=== PATIENT | female | born 1940 | race Caucasian/White ===

== ENCOUNTER 2020-07-07 14:01 | Outpatient (REF) | payer MEDICARE, OTHER, SELFPAY ==
--- NOTE | 2020-07-07 14:13 | XR_ITS ---
EXAMINATION: XR CHEST CLINICAL INFORMATION: Cough COMPARISON: 11/20/2016 TECHNIQUE: 2 views of the chest were obtained. FINDINGS: The lungs are well expanded. There is no focal consolidation, edema, or effusion. No pneumothorax. The cardiomediastinal silhouette is within normal limits. No acute osseous abnormality. Degenerative changes of the shoulders noted. XR/XR chest 2V IMPRESSION: Clear lungs.
== END 2020-07-07 14:02 | disposition home or self-care (01) ==
LOC: HO.XRAY 14:01
PROVIDERS: PCP Internal Medicine; Visit Provider Hospitalist
DX: R05 Cough (principal)
CPT/HCPCS: 71046

== ENCOUNTER → 2020-08-24 08:49 | Outpatient (BNVA) | payer MEDICARE, OTHER, SELFPAY | PROVIDERS: PCP Internal Medicine; Visit Provider Hospitalist | DX: J44.9 Chronic obstructive pulmonary disease, unspecified (principal); J30.9 Allergic rhinitis, unspecified; R05 Cough | CPT/HCPCS: 99212 ==

== ENCOUNTER → 2020-11-23 08:54 | Outpatient (BNVA) | payer MEDICARE, OTHER, SELFPAY | PROVIDERS: PCP Internal Medicine; Visit Provider Hospitalist | DX: J44.9 Chronic obstructive pulmonary disease, unspecified (principal); J30.9 Allergic rhinitis, unspecified; R05 Cough; Z79.51 Long term (current) use of inhaled steroids; Z79.899 Other long term (current) drug therapy; Z87.891 Personal history of nicotine dependence | CPT/HCPCS: 99212 ==

== ENCOUNTER 2021-06-23 14:22 | Outpatient (REF) | payer MEDICARE, OTHER, SELFPAY ==
--- NOTE | ~2021-06-23 | XR_ITS ---
EXAMINATION: XR CHEST CLINICAL INFORMATION: Cough COMPARISON: Previous chest x-rays most recent June [address] October 2011 TECHNIQUE: 2 views of the chest were obtained. FINDINGS: The cardiac and mediastinal contours are stable. The lung volumes are low. There are increased peripheral interstitial markings in the right upper lobe and left midlung. The lungs are otherwise clear. There is no pleural effusion or pneumothorax. There are degenerative changes of the spine. XR/XR chest 2V IMPRESSION: Low lung volumes. Increased interstitial markings in the right upper lobe and left midlung. Differential would include interstitial lung disease and resolving infiltrates.
== END 2021-06-23 14:23 | disposition home or self-care (01) ==
LOC: HO.XRAY 14:22
PROVIDERS: PCP Internal Medicine; Visit Provider Hospitalist
DX: J44.9 Chronic obstructive pulmonary disease, unspecified (principal); J30.9 Allergic rhinitis, unspecified; J40 Bronchitis, not specified as acute or chronic; R05.9 Cough, unspecified
CPT/HCPCS: 71046; 99212

== ENCOUNTER 2021-08-02 08:50 | Outpatient (REF) | payer MEDICARE, OTHER, SELFPAY ==
--- NOTE | ~2021-08-02 | MM_ITS ---
EXAMINATION: MM SCREENING DIGITAL BREAST TOMOSYNTHESIS, BILATERAL CLINICAL INFORMATION: Screening. Asymptomatic. The lifetime risk of breast cancer based on the Tyrer-Cuzick Model is 5%. COMPARISON: Mammography: 08/28/2019, 07/20/2015 TECHNIQUE: Digital breast tomosynthesis is performed in both the craniocaudal and mediolateral oblique views along with computer-aided detection (CAD). Synthesized 2D images are generated from the tomosynthesis. Additional left CC view is provided. FINDINGS: The breasts are almost entirely fatty (ACR BI-RADS breast composition Category a). Background stromal markings are similar to previous studies. There are no significant masses, abnormal calcifications, or other abnormalities. MM/MM tomosynthesis screening BI IMPRESSION: No mammographic evidence of malignancy. ASSESSMENT: BI-RADS 1: Negative RECOMMENDATION: Routine annual mammography screening. This patient's information was entered into a reminder system with a target due date for their next mammogram.
== END 2021-08-02 08:51 | disposition home or self-care (01) ==
LOC: HO.MAMMO 08:50
PROVIDERS: Visit Provider Internal Medicine
DX: Z12.31 Encounter for screening mammogram for malignant neoplasm of breast (principal)
CPT/HCPCS: 77063; 77067

== ENCOUNTER → 2021-12-26 09:49 | Outpatient (BNVA) | payer MEDICARE, OTHER, SELFPAY | PROVIDERS: PCP Internal Medicine; Visit Provider Hospitalist | DX: Z13.89 Encounter for screening for other disorder (principal) | CPT/HCPCS: 99212 ==

== ENCOUNTER 2021-12-26 10:42 | Outpatient (REF) | payer MEDICARE, OTHER, SELFPAY ==
[2021-12-28 14:56] LABS: IgA 335 mg/dL (70-320); IgG 725 mg/dL (600-1540); IgM 75 mg/dL (50-300)
[2021-12-30 07:26] LABS: Rast Allergen SEE NOTES
[2022-01-01 14:36] LABS: Asperg fumigatus Precip Abs NEGATIVE (NEGATIVE); Micropoly faeni Abs NEGATIVE (NEGATIVE); Pigeon serum Abs NEGATIVE (NEGATIVE); Saccharo pora viridis Abs NEGATIVE (NEGATIVE); Thermo candidus Abs NEGATIVE (NEGATIVE); Thermoa vulgaris #1 NEGATIVE (NEGATIVE)
== END 2021-12-26 10:43 | disposition home or self-care (01) ==
LOC: HO.LAB 10:42
PROVIDERS: PCP Internal Medicine; Visit Provider Hospitalist
DX: J44.9 Chronic obstructive pulmonary disease, unspecified (principal); J40 Bronchitis, not specified as acute or chronic; R91.8 Other nonspecific abnormal finding of lung field; M85.80 Other specified disorders of bone density and structure, unspecified site; J45.909 Unspecified asthma, uncomplicated; R05.9 Cough, unspecified
CPT/HCPCS: 36415; 82784; 86003; 86331; 86606; 86609; 99212

== ENCOUNTER → 2022-04-03 10:11 | Outpatient (BNVA) | payer MEDICARE, OTHER, SELFPAY | PROVIDERS: PCP Internal Medicine; Visit Provider Hospitalist | DX: J44.9 Chronic obstructive pulmonary disease, unspecified (principal); J30.9 Allergic rhinitis, unspecified; J84.9 Interstitial pulmonary disease, unspecified | CPT/HCPCS: 99212 ==

== ENCOUNTER 2022-10-03 09:25 | Outpatient (REF) | payer MEDICARE, OTHER, SELFPAY ==
--- NOTE | ~2022-10-03 | XR_ITS ---
EXAMINATION: XR CHEST CLINICAL INFORMATION: Interstitial pulmonary disease COMPARISON: 06/23/2021 TECHNIQUE: 2 views of the chest were obtained. FINDINGS: Lungs are chronically hyperinflated. The nonspecific reticular and/or reticulonodular opacities in both lungs remain similar in appearance compared to 06/23/2021. No evidence of acute disease superimposed on the chronic disease. No consolidation or pleural effusion. Cardiac silhouette has normal size and contour. Pulmonary vasculature is unremarkable. The visualized bones are intact. XR/XR chest 2V IMPRESSION: Chronic reticular/reticulonodular opacities of both lungs remain similar in appearance compared to 06/23/2021.
== END 2022-10-03 09:26 | disposition home or self-care (01) ==
LOC: HO.XRAY 09:25
PROVIDERS: PCP Internal Medicine; Visit Provider Hospitalist
DX: Z01.811 Encounter for preprocedural respiratory examination (principal); J44.9 Chronic obstructive pulmonary disease, unspecified; J84.9 Interstitial pulmonary disease, unspecified; J30.9 Allergic rhinitis, unspecified
CPT/HCPCS: 71046; 94010; 94618; 99212

== ENCOUNTER 2023-04-05 09:23 | Outpatient (AMB) | payer MEDICARE, OTHER, SELFPAY ==
--- NOTE | 2023-04-05 09:25 | MHC.OFFVIS ---
Intake Vital Signs 04/05/23 09:26 Height 5 ft 5 in Weight 159 lb 13.362 oz BMI 26.6 BP 124/52 L Blood Pressure Location Lt brachial Position Sitting Pulse 77 Pulse Source Pulse Oximeter Pulse Oximetry (%) 98 Oxygen Delivery Method Room Air Intake Visit Reasons: COPD Allergies No Known Allergies Allergy (Unknown, Verified 04/05/23 09:27) NOT APPLICABLE HPI HPI Comments History of Present Illness Details The patient is a 82-year-old woman known chronic rhinitis and also asthma COPD overlap syndrome. Her respiratory status has been stable over the summer. She has not required any prednisone. She has been starting to complain about nasal congestion and postnasal drip. That usually have she starts. Moderate severity. She has been using her Flonase. She has tried and failed Astelin nasal spray and also Atrovent nasal spray. She does use the Neti pot of but not all the time. She has been using her inhalers although, she does using all the time specially while her breathing is okay. She is concerned about the winter months at this time. 04/03/2022 the patient is here for a pulmonary follow-up visit. Overall she is doing better from a respiratory status. She states that she does have an ENT appointment coming up in the next month or 2. In the meantime she still continues to have a postnasal drip. She notices that the ProAir inhaler does help her significantly. She rather use that in the morning as it does help her expand her lungs better more than the Symbicort. She is still using the Symbicort and also the Spiriva. At this point I think she will do better on Combivent based on the fact that she likes to use the short-acting bronchodilators. I will [facility] her [facility] to [facility] the Spiriva. The patient does have some issues with musculoskeletal issues including the are right shoulder significantly painful. She is going to follow up with her orthopedist for that. I did recommend she see Pain Management which may provide her with other alternatives for pain control. Seems to be very uncomfortable. On examination she does have bilateral bibasilar rales. The patient is on chest x-rays demonstrated some degree of interstitial reticulonodular opacities suggesting some mild degree of interstitial lung disease. She has not had any worsening dyspnea on exertion or any other symptoms to suggest progression of his inteterstitial lung disease. Prior to the next visit have her get a chest x-ray to address that issue. If she develops any worsening symptoms prior to that she is to call for an evaluation. 10/03/2022 the patient is here for a pulmonary follow-up visit. The patient overall has been doing well from a respiratory status. Denies any worsening of her respiratory symptoms. She continues on the same medications. She has not required any prednisone or antibiotics since we last spoke. Again, urinary evaluation on the with the summer the patient did have an x-ray demonstrating some minimal interstitial changes. In the meantime she did follow-up with Orthopedic surgery for her left shoulder. She did have a CT scan of the left shoulder demonstrating some reticular changes along with some attenuation. This is suggestive of her COPD in addition to some degree of peripheral fibrosis. And a repeat chest x-ray no real significant worsening. Which still waiting for the final read. She is scheduled to undergo a orthopedic surgical procedure for her right shoulder. During the office visit we did have her undergo a 6 minutes walk test and she did great maintaining a pulse ox of 95% with activity and the heart rate in the low 100s. Her dyspnea score was between 3 and 4/10. The patient also underwent a spirometry which is also within normal limits. Therefore, the patient is able to pursue her orthopedic surgery without any pulmonary restrictions. The patient does have mild risk for perioperative pulmonary complications which include atelectasis, hypoxia, pneumonia and prolonged mechanical ventilation. The patient should be provided with pre and post bronchodilator therapy if need be. In the meantime she should also continue with respiratory therapy. Once the patient recovers from her surgery possibly in the fall we will consider getting a CT scan of the chest to further address the interstitial lung changes. The patient did have spirometry in the office demonstrating no obstructive nor restrictive lung disease. Lung capacity is excellent. 04/05/2023 the patient is here for pulmonary follow-up visit. She is complaining of worsening nasal congestion postnasal drip and cough. Moderate severity. It has been happening for the last couple months. She has not had a good summer because of it. Denies any fevers or chills. The mucus tends to be on a clear side. A lot of it is thin sometimes gets a little thicker. She has tried multiple nasal sprays in the past. She did not tolerate Astelin nasal spray. There was a question of having issues with ipratropium nasal spray but I do believe at this time she can use it as needed. She is using the Flonase as well. She continues using nebulizer often. She is wondering if she needs prednisone. The patient does have significant postnasal drip on examination. Appears within. 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 I did look at her last chest x-ray in appears to show some interstitial changes although chronic. If the patient continues to be symptomatic after the treatment will consider getting CAT scan of the chest. The patient was start antibiotics for chronic bronchitis and chronic sinusitis. I was prescribed some prednisone should she can use if the antibiotics are not effective. [facility] Medical History (Updated 10/03/22 @ 18:04 by Milton Bustillos MD) Asthma-COPD overlap syndrome Bronchitis Chronic allergic rhinitis Chronic allergic rhinitis Cough ILD (interstitial lung disease) Osteopenia Surgical History (Updated 12/26/21 @ 09:35 by Marisabel Dickinson PA-C) History of colonoscopy Social History (Updated 06/23/21 @ 14:33 by [place] NENA Freitas) Patient Tobacco Use Status: Former Tobacco user Tobacco use type: Cigarette Years Smoked: 20 years Review of Systems Const Denies chills, Denies fever(s) and Denies night sweats ENT Denies change in voice, Denies lip swelling, Denies mouth pain, Reports nasal congestion, Reports nasal discharge, Reports post nasal drip, Reports sinus pressure and Denies tongue swelling Card Denies chest pain and Reports dyspnea on exertion Resp Denies change in phlegm color, Reports chest congestion, Reports cough, Denies hemoptysis, Denies pain on inspiration, Denies pain with cough, Reports dyspnea on exertion and Denies wheezing GI Denies abdominal pain Musc Reports arthralgias, Reports joint swelling and Reports limited range of motion Neuro Denies Neuro-related abnormal movements Psych Denies no additional complaints Angelo/Lymph Denies easy bleeding and Denies lymphadenopathy Aller/Immun Denies lip swelling, Denies tongue swelling and Denies wheezing Physical Exam Vital Signs: Last Vital Signs Pulse 77 04/05/23 09:26 BP 124/52 L 04/05/23 09:26 Pulse Ox 98 04/05/23 09:26 Oxygen Delivery Method Room Air 04/05/23 09:26 BMI result Body Mass Index 26.6 Const General: alert HEENT General nose exam: Nasal discharge present Neck Neck: Yes normal visual inspection, Yes full ROM and Yes no lymphadenopathy Chest Chest palpation & inspection: normal inspection of the chest Resp Auscultation: no rales, no rhonchi, no wheezes and diminished lung sounds Cardio Rate: regular rate Rhythm: regular rhythm Heart sounds: S1 normal heart sound present and S2 normal heart sound present GI Palpation (GI): Soft to palpation and nontender Auscultation: normal bowel sounds Skin General skin exam: rashes and/or lesions noted Assessment & Plan Assessment & Plan (1) Asthma-COPD overlap syndrome: Code(s): J44.9 - Chronic obstructive pulmonary disease, unspecified (2) ILD (interstitial lung disease): Comment: minimal scarring Code(s): J84.9 - Interstitial pulmonary disease, unspecified (3) Chronic allergic rhinitis: Code(s): J30.9 - Allergic rhinitis, unspecified (4) Chronic allergic rhinitis: Code(s): J30.9 - Allergic rhinitis, unspecified Plan Continue Symbicort continue spiriva DAWSON as needed continue Singulair nasal sprays Add Ipratropium start Azithromycin MWF x 6-8 weeks Prednisone if no better or worsens Benzonates as needed, Goodrx card provided Consider CT chest in the Fall 2022 to assess ILD F/U2-3 months Medications: New azithromycin Take 1 tablet on Saturday/Saturday/Saturday 250 mg PO 3XW 28 days 12 tabs 1RF K21.9 - Gastro-esophageal reflux disease without esophagitis ipratropium bromide administer into each nostril 2 sprays intranasal TID PRN 15 mL 6RF allergy symptoms benzonatate 200 mg PO BID 30 days PRN 60 caps 0RF cough albuterol sulfate 90 mcg/actuation 2 inhalations inhalation Q6H 30 days PRN 18 grams 12RF shortness of breath or wheezing J44.9 - Chronic obstructive pulmonary disease, unspecified levalbuterol HCl 1.25 mg (3 mL) inhalation BID 30 days 180 mL 0RF J44.9 - Chronic obstructive pulmonary disease, unspecified prednisone PO daily; Take 2 tabs daily x 5 days, then 1 tablet daily x 5 days 15 tabs 0RF 10 days Refilled budesonide-formoterol 160-4.5 mcg/actuation (Symbicort) 2 puffs inhalation BID 90 days 3 ea 3RF J44.9 - Chronic obstructive pulmonary disease, unspecified Coding Level of Care Code Est Pt Level 4 (35143) Diagnoses Asthma-COPD overlap syndrome J44.9 ILD (interstitial lung disease) J84.9 Chronic allergic rhinitis J30.9 Time Spent (min) 20
[2023-04-05 09:26] VITALS: BP 124/52; PULSE 77; O2SAT 98; BMI 26.6
== END 2023-04-05 09:49 | disposition home or self-care (01) ==
PROVIDERS: PCP Internal Medicine; Visit Provider Hospitalist
DX: J44.9 Chronic obstructive pulmonary disease, unspecified (principal); J84.9 Interstitial pulmonary disease, unspecified; J30.9 Allergic rhinitis, unspecified
CPT/HCPCS: 99214

== ENCOUNTER → 2023-04-05 09:23 | Outpatient (BNVA) | payer MEDICARE, OTHER, SELFPAY | PROVIDERS: PCP Internal Medicine; Visit Provider Hospitalist | DX: J84.9 Interstitial pulmonary disease, unspecified (principal); J44.9 Chronic obstructive pulmonary disease, unspecified; Z79.52 Long term (current) use of systemic steroids; Z79.899 Other long term (current) drug therapy | CPT/HCPCS: 99212 ==

== ENCOUNTER 2023-07-09 09:01 | Outpatient (AMB) | payer MEDICARE, OTHER, SELFPAY ==
[2023-07-09 09:05] VITALS: BP 128/60; PULSE 88; O2SAT 95; BMI 26.3
--- NOTE | 2023-07-09 09:05 | A.OFFVIS_ITS ---
Intake Vital Signs 07/09/23 09:05 Height 5 ft 5 in Weight 158 lb BMI 26.3 BP 128/60 Blood Pressure Location Rt brachial Position Sitting Pulse 88 Pulse Source Pulse Oximeter Pulse Oximetry (%) 95 Oxygen Delivery Method Room Air Intake Visit Reasons: COPD Media Analyst Required: No Allergies No Known Allergies Allergy (Unknown, Verified 07/09/23 09:08) NOT APPLICABLE HPI HPI Comments History of Present Illness Details The patient is a 83-year-old woman known chronic rhinitis and also asthma COPD overlap syndrome. Her respiratory status has been stable over the summer. She has not required any prednisone. She has been starting to complain about nasal congestion and postnasal drip. That usually have she starts. Moderate severity. She has been using her Flonase. She has tried and failed Astelin nasal spray and also Atrovent nasal spray. She does use the Neti pot of but not all the time. She has been using her inhalers although, she does using all the time specially while her breathing is okay. She is concerned about the winter months at this time. 04/03/2022 the patient is here for a pulm onary follow-up visit. Overall she is doing better from a respiratory status. She states that she does have an ENT appointment coming up in the next month or 2. In the meantime she still continues to have a postnasal drip. She notices that the ProAir inhaler does help her significantly. She rather use that in the morning as it does help her expand her lungs better more than the Symbicort. She is still using the Symbicort and also the Spiriva. At this point I think she will do better on Com bivent based on the fact that she likes to use the short-acting bronchodilators. I will send her the [facility] to [facility] the Spiriva. The patient does have some issues with musculoskeletal issues including the are right shoulder significantly painful. She is going to follow up with her orthopedist for that. I did recommend she see Pain Management which may provide her with other alternatives for pain control. Seems to be very uncomfortable. On examination she does have bilateral bibasilar rales. The patient is on chest x-rays demonstrated some degree of interstitial reticulonodular opacities suggesting some mild degree of interstitial lung disease. She has not had any worsening dyspnea on exertion or any other symptoms to suggest progression of his inteterstitial lung disease. Prior to the next visit have her get a chest x- ray to address that issue. If she develops any worsening symptoms prior to that she is to call for an evaluation. 10/03/2022 the patient is here for a pulm onary follow-up visit. The patient overall has been doing well from a respiratory status. Denies any worsening of her respiratory symptoms. She continues on the same medications. She has not required any prednisone or antibiotics since we last spoke. Again, urinary evaluation on the with the summer the patient did have an x-ray demonstrating some minimal interstitial changes. In the meantime she did follow-up with Orthopedic surgery for her left shoulder. She did have a CT scan of the left shoulder demonstrating some reticular changes along with some attenuation. This is suggestive of her COPD in addition to some degree of peripheral fibrosis. And a repeat chest x-ray no real significant worsening. Which still waiting for the final read. She is scheduled to undergo a orthopedic surgical procedure for her right shoulder. During the office visit we did have her undergo a 6 minutes walk test and she did great maintaining a pulse ox of 95% with activity and the heart rate in the low 100s. Her dyspnea score was between 3 and 4/10. The patient also underwent a spirometry which is also within normal limits. Therefore, the patient is able to pursue her orthopedic surgery without any pulmonary restrictions. The patient does have mild risk for perioperative pulmonary complications which include atelectasis, hypoxia, pneumonia and prolonged mechanical ventilation. The patient should be provided with pre and post bronchodilator therapy if need be. In the meantime she should also continue with respiratory therapy. Once the patient recovers from her surgery possibly in the fall we will consider getting a CT scan of the chest to further address the interstitial lung changes. The patient did have spirometry in the office demonstrating no obstructive nor restrictive lung disease. Lung capacity is excellent. 04/05/2023 the patient is here for pulmon alejandro follow-up visit. She is complaining of worsening nasal congestion postnasal drip and cough. Moderate severity. It has been happening for the last couple months. She has not had a good summer because of it. Denies any fevers or chills. The mucus tends to be on a clear side. A lot of it is thin sometimes gets a little thicker. She has tried multiple nasal sprays in the past. She did not tolerate Astelin nasal spray. There was a question of having issues with ipratropium nasal spray but I do believe at this time she can use it as needed. She is using the Flonase as well. She continues using nebulizer often. She is wondering if she needs prednisone. The patient does have significant postnasal drip on examination. Appears within. 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 I did look at her last chest x-ray in appears to show some interstitial changes although chronic. If the patient continues to be symptomatic after the treatment will consider getting CAT scan of the chest. The patient was start antibiotics for chronic bronchitis and chronic sinusitis. I was prescribed some prednisone should she can use if the antibiotics are not effective. 07/09/2023 the patient is here for sick visit. She has been him worsening respiratory symptoms. She states that during the fall months she typically does get worsening chest tightness cough. She did have some prednisone at home she took 20 mg for few days and then decrease down to 10 mg. She took the last dose yesterday. Initially he has had some relief but when she started coming off the prednisone she started having symptoms again. She has a cough for the most part is nonproductive she also harsh and dry. On examination the patient does have some very fine crackles bilaterally suggesting degree of pneumonitis. She denies any sick contacts. His sinuses are also congested. Will go ahead and start her on another course of prednisone and also provide her some doxycycline. I do believe the patient needs a repeat CT scan to follow up with the abnormal chest x-ray and her worsening respiratory symptoms. Depending on the CT scan will do additional blood work. [facility] Medical History (Updated 07/09/23 @ 09:22 by Milton Bustillos MD) Pneumonitis ILD (interstitial lung disease) Chronic allergic rhinitis Osteopenia Bronchitis Asthma-COPD overlap syndrome Chronic allergic rhinitis Cough Surgical History (Updated 12/26/21 @ 09:35 by Marisabel Dickinson PA-C) History of colonoscopy (Updated 06/23/21 @ 14:33 by [place] NENA Freitas) Patient Tobacco Use Status: Former Tobacco user Tobacco use type: Cigarette Years Smoked: 20 years Review of Systems Const Denies chills, Denies fever(s) and Denies night sweats ENT Denies change in voice, Denies lip swelling, Denies mouth pain, Reports nasal congestion, Reports nasal discharge, Reports post nasal drip, Reports sinus pressure and Denies tongue swelling Card Denies chest pain, Reports dyspnea and Reports dyspnea on exertion Resp Denies change in phlegm color, Reports chest congestion, Reports cough, Denies hemoptysis, Denies pain on inspiration, Denies pain with cough, Reports dyspnea, Reports dyspnea on exertion and Reports wheezing GI Denies abdominal pain Musc Reports arthralgias, Reports joint swelling and Reports limited range of motion Neuro Denies Neuro-related abnormal movements Psych Denies no additional complaints Angelo/Lymph Denies easy bleeding and Denies lymphadenopathy Aller/Immun Denies lip swelling, Denies tongue swelling and Reports wheezing Physical Exam Vital Signs: Last Vital Signs Pulse 88 07/09/23 09:05 BP 128/60 07/09/23 09:05 Pulse Ox 95 07/09/23 09:05 Oxygen Delivery Method Room Air 07/09/23 09:05 BMI result Body Mass Index 26.3 Const General: alert HEENT General nose exam: Nasal discharge present Neck Neck: Yes normal visual inspection, Yes full ROM and Yes no lymphadenopathy Chest Chest palpation & inspection: normal inspection of the chest Resp Auscultation: rales, no rhonchi, no wheezes and diminished lung sounds Cardio Rate: regular rate Rhythm: regular rhythm Heart sounds: S1 normal heart sound present and S2 normal heart sound present GI Palpation (GI): Soft to palpation and nontender Auscultation: normal bowel sounds Skin General skin exam: rashes and/or lesions noted Assessment & Plan Assessment & Plan (1) Asthma-COPD overlap syndrome: Code(s): J44.9 - Chronic obstructive pulmonary disease, unspecified (2) ILD (interstitial lung disease): Comment: minimal scarring Code(s): J84.9 - Interstitial pulmonary disease, unspecified (3) Chronic allergic rhinitis: Code(s): J30.9 - Allergic rhinitis, unspecified (4) Chronic allergic rhinitis: Code(s): J30.9 - Allergic rhinitis, unspecified (5) Pneumonitis: Code(s): J98.4 - Other disorders of lung Plan restart prednisone start Doxycycline CT chest Continue Symbicort continue spiriva DAWSON as needed continue Singulair nasal sprays Benzonates as needed, Goodrx card provided F/U 6-8 weeks Orders: Orders CT chest wo IV con Today J84.9 - Interstitial pulmonary disease, unspecified, J98.4 - Other disorders of lung Medications: New prednisone PO daily; Take 4 tabs x 3 days, then 3 tabs x 3 days, then 2 tabs daily x 3 days, then 1 tab x 3 days to complete. 12 days 30 tabs 0RF doxycycline hyclate 100 mg PO BID 10 days 20 caps 0RF Coding Level of Care Code Est Pt Level 4 (78307) Diagnoses Asthma-COPD overlap syndrome J44.9 ILD (interstitial lung disease) J84.9 Chronic allergic rhinitis J30.9 Pneumonitis J98.4 Time Spent (min) 16
== END 2023-07-09 09:30 | disposition home or self-care (01) ==
PROVIDERS: PCP Internal Medicine; Visit Provider Hospitalist
DX: J44.9 Chronic obstructive pulmonary disease, unspecified (principal); J84.9 Interstitial pulmonary disease, unspecified; J30.9 Allergic rhinitis, unspecified; J98.4 Other disorders of lung
CPT/HCPCS: 99214

== ENCOUNTER → 2023-07-09 09:01 | Outpatient (BNVA) | payer MEDICARE, OTHER, SELFPAY | PROVIDERS: PCP Internal Medicine; Visit Provider Hospitalist | DX: J44.9 Chronic obstructive pulmonary disease, unspecified (principal); J84.9 Interstitial pulmonary disease, unspecified; J30.9 Allergic rhinitis, unspecified; J98.4 Other disorders of lung | CPT/HCPCS: 99212 ==

== ENCOUNTER 2023-07-31 07:16 | Outpatient (REF) | payer MEDICARE, OTHER, SELFPAY ==
--- NOTE | ~2023-07-31 | CT_ITS ---
EXAMINATION: CT CHEST WITHOUT CONTRAST CLINICAL INFORMATION: Interstitial pulmonary disease. COMPARISON: Chest radiograph 10/03/2022. CT chest 11/13/2011. TECHNIQUE: Multidetector volumetric CT imaging of the chest was done. Axial MIP volume rendering provided. Sagittal and coronal reformatted images were obtained. This CT examination was performed using dose optimization techniques as appropriate, variously including the following: *Automated exposure control *Adjustment of mA and/or kV according to patient size (this includes techniques or standardized protocols for targeted exams where dose is matched to indication/reason for exam; i.e. extremities or head) *Use of iterative reconstruction technique DLP: 180 mGy-cm FINDINGS: LUNGS: There is subpleural reticulation present, most prominent in the upper lobes anteriorly and the lower lobes posteriorly with associated traction bronchiectasis. These findings are new when compared with the 11/13/2011 study. At that time, there were some patchy ground-glass infiltrates at the lung bases which has subsequently cleared. No significant bullous changes to suggest emphysema are seen. No suspicious lung masses are seen. There is mild tracheobronchial megaly. MEDIASTINUM: Thyroid appears normal. No mediastinal or hilar lymphadenopathy. Calcific plaque present in the aorta without aneurysm. CORONARY ARTERY CALCIFICATION: Moderate. PLEURA: There is no pleural effusion. No pleural mass or thickening. AXILLA: No lymphadenopathy. UPPER ABDOMEN: Unremarkable. OSSEOUS STRUCTURES: Unremarkable. CT/CT chest wo IV con IMPRESSION: 1. Subpleural reticulation with associated traction bronchiectasis. Findings are consistent with interstitial lung disease. 2. Resolution of previously seen ground-glass infiltrates at the lung bases. 3. No suspicious lung masses are seen. 4. Other incidental findings as described above including coronary artery calcifications. Fleischner guidelines were followed.
== END 2023-07-31 07:17 | disposition home or self-care (01) ==
LOC: HO.CT 07:16
PROVIDERS: PCP Internal Medicine; Visit Provider Hospitalist
DX: J84.9 Interstitial pulmonary disease, unspecified (principal); J98.4 Other disorders of lung
CPT/HCPCS: 71250

== ENCOUNTER 2023-09-03 08:40 | Outpatient (AMB) | payer MEDICARE, OTHER, SELFPAY ==
--- NOTE | 2023-09-03 08:47 | MHC.OFFVIS ---
Intake Vital Signs 09/03/23 08:48 Height 5 ft 5 in Weight 165 lb 5.547 oz BMI 27.5 BP 132/64 Blood Pressure Location Lt brachial Position Sitting Pulse 84 Pulse Source Pulse Oximeter Pulse Oximetry (%) 97 Oxygen Delivery Method Room Air Intake Visit Reasons: COPD Allergies No Known Allergies Allergy (Unknown, Verified 09/03/23 08:51) NOT APPLICABLE HPI HPI Comments History of Present Illness Details The patient is a 83-year-old woman known chronic rhinitis and also asthma COPD overlap syndrome. Her respiratory status has been stable over the summer. She has not required any prednisone. She has been starting to complain about nasal congestion and postnasal drip. That usually have she starts. Moderate severity. She has been using her Flonase. She has tried and failed Astelin nasal spray and also Atrovent nasal spray. She does use the Neti pot of but not all the time. She has been using her inhalers although, she does using all the time specially while her breathing is okay. She is concerned about the winter months at this time. 04/03/2022 the patient is here for a pulmonary follow-up visit. Overall she is doing better from a respiratory status. She states that she does have an ENT appointment coming up in the next month or 2. In the meantime she still continues to have a postnasal drip. She notices that the ProAir inhaler does help her significantly. She rather use that in the morning as it does help her expand her lungs better more than the Symbicort. She is still using the Symbicort and also the Spiriva. At this point I think she will do better on Combivent based on the fact that she likes to use the short-acting bronchodilators. I will send her the [facility] to place the Spiriva. The patient does have some issues with musculoskeletal issues including the are right shoulder significantly painful. She is going to follow up with her orthopedist for that. I did recommend she see Pain Management which may provide her with other alternatives for pain control. Seems to be very uncomfortable. On examination she does have bilateral bibasilar rales. The patient is on chest x-rays demonstrated some degree of interstitial reticulonodular opacities suggesting some mild degree of interstitial lung disease. She has not had any worsening dyspnea on exertion or any other symptoms to suggest progression of his inteterstitial lung disease. Prior to the next visit have her get a chest x-ray to address that issue. If she develops any worsening symptoms prior to that she is to call for an evaluation. 10/03/2022 the patient is here for a pulmonary follow-up visit. The patient overall has been doing well from a respiratory status. Denies any worsening of her respiratory symptoms. She continues on the same medications. She has not required any prednisone or antibiotics since we last spoke. Again, urinary evaluation on the with the summer the patient did have an x-ray demonstrating some minimal interstitial changes. In the meantime she did follow-up with Orthopedic surgery for her left shoulder. She did have a CT scan of the left shoulder demonstrating some reticular changes along with some attenuation. This is suggestive of her COPD in addition to some degree of peripheral fibrosis. And a repeat chest x-ray no real significant worsening. Which still waiting for the final read. She is scheduled to undergo a orthopedic surgical procedure for her right shoulder. During the office visit we did have her undergo a 6 minutes walk test and she did great maintaining a pulse ox of 95% with activity and the heart rate in the low 100s. Her dyspnea score was between 3 and 4/10. The patient also underwent a spirometry which is also within normal limits. Therefore, the patient is able to pursue her orthopedic surgery without any pulmonary restrictions. The patient does have mild risk for perioperative pulmonary complications which include atelectasis, hypoxia, pneumonia and prolonged mechanical ventilation. The patient should be provided with pre and post bronchodilator therapy if need be. In the meantime she should also continue with respiratory therapy. Once the patient recovers from her surgery possibly in the fall we will consider getting a CT scan of the chest to further address the interstitial lung changes. The patient did have spirometry in the office demonstrating no obstructive nor restrictive lung disease. Lung capacity is excellent. 04/05/2023 the patient is here for pulmonary follow-up visit. She is complaining of worsening nasal congestion postnasal drip and cough. Moderate severity. It has been happening for the last couple months. She has not had a good summer because of it. Denies any fevers or chills. The mucus tends to be on a clear side. A lot of it is thin sometimes gets a little thicker. She has tried multiple nasal sprays in the past. She did not tolerate Astelin nasal spray. There was a question of having issues with ipratropium nasal spray but I do believe at this time she can use it as needed. She is using the Flonase as well. She continues using nebulizer often. She is wondering if she needs prednisone. The patient does have significant postnasal drip on examination. Appears within. 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 I did look at her last chest x-ray in appears to show some interstitial changes although chronic. If the patient continues to be symptomatic after the treatment will consider getting CAT scan of the chest. The patient was start antibiotics for chronic bronchitis and chronic sinusitis. I was prescribed some prednisone should she can use if the antibiotics are not effective. 07/09/2023 the patient is here for sick visit. She has been him worsening respiratory symptoms. She states that during the fall months she typically does get worsening chest tightness cough. She did have some prednisone at home she took 20 mg for few days and then decrease down to 10 mg. She took the last dose yesterday. Initially he has had some relief but when she started coming off the prednisone she started having symptoms again. She has a cough for the most part is nonproductive she also harsh and dry. On examination the patient does have some very fine crackles bilaterally suggesting degree of pneumonitis. She denies any sick contacts. His sinuses are also congested. Will go ahead and start her on another course of prednisone and also provide her some doxycycline. I do believe the patient needs a repeat CT scan to follow up with the abnormal chest x-ray and her worsening respiratory symptoms. Depending on the CT scan will do additional blood work. 09/03/2023 the patient is here for a pulmonary follow-up visit. Her breathing is overall better. She has not required any additional prednisone or antibiotics. The patient does have some shortness of breath with activity. Mild in severity. Denies any significant cough. The patient has been using the Symbicort and the Spiriva with good effect. Although, the Symbicort is no longer cover so therefore I will send a Dulera to use instead. She did have a CT scan of the chest that we personally reviewed together. It appears that she does have reticular changes in the subpleural area along with the bases suggesting some degree of interstitial lung disease. No evidence of any ground-glass opacities. This could be the result of her underlying pneumonitis that she had back in the fall or the patient may indeed have interstitial lung disease such as idiopathic pulmonary fibrosis specially since I do not see any ground-glass opacities. Will continue to monitor closely for any progression of disease. The fact that she patient is feeling better from the fall is reassuring. She is also dealing with her sick son. He currently at a [facility] waiting for a heart transplant. Will have her return in 4 months with PFTs to see if there is any progression. Will continue to monitor closely. [facility] Medical History (Updated 07/09/23 @ 09:22 by Milton Bustillos MD) Pneumonitis ILD (interstitial lung disease) Chronic allergic rhinitis Osteopenia Bronchitis Asthma-COPD overlap syndrome Chronic allergic rhinitis Cough Surgical History (Updated 12/26/21 @ 09:35 by Marisabel Dickinson PA-C) History of colonoscopy Social History (Updated 06/23/21 @ 14:33 by LA NENA Freitas) Patient Tobacco Use Status: Former Tobacco user Tobacco use type: Cigarette Years Smoked: 20 years Review of Systems Const Denies chills, Denies fever(s) and Denies night sweats ENT Denies change in voice, Denies lip swelling, Denies mouth pain, Reports nasal congestion and Denies tongue swelling Card Denies chest pain and Reports dyspnea on exertion Resp Denies change in phlegm color, Reports cough, Denies hemoptysis, Denies pain on inspiration, Denies pain with cough, Reports dyspnea on exertion and Reports wheezing GI Denies abdominal pain Musc Reports arthralgias, Reports joint swelling and Reports limited range of motion Neuro Denies Neuro-related abnormal movements Psych Denies no additional complaints Angelo/Lymph Denies easy bleeding and Denies lymphadenopathy Aller/Immun Denies lip swelling, Denies tongue swelling and Reports wheezing Physical Exam Vital Signs: Last Vital Signs Pulse 84 09/03/23 08:48 BP 132/64 09/03/23 08:48 Pulse Ox 97 09/03/23 08:48 Oxygen Delivery Method Room Air 09/03/23 08:48 BMI result Body Mass Index 27.5 Const General: alert HEENT General nose exam: Nasal discharge present Neck Neck: Yes normal visual inspection, Yes full ROM and Yes no lymphadenopathy Chest Chest palpation & inspection: normal inspection of the chest Resp Effort & Inspection: normal respiratory effort Auscultation: no rales, no rhonchi, no wheezes and diminished lung sounds Cardio Rate: regular rate Rhythm: regular rhythm Heart sounds: S1 normal heart sound present and S2 normal heart sound present GI Palpation (GI): Soft to palpation and nontender Auscultation: normal bowel sounds Skin General skin exam: no rashes or lesions noted Extrem General: Yes no clubbing, cyanosis or edema Results Reviewed Results Reviewed: [address] [address] [address] Scan Report Signed Patient: Moira Portillo MR#: [id number] : 1940 Acct:[id number] Age/Sex: 83 / F ADM Date: 07/31/23 Loc: HO.CT Attending Dr: Milton Bustillos MD Ordering Physician: Milton Bustillos MD Date of Service: 07/31/23 Procedure(s): CT chest wo IV con Accession Number(s): [id number] cc: Jarrod Smart MD; Milton Bustillos MD~ EXAMINATION: CT CHEST WITHOUT CONTRAST CLINICAL INFORMATION: Interstitial pulmonary disease. COMPARISON: Chest radiograph 10/03/2022. CT chest 11/13/2011. TECHNIQUE: Multidetector volumetric CT imaging of the chest was done. Axial MIP volume rendering provided. Sagittal and coronal reformatted images were obtained. This CT examination was performed using dose optimization techniques as appropriate, variously including the following: *Automated exposure control *Adjustment of mA and/or kV according to patient size (this includes techniques or standardized protocols for targeted exams where dose is matched to indication/reason for exam; i.e. extremities or head) *Use of iterative reconstruction technique DLP: 180 mGy-cm FINDINGS: LUNGS: There is subpleural reticulation present, most prominent in the upper lobes anteriorly and the lower lobes posteriorly with associated traction bronchiectasis. These findings are new when compared with the 11/13/2011 study. At that time, there were some patchy ground-glass infiltrates at the lung bases which has subsequently cleared. No significant bullous changes to suggest emphysema are seen. No suspicious lung masses are seen. There is mild tracheobronchial megaly. MEDIASTINUM: Thyroid appears normal. No mediastinal or hilar lymphadenopathy. Calcific plaque present in the aorta without aneurysm. CORONARY ARTERY CALCIFICATION: Moderate. PLEURA: There is no pleural effusion. No pleural mass or thickening. AXILLA: No lymphadenopathy. UPPER ABDOMEN: Unremarkable. OSSEOUS STRUCTURES: Unremarkable. CT/CT chest wo IV con IMPRESSION: 1. Subpleural reticulation with associated traction bronchiectasis. Findings are consistent with interstitial lung disease. 2. Resolution of previously seen ground-glass infiltrates at the lung bases. 3. No suspicious lung masses are seen. 4. Other incidental findings as described above including coronary artery calcifications. Fleischner guidelines were followed. Dictated By: Evens Coleman MD Signed By: <Electronically signed by Evens Coleman MD in OV> 08/20/23 1000 DD/ 0802 TD/TT: Air Control/Anti Air Warfare Officer: SS Assessment & Plan Assessment & Plan (1) Asthma-COPD overlap syndrome: Code(s): J44.9 - Chronic obstructive pulmonary disease, unspecified (2) ILD (interstitial lung disease): Comment: minimal scarring Code(s): J84.9 - Interstitial pulmonary disease, unspecified (3) Chronic allergic rhinitis: Code(s): J30.9 - Allergic rhinitis, unspecified Plan stop Symbicort start Dulera continue spiriva DAWSON as needed continue Singulair nasal sprays Benzonates as needed, Goodrx card provided PFTs in 4 months F/U 4 months Orders: Orders PFT pulmonary function test 4 Months J84.9 - Interstitial pulmonary disease, unspecified Coding Level of Care Code Est Pt Level 4 (66056) Diagnoses Asthma-COPD overlap syndrome J44.9 ILD (interstitial lung disease) J84.9 Chronic allergic rhinitis J30.9 Time Spent (min) 17
[2023-09-03 08:48] VITALS: BP 132/64; PULSE 84; O2SAT 97; BMI 27.5
== END 2023-09-03 09:08 | disposition home or self-care (01) ==
PROVIDERS: PCP Internal Medicine; Visit Provider Hospitalist
DX: J44.9 Chronic obstructive pulmonary disease, unspecified (principal); J84.9 Interstitial pulmonary disease, unspecified; J30.9 Allergic rhinitis, unspecified
CPT/HCPCS: 99214

== ENCOUNTER → 2023-09-03 08:40 | Outpatient (BNVA) | payer MEDICARE, OTHER, SELFPAY | PROVIDERS: PCP Internal Medicine; Visit Provider Hospitalist | DX: J44.9 Chronic obstructive pulmonary disease, unspecified (principal); J84.9 Interstitial pulmonary disease, unspecified; J30.9 Allergic rhinitis, unspecified | CPT/HCPCS: 99212 ==

== ENCOUNTER 2023-10-17 11:12 | Outpatient (AMB) | payer MEDICARE, OTHER, SELFPAY ==
[2023-10-17 11:16] VITALS: BP 110/60; PULSE 90; O2SAT 92; BMI 25.6
--- NOTE | 2023-10-17 11:16 | A.OFFVIS_ITS ---
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 Her respiratory status has been stable over the summer. She has not required any prednisone. She has been starting to complain about nasal congestion and postnasal drip. That usually have she starts. Moderate severity. She has been using her Flonase. She has tried and failed Ast brian nasal spray and also Atrovent nasal spray. She does use the Neti pot of but not all the time. She has been using her inhalers although, she does using all the time specially while her breathing is okay. She is concerned about the winter months at this time. 04/03/2022 the patient is here for a pulm onary follow-up visit. Overall she is doing better from a respiratory status. She states that she does have an ENT appointment coming up in the next month or 2. In the meantime she still continues to have a postnasal drip. She notices that the ProAir inhaler does help her significantly. She rather use that in the morning as it does help her expand her lungs better more than the Symbicort. She is still using the Symbicort and also the Spiriva. At this point I think she will do better on Combivent based on the fact that she likes to use the short-acting bronchodilators. I will send her the [facility]vent to place the Spiriva. The patient does have some issues with musculoskeletal issues including the are right shoulder significantly painful. She is going to follow up with her orthopedist for that. I did recommend she see Pain Management which may provide her with other alternatives for pain control. Seems to be very uncomfortable. On examination she does have bilateral bibasilar rales. The patient is on chest x- rays demonstrated some degree of interstitial reticulonodular opacities suggesting some mild degree of interstitial lung disease. She has not had any worsening dyspnea on exertion or any other symptoms to suggest progression of his inteterstitial lung disease. Prior to the next visit have her get a chest x-ray to address that issue. If she develops any worsening symptoms prior to that she is to call for an evaluation. 10/03/2022 the patient is here for a pulm onary follow-up visit. The patient overall has been doing well from a respiratory status. Denies any worsening of her respiratory symptoms. She continues on the same medications. She has not required any prednisone or antibiotics since we last spoke. Again, urinary evaluation on the with the summer the patient did have an x-ray demonstrating some minimal interstitial changes. In the meantime she did follow-up with Orthopedic surgery for her left shoulder. She did have a CT scan of the left shoulder demonstrating some reticular changes along with some attenuation. This is suggestive of her COPD in addition to some degree of peripheral fibrosis. And a repeat chest x-ray no real significant worsening. Which still waiting for the final read. She is scheduled to undergo a orthopedic surgical procedure for her right shoulder. During the office visit we did have her undergo a 6 minutes walk test and she did great maintaining a pulse ox of 95% with activity and the heart rate in the low 100s. Her dyspnea score was between 3 and 4/10. The patient also underwent a spirometry which is also within normal limits. Therefore, the patient is able to pursue her orthopedic surgery without any pulmonary restrictions. The patient does have mild risk for perioperative pulmonary complications which include atelectasis, hypoxia, pneumonia and prolonged mechanical ventilation. The patient should be provided with pre and post bronchodilator therapy if need be. In the meantime she should also continue with respiratory therapy. Once the patient recovers from her surgery possibly in the fall we will consider getting a CT scan of the chest to further address the interstitial lung changes. The patient did have spirometry in the office demonstrating no obstructive nor restrictive lung disease. Lung capacity is excellent. 04/05/2023 the patient is here for pulmon alejandro follow-up visit. She is complaining of worsening nasal congestion postnasal drip and cough. Moderate severity. It has been happening for the last couple months. She has not had a good summer because of it. Denies any fevers or chills. The mucus tends to be on a clear side. A lot of it is thin sometimes gets a little thicker. She has tried multiple nasal sprays in the past. She did not tolerate Astelin nasal spray. There was a question of having issues with ipratropium nasal spray but I do believe at this time she can use it as needed. She is using the Flonase as well. She continues using nebulizer often. She is wondering if she needs prednisone. The patient does have significant postnasal drip on examination. Appears within. 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 I did look at her last chest x-ray in appears to show some interstitial changes although chronic. If the patient continues to be symptomatic after the treatment will consider getting CAT scan of the chest. The patient was start antibiotics for chronic bronchitis and chronic sinusitis. I was prescribed some prednisone should she can use if the antibiotics are not effective. 07/09/2023 the patient is here for sick visit. She has been him worsening respiratory symptoms. She states that during the fall months she typically does get worsening chest tightness cough. She did have some prednisone at home she took 20 mg for few days and then decrease down to 10 mg. She took the last dose yesterday. Initially he has had some relief but when she started coming off the prednisone she started having symptoms again. She has a cough for the most part is nonproductive she also harsh and dry. On examination the patient does have some very fine crackles bilaterally suggesting degree of pneumonitis. She denies any sick contacts. His sinuses are also congested. Will go ahead and start her on another course of prednisone and also provide her some doxycycline. I do believe the patient needs a repeat CT scan to follow up with the abnormal chest x-ray and her worsening respiratory symptoms. Depending on the CT scan will do additional blood work. 09/03/2023 the patient is here for a pulm onary follow-up visit. Her breathing is overall better. She has not required any additional prednisone or antibiotics. The patient does have some shortness of breath with activity. Mild in severity. Denies any significant cough. The patient has been using the Symbicort and the Spiriva with good effect. Although, the Symbicort is no longer cover so therefore I will send a Dulera to use instead. She did have a CT scan of the chest that we personally reviewed together. It appears that she does have reticular changes in the subpleural area along with the bases suggesting some degree of interstitial lung disease. No evidence of any ground-glass opacities. This could be the result of her underlying pneumonitis that she had back in the fall or the patient may indeed have interstitial lung disease such as idiopathic pulmonary fibrosis specially since I do not see any ground-glass opacities. Will continue to monitor closely for any progression of disease. The fact that she patient is feeling better from the fall is reassuring. She is also dealing with her sick son. He currently at a [facility] waiting for a heart transplant. Will have her return in 4 months with PFTs to see if there is any progression. Will continue to monitor closely. 05/08/2024 the patient is here for sick v isit. She has been sick now for 3 days. Complains of headaches fever chills cough shortness of breath. Moderate in severity. She is tested negative for COVID-19. She did call the office we did send her a course of antibiotics. Also Center cough syrup but she was not able to get it because his back order. In the meantime she did come in she does have crackles at the bases. We did swab her for RSV, flu and COVID. It turned out positive for RSV. Likely RSV bronchiolitis with some degree of pneumonitis. She continues use her respiratory medications. [facility] Medical History (Updated 10/17/23 @ 12:58 by Milton Bustillos MD) RSV (respiratory syncytial virus pneumonia) Pneumonitis ILD (interstitial lung disease) Chronic allergic rhinitis Osteopenia Bronchitis Asthma-COPD overlap syndrome Chronic allergic rhinitis Cough Surgical History (Updated 12/26/21 @ 09:35 by Marisabel Dickinson PA-C) History of colonoscopy Social History (Updated 06/23/21 @ 14:33 by LA NENA Freitas) Patient Tobacco Use Status: Former Tobacco user Tobacco use type: Cigarette Years Smoked: 20 years Review of Systems Const Reports chills, Reports fever(s), Reports headache(s), Reports malaise and Denies night sweats ENT Denies change in voice, Reports headache(s), Denies lip swelling, Denies mouth pain, Reports nasal congestion and Denies tongue swelling Card Denies chest pain and Reports dyspnea on exertion Resp Denies change in phlegm color, Reports cough, Denies hemoptysis, Denies pain on inspiration, Denies pain with cough, Reports dyspnea on exertion and Reports wheezing GI Denies abdominal pain Musc Reports arthralgias, Reports joint swelling and Reports limited range of motion Neuro Denies Neuro-related abnormal movements and Reports headache(s) Psych Denies no additional complaints Angelo/Lymph Denies easy bleeding and Denies lymphadenopathy Aller/Immun Denies lip swelling, Denies tongue swelling and Reports wheezing Physical Exam Vital Signs: Last Vital Signs Pulse 90 10/17/23 11:16 BP 110/60 10/17/23 11:16 Pulse Ox 92 10/17/23 11:16 Oxygen Delivery Method Room Air 10/17/23 11:16 BMI result Body Mass Index 25.6 Const General: ill appearing and tired appearing HEENT General nose exam: Nasal discharge present Neck Neck: Yes normal visual inspection, Yes full ROM and Yes no lymphadenopathy Chest Chest palpation & inspection: normal inspection of the chest Resp Effort & Inspection: normal respiratory effort Auscultation: rales, no rhonchi, no wheezes and diminished lung sounds Cardio Rate: regular rate Rhythm: regular rhythm Heart sounds: S1 normal heart sound present and S2 normal heart sound present GI Palpation (GI): Soft to palpation and nontender Auscultation: normal bowel sounds Skin General skin exam: no rashes or lesions noted Extrem General: Yes no clubbing, cyanosis or edema Assessment & Plan Assessment & Plan (1) RSV (respiratory syncytial virus pneumonia): Code(s): J12.1 - Respiratory syncytial virus pneumonia (2) Asthma-COPD overlap syndrome: Code(s): J44.9 - Chronic obstructive pulmonary disease, unspecified (3) ILD (interstitial lung disease): Comment: minimal scarring Code(s): J84.9 - Interstitial pulmonary disease, unspecified (4) Chronic allergic rhinitis: Code(s): J30.9 - Allergic rhinitis, unspecified (5) Viral syndrome: Code(s): B34.9 - Viral infection, unspecified Plan Start Prednisone taper continue doxycycline cough medicine continue Dulera continue spiriva DAWSON as needed continue Singulair nasal sprays Benzonates as needed, Goodrx card provided The patient is aware that if she worsens will need to go to the ED F/U 3-4 months Orders: Orders SARS-CoV2/FLU/RSV Today B34.9 - Viral infection, unspecified Medications: New prednisone PO daily; Take 2 tabs daily x 5 days, then 1 tablet daily x 5 days 10 days 15 tabs 0RF Refilled codeine-guaifenesin 10-100 mg/5 mL 10 mL PO Q6H 10 days PRN 300 mL 0RF cough Coding Level of Care Code Est Pt Level 4 (21257) Diagnoses RSV (respiratory syncytial virus pneumonia) J12.1 Asthma-COPD overlap syndrome J44.9 ILD (interstitial lung disease) J84.9 Chronic allergic rhinitis J30.9 Viral syndrome B34.9 Time Spent (min) 17
== END 2023-10-17 11:38 | disposition home or self-care (01) ==
PROVIDERS: PCP Internal Medicine; Visit Provider Hospitalist
DX: J12.1 Respiratory syncytial virus pneumonia (principal); J44.9 Chronic obstructive pulmonary disease, unspecified; J30.9 Allergic rhinitis, unspecified; B34.9 Viral infection, unspecified
CPT/HCPCS: 99214

== ENCOUNTER 2023-10-17 11:12 | Outpatient (REF) | payer MEDICARE, OTHER, SELFPAY ==
[2023-10-17 12:35] LABS: Influenza A PCR NEGATIVE (Negative); Influenza B PCR NEGATIVE (Negative); Resp Syncy Virus RNA Qual PCR POSITIVE (Negative); SARS COV2 PCR INHOUSE NEGATIVE (Negative)
== END 2023-10-17 11:13 | disposition home or self-care (01) ==
LOC: HO.LNP 11:12
PROVIDERS: PCP Internal Medicine; Visit Provider Hospitalist
DX: J44.9 Chronic obstructive pulmonary disease, unspecified (principal); R09.89 Other specified symptoms and signs involving the circulatory and respiratory systems; J84.9 Interstitial pulmonary disease, unspecified; J30.9 Allergic rhinitis, unspecified; B34.9 Viral infection, unspecified; Z11.52 Encounter for screening for COVID-19; Z20.828 Contact with and (suspected) exposure to other viral communicable diseases
CPT/HCPCS: 0241U; 99212

== ENCOUNTER 2023-11-20 07:38 | Outpatient (REF) | payer MEDICARE, OTHER, SELFPAY ==
[2023-11-20 07:55] LABS: MANUAL DIFF FLAG NO
[2023-11-20 08:16] LABS: Basophils Percent Auto 0.4 % (0-2); Eosinophils Absolute Auto 0.4 X10*3/uL (0.0-0.4); Eosinophils Percent Auto 5.5 % (0-4); Hematocrit 38.6 % (37.0-47.0); Hemoglobin 13.2 g/dl (12.0-16.0); Imm Gran Abs Auto 0.03 X10*3/uL (0.00-0.03); Imm Gran Pct Auto 0.4 % (0.0-0.4); Lymphocytes Absolute Auto 2.7 X10*3/uL (1.2-4.9); Lymphocytes Percent Auto 37.3 % (20-40); Mean Corpuscular HGB Conc 34.2 g/dl (31.0-35.0); Mean Corpuscular Hemoglobin 31.4 pg (27.0-33.0); Mean Corpuscular Volume 91.9 fL (80.0-98.0); Mean Platelet Volume 8.9 fL (9.4-12.3); Monocytes Absolute Auto 0.7 X10*3/uL (0.1-1.2); Monocytes Percent Auto 10.1 % (2-11); Neutrophils Absolute Auto 3.3 x10*3/uL (2.0-8.3); Neutrophils Percent Auto 46.3 % (45-73); Platelet Count 312 X10*3/uL (160-400); Red Cell Distribution Width 12.5 % (11.0-16.0); White Blood Count 7.2 X10*3/uL (4.8-10.8)
[2023-11-20 09:20] LABS: Alanine Aminotransferase 16 U/L (0-31); Albumin Level 3.9 g/dL (3.5-5.0); Alkaline Phosphatase 57 U/L (39-117); Anion Gap 12 (12-20); Aspartate Amino Transferase 25 U/L (5-31); Bilirubin Total 0.2 mg/dL (0.0-1.0); Blood Urea Nitrogen 11 mg/dL (9-16); Calcium 9.4 mg/dL (8.4-10.2); Carbon Dioxide 27 mmol/L (22-29); Chloride 105 mmol/L (96-108); Cholesterol 190 mg/dL (<200); Estimated Glomerular Filt Rate > 60; Glucose Fasting 192 mg/dL (60-99); HDL Cholesterol 57 mg/dL (>40); LDL Cholesterol Calculated 118 mg/dL (<100); Potassium 4.2 mmol/L (3.3-5.1); Sodium 140 mmol/L (135-145); Total Protein 7.3 g/dL (6.5-8.0); Triglycerides 75 mg/dL (<150)
[2023-11-20 09:33] LABS: Estimated Average Glucose 166 mg/dL; Hemoglobin A1c % 7.4 % (<6.0)
== END 2023-11-20 07:39 | disposition home or self-care (01) ==
LOC: HO.LAB 07:38
PROVIDERS: PCP Internal Medicine; Visit Provider Internal Medicine
DX: E11.9 Type 2 diabetes mellitus without complications (principal); R53.83 Other fatigue
CPT/HCPCS: 36415; 80053; 80061; 83036; 85025

== ENCOUNTER 2023-12-12 10:50 | Outpatient (REF) | payer MEDICARE, OTHER, SELFPAY ==
[2023-12-12 09:11] VITALS: PULSE 72; RESP 16; O2SAT 98
--- NOTE | 2023-12-12 16:13 | PFT_ITS ---
Indication: COPD Spirometry [FEV1 to FVC 89%; FEV1 2.23 L; FVC 2.49L. No significant response to bronchodilators noted. Maximum voluntary ventilation 117% predicted] Lung Volumes [Total lung capacity 76% predicted] Diffusion Capacity [DLCO 50% predicted] Comparisons [none] Interpretation [No obstructive ventilatory defects identified. No significant response to bronchodilators noted. Normal maximum voluntary ventilation. The patient does have a restrictive ventilatory defect consistent with mild restrictive lung disease. In addition to that, there is a moderate decrease in diffusing capacity therefore underlying parenchymal lung condition should be consider clinical correlation warranted.] MTDD
== END 2023-12-12 10:51 | disposition home or self-care (01) ==
LOC: HO.RESP 10:50
PROVIDERS: PCP Internal Medicine; Visit Provider Hospitalist
DX: J84.9 Interstitial pulmonary disease, unspecified (principal)
CPT/HCPCS: 94010; 94640; 94727; 94729

== ENCOUNTER → 2023-12-12 16:13 | Outpatient (BNV) | payer MEDICARE, OTHER, SELFPAY | PROVIDERS: PCP Internal Medicine; Visit Provider Hospitalist | DX: J44.9 Chronic obstructive pulmonary disease, unspecified (principal) | CPT/HCPCS: 94060; 94727; 94729 ==

== ENCOUNTER 2024-01-07 08:40 | Outpatient (AMB) | payer MEDICARE, OTHER, SELFPAY ==
[2024-01-07 08:45] VITALS: BP 128/60; PULSE 85; O2SAT 96; BMI 26.2
--- NOTE | 2024-01-07 08:45 | MHC.OFFVIS ---
Vital Signs 01/07/24 08:45 Height 5 ft 5 in Weight 157 lb 10.088 oz BMI 26.2 BP 128/60 Blood Pressure Location Lt brachial Position Sitting Pulse 85 Pulse Source Pulse Oximeter Pulse Oximetry (%) 96 Oxygen Delivery Method Room Air Intake Visit Reasons: COPD Human Resource Analyst Required: No Allergies No Known Allergies Allergy (Unknown, Verified 01/07/24 08:48) NOT APPLICABLE HPI Comments Details: The patient is a 83-year-old woman known chronic rhinitis and also asthma COPD overlap syndrome. Her respiratory status has been stable over the summer. She has not required any prednisone. She has been starting to complain about nasal congestion and postnasal drip. That usually have she starts. Moderate severity. She has been using her Flonase. She has tried and failed Astelin nasal spray and also Atrovent nasal spray. She does use the Neti pot of but not all the time. She has been using her inhalers although, she does using all the time specially while her breathing is okay. She is concerned about the winter months at this time. 07/09/2023 the patient is here for sick visit. She has been him worsening respiratory symptoms. She states that during the fall months she typically does get worsening chest tightness cough. She did have some prednisone at home she took 20 mg for few days and then decrease down to 10 mg. She took the last dose yesterday. Initially he has had some relief but when she started coming off the prednisone she started having symptoms again. She has a cough for the most part is nonproductive she also harsh and dry. On examination the patient does have some very fine crackles bilaterally suggesting degree of pneumonitis. She denies any sick contacts. His sinuses are also congested. Will go ahead and start her on another course of prednisone and also provide her some doxycycline. I do believe the patient needs a repeat CT scan to follow up with the abnormal chest x-ray and her worsening respiratory symptoms. Depending on the CT scan will do additional blood work. 09/03/2023 the patient is here for a pulmonary follow-up visit. Her breathing is overall better. She has not required any additional prednisone or antibiotics. The patient does have some shortness of breath with activity. Mild in severity. Denies any significant cough. The patient has been using the Symbicort and the Spiriva with good effect. Although, the Symbicort is no longer cover so therefore I will send a Dulera to use instead. She did have a CT scan of the chest that we personally reviewed together. It appears that she does have reticular changes in the subpleural area along with the bases suggesting some degree of interstitial lung disease. No evidence of any ground-glass opacities. This could be the result of her underlying pneumonitis that she had back in the fall or the patient may indeed have interstitial lung disease such as idiopathic pulmonary fibrosis specially since I do not see any ground-glass opacities. Will continue to monitor closely for any progression of disease. The fact that she patient is feeling better from the fall is reassuring. She is also dealing with her sick son. He currently at a [facility] waiting for a heart transplant. Will have her return in 4 months with PFTs to see if there is any progression. Will continue to monitor closely. 05/08/2024 the patient is here for sick visit. She has been sick now for 3 days. Complains of headaches fever chills cough shortness of breath. Moderate in severity. She is tested negative for COVID-19. She did call the office we did send her a course of antibiotics. Also Center cough syrup but she was not able to get it because his back order. In the meantime she did come in she does have crackles at the bases. We did swab her for RSV, flu and COVID. It turned out positive for RSV. Likely RSV bronchiolitis with some degree of pneumonitis. She continues use her respiratory medications. 01/07/2024 the patient is here for a pulmonary follow-up visit. The patient is finally recovering from a significant viral syndrome that she had. It took about couple months to feel better. Although she still not her baseline. Still feels tired and also short of breath. She did undergo pulmonary function studies which we personally reviewed. Appears to have a mild restrictive ventilatory defect and also moderate diffusion impairment. We did talk about pulmonary rehabilitation. She is going to try to do online rehabilitation with the Pulmonary while this program. He is going to work on deep breathing techniques. In the meantime she has been using her respiratory medicines. Will switch over from Symbicort to Dulera since Symbicort is no longer covered and she continues on the Spiriva. She does have significant allergies with postnasal drip. She has difficulties in the spring visible all her allergies. Will go ahead and add Astelin to fluticasone nasal spray and she is already taking antihistamine therapy by mouth as well. [facility] Medical History (Updated 10/17/23 @ 12:58 by Milton Bustillos MD) RSV (respiratory syncytial virus pneumonia) Pneumonitis ILD (interstitial lung disease) Chronic allergic rhinitis Osteopenia Bronchitis Asthma-COPD overlap syndrome Chronic allergic rhinitis Cough Surgical History (Updated 12/26/21 @ 09:35 by Marisabel Dickinson PA-C) History of colonoscopy Social History (Updated 06/23/21 @ 14:33 by LA NENA Freitas) Patient Tobacco Use Status: Former Tobacco user Tobacco use type: Cigarette Years Smoked: 20 years Review of Systems Const Denies chills and Denies night sweats ENT Denies change in voice, Denies lip swelling, Denies mouth pain, Reports nasal congestion and Denies tongue swelling Card Denies chest pain and Reports dyspnea on exertion Resp Denies change in phlegm color, Reports cough, Denies hemoptysis, Denies pain on inspiration, Denies pain with cough, Reports dyspnea on exertion and Reports wheezing GI Denies abdominal pain Musc Reports arthralgias, Reports joint swelling and Reports limited range of motion Neuro Denies Neuro-related abnormal movements Psych Denies no additional complaints Angelo/Lymph Denies easy bleeding and Denies lymphadenopathy Aller/Immun Denies lip swelling, Denies tongue swelling and Reports wheezing Physical Exam Vital Signs: Last Vital Signs Pulse 85 01/07/24 08:45 BP 128/60 01/07/24 08:45 Pulse Ox 96 01/07/24 08:45 Oxygen Delivery Method Room Air 01/07/24 08:45 BMI result Body Mass Index 26.2 Const General: comfortable HEENT General nose exam: Nasal discharge present Neck Neck: Yes normal visual inspection, Yes full ROM and Yes no lymphadenopathy Chest Chest palpation & inspection: normal inspection of the chest Resp Effort & Inspection: normal respiratory effort Auscultation: no rales, no rhonchi, no wheezes and diminished lung sounds Cardio Rate: regular rate Rhythm: regular rhythm Heart sounds: S1 normal heart sound present and S2 normal heart sound present GI Palpation (GI): Soft to palpation and nontender Auscultation: normal bowel sounds Skin General skin exam: no rashes or lesions noted Extrem General: Yes no clubbing, cyanosis or edema Assessment & Plan Assessment & Plan (1) Asthma-COPD overlap syndrome: Code(s): J44.9 - Chronic obstructive pulmonary disease, unspecified Category: Medical (2) ILD (interstitial lung disease): Comment: minimal scarring Code(s): J84.9 - Interstitial pulmonary disease, unspecified Category: Medical (3) Chronic allergic rhinitis: Code(s): J30.9 - Allergic rhinitis, unspecified Category: Medical Plan cough medicine continue Dulera continue spiriva DAWSON as needed continue Singulair continue fluticasone nasal spray start Astelin nasal spray Benzonates as needed, Goodrx card provided start exercising/on line pulmonary rehab F/U 6 months Medications: New mometasone-formoterol 200-5 mcg/actuation (Dulera) 2 puffs inhalation Q12H 13 grams 11RF 30 days azelastine administer into each nostril 2 sprays intranasal BID 30 mL 6RF 30 days Coding Level of Care Code Est Pt Level 4 (17873) Diagnoses Asthma-COPD overlap syndrome J44.9 ILD (interstitial lung disease) J84.9 Chronic allergic rhinitis J30.9 Time Spent (min) 17
== END 2024-01-07 09:15 | disposition home or self-care (01) ==
PROVIDERS: PCP Internal Medicine; Visit Provider Hospitalist
DX: J44.9 Chronic obstructive pulmonary disease, unspecified (principal); J84.9 Interstitial pulmonary disease, unspecified; J30.9 Allergic rhinitis, unspecified
CPT/HCPCS: 99214

== ENCOUNTER → 2024-01-07 08:40 | Outpatient (BNVA) | payer MEDICARE, OTHER, SELFPAY | PROVIDERS: PCP Internal Medicine; Visit Provider Hospitalist | DX: J84.9 Interstitial pulmonary disease, unspecified (principal); J44.9 Chronic obstructive pulmonary disease, unspecified; J30.9 Allergic rhinitis, unspecified | CPT/HCPCS: 99212 ==

== ENCOUNTER 2024-03-04 14:19 | Outpatient (AMB) | payer MEDICARE, OTHER, SELFPAY ==
--- NOTE | 2024-03-04 14:08 | A.OFFVIS_ITS ---
Vital Signs 03/04/24 14:23 Height 5 ft 5 in Weight 160 lb 2 oz BMI 26.6 BP 130/62 Blood Pressure Location Rt brachial Position Sitting Pulse 81 Pulse Source Pulse Oximeter Pulse Oximetry (%) 95 Oxygen Delivery Method Room Air Intake Visit Reasons: Chronic dry cough Allergies No Known Allergies Allergy (Unknown, Verified 03/04/24 14:25) NOT APPLICABLE HPI HPI Chronic dry cough: Details: Moira is a pleasant 83 year old female, former smoker, with underlying asthma- COPD, ILD, and allergic rhinitis. She is followed by Dr. Bustillos and presents today for an acute visit. At baseline, she is moderately controlled on Symbicort, Spiriva, Astelin, an antihistamine and flonase. She reports ongoing persistent cough with greenish yellow sputum for the past two weeks, initially with associated sore throat, however that has resolved. She also reports dyspnea, and wheezing. She denies any fevers, chills, or sick contacts. [facility] Medical History (Updated 10/17/23 @ 12:58 by Milton Bustillos MD) RSV (respiratory syncytial virus pneumonia) Pneumonitis ILD (interstitial lung disease) Chronic allergic rhinitis Osteopenia Bronchitis Asthma-COPD overlap syndrome Chronic allergic rhinitis Cough Surgical History (Updated 12/26/21 @ 09:35 by Marisabel Dickinson PA-C) History of colonoscopy Social History Patient Tobacco Use Status: Former Tobacco user Tobacco use type: Cigarette Years Smoked: 20 years Review of Systems Const Denies chills, Denies excessive sweating, Denies fever(s), Denies headache(s) and Denies night sweats Eyes Denies dry eyes, Denies irritation and Denies itchy eyes ENT Reports Normal hearing present, Denies headache(s), Denies nasal congestion, Denies nasal discharge, Reports post nasal drip and Denies sore throat Card Denies chest pain, Denies chest pain at rest, Denies chest pain with activity, Denies claudication, Denies leg edema, Denies dyspnea, Reports dyspnea on exertion, Denies orthopnea and Denies paroxysmal nocturnal dyspnea Resp Reports change in phlegm color, Reports cough, Denies excessive phlegm production, Denies pain on inspiration, Denies pain with cough, Denies dyspnea, Reports dyspnea on exertion, Denies stridor and Reports wheezing Musc Denies myalgias Neuro Reports Normal hearing present and Denies headache(s) Endo Denies excessive sweating Angelo/Lymph Denies lymphadenopathy Aller/Immun Denies itchy eyes, Denies seasonal rhinorrhea and Reports wheezing Physical Exam Vital Signs: Last Vital Signs Pulse 81 03/04/24 14:23 Pulse Ox 95 03/04/24 14:23 Oxygen Delivery Method Room Air 03/04/24 14:23 BMI result Body Mass Index 26.6 Const General: cooperative, healthy appearing, comfortable, no acute distress, well developed and alert Orientation/consciousness: patient oriented x3 Limitations: no limitations HEENT Head: Yes normal to inspection, Yes normocephalic and Yes atraumatic Ears: hearing grossly normal bilaterally and external ears normal Eyes General: appearance normal, both eyes and all related structures Eyelids: Yes eyelids normal Sclerae: sclerae normal EOM: EOMs intact bilaterally Neck Neck: Yes normal visual inspection and Yes no lymphadenopathy Lymphatic: no lymphadenopathy noted Chest Chest palpation & inspection: normal inspection of the chest Resp Effort & Inspection: normal respiratory effort, able to speak in complete sentences, no audible wheezes, no cough, no stridor, not tachypneic, no tripod positioning and no use of accessory muscles Auscultation: clear to auscultation bilaterally Cardio Jugular venous distension: no JVD Rate: regular rate Rhythm: regular rhythm Skin Other: warm, dry General skin exam: no rashes or lesions noted Neuro General: patient oriented x3 Cranial nerves: Yes Normal hearing present Cognition (Neuro): normal cognition Gait exam (Neuro): Normal gait present Extrem General: Yes normal to inspection, Yes capillary refill normal, Yes no clubbing, cyanosis or edema and Yes no pedal edema Psych Appearance: grossly normal and well kempt Speech and movement: Normal speech and movement present and Clear speech present Affect: normal affect Attitude: cooperative Thought process: Normal thought process present Thought content: Normal thought content present Insight: Good insight present (Psych) Judgement: Good judgement present (Psych) Assessment & Plan Assessment & Plan (1) Asthma-COPD overlap syndrome: Code(s): J44.9 - Chronic obstructive pulmonary disease, unspecified Category: Medical (2) ILD (interstitial lung disease): Comment: minimal scarring Code(s): J84.9 - Interstitial pulmonary disease, unspecified Category: Medical (3) Chronic allergic rhinitis: Code(s): J30.9 - Allergic rhinitis, unspecified Category: Medical Plan Will treat bronchitic symptoms with zpak and prednisone. She is aware if symptoms do not improve to call the office for a CXR. All questions were answered and patient is in agreement of plan. Will follow up for regularly scheduled appointment with Dr. Bustillos or sooner if needed. Medications: New azithromycin For 250 mg dose pack: take 500 mg today (day 1), then 250 mg for 4 days (days 2-5) PO 6 tabs 0RF Refilled prednisone PO daily; Take 2 tabs daily x 5 days, then 1 tablet daily x 5 days 10 days 15 tabs 0RF Coding Level of Care Code Est Pt Level 3 (15418) Diagnoses Asthma-COPD overlap syndrome J44.9 ILD (interstitial lung disease) J84.9 Chronic allergic rhinitis J30.9
[2024-03-04 14:23] VITALS: BP 130/62; PULSE 81; O2SAT 95; BMI 26.6
== END 2024-03-04 14:47 | disposition home or self-care (01) ==
PROVIDERS: PCP Internal Medicine; Visit Provider Nurse Practitioner Family
DX: J44.9 Chronic obstructive pulmonary disease, unspecified (principal); J84.9 Interstitial pulmonary disease, unspecified; J30.9 Allergic rhinitis, unspecified
CPT/HCPCS: 99213

== ENCOUNTER → 2024-03-04 14:19 | Outpatient (BNVA) | payer MEDICARE, OTHER, SELFPAY | PROVIDERS: PCP Internal Medicine; Visit Provider Nurse Practitioner Family | DX: J44.9 Chronic obstructive pulmonary disease, unspecified (principal); J84.9 Interstitial pulmonary disease, unspecified; J30.9 Allergic rhinitis, unspecified; Z87.891 Personal history of nicotine dependence; Z79.899 Other long term (current) drug therapy | CPT/HCPCS: 99212 ==

== ENCOUNTER 2024-04-14 11:24 | Outpatient (REF) | payer MEDICARE, OTHER, SELFPAY ==
[2024-04-14 12:04] LABS: Estimated Average Glucose 120 mg/dL; Hemoglobin A1c % 5.8 % (<6.0)
== END 2024-04-14 11:25 | disposition home or self-care (01) ==
LOC: HO.LAB 11:24
PROVIDERS: PCP Internal Medicine; Visit Provider Internal Medicine
DX: E11.9 Type 2 diabetes mellitus without complications (principal); R53.83 Other fatigue
CPT/HCPCS: 36415; 83036

== ENCOUNTER 2024-07-14 08:55 | Outpatient (AMB) | payer MEDICARE, OTHER, SELFPAY ==
--- NOTE | 2024-07-14 09:01 | A.OFFVIS_ITS ---
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 School Physical Therapist: School Physical Therapist offered & declined Accompanied by: Self / Same As Patient Allergies No Known Allergies Allergy (Unknown, Verified 07/14/24 09:06) NOT APPLICABLE Medication List - Last Reconciled 07/14/24 by Aubrie Casarez LPN albuterol sulfate 90 mcg/actuation 2 inhalations inhalation Q6H PRN 30 days azelastine 2 sprays intranasal BID 30 days azithromycin For 250 mg dose pack: take 500 mg today (day 1), then 250 mg for 4 days (days 2-5) PO benzonatate 200 mg PO BID PRN 30 days budesonide 0.5 mg (2 mL) inhalation DAILY 30 days budesonide-formoterol 160-4.5 mcg/actuation (Symbicort) 2 puffs inhalation BID 90 days cetirizine (Zyrtec) 10 mg PO DAILY 30 days citalopram 20 mg PO DAILY clobetasol 0.05% grams topical codeine-guaifenesin 10-100 mg/5 mL 10 mL PO Q6H PRN 10 days cyclosporine 0.05% (Restasis) drps ophthalmic (eye) fluticasone propionate 50 mcg/actuation 2 sprays intranasal DAILY 30 days glipizide 10 mg PO BID ipratropium bromide 2 sprays intranasal TID PRN levalbuterol HCl 1.25 mg (3 mL) inhalation BID 30 days levalbuterol HCl 1.25 mg (3 mL) inhalation BID lorazepam 0.5 mg PO TID PRN metformin 1,000 mg PO BID mometasone-formoterol 200-5 mcg/actuation (Dulera) 2 puffs inhalation Q12H 30 days mometasone-formoterol 200-5 mcg/actuation (Dulera) 2 puffs inhalation Q12H 30 days montelukast 10 mg PO DAILY nebulizers As directed omeprazole 20 mg PO DAILY prednisone PO daily; Take 2 tabs daily x 5 days, then 1 tablet daily x 5 days 10 days simvastatin 40 mg PO BEDTIME Spiriva Respimat 2.5 mcg/actuation (tiotropium bromide) 2 inhalations PO DAILY NS HPI Comments Details: The patient is a 84-year-old woman known chronic rhinitis and also asthma COPD overlap syndrome. Her respiratory status has been stable over the summer. She has not required any prednisone. She has been starting to complain about nasal congestion and postnasal drip. That usually have she starts. Moderate severity. She has been using her Flonase. She has tried and failed Astelin nasal spray and also Atrovent nasal spray. She does use the Neti pot of but not all the time. S he has been using her inhalers although, she does using all the time specially while her breathing is okay. She is concerned about the winter months at this time. 07/09/2023 the patient is here for sick visit. She has been him worsening respiratory symptoms. She states that during the fall months she typically does get worsening chest tightness cough. She did have some prednisone at home she t ook 20 mg for few days and then decrease down to 10 mg. She took the last dose yesterday. Initially he has had some relief but when she started coming off the prednisone she started having symptoms again. She has a cough for the most part is nonproductive she also harsh and dry. On examination the patient does have some very fine crackles bilaterally suggesting degree of pneumonitis. She bernard es any sick contacts. His sinuses are also congested. Will go ahead and start her on another course of prednisone and also provide her some doxycycline. I do believe the patient needs a repeat CT scan to follow up with the abnormal chest x-ray and her worsening respiratory symptoms. Depending on the CT scan will do additional blood work. 09/03/2023 the patient is here for a pulmonary follow-up visit. Her breathing is overall better. She has not required any additional prednisone or antibiotics. The patient does have some shortness of breath with activity. Mild in severity. Denies any significant cough. The patient has been using the Symbicort and the Spiriva with good effect. Although, the Symbicort is no longer cover so therefore I will send a Dulera to use instead. She did have a CT scan of the chest that we personally reviewed together. It appears that she does have reticular changes in the subpleural area along with the bases suggesting some degree of interstitial lung disease. No evidence of any ground-glass opacities. This could be the result of her underlying pneumonitis that she had back in the fall or the patient may indeed have interstitial lung disease such as idiopathic pulmonary fibrosis specially since I do not see any ground-glass opacities. Will continue to monitor closely for any progression of disease. The fact that she patient is feeling better from the fall is reassuring. She is also dealing with her sick son. He currently at a [facility] waiting for a heart transplant. Will have her return in 4 months with PFTs to see if there is any progression. Will continue to monitor closely. 05/08/2024 the patient is here for sick visit. She has been sick now for 3 days. Complains of headaches fever chills cough shortness of breath. Moderate in severity. She is tested negative for COVID-19. She did call the office we did send her a course of antibiotics. Also Center cough syrup but she was not able to get it because his back order. In the meantime she did come in she does have crackles at the bases. We did swab her for RSV, flu and COVID. It turned out positive for RSV. Likely RSV bronchiolitis with some degree of pneumonitis. She continues use her respiratory medications. 01/07/2024 the patient is here for a pulmonary follow-up visit. The patient is finally recovering from a significant viral syndrome that she had. It took about couple months to feel better. Although she still not her baseline. Still feels tired and also short of breath. She did undergo pulmonary function studies which we personally reviewed. Appears to have a mild restrictive ventilatory defect and also moderate diffusion impairment. We did talk about pulmonary rehabilitation. She is going to try to do online rehabilitation with the Pulmonary while this program. He is going to work on deep breathing techniques. In the meantime she has been using her respiratory medicines. Will switch over from Symbicort to Dulera since Symbicort is no longer covered and she continues on the Spiriva. She does have significant allergies with postnasal drip. She has difficulties in the spring visible all her allergies. Will go ahead and add Astelin to fluticasone nasal spray and she is already taking antihistamine therapy by mouth as well. 07/14/2024 the patient is here for a pulmonary follow-up visit. Overall she is doing okay. She still having increasing dyspnea though. Moderate severity. Typically worse when she is going up a flight of stairs or inclines. She has been using the Spiriva. She did not get the Symbicort because it was not covered. In the Dulera send but she did not pick it up. She is having increased chest congestion. [id number] severity. She also complains about her postnasal drip that is tenacious and caused her to have coughing spells. She has tried multiple nasal sprays without any significant benefit. She does respond partially to the fluticasone into the Neti rinsing. No recent imaging to review. Although she did have a fall and she fractured her right arm the 1 that had just gotten surgery on for the shoulder. Therefore she has limited motion that area. During the visit we did go for a walking oximetry in her oxygen was 99-98% throughout the ambulation. Heart rate was in the high 90s. She was not too uncomfortable with dyspnea score 4/10. The patient is coughing some and she does have some congestion but is typically clear in color. If can changes color she will call. Will go ahead and switch over to Trelegy to make her medication regimen simpler in that way she can optimize her respiratory regimen. Patient will continue with the nasal sprays. And will follow-up in 6 months. If she has any worsening symptoms or any concerning issues she will call for further evaluation and recommendations. [facility] Medical History (Updated 10/17/23 @ 12:58 by Milton Bustillos MD) RSV (respiratory syncytial virus pneumonia) Pneumonitis ILD (interstitial lung disease) Chronic allergic rhinitis Osteopenia Bronchitis Asthma-COPD overlap syndrome Chronic allergic rhinitis Cough Surgical History (Updated 12/26/21 @ 09:35 by Marisabel Dickinson PA-C) History of colonoscopy Social History Patient Tobacco Use Status: Former Tobacco user Tobacco use type: Cigarette Years Smoked: 20 years Review of Systems Const Denies chills and Denies night sweats ENT Denies change in voice, Denies lip swelling, Denies mouth pain, Reports nasal congestion and Denies tongue swelling Card Denies chest pain and Reports dyspnea on exertion Resp Denies change in phlegm color, Reports cough, Denies hemoptysis, Denies pain on inspiration, Denies pain with cough, Reports dyspnea on exertion and Reports wheezing GI Denies abdominal pain Musc Reports arthralgias, Reports joint swelling and Reports limited range of motion Neuro Denies Neuro-related abnormal movements Psych Denies no additional complaints Angelo/Lymph Denies easy bleeding and Denies lymphadenopathy Aller/Immun Denies lip swelling, Denies tongue swelling and Reports wheezing Physical Exam Vital Signs: Last Vital Signs Pulse 82 07/14/24 09:03 BP 118/68 07/14/24 09:03 Pulse Ox 99 07/14/24 09:03 Oxygen Delivery Method Room Air 07/14/24 09:03 BMI result Body Mass Index 26.2 Const General: comfortable HEENT General nose exam: Nasal discharge present Neck Neck: Yes normal visual inspection, Yes full ROM and Yes no lymphadenopathy Chest Chest palpation & inspection: normal inspection of the chest Resp Effort & Inspection: normal respiratory effort Auscultation: no rales, no rhonchi, no wheezes and diminished lung sounds Cardio Rate: regular rate Rhythm: regular rhythm Heart sounds: S1 normal heart sound present and S2 normal heart sound present GI Palpation (GI): Soft to palpation and nontender Auscultation: normal bowel sounds Skin General skin exam: no rashes or lesions noted Extrem General: Yes no clubbing, cyanosis or edema Assessment & Plan Assessment & Plan (1) Asthma-COPD overlap syndrome: Code(s): J44.9 - Chronic obstructive pulmonary disease, unspecified Category: Medical (2) ILD (interstitial lung disease): Comment: minimal scarring Code(s): J84.9 - Interstitial pulmonary disease, unspecified Category: Medical (3) Chronic allergic rhinitis: Code(s): J30.9 - Allergic rhinitis, unspecified Category: Medical Plan start Trelegy 100 stop Dulera stop spiriva DAWSON as needed continue Singulair continue fluticasone nasal spray stop Astelin nasal spray Benzonates as needed, Goodrx card provided exercising/on line pulmonary rehab F/U 6 months Medications: New [id number] 100-62.5-25 mcg (Trelegy Ellipta) 1 inh inhalation DAILY 60 ea 11RF 30 days J44.9 - Chronic obstructive pulmonary disease, unspecified Refilled fluticasone propionate 50 mcg/actuation 2 sprays intranasal DAILY 15.8 mL 11RF 30 days J31.0 - Chronic rhinitis Discontinued mometasone-formoterol 200-5 mcg/actuation (Dulera) Discontinued Reason: Doctor's Order 2 puffs inhalation Q12H 30 days 13 grams 11RF Spiriva Respimat 2.5 mcg/actuation (tiotropium bromide) Discontinued Reason: Doctor's Order 2 inhalations PO DAILY 12 grams 3RF NS J44.9 - Chronic obstructive pulmonary disease, unspecified Coding Level of Care Code Est Pt Level 4 (24560) Diagnoses Asthma-COPD overlap syndrome J44.9 ILD (interstitial lung disease) J84.9 Chronic allergic rhinitis J30.9 Time Spent (min) 17
[2024-07-14 09:03] VITALS: BP 118/68; PULSE 82; O2SAT 99; BMI 26.2
== END 2024-07-14 09:28 | disposition home or self-care (01) ==
PROVIDERS: PCP Internal Medicine; Visit Provider Hospitalist
DX: J44.9 Chronic obstructive pulmonary disease, unspecified (principal); J84.9 Interstitial pulmonary disease, unspecified; J30.9 Allergic rhinitis, unspecified
CPT/HCPCS: 99214

== ENCOUNTER → 2024-07-14 08:55 | Outpatient (BNVA) | payer MEDICARE, OTHER, SELFPAY | PROVIDERS: PCP Internal Medicine; Visit Provider Hospitalist | DX: J44.9 Chronic obstructive pulmonary disease, unspecified (principal); J84.9 Interstitial pulmonary disease, unspecified; J31.0 Chronic rhinitis | CPT/HCPCS: 99212 ==

== ENCOUNTER 2024-08-04 08:05 | Outpatient (REF) | payer MEDICARE, OTHER, SELFPAY ==
[2024-08-04 08:43] LABS: Estimated Average Glucose 137 mg/dL; Hemoglobin A1C 136.9281 umol/L; Hemoglobin A1c % 6.4 % (<6.0)
== END 2024-08-04 08:06 | disposition home or self-care (01) ==
LOC: HO.LAB 08:05
PROVIDERS: PCP Internal Medicine; Visit Provider Internal Medicine
DX: E11.9 Type 2 diabetes mellitus without complications (principal); R53.83 Other fatigue
CPT/HCPCS: 36415; 83036

== ENCOUNTER → 2024-12-15 23:59 | Outpatient (BNV) | payer MEDICARE, OTHER, SELFPAY | PROVIDERS: PCP Physician Assistant; Visit Provider Internal Medicine | DX: J84.9 Interstitial pulmonary disease, unspecified (principal); E78.5 Hyperlipidemia, unspecified | CPT/HCPCS: G0180 ==

== ENCOUNTER 2024-12-23 11:02 | Outpatient (AMB) | payer MEDICARE, OTHER, SELFPAY ==
--- NOTE | 2024-12-23 11:21 | A.OFFPC_ITS ---
Vital Signs 12/23/24 11:32 Height 5 ft 5 in Weight 148 lb 6 oz BMI 24.7 BP 116/62 Blood Pressure Location Lt brachial Position Sitting Respiration 20 Pulse 87 Pulse Source Pulse Oximeter Pulse Oximetry (%) 97 Oxygen Delivery Method Room Air Intake Visit Reasons: EST CARE/DIABETES Intake Note: New pateint visit Vehicle Return Associate Required: No Allergies No Known Allergies Allergy (Unknown, Verified 12/23/24 11:21) NOT APPLICABLE Medication List - Last Reconciled 12/23/24 by Karen Brown PA-C albuterol sulfate 90 mcg/actuation 2 inhalations inhalation Q6H PRN 30 days benzonatate 200 mg PO BID PRN 30 days budesonide 0.5 mg (2 mL) inhalation DAILY 30 days lrmmnjqigf-jdkbgmsv-bteetqjaqj 160-9-4.8 mcg/actuation (Breztri Aerosphere) 2 inhalations inhalation BID 30 days fluticasone propionate 50 mcg/actuation 2 sprays intranasal DAILY 30 days metformin 500 mg PO BID nebulizers As directed simvastatin 40 mg PO BEDTIME Tobacco use date assessed: 12/23/24 Fall risk assessment: 1 Fall in past year Last assessed Fall Risk: 12/23/24 Dental Screening Dental Screen Date: 12/23/24 Did you have a dental visit in the last 12 months?: No Did you have a dental problem in the last 6 months where you did not have access to dental care?: No Was dental information given to patient?: Patient declined HPI EST CARE/DIABETES HPI Details Pt is an 84 y/o female who presents today to [facility]. She has a hx of t2dm, dyslipidemia, COPD with asthma overlap Pulm: has COPD and asthma and overall is currently well-controlled. Follows with pulmonology. CV: bp today in the office is 116/62. Cholesterol is mangaged with simvastatin 40 mg. Endo: Diagnosed around 2009. She is currently on metformin 500 mg bid. -had hypoglycemia on glipizide. msk: fx back t12 and s1 5 weeks ago and [place] [facility] [place], discharged to [facility] for approx 2 weeks. She got home 12/02/24. She says she fell because she tripped over a box and was trying to protect her right shoulder which has been replaced a couple times relatively recently (within 12 months). She did not hit her head or lose consciousness. She is following with neurosurgery at [facility] (Dr. Gonzalez) and did not need surgery at this point but will be scanned in 2 months. She is in a back brace. She is doing a lot of PT and feeling stronger. No numbness, tingling or weakness in extremities. She was has a left leg wound being managed by [facility]. She is on keflex qid x 14 days. She states when she fell and fractured her back she scrapped her left lower leg. States started on antibiotics 5.3.. States it is significantly improved. No drainage now but currently wrapped. does not want to take off dressing. Psych: on citalopram for anxiety but does not feel that it is effective. She is accompanied today by her and states that they have been for 59 years and he states that she has had anxiety for as long as he is known her. She has never been on medications before and was on citalopram over the last year. [facility] Medical History (Updated 12/23/24 @ 12:55 by Karen Brown PA-C) RSV (respiratory syncytial virus pneumonia) Pneumonitis ILD (interstitial lung disease) Chronic allergic rhinitis Osteopenia Bronchitis Asthma-COPD overlap syndrome Chronic allergic rhinitis Cough Surgical History History of colonoscopy Social History (Updated 12/23/24 @ 11:32 by Jade Romeo CMA) Alcohol intake: never Patient Tobacco Use Status: Former Tobacco user Tobacco use type: Cigarette Years Smoked: 20 years e-Cigarette/Vaping Use: Never Used Second Hand Smoke Exposure: No service: No Current occupational status: retired Cognitive needs: No 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 1. Little interest or pleasure in doing things: not at all 2. Feeling down, depressed, or hopeless: several days 3. Trouble falling or staying asleep, or sleeping too much: not at all 4. Feeling tired or having little energy: several days 5. Poor appetite or overeating: not at all 6. Feeling bad about yourself - or that you are a failure or have let yourself or your family down: several days 7. Trouble concentrating on things, such as reading the newspaper or watching television: not at all 8. Moving or speaking so slowly that other people could have noticed. Or the opposite - being so fidgety or restless that you have been moving around a lot more than usual: not at all 9. Thoughts that you would be better off or of hurting yourself in some way: not at all Total score: 3 Depression Screening Interpretation: Positive Depression Screening Follow-up: Existing condition and New Medication prescribed Depression Screening Done: Yes 12241 - PHQ-9 Billing: Yes Source: Developed by Drs. Carlito Salinas, Louise Mott, Cecil Aiken and colleagues, with an educational hannah from [employer]. Thrive Questionnaire I am a: Patient What is your living situation today?: I have a steady place to live Within the past 12 months, did the food you bought not last and you didn't have the money to get more?: Never true Within the past 12 months, did you worry whether your food would run out before you got money to buy more?: Never true Do you have trouble paying for medicines?: No Do you have trouble getting transportation to medical appointments?: No Do you have trouble paying your heating and electricity bill?: No Do you have trouble taking care of your child, family member or friend?: No Do you have trouble with day-to-day activities such as bathing, preparing meals, shopping, managing finances, etc.?: I choose not to answer this question Are you currently unemployed and looking for a job?: No Are you interested in more education?: No Please select the resources that you would like help with: None Currently or been in a relationship where the following occur: I choose not to answer THRIVE Score: 0 AUDIT C Alcohol Use Questionnaire (AUDIT-C) 1. How often do you have a drink containing alcohol?: Never Total Score: 0 BONNIE-7 AMB Questionnaire BONNIE-7 Feeling nervous, anxious, or on edge: 1 = Several days Not being able to stop or control worryin = Nearly every day Worrying too much about different things: 3 = Nearly every day Trouble relaxin = Nearly every day Being so restless that it is hard to sit still: 0 = Not at all Becoming easily annoyed or irritable: 0 = Not at all Feeling afraid as if something awful might happen: 0 = Not at all Total BONNIE-7 score (0-4 normal; 5-9 mild; 10-14 moderate; 15-21 severe): 10 Source: Developed by Drs. Carlito Salinas, Louise Mott, Cecil Aiken and colleagues, with an educational hannah from [employer]. BONNIE-7 Assessment Billing BONNIE-7 Assessment Tool: BONNIE-7 Assessment 02538 Physical exam (Primary Care) Vital Signs: Last Vital Signs Pulse 87 12/23/24 11:32 Resp 20 12/23/24 11:32 BP 116/62 12/23/24 11:32 Pulse Ox 97 12/23/24 11:32 Oxygen Delivery Method Room Air 12/23/24 11:32 BMI result Body Mass Index 24.7 Tobacco/Smoking Status: Tobacco use Status Patient Tobacco Use Status Former Tobacco user 12/23/24 11:32 Tobacco use type Cigarette 12/23/24 11:32 PHQ-9: PHQ-9 Score PHQ-9: Total score 3 12/23/24 11:23 Depression Screening Interpretation: Positive Depression Screening Follow-up: Existing condition and New Medication prescribed Currently or been in a relationship where the following occur: I choose not to answer Const Orientation/consciousness: patient oriented x3 HENMT Ears: hearing grossly normal bilaterally Neck Thyroid: Thyroid normal Lymphatic: no lymphadenopathy noted Resp Auscultation: clear to auscultation bilaterally Cardio Rate: regular rate Rhythm: regular rhythm Heart sounds: S1 normal heart sound present and S2 normal heart sound present GI Inspection: Yes normal to inspection Palpation (GI): Soft to palpation and Other GI palpation findings present (nontender, no cva tenderness) Auscultation: normoactive bowel sounds Rectal Exam - Female: deferred Skin General skin exam: no rashes or lesions noted Neuro General: patient oriented x3, gait normal and no focal motor deficits Coding Level of Care Code New Pt Level 4 (92126) Complex EM visit Add On G2211 Diagnoses Asthma-COPD overlap syndrome J44.9 Generalized anxiety disorder F41.1 Controlled type 2 diabetes mellitus with complication, without long-term current use of insulin E11.8 Cellulitis of left lower extremity L03.116 Dyslipidemia E78.5 Additional Codes PHQ-9 - 28616 - PHQ-9 Billing: Yes ([id number]) BONNIE-7 Assessment Billing - BONNIE-7 Assessment Tool: BONNIE-7 Assessment 37995 ([id number]) Assessment & Plan Assessment & Plan (1) Asthma-COPD overlap syndrome: Code(s): J44.9 - Chronic obstructive pulmonary disease, unspecified Category: Medical Plan: Following with pulmonology (2) Generalized anxiety disorder: Code(s): F41.1 - Generalized anxiety disorder Category: Medical Plan: We will try switching to Lexapro. Discussed risks and benefits and adverse effects of this medication. Short term follow up to be reassessed. Sooner if needed. (3) Controlled type 2 diabetes mellitus with complication, without long-term current use of insulin: Code(s): E11.8 - Type 2 diabetes mellitus with unspecified complications Category: Medical Plan: Continue with the metformin 500 mg. Diabetic labs ordered. We will follow up pending test results. Monitors blood sugars daily and blood sugars on average are between 100- 140. (4) Cellulitis of left lower extremity: Code(s): L03.116 - Cellulitis of left lower limb Category: Medical Plan: Continue on cephalexin. Wound is currently covered and being assessed by [facility]. It is getting changed tomorrow. Reports improvement. Short term follow up. Advised to take pictures. (5) Dyslipidemia: Code(s): E78.5 - Hyperlipidemia, unspecified Category: Medical Plan: on simvastatin lipids and lfts ordered Orders: Orders Complete Blood Count Auto Diff Today E11.8 - Type 2 diabetes mellitus with unspecified complications, F41.1 - Generalized anxiety disorder, J44.9 - Chronic obstructive pulmonary disease, unspecified, L03.116 - Cellulitis of left lower limb Lipid Panel Today E11.8 - Type 2 diabetes mellitus with unspecified complications, F41.1 - Generalized anxiety disorder, J44.9 - Chronic obstructive pulmonary disease, unspecified, L03.116 - Cellulitis of left lower limb Comprehensive Met. Panel Today E11.8 - Type 2 diabetes mellitus with unspecified complications, F41.1 - Generalized anxiety disorder, J44.9 - Chronic obstructive pulmonary disease, unspecified, L03.116 - Cellulitis of left lower limb Hemoglobin A1c Today E11.8 - Type 2 diabetes mellitus with unspecified complications, F41.1 - Generalized anxiety disorder, J44.9 - Chronic obstructive pulmonary disease, unspecified, L03.116 - Cellulitis of left lower limb, R73.01 - Impaired fasting glucose TSH reflex Free T4 Today E11.8 - Type 2 diabetes mellitus with unspecified complications, F41.1 - Generalized anxiety disorder, J44.9 - Chronic obstructive pulmonary disease, unspecified, L03.116 - Cellulitis of left lower limb Microalbumin, Random (w Creat) Today E11.8 - Type 2 diabetes mellitus with unspecified complications, F41.1 - Generalized anxiety disorder, J44.9 - Chronic obstructive pulmonary disease, unspecified, L03.116 - Cellulitis of left lower limb Medications: New valacyclovir (Valtrex) 1,000 mg PO Q12H 20 tabs 5RF metformin 500 mg PO BIDWMEAL 180 tabs 2RF escitalopram oxalate (Lexapro) 10 mg PO DAILY 90 tabs 0RF
[2024-12-23 11:32] VITALS: BP 116/62; PULSE 87; RESP 20; O2SAT 97; BMI 24.7
--- OUTSIDE RECORDS SUMMARY | 2024-12-23 12:27 | XMS_ITS | Clinical Summary ---
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 Name Role Phone Jarrod Smart MD Primary Care Provider [phone] Encounters Date Type Department Care Team Description 11/29/2024 Lab Requisition [facility] Lab [address] [place] [phone] Dasha Muniz MD Encounter for other general examination 11/28/2024 Lab Requisition [facility] Lab [address] [place] [address] Dasha Muniz MD Encounter for other general examination 11/25/2024 Lab Requisition [facility] Lab [address] [place] [address] Dasha Muniz MD Encounter for other general examination 11/23/2024 Lab Requisition [facility] Lab [address] [place] [phone] Dasha Muniz MD Encounter for other general examination from Last 3 Months Medical History Medical History Date Comments Type 2 diabetes mellitus wit hout complication ([facility] V24, [facility] V28) 10/11/2017 DX:Type 2 diab etes mellitus without complication (HCC) Hyperlipidemia 10/11/2017 DX:Hyperlipidemi a Atelectasis 03/27/2017 DX:Atelectasis COPD (chronic obstructive pu lmonary disease) (CMS/HCC V24, CMS/HCC V28) 05/17/2017 DX:COPD (chronic o bstructive pulmonary disease) ([facility]) 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 Social History Tobacco Use Types Packs/Day Years Used Date Smoking Tobacco: Former Cigarettes Smokeless Tobacco: Never Comments Unknown Sex and Gender Information Value Date Recorded Sex Assigned at Not on file Legal Sex Female 1:05 AM EST Gender Identity Not on file Sexual Orientation Not on file Obstetrics History Plan of Treatment Health Maintenance Due Date Last Done Comments Diabetes: Annual Foot Exam 1950 Diabetes: Annual Retina Eye Exam 1950 Zoster Vaccines (2 of 3) 08/03/2014 06/08/2014 RSV Immunization Adult Patients (1 - 1-dose 75+ series) 2016 Pneumococcal Vaccine: 50+ Years (2 of 2 - PPSV23) 02/21/2018 12/27/2017 COVID-19 Vaccine ( season) 2024 Cholesterol Screening (Lipid Panel) 11/23/2024 Depression Screening 11/23/2024 Diabetes: Annual Urine Albumin-Creatinine Ratio (uACR) 11/23/2024 Diabetes: Blood Sugar Control Test (HGBA1C) 11/23/2024 Falls Risk Assessment 11/23/2024 Medicare Annual Wellness Visit 11/23/2024 Osteoporosis Screening (Bone Density Screening) 11/23/2024 Social Influencers of Health Screening 11/23/2024 Influenza Vaccine (Season Ended) 2025 04/23/2023, 05/04/2022, 07/03/2021, Additional history exists Diabetes: Annual GFR (Glomerular Filtration Rate) 11/29/2025 11/29/2024, 11/25/2024, 11/23/2024 DTaP,Tdap,and Td Vaccines (2 - Td or Tdap) 03/06/2034 03/06/2024 HIB Vaccines Aged Out No longer eligi ble based on patient's age to complete this topic HPV Vaccines Aged Out No longer eligi ble based on patient's age to complete this topic Hepatitis A Vaccines Aged Out No long er eligible based on patient's age to complete this topic Hepatitis B Vaccines Aged Out No long er eligible based on patient's age to complete this topic IPV Vaccines Aged Out No longer eligi ble based on patient's age to complete this topic MMR Vaccines Aged Out No longer eligi ble based on patient's age to complete this topic Meningococcal ACWY Vaccine Aged Out N o longer eligible based on patient's age to complete this topic Meningococcal B Vaccine Aged Out No l onger eligible based on patient's age to complete this topic RSV Immunization Patients Under 20 months Aged Out No longer eligible based on patient's age to complete this topic Varicella Vaccines Aged Out No longer eligible based on patient's age to complete this topic Procedures Procedure Name Priority Date/Time Associated Diagnosis Comments CBC WITH AUTO DIFFERENTIAL Routine 11/29/2024 5:45 AM EDT Encounter for other general examination CBC AND DIFFERENTIAL Routine 11/29/2024 5:45 AM EDT Encounter for other general examination COMPREHENSIVE METABOLIC PANEL Routine 11/29/2024 5:45 AM EDT Encounter for other general examination COMPLETE BLOOD COUNT Routine 11/28/2024 7:03 AM EDT Encounter for other general examination COMPREHENSIVE METABOLIC PANEL Routine 11/25/2024 5:05 AM EDT Encounter for other general examination CBC WITH AUTO DIFFERENTIAL Routine 11/23/2024 4:59 AM EDT Encounter for other general examination MAGNESIUM Routine 11/23/2024 4:59 AM EDT Encounter for other general examination CBC AND DIFFERENTIAL Routine 11/23/2024 4:59 AM EDT Encounter for other general examination COMPREHENSIVE METABOLIC PANEL Routine 11/23/2024 4:59 AM EDT Encounter for other general examination from Last 3 Months Results * (ABNORMAL) CBC auto differential (11/29/2024 5:45 AM EDT) Only the most recent of2 resultswithin the time period is included. [facility] Signature WBC 7.6 4.8 - 10.8 K/mcL LAB HEMETOLOGY METHOD 11/29/2024 8:37 AM EDT [facility] LAB RBC 3.40(L) 3.80 - 4.80 M/mcL LAB HEMETOLOGY METHOD 11/29/2024 8:37 AM [facility] LAB Hemoglobin 10.6(L) 11.5 - 16.0 g/dL LAB HEMETOLOGY METHOD 11/29/2024 8:37 AM [facility] LAB Hematocrit 31.5(L) 35.0 - 47.0 % LAB HEMETOLOGY METHOD 11/29/2024 8:37 AM [facility] LAB MCV 92.4 79.0 - 98.0 FL LAB HEMETOLOGY METHOD 11/29/2024 8:37 AM [facility] LAB MCH 31.1 27.0 - 32.0 pcg LAB HEMETOLOGY METHOD 11/29/2024 8:37 AM [facility] LAB MCHC 33.7 32.0 - 37.0 g/dL LAB HEMETOLOGY METHOD 11/29/2024 8:37 AM [facility] LAB RDW 12.7 11.0 - 15.0 % LAB HEMETOLOGY METHOD 11/29/2024 8:37 AM [facility] LAB Platelets 301 130 - 400 K/mcL LAB HEMETOLOGY METHOD 11/29/2024 8:37 AM [facility] LAB MPV 9.4 7.0 - 11.0 FL LAB HEMETOLOGY METHOD 11/29/2024 8:37 AM [facility] LAB NRBC 0.0 <1.0 % LAB HEMETOLOGY METHOD 11/29/2024 8:37 AM [facility] LAB NRBC Absolute 0.00 <0.10 K/mcL LAB HEMETOLOGY METHOD 11/29/2024 8:37 AM [facility] LAB Neutrophils Relative 59.5 % LAB HEMETOLOGY METHOD 11/29/2024 8:37 AM [facility] LAB Lymphocytes Relative 24.9 % LAB HEMETOLOGY METHOD 11/29/2024 8:37 AM EDT [facility] LAB Monocytes Relative 11.0 % LAB HEMETOLOGY METHOD 11/29/2024 8:37 AM [facility] LAB Eosinophils Relative 3.5 % LAB HEMETOLOGY METHOD 11/29/2024 8:37 AM [facility] LAB Basophils Relative 0.7 % LAB HEMETOLOGY METHOD 11/29/2024 8:37 AM T [facility] LAB Immature Granulocytes Relative 0.4 % LAB HEMETOLOGY METHOD 11/29[facility]2024 8[facility] Neutrophils Absolute 4.54 1.50 - 7.00 K/mcL LAB HEMETOLOGY METHOD 11/29/2024 8:37 AM [facility] LAB Lymphocytes Absolute 1.90 1.00 - 5.00 K/mcL LAB HEMETOLOGY METHOD 11/29/2024 8:37 AM [facility] LAB Monocytes Absolute 0.84 0.20 - 1.00 K/mcL LAB HEMETOLOGY METHOD 11/29/2024 8:37 AM [facility] LAB Eosinophils Absolute 0.27 0.00 - 0.50 K/mcL LAB HEMETOLOGY METHOD 11/29/2024 8:37 AM [facility] LAB Basophils Absolute 0.05 0.00 - 0.20 K/mcL LAB HEMETOLOGY METHOD 11/29/2024 8:37 AM [facility] LAB Immature Granulocytes Absolute 0.03 0.00 - 0.03 K/mcL LAB HEMETOLOGY METHOD 11/29/2024 8:37 AM [facility] LAB Blood Venous blood specimen / Unknown Venipuncture / Unknown 11/29/2024 5:45 AM EDT 11/29/2024 8:03 AM EDT us Dasha Muniz MD LAB BLOOD ORDERABLES Final Res ult [facility] LAB [address] [place] [address], * (ABNORMAL) Comprehensive metabolic panel (11/29/2024 5:45 AM EDT) Only the most recent of3 resultswithin the time period is included. Sodium 133 133 - 145 mmol/L LAB CHEMISTRY METHOD 11/29/2024 9:24 AM T [facility] LAB Potassium 4.8 3.5 - 5.5 mmol/L LAB CHEMISTRY METHOD 11/29/2024 9:24 AM [facility] LAB Chloride 100 96 - 110 mmol/L LAB CHEMISTRY METHOD 11/29/2024 9:24 AM [facility] LAB CO2 29 21 - 32 mmol/L LAB CHEMISTRY METHOD 11/29/2024 9:24 AM [facility] LAB Anion Gap 4 3 - 11 LAB CHEMISTRY METHOD 11/29/2024 9:24 AM [facility] LAB Glucose 104(H) 70 - 100 mg/dL LAB CHEMISTRY METHOD 11/29/2024 9:24 AM [facility] LAB BUN 9 5 - 25 mg/dL LAB CHEMISTRY METHOD 11/29/2024 9:24 AM [facility] LAB Creatinine 0.65 0.50 - 1.10 mg/dL LAB CHEMISTRY METHOD 11/29/2024 9:24 AM [facility] LAB eGFR 87 >=60 mL/min/1. 73m2 LAB CHEMISTRY METHOD 11/29/2024 9:24 AM [facility] LAB Comment:Calculation based on the??Chronic Kidney Disease Epidemiology Collaboration (CKD-EPI) equation refit??without adjustment for race. BUN/Creatinine Ratio 13.8 LAB CHEMISTRY METHOD 11/29/2024 9:24 AM [facility] LAB Calcium 9.5 8.5 - 10.5 mg/dL LAB CHEMISTRY METHOD 11/29/2024 9:24 AM [facility] LAB AST (SGOT) 100(H) 10 - 42 unit/L LAB CHEMISTRY METHOD 11/29/2024 9:24 AM EDT [facility] LAB ALT (SGPT) 49 10 - 60 unit/L LAB CHEMISTRY METHOD 11/29/2024 9:24 AM EDT [facility] LAB Alkaline Phosphatase 89 42 - 121 unit/L LAB CHEMISTRY METHOD 11/29/2024 9:24 AM EDT [facility] LAB Total Protein 7.1 6.0 - 8.0 g/dL LAB CHEMISTRY METHOD 11/29/2024 9:24 AM EDT [facility] LAB Albumin 3.2 3.2 - 5.0 g/dL LAB CHEMISTRY METHOD 11/29/2024 9:24 AM [facility] LAB Total Bilirubin 0.3 0.0 - 1.4 mg/dL LAB CHEMISTRY METHOD 11/29/2024 9:24 AM T [facility] LAB Blood Venous blood specimen / Unknown Venipuncture / Unknown 11/29/2024 5:45 AM EDT 11/29/2024 8:03 AM EDT us Dasha Muniz MD LAB BLOOD ORDERABLES Final Res ult [facility] LAB [address] [place] [address], * (ABNORMAL) Complete blood count (11/28/2024 7:03 AM EDT) WBC 6.3 4.8 - 10.8 K/mcL LAB HEMETOLOGY METHOD 11/28/2024 11:52 AM EDT [facility] LAB RBC 3.20(L) 3.80 - 4.80 M/mcL LAB HEMETOLOGY METHOD 11/28/2024 11:52 AM T [facility] LAB Hemoglobin 10.0(L) 11.5 - 16.0 g/dL LAB HEMETOLOGY METHOD 11/28/2024 11:52 AM [facility] LAB Hematocrit 30.2(L) 35.0 - 47.0 % LAB HEMETOLOGY METHOD 11/28/2024 11:52 AM [facility] LAB MCV 93.2 79.0 - 98.0 FL LAB HEMETOLOGY METHOD 11/28/2024 11:52 AM [facility] LAB MCH 30.9 27.0 - 32.0 pcg LAB HEMETOLOGY METHOD 11/28/2024 11:52 AM [facility] LAB MCHC 33.1 32.0 - 37.0 g/dL LAB HEMETOLOGY METHOD 11/28/2024 11:52 AM [facility] LAB RDW 12.5 11.0 - 15.0 % LAB HEMETOLOGY METHOD 11/28/2024 11:52 AM [facility] LAB Platelets 306 130 - 400 K/mcL LAB HEMETOLOGY METHOD 11/28/2024 11:52 AM [facility] LAB MPV 9.1 7.0 - 11.0 FL LAB HEMETOLOGY METHOD 11/28/2024 11:52 AM [facility] LAB NRBC 0.0 <1.0 % LAB HEMETOLOGY METHOD 11/28/2024 11:52 AM [facility] LAB NRBC Absolute 0.00 <0.10 K/mcL LAB HEMETOLOGY METHOD 11/28/2024 11:52 AM [facility] LAB Blood Venous blood specimen / Unknown Venipuncture / Unknown 11/28/2024 7:03 AM EDT 11/28/2024 10:20 AM EDT us Dasha Muniz MD LAB BLOOD ORDERABLES Final Res ult [facility] LAB [address] [place] [address], [place] [phone] * Magnesium (11/23/2024 4:59 AM EDT) Magnesium 1.9 1.9 - 2.6 mg/dL LAB CHEMISTRY METHOD 11/23/2024 8:[address] [facility] LAB Blood Venous blood specimen / Unknown 11/23/2024 4:59 AM EDT 11/23/2024 8:07 AM EDT us Dasha Muniz MD LAB BLOOD ORDERABLES Final Res ult [facility] LAB [address] [place] [address], [place] [phone] from Last 3 Months Insurance MEDICARE Care Teams Barrel Dedenting Machine Operator Relationship Specialty Start Date End Date Jarrod Smart MD [address] [place] [address] PCP - General Internal Medicine 09/18/17
--- OUTSIDE RECORDS SUMMARY | 2024-12-23 12:27 | XMS_ITS | Encounter Summary ---
Author Organization [facility] Address [address] [place] [address] Care Team Providers Care Mechanical Artist Name Role Phone Jarrod Smart MD Primary Care Provider Encounter Details Date Type Department Care Team (Late st Contact Info) Description 11/23/2024 Lab Requisition [facility] Lab [address] [facility] [email or web address] [address] Dasha Muniz MD [address] [place] [phone] Encounter for other general examination Social History Tobacco Use Types Packs/Day Years Used Date Smoking Tobacco: Former Cigarettes Smokeless Tobacco: Never Comments Unknown Sex and Gender Information Value Date Recorded Sex Assigned at Not on file Legal Sex Female 1:05 AM EST Gender Identity Not on file Sexual Orientation Not on file documented as of this encounter Plan of Treatment Not on file documented as of this encounter Procedures Procedure Name Priority Date/Time Associated Diagnosis Comments CBC WITH AUTO DIFFERENTIAL Routine 11/23/2024 4:59 AM EDT Encounter for other general examination CBC AND DIFFERENTIAL Routine 11/23/2024 4:59 AM EDT Encounter for other general examination MAGNESIUM Routine 11/23/2024 4:59 AM EDT Encounter for other general examination COMPREHENSIVE METABOLIC PANEL Routine 11/23/2024 4:59 AM EDT Encounter for other general examination documented in this encounter Results * (ABNORMAL) CBC auto differential (11/23/2024 4:59 AM EDT) WBC 7.4 4.8 - 10.8 K/[facility] LAB HEMETOLOGY METHOD 11/23/2024 8:40 AM [facility] LAB RBC 3.20(L) 3.80 - 4.80 M/mcL LAB HEMETOLOGY METHOD 11/23/2024 8:40 AM [facility] LAB Hemoglobin 10.0(L) 11.5 - 16.0 g/dL LAB HEMETOLOGY METHOD 11/23/2024 8:40 AM [facility] LAB Hematocrit 29.8(L) 35.0 - 47.0 % LAB HEMETOLOGY METHOD 11/23/2024 8:40 AM [facility] LAB MCV 92.3 79.0 - 98.0 FL LAB HEMETOLOGY METHOD 11/23/2024 8:40 AM [facility] LAB MCH 31.0 27.0 - 32.0 pcg LAB HEMETOLOGY METHOD 11/23/2024 8:40 AM [facility] LAB MCHC 33.6 32.0 - 37.0 g/dL LAB HEMETOLOGY METHOD 11/23/2024 8:40 AM [facility] LAB RDW 12.7 11.0 - 15.0 % LAB HEMETOLOGY METHOD 11/23/2024 8:40 AM [facility] LAB Platelets 263 130 - 400 K/mcL LAB HEMETOLOGY METHOD 11/23/2024 8:40 AM [facility] LAB MPV 9.4 7.0 - 11.0 FL LAB HEMETOLOGY METHOD 11/23/2024 8:40 AM [facility] LAB NRBC 0.0 <1.0 % LAB HEMETOLOGY METHOD 11/23/2024 8:40 AM [facility] LAB NRBC Absolute 0.00 <0.10 K/mcL LAB HEMETOLOGY METHOD 11/23/2024 8:40 AM [facility] LAB Neutrophils Relative 59.4 % LAB HEMETOLOGY METHOD 11/23/2024 8:40 AM [facility] LAB Lymphocytes Relative 23.5 % LAB HEMETOLOGY METHOD 11/23/2024 8:40 AM [facility] LAB Monocytes Relative 12.7 % LAB HEMETOLOGY METHOD 11/23/2024 8:40 AM [facility] LAB Eosinophils Relative 3.5 % LAB HEMETOLOGY METHOD 11/23/2024 8:40 AM [facility] LAB Basophils Relative 0.5 % LAB HEMETOLOGY METHOD 11/23/2024 8:40 AM [facility] LAB Immature Granulocytes Relative 0.4 % LAB HEMETOLOGY METHOD 11/23/2024 8:40 AM [facility] LAB Neutrophils Absolute 4.38 1.50 - 7.00 K/mcL LAB HEMETOLOGY METHOD 11/23/2024 8:40 AM [facility] LAB Lymphocytes Absolute 1.74 1.00 - 5.00 K/mcL LAB HEMETOLOGY METHOD 11/23/2024 8:40 AM [facility] LAB Monocytes Absolute 0.94 0.20 - 1.00 K/mcL LAB HEMETOLOGY METHOD 11/23/2024 8:40 AM [facility] LAB Eosinophils Absolute 0.26 0.00 - 0.50 K/mcL LAB HEMETOLOGY METHOD 11/23/2024 8:40 AM [facility] LAB Basophils Absolute 0.04 0.00 - 0.20 K/mcL LAB HEMETOLOGY METHOD 11/23/2024 8:40 AM [facility] LAB Immature Granulocytes Absolute 0.03 0.00 - 0.03 K/mcL LAB HEMETOLOGY METHOD 11/23/2024 8:40 AM [facility] LAB Blood Venous blood specimen / Unknown 11/23/2024 4:59 AM EDT 11/23/2024 8:07 AM EDT Dasha Muniz MD LAB BLOOD ORDERABLES Final Res ult Performing Organization Address City/[facility]/ZIP Co de Phone Number [facility] LAB [address] [place] [address], [place] [phone] * Magnesium (11/23/2024 4:59 AM EDT) Pathologist [facility] Magnesium 1.9 1.9 - 2.6 mg/dL LAB CHEMISTRY METHOD 11/23/2024 8:52 AM EDT [facility] LAB Blood Venous blood specimen / Unknown 11/23/2024 4:59 AM EDT 11/23/2024 8:07 AM EDT Dasha Muniz MD LAB BLOOD ORDERABLES Final Res ult Performing Organization Address [facility]/ZIP Co de Phone Number [facility] [address] [place] [address], [place] [phone] * (ABNORMAL) Comprehensive metabolic panel (11/23/2024 4:59 AM EDT) [facility] Sodium 132(L) 133 - 145 mmol/L LAB CHEMISTRY METHOD 11/23/2024 8:52 AM [facility] LAB Potassium 4.2 3.5 - 5.5 mmol/L LAB CHEMISTRY METHOD 11/23[facility]2024 8[facility] Chloride 101 96 - 110 mmol/L LAB CHEMISTRY METHOD 11/23/2024 8:52 [facility] CO2 24 21 - 32 mmol/L LAB CHEMISTRY METHOD 11/23/2024 8:52 AM [facility] LAB Anion Gap 7 3 - 11 LAB CHEMISTRY METHOD 11/23/2024 8:52 AM [facility] LAB Glucose 148(H) 70 - 100 mg/dL LAB CHEMISTRY METHOD 11/23/2024 8:52 AM [facility] LAB BUN 10 5 - 25 mg/dL LAB CHEMISTRY METHOD 11/23/2024 8:52 AM [facility] LAB Creatinine 0.60 0.50 - 1.10 mg/dL LAB CHEMISTRY METHOD 11/23/2024 8:52 AM [facility] LAB eGFR 89 >=60 mL/min/1. 73m2 LAB CHEMISTRY METHOD 11/23/2024 8:52 AM [facility] LAB Comment:Calculation based on the??Chronic Kidney Disease Epidemiology Collaboration (CKD-EPI) equation refit??without adjustment for race. BUN/Creatinine Ratio 16.7 LAB CHEMISTRY METHOD 11/23/2024 8:52 AM [facility] LAB Calcium 9.1 8.5 - 10.5 mg/dL LAB CHEMISTRY METHOD 11/23/2024 8:52 AM [facility] LAB AST (SGOT) 106(H) 10 - 42 unit/L LAB CHEMISTRY METHOD 11/23/2024 8:52 AM [facility] LAB ALT (SGPT) 56 10 - 60 unit/L LAB CHEMISTRY METHOD 11/23/2024 8:52 AM [facility] LAB Alkaline Phosphatase 59 42 - 121 unit/L LAB CHEMISTRY METHOD 11/23/2024 8:52 AM [facility] LAB Total Protein 6.7 6.0 - 8.0 g/dL LAB CHEMISTRY METHOD 11/23/2024 8:52 AM [facility] LAB Albumin 2.8(L) 3.2 - 5.0 g/dL LAB CHEMISTRY METHOD 11/23/2024 8:52 AM [facility] LAB Total Bilirubin 0.4 0.0 - 1.4 mg/dL LAB CHEMISTRY METHOD 11/23/2024 8:52 AM [facility] LAB Blood Venous blood specimen / Unknown 11/23/2024 4:59 AM EDT 11/23/2024 8:07 AM EDT us Dasha Muniz MD LAB BLOOD ORDERABLES Final Res ult [facility] ([facility]) [facility] [address] [place] [address], documented in this encounter Visit Diagnoses Diagnosis Encounter for other general examination documented in this encounter Care Teams Mechanical Artist Relationship Specialty Start Date End Date Jarrod Smart MD [address] [place] [address] PCP - General Internal Medicine 09/18/17 documented as of this encounter
--- OUTSIDE RECORDS SUMMARY | 2024-12-23 12:27 | XMS_ITS | Encounter Summary ---
Author Organization [facility] Address [address] [place] [address] Care Team Providers Care Medical Instrument Technician Name Role Phone Jarrod Smart MD Primary Care Provider [phone] Encounter Details Date Type Department Care Team (Late st Contact Info) Description 11/25/2024 Lab Requisition [facility] - Main Lab [address] [facility] [address] Dasha Muniz MD [address] [place] [address] Encounter for other general examination Social History [...] Procedure Name Priority Date/Time Associated Diagnosis Comments COMPREHENSIVE METABOLIC PANEL Routine 11/25/2024 5:05 AM EDT Encounter for other general examination documented in this encounter Results * (ABNORMAL) Comprehensive metabolic panel (11/25/2024 5:05 AM EDT) Sodium 134 133 - 145 mmol/L LAB CHEMISTRY METHOD 11/25/2024 11:12 AM EDT [facility] Potassium 4.0 3.5 - 5.5 mmol/L LAB CHEMISTRY METHOD 11/25/2024 11:12 AM EDT [facility] LAB Chloride 102 96 - 110 mmol/L LAB CHEMISTRY METHOD 11/25/2024 11:12 AM T [facility] LAB CO2 23 21 - 32 mmol/L LAB CHEMISTRY METHOD 11/25/2024 11:12 AM [facility] LAB Anion Gap 9 3 - 11 LAB CHEMISTRY METHOD 11/25/2024 11:12 AM [facility] LAB Glucose 118(H) 70 - 100 mg/dL LAB CHEMISTRY METHOD 11/25/2024 11:12 AM [facility] BUN 12 5 - 25 mg/dL LAB CHEMISTRY METHOD 11/25/2024 11:12 AM [facility] LAB Creatinine 0.63 0.50 - 1.10 mg/dL LAB CHEMISTRY METHOD 11/25/2024 11:12 AM [facility] LAB eGFR 88 >=60 mL/min/1. 73m2 LAB CHEMISTRY METHOD 11/25/2024 11:12 AM [facility] LAB Comment:Calculation based on the??Chronic Kidney Disease Epidemiology Collaboration (CKD-EPI) equation refit??without adjustment for race. BUN/Creatinine Ratio 19.0 LAB CHEMISTRY METHOD 11/25/2024 11:12 AM [facility] LAB Calcium 8.9 8.5 - 10.5 mg/dL LAB CHEMISTRY METHOD 11/25/2024 11:12 AM [facility] LAB AST (SGOT) 91(H) 10 - 42 unit/L LAB CHEMISTRY METHOD 11/25/2024 11:12 AM [facility] LAB ALT (SGPT) 48 10 - 60 unit/L LAB CHEMISTRY METHOD 11/25/2024 11:12 AM [facility] LAB Alkaline Phosphatase 66 42 - 121 unit/L LAB CHEMISTRY METHOD 11/25/2024 11:12 AM [facility] LAB Total Protein 6.6 6.0 - 8.0 g/dL LAB CHEMISTRY METHOD 11/25/2024 11:12 AM [facility] LAB Albumin 2.9(L) 3.2 - 5.0 g/dL LAB CHEMISTRY METHOD 11/25/2024 11:12 AM EDT [facility] Total Bilirubin 0.4 0.0 - 1.4 mg/dL LAB CHEMISTRY METHOD 11/25/2024 11:12 AM EDT [facility] LAB Blood Venous blood specimen / Unknown Venipuncture / Unknown 11/25/2024 5:05 AM EDT 11/25/2024 9:16 AM EDT us Dasha Muniz MD LAB BLOOD ORDERABLES Final Res ult [facility] [address] [place] [address], documented in this encounter Visit Diagnoses Diagnosis Encounter for other general examination documented in this encounter Care Teams Medical Instrument Technician Relationship Specialty Start Date End Date Jarrod Smart MD [address] [place] [address] PCP - General Internal Medicine 09/18/17 documented as of this encounter
--- OUTSIDE RECORDS SUMMARY | 2024-12-23 12:27 | XMS_ITS | Encounter Summary ---
Author Organization [facility] Address [address] [place] [address] Care Team Providers Care Recreational Specialist Name Role Phone Jarrod Smart MD Primary Care Provider Encounter Details Date Type Department Care Team (Late st Contact Info) Description 11/28/[address] [facility] - Main Lab [address] [facility] [address] Dasha Muniz MD [address] [place] [address] Encounter for other general examination Social History [...] Procedure Name Priority Date/Time Associated Diagnosis Comments COMPLETE BLOOD COUNT Routine 11/28/2024 7:03 AM EDT Encounter for other general examination documented in this encounter Results * (ABNORMAL) Complete blood count (11/28/2024 7:03 AM EDT) WBC 6.3 4.8 - 10.8 K/mcL LAB HEMETOLOGY METHOD 11/28/2024 11:52 AM EDT [facility] RBC 3.20(L) 3.80 - 4.80 M/mcL LAB HEMETOLOGY METHOD 11/28/2024 11:52 AM EDT [facility] Hemoglobin 10.0(L) 11.5 - 16.0 g/dL LAB HEMETOLOGY METHOD 11/28/2024 11:52 AM EDT [facility] Hematocrit 30.2(L) 35.0 - 47.0 % LAB HEMETOLOGY METHOD 11/28/2024 11:52 AM [facility] MCV 93.2 79.0 - 98.0 FL LAB HEMETOLOGY METHOD 11/28/2024 11:52 AM EDT [facility] MCH 30.9 27.0 - 32.0 pcg LAB HEMETOLOGY METHOD 11/28/2024 11:52 AM EDT [facility] MCHC 33.1 32.0 - 37.0 g/dL LAB HEMETOLOGY METHOD 11/28/2024 11:52 AM [facility] RDW 12.5 11.0 - 15.0 % LAB HEMETOLOGY METHOD 11/28/2024 11:52 AM [facility] Platelets 306 130 - 400 K/mcL LAB HEMETOLOGY METHOD 11/28/2024 11:52 AM EDT [facility] MPV 9.1 7.0 - 11.0 FL LAB HEMETOLOGY METHOD 11/28/2024 11:52 AM [facility] NRBC 0.0 <1.0 % LAB HEMETOLOGY METHOD 11/28/2024 11:52 AM EDT [facility] NRBC Absolute 0.00 <0.10 K/mcL LAB HEMETOLOGY METHOD 11/28/2024 11:52 AM [facility] Blood Venous blood specimen / Unknown Venipuncture / Unknown 11/28/2024 7:03 AM EDT 11/28/2024 10:20 AM EDT us Dasha Muniz MD LAB BLOOD ORDERABLES Final Res ult [facility] [address] [place] [address], [place] [phone] documented in this encounter Visit Diagnoses Diagnosis Encounter for other general examination documented in this encounter Care Teams Recreational Specialist Relationship Specialty Start Date End Date Jarrod Smart MD [address] [place], [place] PCP - General Internal Medicine 09/18/17 documented as of this encounter
--- OUTSIDE RECORDS SUMMARY | 2024-12-23 12:27 | XMS_ITS | Encounter Summary ---
Author Organization [facility] Address [address] [place] [address] Care Team Providers Care Bullet Swaging Machine Operator Name Role Phone Jarrod Smart MD Primary Care Provider [phone] Encounter Details Date Type Department Care Team (Late st Contact Info) Description 11/29/2024 Lab Requisition [facility] - Main Lab [address] [place] [address] Dasha Muniz MD [address] [place] [address] Encounter for other general examination Social History [...] encounter Results * (ABNORMAL) CBC auto differential (11/29/2024 5:45 AM EDT) [facility] Signature WBC 7.6 4.8 - 10.8 K/[facility] LAB HEMETOLOGY METHOD 11/29/2024 8:[address] [facility] RBC 3.40(L) 3.80 - 4.80 M/mcL LAB HEMETOLOGY METHOD 11/29/2024 8:37 AM [facility] Hemoglobin 10.6(L) 11.5 - 16.0 g/dL LAB HEMETOLOGY METHOD 11/29/2024 8:37 AM [facility] Hematocrit 31.5(L) 35.0 - 47.0 % LAB HEMETOLOGY METHOD 11/29/2024 8:37 AM [facility] MCV 92.4 79.0 - 98.0 FL LAB HEMETOLOGY METHOD 11/29/2024 8:37 AM [facility] MCH 31.1 27.0 - 32.0 pcg LAB HEMETOLOGY METHOD 11/29/2024 8:37 AM [facility] MCHC 33.7 32.0 - 37.0 g/dL LAB HEMETOLOGY METHOD 11/29/2024 8:37 AM [facility] RDW 12.7 11.0 - 15.0 % LAB HEMETOLOGY METHOD 11/29/2024 8:37 AM [facility] Platelets 301 130 - 400 K/mcL LAB HEMETOLOGY METHOD 11/29/2024 8:37 AM [facility] MPV 9.4 7.0 - 11.0 FL LAB HEMETOLOGY METHOD 11/29/2024 8:37 AM [facility] NRBC 0.0 <1.0 % LAB HEMETOLOGY METHOD 11/29/2024 8:37 AM [facility] NRBC Absolute 0.00 <0.10 K/mcL LAB HEMETOLOGY METHOD 11/29/2024 8:37 AM [facility] Neutrophils Relative 59.5 % LAB HEMETOLOGY METHOD 11/29/2024 8:37 AM [facility] Lymphocytes Relative 24.9 % LAB HEMETOLOGY METHOD 11/29/2024 8:37 AM [facility] Monocytes Relative 11.0 % LAB HEMETOLOGY METHOD 11/29/2024 8:37 AM [facility] Eosinophils Relative 3.5 % LAB HEMETOLOGY METHOD 11/29/2024 8:37 AM [facility] Basophils Relative 0.7 % LAB HEMETOLOGY METHOD 11/29/2024 8:37 AM [facility] Immature Granulocytes Relative 0.4 % LAB HEMETOLOGY METHOD 11/29/2024 8:37 AM [facility] Neutrophils Absolute 4.54 1.50 - 7.00 K/mcL LAB HEMETOLOGY METHOD 11/29/2024 8:37 AM [facility] Lymphocytes Absolute 1.90 1.00 - 5.00 K/mcL LAB HEMETOLOGY METHOD 11/29/2024 8:37 AM [facility] Monocytes Absolute 0.84 0.20 - 1.00 K/mcL LAB HEMETOLOGY METHOD 11/29/2024 8:37 AM [facility] Eosinophils Absolute 0.27 0.00 - 0.50 K/mcL LAB HEMETOLOGY METHOD 11/29/2024 8:37 AM [facility] Basophils Absolute 0.05 0.00 - 0.20 K/mcL LAB HEMETOLOGY METHOD 11/29/2024 8:37 AM [facility] Immature Granulocytes Absolute 0.03 0.00 - 0.03 K/mcL LAB HEMETOLOGY METHOD 11/29/2024 8:37 AM [facility] Blood Venous blood specimen / Unknown Venipuncture / Unknown 11/29/2024 5:45 AM EDT 11/29/2024 8:03 AM EDT Dasha Muniz MD LAB BLOOD ORDERABLES Final Res ult [facility] [address] [place] [address], * (ABNORMAL) Comprehensive metabolic panel (11/29/2024 5:45 AM EDT) Sodium 133 133 - 145 mmol/L LAB CHEMISTRY METHOD 11/29/2024 9:24 AM [facility] Potassium 4.8 3.5 - 5.5 mmol/L LAB CHEMISTRY METHOD 11/29/2024 9:24 AM [facility] Chloride 100 96 - 110 mmol/L LAB CHEMISTRY METHOD 11/29/2024 9:24 AM [facility] CO2 29 21 - 32 mmol/L LAB CHEMISTRY METHOD 11/29/2024 9:24 AM [facility] Anion Gap 4 3 - 11 LAB CHEMISTRY METHOD 11/29/2024 9:24 AM [facility] Glucose 104(H) 70 - 100 mg/dL LAB CHEMISTRY METHOD 11/29/2024 9:24 AM [facility] BUN 9 5 - 25 mg/dL LAB CHEMISTRY METHOD 11/29/2024 9:24 AM [facility] Creatinine 0.65 0.50 - 1.10 mg/dL LAB CHEMISTRY METHOD 11/29/2024 9:24 AM [facility] eGFR 87 >=60 mL/min/1. 73m2 LAB CHEMISTRY METHOD 11/29/2024 9:24 AM [facility] Comment:Calculation based on the??Chronic Kidney Disease Epidemiology Collaboration (CKD-EPI) equation refit??without adjustment for race. BUN/Creatinine Ratio 13.8 LAB CHEMISTRY METHOD 11/29/2024 9:24 AM [facility] Calcium 9.5 8.5 - 10.5 mg/dL LAB CHEMISTRY METHOD 11/29/2024 9:24 AM EDT [facility] AST (SGOT) 100(H) 10 - 42 unit/L LAB CHEMISTRY METHOD 11/29/2024 9:24 AM [facility] ALT (SGPT) 49 10 - 60 unit/L LAB CHEMISTRY METHOD 11/29/2024 9:24 AM [facility] Alkaline Phosphatase 89 42 - 121 unit/L LAB CHEMISTRY METHOD 11/29/2024 9:24 AM [facility] Total Protein 7.1 6.0 - 8.0 g/dL LAB CHEMISTRY METHOD 11/29/2024 9:24 AM [facility] Albumin 3.2 3.2 - 5.0 g/dL LAB CHEMISTRY METHOD 11/29/2024 9:24 AM [facility] Total Bilirubin 0.3 0.0 - 1.4 mg/dL LAB CHEMISTRY METHOD 11/29/2024 9:24 AM [facility] Blood Venous blood specimen / Unknown Venipuncture / Unknown 11/29/2024 5:45 AM EDT 11/29/2024 8:03 AM EDT us Dasha Muinz MD LAB BLOOD ORDERABLES Final Res ult [facility] [address] [place] [address], documented in this encounter Visit Diagnoses Diagnosis Encounter for other general examination documented in this encounter Care Teams Bullet Swaging Machine Operator Relationship Specialty Start Date End Date Jarrod Smart MD [address] [place] [address] PCP - General Internal Medicine 09/18/17 documented as of this encounter
--- OUTSIDE RECORDS SUMMARY | 2024-12-23 12:27 | XMS_ITS | Continuity of Care Document ---
Author Organization [facility] Address [address] [place] [address]- Care Team Providers Care Document Processor Name Role Phone Meera HOLDEN, Ritika Betancur Primary Care Physician [phone] Encounter [facility] Date(s): 08/19/24 - 12/17/24 [facility] [address] [place], [place] [address] Attending Physician: Abner Bowden MD Admitting Physician: Abner Bowden MD Referring Physician: Jarrod Smart MD Encounter Type: Pre Office Visit Allergies, Adverse Reactions, Alerts Substance Criticality Severity Reaction Reaction Severity Status Other Environmental Allergy Active Immunizations Given and Recorded Vaccine Date Status Refusal Reason SARS-CoV-2 (COVID-19) mRNA BNT-162b2 vac 10/10/20 Given Medications acetaminophen/butalbital/caffeine 325 mg-50 mg-40 mg oral tablet PLEASE SEE ATTACHED FOR DETAILED DIRECTIONS Start Date: 11/18/24 Status: Ordered Repeat number: 1 Advair Diskus 500 mcg-50 mcg inhalation powder 1, puffs, Inhalation, 2 times a day, (rinse mouth and throat after use), # 180 each, Refills 3, Tot. Refills 3, Maintenance, 11/28/16 1:08:33 PM EDT, Route to Pharmacy Electronically, [id number], [facility]/pharmacy #[id number] Start Date: 11/28/16 Status: Ordered Quantity: 180.0 Unit: each Repeat number: 4 albuterol 0.083% inhalation solution 3 mL, Inhalation, Every 6 hours, PRN for wheezing, # 360 mL, 11 Refills, Maintenance, 05/05/14 8:13:56 AM EDT, Solution, [facility]/pharmacy #[id number] Start Date: 05/05/14 Stop Date: 04/30/15 Status: Ordered Quantity: 360.0 Unit: mL Repeat number: 12 citalopram 20 mg oral tablet TAKE 1 TABLET BY MOUTH EVERY DAY Start Date: 11/18/24 Status: Ordered Repeat number: 1 fluticasone 50 mcg/inh nasal spray SPRAY 2 SPRAYS INTO EACH NOSTRIL DAILY FOR 30 DAYS Start Date: 11/18/24 Status: Ordered Repeat number: 1 Fluticasone Nasal See Instructions, 2 puffs PRN, 0 Refills, Maintenance, 05/07/11 9:44:01 AM EDT Start Date: 05/07/11 Status: Ordered Repeat number: 1 metFORMIN 1000 mg oral tablet TAKE 1 TABLET BY MOUTH TWICE A DAY WITH MORNING AND EVENING MEALS Start Date: 11/18/24 Status: Ordered Repeat number: 1 montelukast 10 mg oral tablet TAKE 1 TABLET BY MOUTH EVERY DAY Start Date: 11/18/24 Status: Ordered Repeat number: 1 omeprazole 20 mg oral enteric coated capsule TAKE 1 CAPSULE BY MOUTH EVERY DAY Start Date: 11/18/24 Status: Ordered Repeat number: 1 ProAir HFA 90 mcg/inh inhalation aerosol with adapter 180 mcg, 2, puffs, Inhalation, 4 times a day, PRN, # 1 each, Refills 11, Tot. Refills 11, Maintenance, 09/11/16 5:36:00 PM EST, Inhaler, Route to Pharmacy Electronically, [id number], [facility]/pharmacy #[id number] Start Date: 09/11/16 Status: Ordered Quantity: 1.0 Unit: each Repeat number: 12 ranitidine 300 mg oral tablet See Instructions, PRN Other, as needed, 0 Refills, Maintenance, 05/07/11 9:44:28 AM EDT Start Date: 05/07/11 Status: Ordered Repeat number: 1 simvastatin 40 mg oral tablet 40 mg, 1, tablet, By Mouth, Daily at bedtime, # 30 tablet, Refills 0, Maintenance, 11/18/24 12:33:00 AM EDT, Partial fill upon patient request if the prescription is for a schedule II opioid drug. Start Date: 11/18/24 Status: Ordered Quantity: 30.0 Unit: tablet Repeat number: 1 simvastatin 40 mg oral tablet 1 tablet = 40 mg, By Mouth, Daily at bedtime, 0 Refills, Maintenance, 05/07/11 9:43:00 AM EDT Start Date: 05/07/11 Status: Ordered Repeat number: 1 Singulair 10 mg oral tablet 10 mg, 1, tablet, By Mouth, Daily in PM, # 90 tablet, Refills 3, Tot. Refills 3, Maintenance, 04/10/16 11:50:00 AM EDT, [facility] Start Date: 04/10/16 Stop Date: 04/05/17 Status: Ordered Quantity: 90.0 Unit: tablet Repeat number: 4 Xopenex 0.63 mg/3 mL inhalation solution 3 mL = 0.63 mg, Neb, 3 times a day, PRN Wheezing/Shortness of Breath, # 270 mL, 1 Refills, Maintenance, 11/12/16 5:14:04 PM EDT, patient with tachycardia and tremors when using albuterol nebulizer; Diagnosis: Shortness of Breath Start Date: 11/12/16 Status: Ordered Quantity: 270.0 Unit: mL Repeat number: 2 Problem List Condition Confirmation Course Effective Dates Status Health [facility] Informant AAA - Abdominal aortic aneurysm-operated 02/2012 Confirmed Active Allergy Confirmed Active 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 Asthma Confirmed Active Nasal polyp [facility] Confirmed Active Social History Social History Type Response Smoking Status Former smoker; Tobac co user in household: No; Other: pt states she quit smoking in ; entered on: 01/19/16 Sex Sex Representation Female (finding) Patient Care team information Care Team Personnel Name: Aurea Rodriguez RN Position: S RN Supv Member Role: Primary Care Nurse Name: Padmini Chatman RN Position: S RN Member Role: Primary Care Nurse Name: Steff Warner Position: [facility] RN Member Role: Primary Care Nurse Name: Ritika Estes MD Position: Reference Physician Member Role: PCP Address: [address] [place], [place] [address] Telecom: Name: Marisa Rowe RN Position: [facility] RN Member Role: Primary Care Nurse Care Team Related Persons Name: LIDYA SHIARET Name: MAYITO VALDERRAMA Name: MARISA ORLANDO Insurance Providers Guarantor name: MARISA LEDEZMAN [employer] [facility] Information #: 1 Payer: MEDICARE PART B OUTPT Member Number: [id number] Policy Number: NA Group Number: NA Health Plan Information #: 2 Payer: [facility] Member Number: [id number] Policy Number: NA Group Number: [id number]
--- OUTSIDE RECORDS SUMMARY | 2024-12-23 12:27 | XMS_ITS | Continuity of Care Document ---
Author Organization [facility] Address [address] [place] [address]- Care Team Providers Care Weatherization Administrator Name Role Phone Meera HOLDEN, Ritika Betancur Primary Care Physician Encounter [facility] Date(s): 11/17/24 - 12/17/24 [facility] [address] [place], [place] [address] Attending Physician: Viri Lamb Admitting Physician: Viri Lamb Referring Physician: AdmtrViri Encounter Type: Triage Allergies, Adverse Reactions, Alerts Substance Criticality Severity [...] 1:08:33 PM EDT, Route to Pharmacy Electronically, [id number], [facility]/pharmacy #[id number] Start Date: 11/28/16 Status: Ordered Quantity: 180.0 Unit: each Repeat number: 4 albuterol 0.083% inhalation solution 3 mL, Inhalation, Every 6 hours, PRN for wheezing, # 360 mL, 11 Refills, Maintenance, 05/05/14 8:13:56 AM EDT, Solution, [facility]/pharmacy #[id number] Start Date: 05/05/14 Stop Date: 04/30/15 [...] PM EST, Inhaler, Route to Pharmacy Electronically, [id number], [facility]/pharmacy #[id number] Start Date: 09/11/16 Status: Ordered Quantity: [...] 11:50:00 AM EDT, [email or web address] Start Date: 04/10/16 Stop Date: [...] Confirmed Active Nasal polyp Confirmed Active [facility] october2011 Confirmed Active Social History Social History Type Response Smoking Status Former smoker; Tobac co user in household: No; Other: pt states she quit smoking in ; entered on: 01/19/16 Sex Sex Representation Female (finding) Laboratory * Event Display: Non Lab Results Authored Date: Patient Care team information Care Team Personnel Name: Aurea Rodriguez RN Position: S RN Supv Member Role: Primary Care Nurse Name: Padmini Chatman RN Position: S RN Member Role: Primary Care Nurse Name: Steff Warner Position: S RN Member Role: Primary Care Nurse Name: Ritika Estes MD Position: Reference Physician Member Role: PCP Address: [address] [place] [address] Telecom: Name: Marisa Rowe RN Position: Dat RN Member Role: Primary Care Nurse Care Team Related Persons Name: THOMPSON SHI Name: MAYITO VALDERRAMA Name: MARISA ORLANDO Insurance Providers Guarantor name: MARISA VALDERRAMA Health Plan Information #: 1 Payer: MEDICARE PART B OUTPT Member Number: NA Policy Number: NA Group Number: NA Health Plan Information #: 2 Payer: [facility] Member Number: NA Policy Number: NA Group Number: NA
== END 2024-12-23 12:20 | disposition home or self-care (01) ==
LOC: HO.HMCFM 11:03
PROVIDERS: PCP Physician Assistant; Visit Provider Physician Assistant
DX: J44.9 Chronic obstructive pulmonary disease, unspecified (principal); F41.1 Generalized anxiety disorder; E11.8 Type 2 diabetes mellitus with unspecified complications; L03.116 Cellulitis of left lower limb; E78.5 Hyperlipidemia, unspecified

== ENCOUNTER → 2024-12-23 11:02 | Outpatient (BNVA) | payer MEDICARE, OTHER, SELFPAY | PROVIDERS: PCP Physician Assistant; Visit Provider Physician Assistant | DX: J44.9 Chronic obstructive pulmonary disease, unspecified (principal); F41.1 Generalized anxiety disorder; E11.8 Type 2 diabetes mellitus with unspecified complications; E78.5 Hyperlipidemia, unspecified; L03.116 Cellulitis of left lower limb | CPT/HCPCS: 96127; 99202 ==

== ENCOUNTER 2024-12-31 08:13 | Outpatient (REF) | payer MEDICARE, OTHER, SELFPAY ==
--- OUTSIDE RECORDS SUMMARY | 2024-12-31 08:18 | XMS_ITS | Encounter Summary ---
Author Organization [facility] Address [address] [place] [address] Care Team Providers Care Billet Grinder Name Role Phone Jarrod Smart MD Primary Care Provider [phone] Encounter Details Date Type Department Care Team (Late st Contact Info) Description 11/25/2024 Lab Requisition [facility] - Main Lab [address] [facility] [place] [address] Dasha Muniz MD [address] [place] [address] Encounter for other general examination Social History [...] LAB CHEMISTRY METHOD 11/25/2024 11:12 AM EDT [facility] Potassium 4.0 3.5 - 5.5 mmol/L LAB CHEMISTRY METHOD 11/25/2024 11:12 AM EDT [facility] Chloride 102 96 - 110 mmol/L LAB CHEMISTRY METHOD 11/25/2024 11:12 AM T [facility] CO2 23 21 - 32 [...] LAB CHEMISTRY METHOD 11/25/2024 11:12 AM EDT [facility] Total Bilirubin 0.4 0.0 - 1.4 mg/dL LAB CHEMISTRY METHOD 11/25/2024 11:12 AM EDT [facility] Blood Venous blood specimen / Unknown Venipuncture / Unknown 11/25/2024 5:05 AM EDT 11/25/2024 9:16 AM EDT us Dasha Muniz MD LAB BLOOD ORDERABLES Final Res ult [facility] [address] [place] [address], documented in this encounter Visit Diagnoses Diagnosis Encounter for other general examination documented in this encounter Care Teams Billet Grinder Relationship Specialty Start Date End Date Jarrod Smart MD [address] [place] [address] PCP - General Internal Medicine 09/18/17 documented as of this encounter
--- OUTSIDE RECORDS SUMMARY | 2024-12-31 08:19 | XMS_ITS | Encounter Summary ---
Author Organization [facility] Address [address] [place] [address] Care Team Providers Care Cold Mill Operator Name Role Phone Jarrod Smart MD Primary Care Provider [phone] Encounter Details Date Type Department Care Team (Late st Contact Info) Description 11/28/[address] [facility] - Main Lab [address] [facility] [place] [address] Dasha Muniz MD [address] [place] [address] Encounter for other general examination Social History [...] LAB HEMETOLOGY METHOD 11/28/2024 11:52 AM EDT [facility] RBC 3.20(L) 3.80 - 4.80 M/mcL LAB HEMETOLOGY METHOD 11/28/2024 11:52 AM EDT [facility] Hemoglobin 10.0(L) 11.5 - 16.0 g/dL LAB HEMETOLOGY METHOD 11/28/2024 11:52 AM EDT [facility] Hematocrit 30.2(L) 35.0 - 47.0 % LAB HEMETOLOGY METHOD 11/28/2024 11:52 AM [facility] MCV 93.2 79.0 - 98.0 FL LAB HEMETOLOGY METHOD 11/28/2024 11:52 AM EDT [facility] MCH 30.9 27.0 - 32.0 pcg LAB HEMETOLOGY METHOD 11/28/2024 11:52 AM EDT [facility] MCHC 33.1 32.0 - 37.0 g/dL LAB HEMETOLOGY METHOD 11/28/2024 11:52 AM [facility] RDW 12.5 11.0 - 15.0 % LAB HEMETOLOGY METHOD 11/28/2024 11:52 AM [facility] Platelets 306 130 - 400 K/mcL LAB HEMETOLOGY METHOD 11/28/2024 11:52 AM EDT [facility] MPV 9.1 7.0 - 11.0 FL LAB HEMETOLOGY METHOD 11/28/2024 11:52 AM [facility] NRBC 0.0 <1.0 % LAB HEMETOLOGY METHOD 11/28/2024 11:52 AM EDT [facility] NRBC Absolute 0.00 <0.10 K/mcL LAB HEMETOLOGY METHOD 11/28/2024 11:52 AM [facility] Blood Venous blood specimen / Unknown Venipuncture / Unknown 11/28/2024 7:03 AM EDT 11/28/2024 10:20 AM EDT us Dasha Muniz MD LAB BLOOD ORDERABLES Final Res ult [facility] [address] [place] [address], [place] [phone] documented in this encounter Visit Diagnoses Diagnosis Encounter for other general examination documented in this encounter Care Teams Cold Mill Operator Relationship Specialty Start Date End Date Jarrod Smart MD [address] [place], [place] PCP - General Internal Medicine 09/18/17 documented as of this encounter
--- OUTSIDE RECORDS SUMMARY | 2024-12-31 08:19 | XMS_ITS | Clinical Summary ---
Author Organization 299 [facility] Address [address] [place] [address] Phone Care Team Providers Care Jet Pilot Name Role Phone Jarrod Smart MD Primary Care Provider [phone] Encounters Date Type Department Care Team Description 11/29/2024 Lab Requisition [facility] Lab [address] [place] [id number] Dasha Muniz MD Encounter for other general examination 11/28/2024 Lab Requisition [facility] Lab [address] [place] [address] Dasha Muniz MD Encounter for other general examination 11/25/2024 Lab Requisition [facility] Lab [address] [place] [address] Dasha Muniz MD Encounter for other general examination 11/23/2024 Lab Requisition [facility] Lab [address] [place] [phone] Dasha Muniz MD Encounter for other general examination from Last 3 Months Medical History Medical History Date Comments Type 2 diabetes mellitus wit hout complication ([facility] V24, [facility] V28) 10/11/2017 DX:Type 2 diab etes mellitus without complication (HCC) Hyperlipidemia 10/11/2017 DX:Hyperlipidemi a Atelectasis 03/27/2017 DX:Atelectasis COPD (chronic obstructive pu lmonary disease) (CMS/HCC V24, CMS/HCC V28) 05/17/2017 DX:COPD (chronic o bstructive pulmonary disease) ([facility]) 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 DX:Poly p [...] of2 resultswithin the time period is included. [facility] Signature WBC 7.6 4.8 - 10.8 K/mcL LAB HEMETOLOGY METHOD 11/29/2024 8:37 AM EDT [facility] RBC 3.40(L) 3.80 - 4.80 M/mcL LAB HEMETOLOGY METHOD 11/29/2024 8:37 AM [facility] Hemoglobin 10.6(L) 11.5 - 16.0 g/dL LAB HEMETOLOGY METHOD 11/29/2024 8:37 AM [facility] LAB Hematocrit 31.5(L) 35.0 - 47.0 % LAB HEMETOLOGY METHOD 11/29/2024 8:37 AM [facility] MCV 92.4 79.0 - 98.0 FL LAB HEMETOLOGY METHOD 11/29/2024 8:37 AM [facility] MCH 31.1 27.0 - 32.0 pcg LAB HEMETOLOGY METHOD 11/29/2024 8:37 AM [facility] LAB MCHC 33.7 32.0 - 37.0 g/dL LAB HEMETOLOGY METHOD 11/29/2024 8:37 AM [facility] RDW 12.7 11.0 - 15.0 % LAB HEMETOLOGY METHOD 11/29/2024 8:37 AM [facility] Platelets 301 130 - 400 K/mcL LAB HEMETOLOGY METHOD 11/29/2024 8:37 AM [facility] MPV 9.4 7.0 - 11.0 FL LAB HEMETOLOGY METHOD 11/29/2024 8:37 AM [facility] NRBC 0.0 <1.0 % LAB HEMETOLOGY METHOD 11/29/2024 8:37 AM [facility] NRBC Absolute 0.00 <0.10 K/mcL LAB HEMETOLOGY METHOD 11/29/2024 8:37 AM [facility] Neutrophils Relative 59.5 % LAB HEMETOLOGY METHOD 11/29/2024 8:37 AM [facility] Lymphocytes Relative 24.9 % LAB HEMETOLOGY METHOD 11/29/2024 8:37 AM EDT [facility] Monocytes Relative 11.0 % LAB HEMETOLOGY METHOD 11/29/2024 8:37 AM [facility] Eosinophils Relative 3.5 % LAB HEMETOLOGY METHOD 11/29/2024 8:37 AM [facility] Basophils Relative 0.7 % LAB HEMETOLOGY METHOD 11/29/2024 8:37 AM T [facility] Immature Granulocytes Relative 0.4 % LAB [facility]EMETOLOGY [facility] Neutrophils Absolute 4.54 1.50 - 7.00 K/mcL LAB HEMETOLOGY METHOD 11/29/2024 8:37 AM [facility] Lymphocytes Absolute 1.90 1.00 - 5.00 K/mcL LAB HEMETOLOGY METHOD 11/29/2024 8:37 AM [facility] Monocytes Absolute 0.84 0.20 - 1.00 K/mcL LAB HEMETOLOGY METHOD 11/29/2024 8:37 AM [facility] Eosinophils Absolute 0.27 0.00 - 0.50 K/mcL LAB HEMETOLOGY METHOD 11/29/2024 8:37 AM [facility] Basophils Absolute 0.05 0.00 - 0.20 K/mcL LAB HEMETOLOGY METHOD 11/29/2024 8:37 AM [facility] Immature Granulocytes Absolute 0.03 0.00 - 0.03 K/mcL LAB HEMETOLOGY METHOD 11/29/2024 8:37 AM [facility] Blood Venous blood specimen / Unknown Venipuncture / Unknown 11/29/2024 5:45 AM EDT 11/29/2024 8:03 AM EDT us Dasha Muniz MD LAB BLOOD ORDERABLES Final Res ult [facility] [address] [place] [address], * (ABNORMAL) Comprehensive metabolic panel (11/29/2024 5:45 AM EDT) Only the most recent of3 resultswithin the time period is included. Sodium 133 133 - 145 mmol/L LAB CHEMISTRY METHOD 11/29/2024 9:24 AM T [facility] Potassium 4.8 3.5 - 5.5 mmol/L LAB CHEMISTRY METHOD 11/29/2024 9:24 AM [facility] Chloride 100 96 - 110 mmol/L LAB CHEMISTRY METHOD 11/29/2024 9:24 AM [facility] CO2 29 21 - 32 mmol/L LAB CHEMISTRY METHOD 11/29/2024 9:24 AM [facility] Anion Gap 4 3 - 11 LAB CHEMISTRY METHOD 11/29/2024 9:24 AM [facility] Glucose 104(H) 70 - 100 mg/dL LAB CHEMISTRY METHOD 11/29/2024 9:24 AM [facility] BUN 9 5 - 25 mg/dL LAB CHEMISTRY METHOD 11/29/2024 9:24 AM [facility] Creatinine 0.65 0.50 - 1.10 mg/dL LAB CHEMISTRY METHOD 11/29/2024 9:24 AM [facility] LAB eGFR 87 >=60 mL/min/1. 73m2 LAB CHEMISTRY METHOD 11/29/2024 9:24 AM [facility] LAB Comment:Calculation based on the??Chronic Kidney Disease Epidemiology Collaboration (CKD-EPI) equation refit??without adjustment for race. BUN/Creatinine Ratio 13.8 LAB CHEMISTRY METHOD 11/29/2024 9:24 AM [facility] Calcium 9.5 8.5 - 10.5 mg/dL LAB CHEMISTRY METHOD 11/29/2024 9:24 AM [facility] AST (SGOT) 100(H) 10 - 42 unit/L LAB CHEMISTRY METHOD 11/29/2024 9:24 AM EDT [facility] ALT (SGPT) 49 10 - 60 unit/L LAB CHEMISTRY METHOD 11/29/2024 9:24 AM EDT [facility] Alkaline Phosphatase 89 42 - 121 unit/L LAB CHEMISTRY METHOD 11/29/2024 9:24 AM EDT [facility] Total Protein 7.1 6.0 - 8.0 g/dL LAB CHEMISTRY METHOD 11/29/2024 9:24 AM EDT [facility] Albumin 3.2 3.2 - 5.0 g/dL LAB CHEMISTRY METHOD 11/29/2024 9:24 AM [facility] Total Bilirubin 0.3 0.0 - 1.4 mg/dL LAB CHEMISTRY METHOD 11/29/2024 9:24 AM T [facility] Blood Venous blood specimen / Unknown Venipuncture / Unknown 11/29/2024 5:45 AM EDT 11/29/2024 8:03 AM EDT us Dasha Muniz MD LAB BLOOD ORDERABLES Final Res ult [facility] [address] [place] [address], * (ABNORMAL) Complete blood count (11/28/2024 7:03 AM EDT) WBC 6.3 4.8 - 10.8 K/mcL LAB HEMETOLOGY METHOD 11/28/2024 11:52 AM EDT [facility] RBC 3.20(L) 3.80 - 4.80 M/mcL LAB HEMETOLOGY METHOD 11/28/2024 11:52 AM T [facility] Hemoglobin 10.0(L) 11.5 - 16.0 g/dL LAB HEMETOLOGY METHOD 11/28/2024 11:52 AM [facility] Hematocrit 30.2(L) 35.0 - 47.0 % LAB HEMETOLOGY METHOD 11/28/2024 11:52 AM [facility] MCV 93.2 79.0 - 98.0 FL LAB HEMETOLOGY METHOD 11/28/2024 11:52 AM [facility] MCH 30.9 27.0 - 32.0 pcg LAB HEMETOLOGY METHOD 11/28/2024 11:52 AM [facility] MCHC 33.1 32.0 - 37.0 g/dL LAB HEMETOLOGY METHOD 11/28/2024 11:52 AM [facility] RDW 12.5 11.0 - 15.0 % LAB HEMETOLOGY METHOD 11/28/2024 11:52 AM [facility] Platelets 306 130 - 400 K/mcL LAB HEMETOLOGY METHOD 11/28/2024 11:52 AM [facility] MPV 9.1 7.0 - 11.0 FL LAB HEMETOLOGY METHOD 11/28/2024 11:52 AM [facility] NRBC 0.0 <1.0 % LAB HEMETOLOGY METHOD 11/28/2024 11:52 AM [facility] NRBC Absolute 0.00 <0.10 K/mcL LAB HEMETOLOGY METHOD 11/28/2024 11:52 AM [facility] Blood Venous blood specimen / Unknown Venipuncture / Unknown 11/28/2024 7:03 AM EDT 11/28/2024 10:20 AM EDT us Dasha Muniz MD LAB BLOOD ORDERABLES Final Res ult [facility] [address] [place] [address], [place] [phone] * Magnesium (11/23/2024 4:59 AM EDT) Magnesium 1.9 1.9 - 2.6 mg/dL LAB CHEMISTRY METHOD 11/23/2024 8:52 AM EDT [facility] ([facility]) [facility] Blood Venous blood specimen / Unknown 11/23/2024 4:59 AM EDT 11/23/2024 8:07 AM EDT us Dasha Muniz MD LAB BLOOD ORDERABLES Final Res ult [facility] ([facility]) [facility] [address] [place] [address], [place] [phone] from Last 3 Months Insurance MEDICARE Care Teams Jet Pilot Relationship Specialty Start Date End Date Jarrod Smart MD [address] [place] [address] PCP - General Internal Medicine 09/18/17
--- OUTSIDE RECORDS SUMMARY | 2024-12-31 08:19 | XMS_ITS | Encounter Summary ---
Author Organization [facility] Address [address] [place] [address] Care Team Providers Care Electronics Computer Mechanic Name Role Phone Jarrod Smart MD Primary Care Provider [phone] Encounter Details Date Type Department Care Team (Late st Contact Info) Description 11/29/[address] [facility] Lab [address] [place] [address] Dasha Muniz MD [address] [place] [address] Encounter for other general examination Social History [...] CBC auto differential (11/29/2024 5:45 AM EDT) [facility] Signature WBC 7.6 4.8 - 10.8 K/[facility] LAB HEMETOLOGY METHOD 11/29/2024 8:37 AM EDT [facility] RBC 3.40(L) 3.80 - [...] [facility] Monocytes Relative 11.0 % [...] [facility] Neutrophils Absolute 4.54 1.50 [...] MD LAB BLOOD ORDERABLES Final Res ult [facility] [address] [place] [address], * (ABNORMAL) Comprehensive metabolic panel (11/29/2024 5:45 AM EDT) Sodium 133 133 - 145 mmol/L LAB CHEMISTRY METHOD 11/29/2024 9:24 AM [facility] Potassium 4.8 3.5 - [...] LAB CHEMISTRY METHOD 11/29/2024 9:24 AM EDT [facility] AST (SGOT) 100(H) 10 - 42 unit/L LAB CHEMISTRY METHOD 11/29/2024 9:24 AM [facility] ALT (SGPT) 49 10 - 60 unit/L LAB CHEMISTRY METHOD 11/29/2024 9:24 AM [facility] LAB Alkaline Phosphatase 89 42 - 121 unit/L LAB CHEMISTRY METHOD 11/29/2024 9:24 AM [facility] LAB Total Protein 7.1 6.0 - 8.0 g/dL LAB CHEMISTRY METHOD 11/29/2024 9:24 AM [facility] Albumin 3.2 3.2 - 5.0 g/dL LAB CHEMISTRY METHOD 11/29/2024 9:24 AM [facility] Total Bilirubin 0.3 0.0 - 1.4 mg/dL LAB CHEMISTRY METHOD 11/29/2024 9:24 AM [facility] Blood Venous blood specimen / Unknown Venipuncture / Unknown 11/29/2024 5:45 AM EDT 11/29/2024 8:03 AM EDT us Dasha Muniz MD LAB BLOOD ORDERABLES Final Res ult [facility] [address] [place] [address], documented in this encounter Visit Diagnoses Diagnosis Encounter for other general examination documented in this encounter Care Teams Electronics Computer Mechanic Relationship Specialty Start Date End Date Jarrod Smart MD [address] [place] [address] PCP - General Internal Medicine 09/18/17 documented as of this encounter
--- OUTSIDE RECORDS SUMMARY | 2024-12-31 08:19 | XMS_ITS | Encounter Summary ---
Author Organization [facility] Address [address] [place] [address] Care Team Providers Care Straight Cutter Machine Name Role Phone Jarrod Smart MD Primary Care Provider [phone] Encounter Details Date Type Department Care Team (Late st Contact Info) Description 11/23/2024 Lab Requisition [facility] Lab [address] [facility] [employer] [place] [address] Dasha Muniz MD [address] [place] [phone] Encounter for other general examination Social History [...] AM EDT) WBC 7.4 4.8 - 10.8 K/[facility] LAB HEMETOLOGY METHOD 11/23/2024 8:40 AM [facility] LAB RBC 3.20(L) 3.80 - 4.80 M/mcL LAB HEMETOLOGY METHOD 11/23/2024 8:40 AM [facility] Hemoglobin 10.0(L) 11.5 - 16.0 g/dL LAB HEMETOLOGY METHOD 11/23/2024 8:40 AM [facility] LAB Hematocrit 29.8(L) 35.0 - 47.0 % LAB HEMETOLOGY METHOD 11/23/2024 8:40 AM [facility] LAB MCV 92.3 79.0 - 98.0 FL LAB HEMETOLOGY METHOD 11/23/2024 8:40 AM [facility] LAB MCH 31.0 27.0 - 32.0 pcg LAB HEMETOLOGY METHOD 11/23/2024 8:40 AM [facility] LAB MCHC 33.6 32.0 - 37.0 g/dL LAB HEMETOLOGY METHOD 11/23/2024 8:40 AM [facility] LAB RDW 12.7 11.0 - 15.0 % LAB HEMETOLOGY METHOD 11/23/2024 8:40 AM [facility] LAB Platelets 263 130 - 400 K/mcL LAB HEMETOLOGY METHOD 11/23/2024 8:40 AM [facility] LAB MPV 9.4 7.0 - 11.0 FL LAB HEMETOLOGY METHOD 11/23/2024 8:40 AM [facility] LAB NRBC 0.0 <1.0 % LAB HEMETOLOGY METHOD 11/23/2024 8:40 AM [facility] LAB NRBC Absolute 0.00 <0.10 K/mcL LAB HEMETOLOGY METHOD 11/23/2024 8:40 AM [facility] Neutrophils Relative 59.4 % LAB HEMETOLOGY METHOD 11/23/2024 8:40 AM [facility] Lymphocytes Relative 23.5 % LAB HEMETOLOGY METHOD 11/23/2024 8:40 AM [facility] Monocytes Relative 12.7 % LAB HEMETOLOGY METHOD 11/23/2024 8:40 AM [facility] Eosinophils Relative 3.5 % LAB HEMETOLOGY METHOD 11/23/2024 8:40 AM [facility] Basophils Relative 0.5 % LAB HEMETOLOGY METHOD 11/23/2024 8:40 AM [facility] LAB Immature Granulocytes Relative 0.4 % LAB HEMETOLOGY METHOD 11/23/2024 8:40 AM [facility] Neutrophils Absolute 4.38 1.50 - 7.00 K/mcL LAB HEMETOLOGY METHOD 11/23/2024 8:40 AM [facility] Lymphocytes Absolute 1.74 1.00 - 5.00 K/mcL LAB HEMETOLOGY METHOD 11/23/2024 8:40 AM [facility] Monocytes Absolute 0.94 0.20 - 1.00 K/mcL LAB HEMETOLOGY METHOD 11/23/2024 8:40 AM [facility] Eosinophils Absolute 0.26 0.00 - 0.50 K/mcL LAB HEMETOLOGY METHOD 11/23/2024 8:40 AM [facility] Basophils Absolute 0.04 0.00 - 0.20 K/mcL LAB HEMETOLOGY METHOD 11/23/2024 8:40 AM [facility] Immature Granulocytes Absolute 0.03 0.00 - 0.03 K/mcL LAB HEMETOLOGY METHOD 11/23/2024 8:40 AM [facility] LAB Blood Venous blood specimen / Unknown 11/23/2024 4:59 AM EDT 11/23/2024 8:07 AM EDT Dasha Muniz MD LAB BLOOD ORDERABLES Final Res ult Performing Organization Address City/[facility]/ZIP Co de Phone Number [facility] [address] [place] [address], [place] [phone] * Magnesium (11/23/2024 4:59 AM EDT) Pathologist [facility] Magnesium 1.9 1.9 - 2.6 mg/dL LAB CHEMISTRY METHOD 11/23/2024 8:52 AM EDT [facility] Blood Venous blood specimen / Unknown 11/23/2024 4:59 AM EDT 11/23/2024 8:07 AM EDT Dasha Muniz MD LAB BLOOD ORDERABLES Final Res ult Performing Organization Address [facility]/ZIP Co de Phone Number [facility] [address] [place] [address], [place] [phone] * (ABNORMAL) Comprehensive metabolic panel (11/23/2024 4:59 AM EDT) [facility] Sodium 132(L) 133 - 145 mmol/L LAB CHEMISTRY METHOD 11/23/2024 8:52 AM [facility] Potassium 4.2 3.5 - 5.5 mmol/L LAB CHEMISTRY METHOD 11/23/2024 8:52 [facility] Chlor[facility] 101 96 - 110 mmol/L LAB CHEMISTRY METHOD 11/23/2024 8:[facility] CO2 24 21 - 32 mmol/L LAB CHEMISTRY METHOD 11/23/2024 8:52 AM [facility] Anion Gap 7 3 - 11 LAB CHEMISTRY METHOD 11/23/2024 8:52 AM [facility] Glucose 148(H) 70 - 100 mg/dL LAB CHEMISTRY METHOD 11/23/2024 8:52 AM [facility] BUN 10 5 - 25 mg/dL LAB CHEMISTRY METHOD 11/23/2024 8:52 AM [facility] Creatinine 0.60 0.50 - 1.10 mg/dL LAB CHEMISTRY METHOD 11/23/2024 8:52 AM [facility] LAB eGFR 89 >=60 mL/min/1. 73m2 LAB CHEMISTRY METHOD 11/23/2024 8:52 AM [facility] Comment:Calculation based on the??Chronic Kidney Disease Epidemiology Collaboration (CKD-EPI) equation refit??without adjustment for race. BUN/Creatinine Ratio 16.7 LAB CHEMISTRY METHOD 11/23/2024 8:52 AM [facility] Calcium 9.1 8.5 - 10.5 mg/dL LAB CHEMISTRY METHOD 11/23/2024 8:52 AM [facility] AST (SGOT) 106(H) 10 - 42 unit/L LAB CHEMISTRY METHOD 11/23/2024 8:52 AM [facility] ALT (SGPT) 56 10 - 60 unit/L LAB CHEMISTRY METHOD 11/23/2024 8:52 AM [facility] Alkaline Phosphatase 59 42 - 121 unit/L LAB CHEMISTRY METHOD 11/23/2024 8:52 AM [facility] Total Protein 6.7 6.0 - 8.0 g/dL LAB CHEMISTRY METHOD 11/23/2024 8:52 AM [facility] Albumin 2.8(L) 3.2 - 5.0 g/dL LAB CHEMISTRY METHOD 11/23/2024 8:52 AM [facility] Total Bilirubin 0.4 0.0 - 1.4 mg/dL LAB CHEMISTRY METHOD 11/23/2024 8:52 AM [facility] Blood Venous blood specimen / Unknown 11/23/2024 4:59 AM EDT 11/23/2024 8:07 AM EDT us Dasha Muniz MD LAB BLOOD ORDERABLES Final Res ult [facility] ([facility]) [facility] [address] [place] [address], documented in this encounter Visit Diagnoses Diagnosis Encounter for other general examination documented in this encounter Care Teams Straight Cutter Machine Relationship Specialty Start Date End Date Jarrod Smart MD [address] [place] [address] PCP - General Internal Medicine 09/18/17 documented as of this encounter
[2024-12-31 08:32] LABS: MANUAL DIFF FLAG NO
[2024-12-31 09:28] LABS: Basophils Absolute Auto 0.1 X10*3/uL (0.0-0.2); Basophils Percent Auto 0.5 % (0-2); Eosinophils Absolute Auto 0.3 X10*3/uL (0.0-0.4); Eosinophils Percent Auto 2.9 % (0-4); Hematocrit 35.4 % (37.0-47.0); Hemoglobin 12.2 g/dl (12.0-16.0); Imm Gran Abs Auto 0.03 X10*3/uL (0.00-0.03); Imm Gran Pct Auto 0.3 % (0.0-0.4); Lymphocytes Absolute Auto 1.6 X10*3/uL (1.2-4.9); Lymphocytes Percent Auto 17.2 % (20-40); Mean Corpuscular HGB Conc 34.5 g/dl (31.0-35.0); Mean Corpuscular Hemoglobin 30.7 pg (27.0-33.0); Mean Corpuscular Volume 89.2 fL (80.0-98.0); Mean Platelet Volume 8.9 fL (9.4-12.3); Monocytes Percent Auto 10.5 % (2-11); Neutrophils Absolute Auto 6.5 x10*3/uL (2.0-8.3); Neutrophils Percent Auto 68.6 % (45-73); Platelet Count 255 X10*3/uL (160-400); Red Blood Count 3.97 X10*6/uL (4.20-5.50); Red Cell Distribution Width 12.9 % (11.0-16.0); White Blood Count 9.5 X10*3/uL (4.8-10.8)
[2024-12-31 09:32] LABS: Estimated Average Glucose 134 mg/dL; Hemoglobin A1C 146.1579 umol/L; Hemoglobin A1c % 6.3 % (<6.0); Total Hemoglobin (HGBA1C) 3224.2882 umol/L
[2024-12-31 10:04] LABS: Alanine Aminotransferase 25 U/L (0-31); Albumin Level 3.9 g/dL (3.5-5.0); Alkaline Phosphatase 66 U/L (39-117); Anion Gap 11 (12-20); Aspartate Amino Transferase 91 U/L (5-31); Bilirubin Total 0.5 mg/dL (0.0-1.0); Blood Urea Nitrogen 8 mg/dL (9-16); Calcium 9.6 mg/dL (8.4-10.2); Carbon Dioxide 22 mmol/L (22-29); Chloride 103 mmol/L (96-108); Cholesterol 142 mg/dL (<200); Estimated Glomerular Filt Rate > 60; Glucose Random 153 mg/dL (60-115); HDL Cholesterol 48 mg/dL (>40); LDL Cholesterol Calculated 77 mg/dL (<100); Potassium 4.2 mmol/L (3.3-5.1); Sodium 132 mmol/L (135-145); Total Protein 7.3 g/dL (6.5-8.0); Triglycerides 89 mg/dL (<150)
[2024-12-31 10:25] LABS: TSH reflex Free T4 2.23 uIU/mL (0.32-4.0)
[2024-12-31 12:01] LABS: Creatinine Urine 68.87 mg/dL; Microalbum/Creatinine Ratio Ur 59.5 ug/mg cr (<30)
== END 2024-12-31 08:14 | disposition home or self-care (01) ==
LOC: HO.LAB 08:13
PROVIDERS: PCP Physician Assistant; Visit Provider Physician Assistant
DX: J44.89 Other specified chronic obstructive pulmonary disease (principal); J84.9 Interstitial pulmonary disease, unspecified; J30.9 Allergic rhinitis, unspecified; E11.8 Type 2 diabetes mellitus with unspecified complications; L03.116 Cellulitis of left lower limb; F41.1 Generalized anxiety disorder
CPT/HCPCS: 36415; 80053; 80061; 82043; 82570; 83036; 84443; 85025; 99212

== ENCOUNTER 2024-12-31 08:33 | Outpatient (AMB) | payer MEDICARE, OTHER, SELFPAY ==
[2024-12-31 08:38] VITALS: BP 120/68; PULSE 87; O2SAT 98; BMI 24.4
--- NOTE | 2024-12-31 08:38 | A.OFFVIS_ITS ---
Vital Signs 12/31/24 08:38 Height 5 ft 5 in Weight 146 lb 9.718 oz BMI 24.4 BP 120/68 Blood Pressure Location Lt brachial Position Sitting Pulse 87 Pulse Source Pulse Oximeter Pulse Oximetry (%) 98 Oxygen Delivery Method Room Air Intake Visit Reasons: COPD Phlebotomist Prn Required: No Accompanied by: Self / Same As Patient Allergies No Known Allergies Allergy (Unknown, Verified 12/31/24 08:42) NOT APPLICABLE HPI Comments Details: The patient is a 84-year-old woman known chronic rhinitis and also asthma COPD overlap syndrome. Her respiratory status has been stable over the summer. She has not required any prednisone. She has been starting to complain about nasal congestion and postnasal drip. That usually have she starts. Moderate severity. She has been using her Flonase. She has tried and failed Astelin nasal spray and also Atrovent nasal spray. She does use the Neti pot of but not all the time. She has been using her inhalers although, she does using all the time specially while her breathing is okay. She is concerned about the winter months at this time. 07/09/2023 the patient is here for sick visit. She has been him worsening respiratory symptoms. She states that during the fall months she typically does get worsening chest tightness cough. She did have some prednisone at home she took 20 mg for few days and then decrease down to 10 mg. She took the last dose yesterday. Initially he has had some relief but when she started coming off the prednisone she started having symptoms again. She has a cough for the most part is nonproductive she also harsh and dry. On examination the patient does have some very fine crackles bilaterally suggesting degree of pneumonitis. She denies any sick contacts. His sinuses are also congested. Will go ahead and start her on another course of prednisone and also provide her some doxycycline. I do believe the patient needs a repeat CT scan to follow up with the abnormal chest x-ray and her worsening respiratory symptoms. Depending on the CT scan will do additional blood work. 09/03/2023 the patient is here for a pulmonary follow-up visit. Her breathing is overall better. She has not required any additional prednisone or antibiotics. The patient does have some shortness of breath with activity. Mild in severity. Denies any significant cough. The patient has been using the Symbicort and the Spiriva with good effect. Although, the Symbicort is no longer cover so therefore I will send a Dulera to use instead. She did have a CT scan of the chest that we personally reviewed together. It appears that she does have reticular changes in the subpleural area along with the bases suggesting some degree of interstitial lung disease. No evidence of any ground-glass opacities. This could be the result of her underlying pneumonitis that she had back in the fall or the patient may indeed have interstitial lung disease such as idiopathic pulmonary fibrosis specially since I do not see any ground-glass opacities. Will continue to monitor closely for any progression of disease. The fact that she patient is feeling better from the fall is reassuring. She is also dealing with her sick son. He currently at a [facility] waiting for a heart transplant. Will have her return in 4 months with PFTs to see if there is any progression. Will continue to monitor closely. 05/08/2024 the patient is here for sick visit. She has been sick now for 3 days. Complains of headaches fever chills cough shortness of breath. Moderate in severity. She is tested negative for COVID-19. She did call the office we did send her a course of antibiotics. Also Center cough syrup but she was not able to get it because his back order. In the meantime she did come in she does have crackles at the bases. We did swab her for RSV, flu and COVID. It turned out positive for RSV. Likely RSV bronchiolitis with some degree of pneumonitis. She continues use her respiratory medications. 01/07/2024 the patient is here for a pulmonary follow-up visit. The patient is finally recovering from a significant viral syndrome that she had. It took about couple months to feel better. Although she still not her baseline. Still feels tired and also short of breath. She did undergo pulmonary function studies which we personally reviewed. Appears to have a mild restrictive ventilatory defect and also moderate diffusion impairment. We did talk about pulmonary rehabilitation. She is going to try to do online rehabilitation with the Pulmonary while this program. He is going to work on deep breathing techniques. In the meantime she has been using her respiratory medicines. Will switch over from Symbicort to Dulera since Symbicort is no longer covered and she continues on the Spiriva. She does have significant allergies with postnasal drip. She has difficulties in the spring visible all her allergies. Will go ahead and add Astelin to fluticasone nasal spray and she is already taking antihistamine therapy by mouth as well. 07/14/2024 the patient is here for a pulmonary follow-up visit. Overall she is doing okay. She still having increasing dyspnea though. Moderate severity. Typically worse when she is going up a flight of stairs or inclines. She has been using the Spiriva. She did not get the Symbicort because it was not covered. In the Dulera send but she did not pick it up. She is having increased chest congestion. [id number] severity. She also complains about her postnasal drip that is tenacious and caused her to have coughing spells. She has tried multiple nasal sprays without any significant benefit. She does respond partially to the fluticasone into the Neti rinsing. No recent imaging to review. Although she did have a fall and she fractured her right arm the 1 that had just gotten surgery on for the shoulder. Therefore she has limited motion that area. During the visit we did go for a walking oximetry in her oxygen was 99-98% throughout the ambulation. Heart rate was in the high 90s. She was not too uncomfortable with dyspnea score 4/10. The patient is coughing some and she does have some congestion but is typically clear in color. If can changes color she will call. Will go ahead and switch over to Trelegy to make her medication regimen simpler in that way she can optimize her respiratory regimen. Patient will continue with the nasal sprays. And will follow-up in 6 months. If she has any worsening symptoms or any concerning issues she will call for further evaluation and recommendations. 12/31/2024 the patient is here for a pulmonary follow-up visit. Overall the patient is doing okay. Back in October she had a bad fall she fracture to vertebral bodies resulting in significant pain and difficulty breathing. She did have a CT scan of the chest when she went to [facility]. I did personally reviewed. She does have evidence of interstitial lung disease noted before with some traction bronchiectasis and honeycombing. No evidence of pneumonitis. Her oxygen drops somebody explained to her that likely she is developing some atelectasis. Right now is about 98% which is reassuring. She does work on the incentive spirometer as much as possible. Will go ahead and request an Acapella valve so she can help with mucus clearance. She continues use her respiratory medications with good effect. She is having had dry hacky cough in [place] Per[place] her partially helpful. Will send her some cough medicine with codeine that she can use specially at home and at night since she is able to stop coughing and be able to rest. Will plan to follow-up in 6 months. If the patient has any issues prior to that she will call for an earlier assessment. 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) Vision needs: Yes (glasses) Review of Systems Const Denies chills, Denies fatigue, Denies fever(s), Denies weight gain and Denies weight loss ENT Denies dizziness, Denies lip swelling and Denies tongue swelling Card Denies chest pain, Denies leg edema, Denies lightheadedness, Denies palpitations, Denies dyspnea on exertion, Denies orthopnea and Denies other Resp Denies cough, Denies dyspnea on exertion and Reports wheezing GI Denies hematochezia and Denies change in stool character Musc Denies abnormal gait, Denies muscle weakness, Denies numbness, Denies radiating pain into limb and Denies tingling Neuro Denies abnormal gait, Denies dizziness, Denies numbness and Denies tingling Psych Denies no additional complaints Endo Denies fatigue and Denies palpitations Angelo/Lymph Denies easy bleeding and Denies lymphadenopathy Aller/Immun Denies lip swelling, Denies tongue swelling and Reports wheezing Physical Exam Vital Signs: Last Vital Signs Pulse 87 12/31/24 08:38 BP 120/68 12/31/24 08:38 Pulse Ox 98 12/31/24 08:38 Oxygen Delivery Method Room Air 12/31/24 08:38 BMI result Body Mass Index 24.4 Assessment & Plan Assessment & Plan (1) Asthma-COPD overlap syndrome: Code(s): J44.9 - Chronic obstructive pulmonary disease, unspecified Category: Medical (2) ILD (interstitial lung disease): Comment: minimal scarring Code(s): J84.9 - Interstitial pulmonary disease, unspecified Category: Medical (3) Chronic allergic rhinitis: Code(s): J30.9 - Allergic rhinitis, unspecified Category: Medical Plan Trelegy 100 DAWSON as needed continue Singulair continue fluticasone nasal spray stop Astelin nasal spray cough medicine Benzonates as needed, Goodrx card provided exercising/on line pulmonary rehab requesting acapella valve for CPT F/U 6 months Medications: New codeine-guaifenesin 10-100 mg/5 mL 10 mL PO Q6H 10 days PRN 300 mL 0RF cough Coding Level of Care Code Est Pt Level 4 (79265) Complex EM visit Add On G2211 Diagnoses Asthma-COPD overlap syndrome J44.9 ILD (interstitial lung disease) J84.9 Chronic allergic rhinitis J30.9 Time Spent (min) 17
--- OUTSIDE RECORDS SUMMARY | 2024-12-31 08:54 | XMS_ITS | Clinical Summary ---
Author Organization [address] [facility] Address [address] [place] [address] Phone Care Team Providers Care Call Center Professional Name Role Phone Jarrod Smart MD Primary Care Provider [phone] Encounters Date Type Department Care Team Description 11/29/2024 Lab Requisition [facility] [address] [place] [phone] Dasha Muniz MD Encounter for other general examination 11/28/2024 Lab Requisition [facility] [address] [place] [address] Dasha Muniz MD Encounter for other general examination 11/25/2024 Lab Requisition [facility] [address] [place] [address] Dasha Muniz MD Encounter for other general examination 11/23/2024 Lab Requisition [facility] [address] [place] [phone] Dasha Muniz MD Encounter for other general examination from Last 3 Months Medical History Medical History Date Comments Type 2 diabetes mellitus wit hout complication ([facility] V24, [facility] V28) 10/11/2017 DX:Type 2 diab etes mellitus without complication (HCC) Hyperlipidemia 10/11/2017 DX:Hyperlipidemi a Atelectasis 03/27/2017 DX:Atelectasis COPD (chronic obstructive pu lmonary disease) (CMS/HCC V24, CMS/HCC V28) 05/17/2017 DX:COPD (chronic o bstructive pulmonary disease) (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 [facility] Signature WBC 7.6 4.8 - 10.8 K/mcL LAB HEMETOLOGY METHOD 11/29/2024 8:[address] [facility] RBC 3.40(L) 3.80 - 4.80 M/mcL LAB HEMETOLOGY METHOD 11/29/2024 8:37 AM [facility] Hemoglobin 10.6(L) 11.5 - 16.0 g/dL LAB HEMETOLOGY METHOD 11/29/2024 8:37 AM [facility] Hematocrit 31.5(L) 35.0 - 47.0 % LAB HEMETOLOGY METHOD 11/29/2024 8:37 AM [facility] MCV 92.4 79.0 - 98.0 FL LAB HEMETOLOGY METHOD 11/29/2024 8:37 AM [facility] MCH 31.1 27.0 - 32.0 pcg LAB HEMETOLOGY METHOD 11/29/2024 8:37 AM [facility] MCHC 33.7 32.0 - 37.0 g/dL LAB HEMETOLOGY METHOD 11/29/2024 8:37 AM [facility] RDW 12.7 11.0 - 15.0 % LAB HEMETOLOGY METHOD 11/29/2024 8:37 AM [facility] Platelets 301 130 - 400 K/mcL LAB HEMETOLOGY METHOD 11/29/2024 8:37 AM [facility] MPV 9.4 7.0 - 11.0 FL LAB HEMETOLOGY METHOD 11/29/2024 8:37 AM [facility] NRBC 0.0 <1.0 % LAB HEMETOLOGY METHOD 11/29/2024 8:37 AM [facility] NRBC Absolute 0.00 <0.10 K/mcL LAB HEMETOLOGY METHOD 11/29/2024 8:37 AM [facility] Neutrophils Relative 59.5 % LAB HEMETOLOGY METHOD 11/29/2024 8:37 AM [facility] Lymphocytes Relative 24.9 % LAB HEMETOLOGY METHOD 11/29/2024 8:[address] [facility] Monocytes Relative 11.0 % LAB HEMETOLOGY METHOD 11/29/2024 8:37 AM [facility] Eosinophils Relative 3.5 % LAB HEMETOLOGY METHOD 11/29/2024 8:37 AM [facility] Basophils Relative 0.7 % LAB HEMETOLOGY METHOD 11/29/2024 8:[address] [facility] Immature Granulocytes Relative 0.4 % [facility] Neutrophils Absolute 4.54 1.50 - 7.00 K/mcL LAB HEMETOLOGY METHOD 11/29/2024 8:37 AM [facility] Lymphocytes Absolute 1.90 1.00 - 5.00 K/mcL LAB HEMETOLOGY METHOD 11/29/2024 8:37 AM [facility] Monocytes Absolute 0.84 0.20 - 1.00 K/mcL LAB HEMETOLOGY METHOD 11/29/2024 8:37 AM [facility] Eosinophils Absolute 0.27 0.00 - 0.50 K/mcL LAB HEMETOLOGY METHOD 11/29/2024 8:37 AM [facility] Basophils Absolute 0.05 0.00 - 0.20 K/mcL LAB HEMETOLOGY METHOD 11/29/2024 8:37 AM [facility] Immature Granulocytes Absolute 0.03 0.00 - 0.03 K/mcL LAB HEMETOLOGY METHOD 11/29/2024 8:37 AM [facility] Blood Venous blood specimen / Unknown Venipuncture / Unknown 11/29/2024 5:45 AM EDT 11/29/2024 8:03 AM EDT us Dasha Muniz MD LAB BLOOD ORDERABLES Final Res ult [facility] [address] [place] [address], * (ABNORMAL) Comprehensive metabolic panel (11/29/2024 5:45 AM EDT) Only the most recent of3 resultswithin the time period is included. Sodium 133 133 - 145 mmol/L LAB CHEMISTRY METHOD 11/29/2024 9:[address] [facility] Potassium 4.8 3.5 - 5.5 mmol/L LAB CHEMISTRY METHOD 11/29/2024 9:24 AM [facility] Chloride 100 96 - 110 mmol/L LAB CHEMISTRY METHOD 11/29/2024 9:24 AM [facility] CO2 29 21 - 32 mmol/L LAB CHEMISTRY METHOD 11/29/2024 9:24 AM [facility] Anion Gap 4 3 - 11 LAB CHEMISTRY METHOD 11/29/2024 9:24 AM [facility] Glucose 104(H) 70 - 100 mg/dL LAB CHEMISTRY METHOD 11/29/2024 9:24 AM [facility] BUN 9 5 - 25 mg/dL LAB CHEMISTRY METHOD 11/29/2024 9:24 AM [facility] Creatinine 0.65 0.50 - 1.10 mg/dL LAB CHEMISTRY METHOD 11/29/2024 9:24 AM [facility] eGFR 87 >=60 mL/min/1. 73m2 LAB CHEMISTRY METHOD 11/29/2024 9:24 AM [facility] Comment:Calculation based on the??Chronic Kidney Disease Epidemiology Collaboration (CKD-EPI) equation refit??without adjustment for race. BUN/Creatinine Ratio 13.8 LAB CHEMISTRY METHOD 11/29/2024 9:24 AM [facility] Calcium 9.5 8.5 - 10.5 mg/dL LAB CHEMISTRY METHOD 11/29/2024 9:24 AM [facility] AST (SGOT) 100(H) 10 - 42 unit/L LAB CHEMISTRY METHOD 11/29/2024 9:[address] [facility] ALT (SGPT) 49 10 - 60 unit/L LAB CHEMISTRY METHOD 11/29/2024 9:[address] [facility] Alkaline Phosphatase 89 42 - 121 unit/L LAB CHEMISTRY METHOD 11/29/2024 9:[address] [facility] Total Protein 7.1 6.0 - 8.0 g/dL LAB CHEMISTRY METHOD 11/29/2024 9:[address] [facility] Albumin 3.2 3.2 - 5.0 g/dL LAB CHEMISTRY METHOD 11/29/2024 9:24 AM [facility] Total Bilirubin 0.3 0.0 - 1.4 mg/dL LAB CHEMISTRY METHOD 11/29/2024 9:[address] [facility] Blood Venous blood specimen / Unknown Venipuncture / Unknown 11/29/2024 5:45 AM EDT 11/29/2024 8:03 AM EDT us Dasha Muniz MD LAB BLOOD ORDERABLES Final Res ult [facility] [address] [place] [address], * (ABNORMAL) Complete blood count (11/28/2024 7:03 AM EDT) WBC 6.3 4.8 - 10.8 K/mcL LAB HEMETOLOGY METHOD 11/28/2024 11:[address] [facility] RBC 3.20(L) 3.80 - 4.80 M/mcL LAB HEMETOLOGY METHOD 11/28/2024 11:[address] [facility] Hemoglobin 10.0(L) 11.5 - 16.0 g/dL LAB HEMETOLOGY METHOD 11/28/2024 11:52 AM [facility] Hematocrit 30.2(L) 35.0 - 47.0 % LAB HEMETOLOGY METHOD 11/28/2024 11:52 AM [facility] MCV 93.2 79.0 - 98.0 FL LAB HEMETOLOGY METHOD 11/28/2024 11:52 AM [facility] MCH 30.9 27.0 - 32.0 pcg LAB HEMETOLOGY METHOD 11/28/2024 11:52 AM [facility] MCHC 33.1 32.0 - 37.0 g/dL LAB HEMETOLOGY METHOD 11/28/2024 11:52 AM [facility] RDW 12.5 11.0 - 15.0 % LAB HEMETOLOGY METHOD 11/28/2024 11:52 AM [facility] Platelets 306 130 - 400 K/mcL LAB HEMETOLOGY METHOD 11/28/2024 11:52 AM [facility] MPV 9.1 7.0 - 11.0 FL LAB HEMETOLOGY METHOD 11/28/2024 11:52 AM [facility] NRBC 0.0 <1.0 % LAB HEMETOLOGY METHOD 11/28/2024 11:52 AM [facility] NRBC Absolute 0.00 <0.10 K/mcL LAB HEMETOLOGY METHOD 11/28/2024 11:52 AM [facility] Blood Venous blood specimen / Unknown Venipuncture / Unknown 11/28/2024 7:03 AM EDT 11/28/2024 10:20 AM EDT us Dasha Muniz MD LAB BLOOD ORDERABLES Final Res ult [facility] [address] [place] [address], [place] [phone] * Magnesium (11/23/2024 4:59 AM EDT) Magnesium 1.9 1.9 - 2.6 mg/dL LAB CHEMISTRY METHOD 11/23/2024 8:52 AM EDT [facility] Blood Venous blood specimen / Unknown 11/23/2024 4:59 AM EDT 11/23/2024 8:07 AM EDT us Dasha Muniz MD LAB BLOOD ORDERABLES Final Res ult [facility] [address] [place] [address], [place] [phone] from Last 3 Months Insurance MEDICARE Care Teams Call Center Professional Relationship Specialty Start Date End Date Jarrod Smart MD [address] [place] [address] PCP - General Internal Medicine 09/18/17
--- OUTSIDE RECORDS SUMMARY | 2024-12-31 08:54 | XMS_ITS | Encounter Summary ---
Author Organization [facility] Address [address] [place] [address] Care Team Providers Care Entry Processor Name Role Phone Jarrod Smart MD Primary Care Provider [phone] Encounter Details Date Type Department Care Team (Late st Contact Info) Description 11/25/2024 Lab Requisition [facility] [address] [facility] [place] [address] Dasha Muniz MD [address] [place] [id number] Encounter for other general examination Social History [...] LAB CHEMISTRY METHOD 11/25/2024 11:12 AM EDT [facility] Potassium 4.0 3.5 - 5.5 mmol/L LAB CHEMISTRY METHOD 11/25/2024 11:12 AM EDT [facility] Chloride 102 96 - 110 mmol/L LAB CHEMISTRY METHOD 11/25/2024 11:12 AM T [facility] CO2 23 21 - 32 mmol/L LAB CHEMISTRY METHOD 11/25/2024 11:12 AM [facility] Anion Gap 9 3 - 11 LAB CHEMISTRY METHOD 11/25/2024 11:12 AM [facility] Glucose 118(H) 70 - 100 mg/dL LAB CHEMISTRY METHOD 11/25/2024 11:12 AM [facility] BUN 12 5 - 25 mg/dL LAB CHEMISTRY METHOD 11/25/2024 11:12 AM [facility] Creatinine 0.63 0.50 - 1.10 mg/dL LAB CHEMISTRY METHOD 11/25/2024 11:12 AM [facility] eGFR 88 >=60 mL/min/1. 73m2 LAB CHEMISTRY METHOD 11/25/2024 11:12 AM [facility] Comment:Calculation based on the??Chronic Kidney Disease Epidemiology Collaboration (CKD-EPI) equation refit??without adjustment for race. BUN/Creatinine Ratio 19.0 LAB CHEMISTRY METHOD 11/25/2024 11:12 AM [facility] Calcium 8.9 8.5 - 10.5 mg/dL LAB CHEMISTRY METHOD 11/25/2024 11:12 AM [facility] AST (SGOT) 91(H) 10 - 42 unit/L LAB CHEMISTRY METHOD 11/25/2024 11:12 AM [facility] ALT (SGPT) 48 10 - 60 unit/L LAB CHEMISTRY METHOD 11/25/2024 11:12 AM [facility] Alkaline Phosphatase 66 42 - 121 unit/L LAB CHEMISTRY METHOD 11/25/2024 11:12 AM [facility] Total Protein 6.6 6.0 - 8.0 g/dL LAB CHEMISTRY METHOD 11/25/2024 11:12 AM [facility] Albumin 2.9(L) 3.2 - 5.0 g/dL LAB CHEMISTRY METHOD 11/25/2024 11:12 AM EDT [facility] Total Bilirubin 0.4 0.0 - 1.4 mg/dL LAB CHEMISTRY METHOD 11/25/2024 11:12 AM EDT [facility] Blood Venous blood specimen / Unknown Venipuncture / Unknown 11/25/2024 5:05 AM EDT 11/25/2024 9:16 AM EDT us Dasha Muniz MD LAB BLOOD ORDERABLES Final Res ult [facility] [address] [place] [address], documented in this encounter Visit Diagnoses Diagnosis Encounter for other general examination documented in this encounter Care Teams Entry Processor Relationship Specialty Start Date End Date Jarrod Smart MD [address] [place] [address] PCP - General Internal Medicine 09/18/17 documented as of this encounter
--- OUTSIDE RECORDS SUMMARY | 2024-12-31 08:54 | XMS_ITS | Encounter Summary ---
Author Organization [facility] Address [address] [place] [address] Care Team Providers Care Medical Chemist Name Role Phone Jarrod Smart MD Primary Care Provider [phone] Encounter Details Date Type Department Care Team (Late st Contact Info) Description 11/29/2024 Lab Requisition [facility] - Main Lab [address] [place] [address] Dasha Muniz MD [address] [place] [address] Encounter for other general examination Social History [...] CBC auto differential (11/29/2024 5:45 AM EDT) [facility] Signature WBC 7.6 4.8 - 10.8 K/[facility] LAB HEMETOLOGY METHOD 11/29/2024 8:37 AM EDT [facility] ([facility] LAB RBC 3.40(L) 3.80 - 4.80 M/mcL LAB HEMETOLOGY METHOD 11/29/2024 8:37 AM [facility] LAB Hemoglobin 10.6(L) 11.5 - 16.0 g/dL LAB HEMETOLOGY METHOD 11/29/2024 8:37 AM [facility] LAB Hematocrit 31.5(L) 35.0 - 47.0 % LAB HEMETOLOGY METHOD 11/29/2024 8:37 AM [facility] LAB MCV 92.4 79.0 - 98.0 FL LAB HEMETOLOGY METHOD 11/29/2024 8:37 AM [facility] LAB MCH 31.1 27.0 - 32.0 pcg LAB HEMETOLOGY METHOD 11/29/2024 8:37 AM [facility] LAB MCHC 33.7 32.0 - 37.0 g/dL LAB HEMETOLOGY METHOD 11/29/2024 8:37 AM [facility] LAB RDW 12.7 11.0 - 15.0 % LAB HEMETOLOGY METHOD 11/29/2024 8:37 AM [facility] LAB Platelets 301 130 - 400 K/mcL LAB HEMETOLOGY METHOD 11/29/2024 8:37 AM [facility] LAB MPV 9.4 7.0 - 11.0 FL LAB HEMETOLOGY METHOD 11/29/2024 8:37 AM [facility] LAB NRBC 0.0 <1.0 % LAB HEMETOLOGY METHOD 11/29/2024 8:37 AM [facility] LAB NRBC Absolute 0.00 <0.10 K/mcL LAB HEMETOLOGY METHOD 11/29/2024 8:37 AM [facility] LAB Neutrophils Relative 59.5 % LAB HEMETOLOGY METHOD 11/29/2024 8:37 AM [facility] LAB Lymphocytes Relative 24.9 % LAB HEMETOLOGY METHOD 11/29/2024 8:37 AM [facility] LAB Monocytes Relative 11.0 % LAB HEMETOLOGY METHOD 11/29/2024 8:37 AM [facility] LAB Eosinophils Relative 3.5 % LAB HEMETOLOGY METHOD 11/29/2024 8:37 AM [facility] LAB Basophils Relative 0.7 % LAB HEMETOLOGY METHOD 11/29/2024 8:37 AM [facility] LAB Immature Granulocytes Relative 0.4 % LAB HEMETOLOGY METHOD 11/29/2024 8:37 AM [facility] LAB Neutrophils Absolute 4.54 1.50 - 7.00 K/mcL LAB HEMETOLOGY METHOD 11/29/2024 8:37 AM [facility] LAB Lymphocytes Absolute 1.90 1.00 - 5.00 K/mcL LAB HEMETOLOGY METHOD 11/29/2024 8:37 AM [facility] LAB Monocytes Absolute 0.84 0.20 - 1.00 K/mcL LAB HEMETOLOGY METHOD 11/29/2024 8:37 AM [facility] LAB Eosinophils Absolute 0.27 0.00 - 0.50 K/mcL LAB HEMETOLOGY METHOD 11/29/2024 8:37 AM [facility] LAB Basophils Absolute 0.05 0.00 - 0.20 K/mcL LAB HEMETOLOGY METHOD 11/29/2024 8:37 AM [facility] LAB Immature Granulocytes Absolute 0.03 0.00 - 0.03 K/mcL LAB HEMETOLOGY METHOD 11/29/2024 8:37 AM [facility] LAB Blood Venous blood specimen / Unknown Venipuncture / Unknown 11/29/2024 5:45 AM EDT 11/29/2024 8:03 AM EDT Dasha Muniz MD LAB BLOOD ORDERABLES Final Res ult [facility] [address] [place] [address], * (ABNORMAL) Comprehensive metabolic panel (11/29/2024 5:45 AM EDT) Sodium 133 133 - 145 mmol/L LAB CHEMISTRY METHOD 11/29/2024 9:24 AM [facility] LAB Potassium 4.8 3.5 - 5.5 mmol/L LAB CHEMISTRY METHOD 11/29/2024 9:24 AM [facility] LAB Chloride 100 96 - 110 mmol/L LAB CHEMISTRY METHOD 11/29/2024 9:24 AM [facility] LAB CO2 29 21 - 32 mmol/L LAB CHEMISTRY METHOD 11/29/2024 9:24 AM [facility] LAB Anion Gap 4 3 - 11 LAB CHEMISTRY METHOD 11/29/2024 9:24 AM [facility] LAB Glucose 104(H) 70 - 100 mg/dL LAB CHEMISTRY METHOD 11/29/2024 9:24 AM [facility] LAB BUN 9 5 - 25 mg/dL LAB CHEMISTRY METHOD 11/29/2024 9:24 AM [facility] LAB Creatinine 0.65 0.50 - 1.10 mg/dL LAB CHEMISTRY METHOD 11/29/2024 9:24 AM [facility] LAB eGFR 87 >=60 mL/min/1. 73m2 LAB CHEMISTRY METHOD 11/29/2024 9:24 AM [facility] LAB Comment:Calculation based on the??Chronic Kidney Disease Epidemiology Collaboration (CKD-EPI) equation refit??without adjustment for race. BUN/Creatinine Ratio 13.8 LAB CHEMISTRY METHOD 11/29/2024 9:24 AM [facility] LAB Calcium 9.5 8.5 - 10.5 mg/dL LAB CHEMISTRY METHOD 11/29/2024 9:24 AM EDT [facility] LAB AST (SGOT) 100(H) 10 - 42 unit/L LAB CHEMISTRY METHOD 11/29/2024 9:24 AM [facility] LAB ALT (SGPT) 49 10 - 60 unit/L LAB CHEMISTRY METHOD 11/29/2024 9:24 AM [facility] LAB Alkaline Phosphatase 89 42 - 121 unit/L LAB CHEMISTRY METHOD 11/29/2024 9:24 AM [facility] LAB Total Protein 7.1 6.0 - 8.0 g/dL LAB CHEMISTRY METHOD 11/29/2024 9:24 AM [facility] LAB Albumin 3.2 3.2 - 5.0 g/dL LAB CHEMISTRY METHOD 11/29/2024 9:24 AM [facility] LAB Total Bilirubin 0.3 0.0 - 1.4 mg/dL LAB CHEMISTRY METHOD 11/29/2024 9:24 AM [facility] LAB Blood Venous blood specimen / Unknown Venipuncture / Unknown 11/29/2024 5:45 AM EDT 11/29/2024 8:03 AM EDT us Dasha Muniz MD LAB BLOOD ORDERABLES Final Res ult [facility] [address] [place] [address], documented in this encounter Visit Diagnoses Diagnosis Encounter for other general examination documented in this encounter Care Teams Medical Chemist Relationship Specialty Start Date End Date Jarrod Smart MD [address] [place] [address] PCP - General Internal Medicine 09/18/17 documented as of this encounter
--- OUTSIDE RECORDS SUMMARY | 2024-12-31 08:54 | XMS_ITS | Encounter Summary ---
Author Organization [facility] Address [address] [place] [address] Care Team Providers Care Applied Technologist Name Role Phone Jarrdo Smart MD Primary Care Provider Encounter Details Date Type Department Care Team (Late st Contact Info) Description 11/23/2024 Lab Requisition [facility] - Main Lab [address] [facility] [place] [address] Dasha Muniz MD [address] [place] [address] Encounter for other general examination Social History [...] AM EDT) WBC 7.4 4.8 - 10.8 K/[facility] LAB HEMETOLOGY METHOD 11/23/2024 8:40 AM [facility] LAB RBC 3.20(L) 3.80 - 4.80 M/mcL LAB HEMETOLOGY METHOD 11/23/2024 8:40 AM [facility] LAB Hemoglobin 10.0(L) 11.5 - 16.0 g/dL LAB HEMETOLOGY METHOD 11/23/2024 8:40 AM [facility] LAB Hematocrit 29.8(L) 35.0 - 47.0 % LAB HEMETOLOGY METHOD 11/23/2024 8:40 AM [facility] LAB MCV 92.3 79.0 - 98.0 FL LAB HEMETOLOGY METHOD 11/23/2024 8:40 AM [facility] LAB MCH 31.0 27.0 - 32.0 pcg LAB HEMETOLOGY METHOD 11/23/2024 8:40 AM [facility] LAB MCHC 33.6 32.0 - 37.0 g/dL LAB HEMETOLOGY METHOD 11/23/2024 8:40 AM [facility] LAB RDW 12.7 11.0 - 15.0 % LAB HEMETOLOGY METHOD 11/23/2024 8:40 AM [facility] LAB Platelets 263 130 - 400 K/mcL LAB HEMETOLOGY METHOD 11/23/2024 8:40 AM [facility] LAB MPV 9.4 7.0 - 11.0 FL LAB HEMETOLOGY METHOD 11/23/2024 8:40 AM [facility] LAB NRBC 0.0 <1.0 % LAB HEMETOLOGY METHOD 11/23/2024 8:40 AM [facility] LAB NRBC Absolute 0.00 <0.10 K/mcL LAB HEMETOLOGY METHOD 11/23/2024 8:40 AM [facility] LAB Neutrophils Relative 59.4 % LAB HEMETOLOGY METHOD 11/23/2024 8:40 AM [facility] LAB Lymphocytes Relative 23.5 % LAB HEMETOLOGY METHOD 11/23/2024 8:40 AM [facility] LAB Monocytes Relative 12.7 % LAB HEMETOLOGY METHOD 11/23/2024 8:40 AM [facility] LAB Eosinophils Relative 3.5 % LAB HEMETOLOGY METHOD 11/23/2024 8:40 AM [facility] LAB Basophils Relative 0.5 % LAB HEMETOLOGY METHOD 11/23/2024 8:40 AM [facility] LAB Immature Granulocytes Relative 0.4 % LAB HEMETOLOGY METHOD 11/23/2024 8:40 AM [facility] LAB Neutrophils Absolute 4.38 1.50 - 7.00 K/mcL LAB HEMETOLOGY METHOD 11/23/2024 8:40 AM [facility] LAB Lymphocytes Absolute 1.74 1.00 - 5.00 K/mcL LAB HEMETOLOGY METHOD 11/23/2024 8:40 AM [facility] LAB Monocytes Absolute 0.94 0.20 - 1.00 K/mcL LAB HEMETOLOGY METHOD 11/23/2024 8:40 AM [facility] LAB Eosinophils Absolute 0.26 0.00 - 0.50 K/mcL LAB HEMETOLOGY METHOD 11/23/2024 8:40 AM [facility] LAB Basophils Absolute 0.04 0.00 - 0.20 K/mcL LAB HEMETOLOGY METHOD 11/23/2024 8:40 AM [facility] LAB Immature Granulocytes Absolute 0.03 0.00 - 0.03 K/mcL LAB HEMETOLOGY METHOD 11/23/2024 8:40 AM [facility] LAB Blood Venous blood specimen / Unknown 11/23/2024 4:59 AM EDT 11/23/2024 8:07 AM EDT Dasha Muniz MD LAB BLOOD ORDERABLES Final Res ult Performing Organization Address City/[facility]/ZIP Co de Phone Number [facility] [address] [place] [address], [place] [phone] * Magnesium (11/23/2024 4:59 AM EDT) Pathologist [facility] Magnesium 1.9 1.9 - 2.6 mg/dL LAB CHEMISTRY METHOD 11/23/2024 8:52 AM EDT [facility] Blood Venous blood specimen / Unknown 11/23/2024 4:59 AM EDT 11/23/2024 8:07 AM EDT Dasha Muniz MD LAB BLOOD ORDERABLES Final Res ult Performing Organization Address [facility]/ZIP Co de Phone Number [facility] [address] [place] [address], [place] [phone] * (ABNORMAL) Comprehensive metabolic panel (11/23/2024 4:59 AM EDT) [facility] Sodium 132(L) 133 - 145 mmol/L LAB CHEMISTRY METHOD 11/23/2024 8:52 AM [facility] Potassium 4.2 3.5 - 5.5 mmol/L LAB CHEMISTRY METHOD 11/23/[facility]24 8[facility] Chloride 101 96 - 110 mmol/L LAB CHEMISTRY METHOD 11/23/2024 8[facility] CO2 24 21 - 32 mmol/L LAB CHEMISTRY METHOD 11/23/2024 8:52 AM [facility] Anion Gap 7 3 - 11 LAB CHEMISTRY METHOD 11/23/2024 8:52 AM [facility] LAB Glucose 148(H) 70 - 100 mg/dL LAB CHEMISTRY METHOD 11/23/2024 8:52 AM [facility] BUN 10 5 - 25 mg/dL LAB CHEMISTRY METHOD 11/23/2024 8:52 AM [facility] LAB Creatinine 0.60 0.50 - 1.10 mg/dL LAB CHEMISTRY METHOD 11/23/2024 8:52 AM [facility] LAB eGFR 89 >=60 mL/min/1. 73m2 LAB CHEMISTRY METHOD 11/23/2024 8:52 AM [facility] LAB Comment:Calculation based on the??Chronic Kidney Disease Epidemiology Collaboration (CKD-EPI) equation refit??without adjustment for race. BUN/Creatinine Ratio 16.7 LAB CHEMISTRY METHOD 11/23/2024 8:52 AM [facility] LAB Calcium 9.1 8.5 - 10.5 mg/dL LAB CHEMISTRY METHOD 11/23/2024 8:52 AM [facility] LAB AST (SGOT) 106(H) 10 - 42 unit/L LAB CHEMISTRY METHOD 11/23/2024 8:52 AM [facility] LAB ALT (SGPT) 56 10 - 60 unit/L LAB CHEMISTRY METHOD 11/23/2024 8:52 AM [facility] LAB Alkaline Phosphatase 59 42 - 121 unit/L LAB CHEMISTRY METHOD 11/23/2024 8:52 AM [facility] Total Protein 6.7 6.0 - 8.0 g/dL LAB CHEMISTRY METHOD 11/23/2024 8:52 AM [facility] Albumin 2.8(L) 3.2 - 5.0 g/dL LAB CHEMISTRY METHOD 11/23/2024 8:52 AM [facility] Total Bilirubin 0.4 0.0 - 1.4 mg/dL LAB CHEMISTRY METHOD 11/23/2024 8:52 AM [facility] LAB Blood Venous blood specimen / Unknown 11/23/2024 4:59 AM EDT 11/23/2024 8:07 AM EDT us Dasha Muniz MD LAB BLOOD ORDERABLES Final Res ult [facility] ([facility] [address] [place] [address], documented in this encounter Visit Diagnoses Diagnosis Encounter for other general examination documented in this encounter Care Teams Applied Technologist Relationship Specialty Start Date End Date Jarrod Smart MD [address] [place] [address] PCP - General Internal Medicine 09/18/17 documented as of this encounter
--- OUTSIDE RECORDS SUMMARY | 2024-12-31 08:54 | XMS_ITS | Encounter Summary ---
Author Organization [facility] Address [address] [place] [address] Care Team Providers Care Neurosurgical Physician Assistant Name Role Phone Jarrod Smart MD Primary Care Provider [phone] Encounter Details Date Type Department Care Team (Late st Contact Info) Description 11/28/2024 Lab Requisition [facility] - Main Lab [address] [facility] [place] [address] Dasha Muniz MD [address] [place] [address] Encounter for other general examination Social History [...] LAB HEMETOLOGY METHOD 11/28/2024 11:52 AM EDT [facility] RBC 3.20(L) 3.80 - 4.80 M/mcL LAB HEMETOLOGY METHOD 11/28/2024 11:52 AM EDT [facility] Hemoglobin 10.0(L) 11.5 - 16.0 g/dL LAB HEMETOLOGY METHOD 11/28/2024 11:52 AM EDT [facility] LAB Hematocrit 30.2(L) 35.0 - 47.0 % LAB HEMETOLOGY METHOD 11/28/2024 11:52 AM [facility] LAB MCV 93.2 79.0 - 98.0 FL LAB HEMETOLOGY METHOD 11/28/2024 11:52 AM EDT [facility] LAB MCH 30.9 27.0 - 32.0 pcg LAB HEMETOLOGY METHOD 11/28/2024 11:52 AM EDT [facility] LAB MCHC 33.1 32.0 - 37.0 g/dL LAB HEMETOLOGY METHOD 11/28/2024 11:52 AM [facility] LAB RDW 12.5 11.0 - 15.0 % LAB HEMETOLOGY METHOD 11/28/2024 11:52 AM [facility] LAB Platelets 306 130 - 400 K/mcL LAB HEMETOLOGY METHOD 11/28/2024 11:52 AM EDT [facility] LAB MPV 9.1 7.0 - 11.0 FL LAB HEMETOLOGY METHOD 11/28/2024 11:52 AM [facility] NRBC 0.0 <1.0 % LAB HEMETOLOGY METHOD 11/28/2024 11:52 AM EDT [facility] NRBC Absolute 0.00 <0.10 K/mcL LAB HEMETOLOGY METHOD 11/28/2024 11:52 AM [facility] Blood Venous blood specimen / Unknown Venipuncture / Unknown 11/28/2024 7:03 AM EDT 11/28/2024 10:20 AM EDT us Dasha Muniz MD LAB BLOOD ORDERABLES Final Res ult [facility] [address] [place] [address], [place] [phone] documented in this encounter Visit Diagnoses Diagnosis Encounter for other general examination documented in this encounter Care Teams Neurosurgical Physician Assistant Relationship Specialty Start Date End Date Jarrod Smart MD [address] [place], [place] PCP - General Internal Medicine 09/18/17 documented as of this encounter
== END 2024-12-31 09:15 | disposition home or self-care (01) ==
LOC: HO.HPS 08:34
PROVIDERS: PCP Physician Assistant; Visit Provider Hospitalist
DX: J44.9 Chronic obstructive pulmonary disease, unspecified (principal); J84.9 Interstitial pulmonary disease, unspecified; J30.9 Allergic rhinitis, unspecified
CPT/HCPCS: 99214; G2211

== ENCOUNTER 2025-01-05 10:47 | Emergency (ER) | payer MEDICARE, OTHER, SELFPAY ==
--- NOTE | ~2025-01-05 | XR_ITS ---
EXAMINATION: X-ray tibia and fibula left side. CLINICAL INFORMATION: Diabetes with a 1 infection. TECHNIQUE: AP and lateral views left tibia and fibula. COMPARISON: None FINDINGS: No acute cortical disruption. No periosteal bone reaction. No osteolysis. No lytic or blastic lesions. No subcutaneous emphysema. XR/XR tibia fibula LT 2V IMPRESSION: Negative for osteomyelitis. Electronically signed by: Aleks Moore MD 01/05/2025 12:20 PM EDT
[2025-01-05 11:34] VITALS: BP 155/66; PULSE 96; RESP 16; TEMP 36.6; O2SAT 100; BMI 23.9
--- NOTE | 2025-01-05 11:35 | ED.GENADULT ---
HPI - General Adult General Chief complaint: Wound/Laceration Stated complaint: Wound check, sent by Time Seen by Provider: 01/05/25 16:23 Source: patient and old records reviewed Mode of arrival: ambulatory Limitations: no limitations History of Present Illness ED Provider: Lizbeth Hardin PA-C HPI narrative: 84 yo female with history of DM2, ILD, asthma/COPD, anxiety, HLD presenting to the ER for evaluation of her left lower extremity wound. Her visiting nurse reported some increase in the redness on the lateral aspect of the wound along with some foul smelling drainage today. Patient has been on keflex QID since 12/19. She decreased it to TID due to vaginitis. She follows with Dr. Escobar who has been monitoring the wound. It has been present for 2 months and is slowly healing. She states it looks better to her. No fever, chills, nausea, vomiting, malaise, muscle or body aches. She reports the nurse has been putting a gel on it to promote healing. her glucose has been slightly elevated lately. she was sent to the ER for blood work and culture of the wound. MD complaint: left leg wound Onset (ago): month(s) Location: left and lower extremity Radiation: non-radiation Severity: mild Relieving factors: none Exacerbating factors: none Associated symptoms: denies other symptoms Treatments prior to arrival: none Related Data Home Medications ?Medication ?Instructions ?Recorded ?Confirmed simvastatin 40 mg tablet 40 mg PO BEDTIME 08/24/20 12/23/24 nebulizers 10/03/22 Previous Rx's ?Medication ?Instructions ?Recorded budesonide 0.5 mg/2 mL suspension 0.5 mg (2 mL) inhalation DAILY 30 12/26/21 for nebulization days #60 mL albuterol sulfate 90 mcg/actuation 2 inh inhalation Q6H PRN shortness 10/28/24 aerosol inhaler of breath or wheezing 30 days #18 grams benzonatate 200 mg capsule 200 mg PO BID PRN cough 30 days 10/28/24 #60 caps budesonide 160 mcg-glycopyr 9 2 inh inhalation BID 30 days #10.7 10/28/24 mcg-formot 4.8 mcg/actuation HFA grams inhaler (Breztri Aerosphere) fluticasone propionate 50 2 spray intranasal DAILY 30 days 10/28/24 mcg/actuation nasal #15.8 mL spray,suspension escitalopram oxalate 10 mg tablet 10 mg PO DAILY #90 tabs 12/23/24 (Lexapro) metformin 500 mg tablet 500 mg PO BIDWMEAL #180 tabs 12/23/24 valacyclovir 1 gram tablet 1,000 mg PO Q12H #20 tabs 12/23/24 (Valtrex) codeine 10 mg-guaifenesin 100 mg/5 10 ml PO Q6H PRN cough 10 days 12/31/24 mL oral liquid #300 mL doxycycline hyclate 100 mg tablet 100 mg PO BID #14 tabs 01/05/25 Allergies Allergy/AdvReac Type Severity Reaction Status Date / Time No Known Allergies Allergy Unknown NOT Verified 01/05/25 11:39 APPLICABLE Review of Systems Review of Systems: Yes all other systems are reviewed and are negative [facility] Past Medical History Medical History (Updated 01/05/25 @ 17:19 by LEELA Robin) RSV (respiratory syncytial virus pneumonia) Pneumonitis ILD (interstitial lung disease) Chronic allergic rhinitis Osteopenia Bronchitis Asthma-COPD overlap syndrome Chronic allergic rhinitis Cough Surgical History History of colonoscopy Social History Social History Alcohol intake: never Patient Tobacco Use Status: Former Tobacco user Tobacco use type: Cigarette Years Smoked: 20 years e-Cigarette/Vaping Use: Never Used Second Hand Smoke Exposure: No Advance Directives: No Advance Directives Information Provided: No service: No Current occupational status: retired Cognitive needs: No 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) Vision needs: Yes (glasses) Physical Exam ED Vital Signs: Vital Signs - 24 hr 01/05/25 11:34 01/05/25 15:55 01/05/25 18:27 Temperature 97.9 F 97.8 F 98.0 F Pulse Rate 96 88 66 Respiratory Rate 16 18 18 Blood Pressure 155/66 H 147/57 H 148/66 H Pulse Oximetry 100 95 95 Oxygen Delivery Method Room Air Room Air Room Air 01/05/25 18:47 Temperature 98.0 F Pulse Rate 66 Respiratory Rate 18 Blood Pressure 148/66 H Pulse Oximetry 95 Oxygen Delivery Method Room Air BMI result Body Mass Index 23.9 Appearance: Alert. Oriented X3. No acute distress. HEENT: normal inspection CVS: Normal heart rate and rhythm. Pulses normal. Respiratory: No respiratory distress. Skin: Skin warm and dry. Normal skin color. Normal skin turgor. No rashes. Extremities: left lower leg with a v shaped wound with minimal erythema on the lateral aspect of the wound, clear drainage distally. granular tissue centrally. no foul smelling drainage. no swelling in the left leg. no calf tenderness Neuro: Oriented X 3. grossly normal, nonfocal. Course Course Course Narrative: 01/05/25 1135 LEELA Holt This is a Rapid Medical Examination (RME) performed by Lissy Hoffmann PA-C in triage. Full HPI, ROS, assessment and treatment plan per primary provider in the Main ED. Hx: 84 yo F hx of DM here for wound check. reports fall 2 mo ago with subsequent wound to L rangel - managed by Dr. Escobar w/ regular wound care. reports increased drainage w/ foul smelling discharge. visiting nurse contacted dr. escobar today who advised she come to the ED for labs/blood cultures. denies fever/chills. has been on PO keflex since 12/19/24. PE/vitals: well appearing, afebrile. Plan: labs, lactic/bc, xr Medications Administered Discontinued Medications Generic Name Dose Route Start Last Admin Trade Name Freq PRN Reason Stop Dose Admin Doxycycline Monohydrate 100 mg 01/05/25 18:17 01/05/25 18:30 Doxycycline Monohydrate 100 Mg Capsule PO 01/05/25 18:18 100 mg ONCE ONE Administration Lactated Ringer's 1,000 mls @ 999 mls/hr 01/05/25 16:30 01/05/25 16:46 Lr IV 01/05/25 17:30 999 mls/hr .Q1H1M SUNNY Administration Medical Decision Making Medical Decision Making MDM Narrative: 84 yo female presenting to the ER for evaluation of LLE wound. no foul smelling drainage. no cellulitic changes. she has mild erythema in a 1 inch wide distribution c/w irritation from the adhesive and not cellulitis. XR negative for osteo. wound culture sent although drainage is minimal. labs without leukocytosis. lactic 2.2 --> 2.4. IVF started and repeat lactic drawn right as IVF were starting. 3rd reflex lactic 2.6. she is not septic. suspect her lactic acid is due to type b lactic acidosis from metformin. she does not want to stay for additional IVF. she would like to go home and follow up with her doctor. she has nursing coming to the home to change her dressing will add doxycycline to her keflex. case d/w dr. wharton. comfortable with discharge home. Differential Diagnosis Differential Diagnoses: The differential diagnosis associated with the presentation includes type B lactic acidosis due to metformin, less likely elevated lactic acid from infection Admission/Observation Consideration of admission/observation: Escalation of care including admission/observation considered Lab Data [facility] Lab Attestation statement: I reviewed the patient's lab results. 01/05/25 12:11 01/05/25 12:10 Labs: Lab Results 01/05/25 01/05/25 01/05/25 Range/Units 12:10 12:11 14:48 WBC 8.1 (4.8-10.8) X10*3/uL RBC 3.91 L (4.20-5.50) X10*6/uL Hgb 12.1 (12.0-16.0) g/dl Hct 34.1 L (37.0-47.0) % MCV 87.2 (80.0-98.0) fL MCH 30.9 (27.0-33.0) pg MCHC 35.5 H (31.0-35.0) g/dl RDW 13.0 (11.0-16.0) % Plt Count 237 (160-400) X10*3/uL MPV 8.7 L (9.4-12.3) fL Immature Gran % (Auto) 0.5 H (0.0-0.4) % Neut % (Auto) 63.3 (45-73) % Lymph % (Auto) 23.0 (20-40) % Daniels % (Auto) 9.8 (2-11) % Eos % (Auto) 2.5 (0-4) % Baso % (Auto) 0.9 (0-2) % Lymph # (Auto) 1.9 (1.2-4.9) X10*3/uL Daniels # (Auto) 0.8 (0.1-1.2) X10*3/uL Eos # (Auto) 0.2 (0.0-0.4) X10*3/uL Baso # (Auto) 0.1 (0.0-0.2) X10*3/uL Abs Immat Gran (auto) 0.04 H (0.00-0.03) X10*3/uL Absolute Neuts (auto) 5.1 (2.0-8.3) x10*3/uL Absolute Nucleated RBC 0.000 (0.0-0.012) X10*3/uL Nucleated RBC % (auto) 0.0 (0.0-0.2) /100WBC ESR 28 H (0-20) MM/HR Sodium 135 (135-145) mmol/L Potassium 4.2 (3.3-5.1) mmol/L Chloride 104 (96-108) mmol/L Carbon Dioxide 25 (22-29) mmol/L Anion Gap 10 L (12-20) BUN 9 (9-16) mg/dL Creatinine 0.69 (0.5-1.4) mg/dL Estim Creat Clear Calc 55.5 Estimated GFR > 60 Random Glucose 122 H (60-115) mg/dL Lactic Acid 2.2 H* (0.5-2.0) mmol/L Lactic Acid F/U @ 2Hr 2.4 H* (0.5-2.0) mmol/L Lactic Acid F/U @ 4Hr (0.5-2.0) mmol/L Calcium 9.7 (8.4-10.2) mg/dL Magnesium 1.8 (1.6-2.6) mg/dL Total Bilirubin 0.3 (0.0-1.0) mg/dL AST 88 H (5-31) U/L ALT 25 (0-31) U/L Alkaline Phosphatase 62 (39-117) U/L C-Reactive Protein 0.33 (< or = 0.50) mg/dL Total Protein 7.7 (6.5-8.0) g/dL Albumin 4.0 (3.5-5.0) g/dL 01/05/25 Range/Units 17:15 WBC (4.8-10.8) X10*3/uL RBC (4.20-5.50) X10*6/uL Hgb (12.0-16.0) g/dl Hct (37.0-47.0) % MCV (80.0-98.0) fL MCH (27.0-33.0) pg MCHC (31.0-35.0) g/dl RDW (11.0-16.0) % Plt Count (160-400) X10*3/uL MPV (9.4-12.3) fL Immature Gran % (Auto) (0.0-0.4) % Neut % (Auto) (45-73) % Lymph % (Auto) (20-40) % Daniels % (Auto) (2-11) % Eos % (Auto) (0-4) % Baso % (Auto) (0-2) % Lymph # (Auto) (1.2-4.9) X10*3/uL Daniels # (Auto) (0.1-1.2) X10*3/uL Eos # (Auto) (0.0-0.4) X10*3/uL Baso # (Auto) (0.0-0.2) X10*3/uL Abs Immat Gran (auto) (0.00-0.03) X10*3/uL Absolute Neuts (auto) (2.0-8.3) x10*3/uL Absolute Nucleated RBC (0.0-0.012) X10*3/uL Nucleated RBC % (auto) (0.0-0.2) /100WBC ESR (0-20) MM/HR Sodium (135-145) mmol/L Potassium (3.3-5.1) mmol/L Chloride (96-108) mmol/L Carbon Dioxide (22-29) mmol/L Anion Gap (12-20) BUN (9-16) mg/dL Creatinine (0.5-1.4) mg/dL Estim Creat Clear Calc Estimated GFR Random Glucose (60-115) mg/dL Lactic Acid (0.5-2.0) mmol/L Lactic Acid F/U @ 2Hr (0.5-2.0) mmol/L Lactic Acid F/U @ 4Hr 2.6 H* (0.5-2.0) mmol/L Calcium (8.4-10.2) mg/dL Magnesium (1.6-2.6) mg/dL Total Bilirubin (0.0-1.0) mg/dL AST (5-31) U/L ALT (0-31) U/L Alkaline Phosphatase (39-117) U/L C-Reactive Protein (< or = 0.50) mg/dL Total Protein (6.5-8.0) g/dL Albumin (3.5-5.0) g/dL Independent Interpretation I performed an independent interpretation of an: Plain X-Ray Interpretation: no bony changes Radiology Impression Discussion of test interpretation with radiology: I have reviewed the radiologist's reading. External Record Review External record reviewed: Prior outpatient labs Prescription Management I considered prescription management with: Antibiotic Chronic Conditions Patient?s care impacted by: Diabetes Critical Care Time Critical Care Time Critical Care Time: No Discharge Plan Discharge Clinical Impression: Leg wound, left Qualifiers: Encounter type: initial encounter Qualified Code(s): S81.802A - Unspecified open wound, left lower leg, initial encounter Patient Disposition: Home, Self-Care Instructions: Acute Wounds (ED) Additional Instructions: your lab workup today showed no elevated white blood cell count which is reassuring CONTINUE your keflex take the prescribed doxycycline in addition to the keflex. next dose of the doxy is due in the morning, you were given 1 dose today in the ER change the dressing daily. avoid tape/adhesives on your skin follow up with your doctor this week If you develop new or worsening symptoms call 911 or come back to the ER for further evaluation. Prescriptions: New doxycycline hyclate 100 mg tablet 100 mg PO BID Qty: 14 0RF No Action albuterol sulfate 90 mcg/actuation HFA aerosol inhaler 2 inh inhalation Q6H PRN (Reason: shortness of breath or wheezing) 30 Days Qty: 18 12RF benzonatate 200 mg capsule 200 mg PO BID PRN (Reason: cough) 30 Days Qty: 60 6RF Breztri Aerosphere 160-9-4.8 mcg/actuation HFA aerosol inhaler 2 inh inhalation BID 30 Days Qty: 10.7 11RF fluticasone propionate 50 mcg/actuation spray,suspension 2 spray intranasal DAILY 30 Days Qty: 15.8 11RF simvastatin 40 mg tablet 40 mg PO BEDTIME (DME) nebulizers Misc See Rx Instructions .ROUTE Rx Instructions: As directed budesonide 0.5 mg/2 mL suspension for nebulization 0.5 mg inhalation DAILY 30 Days Qty: 60 11RF codeine-guaifenesin 10-100 mg/5 mL liquid 10 ml PO Q6H PRN (Reason: cough) 10 Days Qty: 300 0RF valacyclovir [Valtrex] 1 gram tablet 1,000 mg PO Q12H Qty: 20 5RF escitalopram oxalate [Lexapro] 10 mg tablet 10 mg PO DAILY Qty: 90 0RF metformin 500 mg tablet 500 mg PO BIDWMEAL Qty: 180 2RF Interventions: ED Discharge Assessment Last Done: 01/05/25 18:47 Discharge Date/Time: 01/05/25 18:48 Print Language: Arabic
[2025-01-05 12:17] LABS: MANUAL DIFF FLAG NO
[2025-01-05 12:22] LABS: Basophils Absolute Auto 0.1 X10*3/uL (0.0-0.2); Basophils Percent Auto 0.9 % (0-2); Eosinophils Absolute Auto 0.2 X10*3/uL (0.0-0.4); Eosinophils Percent Auto 2.5 % (0-4); Hematocrit 34.1 % (37.0-47.0); Hemoglobin 12.1 g/dl (12.0-16.0); Imm Gran Abs Auto 0.04 X10*3/uL (0.00-0.03); Imm Gran Pct Auto 0.5 % (0.0-0.4); Lymphocytes Absolute Auto 1.9 X10*3/uL (1.2-4.9); Mean Corpuscular HGB Conc 35.5 g/dl (31.0-35.0); Mean Corpuscular Hemoglobin 30.9 pg (27.0-33.0); Mean Corpuscular Volume 87.2 fL (80.0-98.0); Mean Platelet Volume 8.7 fL (9.4-12.3); Monocytes Absolute Auto 0.8 X10*3/uL (0.1-1.2); Monocytes Percent Auto 9.8 % (2-11); Neutrophils Absolute Auto 5.1 x10*3/uL (2.0-8.3); Neutrophils Percent Auto 63.3 % (45-73); Platelet Count 237 X10*3/uL (160-400); Red Blood Count 3.91 X10*6/uL (4.20-5.50); White Blood Count 8.1 X10*3/uL (4.8-10.8)
[2025-01-05 12:34] LABS: Alanine Aminotransferase 25 U/L (0-31); Alkaline Phosphatase 62 U/L (39-117); Anion Gap 10 (12-20); Aspartate Amino Transferase 88 U/L (5-31); Bilirubin Total 0.3 mg/dL (0.0-1.0); Blood Urea Nitrogen 9 mg/dL (9-16); C Reactive Protein 0.33 mg/dL (< or = 0.50); Calcium 9.7 mg/dL (8.4-10.2); Carbon Dioxide 25 mmol/L (22-29); Chloride 104 mmol/L (96-108); Creatinine Clr Calc Pharmacy 55.5; Estimated Glomerular Filt Rate > 60; Glucose Random 122 mg/dL (60-115); Magnesium 1.8 mg/dL (1.6-2.6); Potassium 4.2 mmol/L (3.3-5.1); Sodium 135 mmol/L (135-145); Total Protein 7.7 g/dL (6.5-8.0)
[2025-01-05 12:37] LABS: Lactic Acid 2.2 mmol/L (0.5-2.0)
[2025-01-05 12:58] LABS: Erythrocyte Sedimentation Rate 28 MM/HR (0-20)
[2025-01-05 14:15] LABS: Reflex Lactate? Lactic Acid Added
[2025-01-05 15:30] LABS: ~Lactic Acid-LAB USE ONLY 2.4 mmol/L (0.5-2.0)
[2025-01-05 15:55] VITALS: BP 147/57; PULSE 88; RESP 18; TEMP 36.6; O2SAT 95
[2025-01-05] MEDS: Lactated Ringers 1,000 ML 999 ML IV (16:46)
--- OUTSIDE RECORDS SUMMARY | 2025-01-05 16:47 | XMS_ITS | Encounter Summary ---
Author Organization [employer] [facility] Address [address] [place] [address] Care Team Providers Care Heel Builder Name Role Phone Jarrod Smart Primary Care Provider Unavailab le Reason for Visit * Reason Comments E-prescribe Rx Request Encounter Details Date Type Department Care Team Description 05/01/2018 Refill Pulmonology - [address] [place] [address] Milton Bustillos MD E-prescribe Rx Request Social History Tobacco Use Types Packs/Day Years Used Date Smoking Tobacco: Former Cigarettes 0.5 20 Smokeless Tobacco: Never Sex Assigned at Date Recorded Not on file documented as of this encounter Miscellaneous Notes * Telephone Encounter - Alexis Hussein - 05/01/2018 8:58 AM EDT Patient would like script to be: E-PRESCRIBED/FAXED TO PHARMACY WHEN WAS THE PATIENT'S LAST APPOINTMENT WITH THE PRESCRIBING PROVIDER? 03/28/18 Does patient have an upcoming appointment? Yes 09/26/18 (THE MEDICATION REQUESTED IS ON THE MED LIST ABOVE) All of the medications requested were on the CURRENT MEDS list Did you check the Pharmacy information above?: YES Patient wants: 90 -day supply Is this a mail order prescription request ? NO Patients current insurance carrier is: [place] / [place] / Product Type: MEDICARE [id number] documented in this encounter Plan of Treatment Not on file documented as of this encounter Visit Diagnoses Not on filedocumented in this encounter Care Teams Heel Builder Relationship Specialty Start Date End Date Jarrod Smart PCP - General Internal Medicine 09/18/17 documented as of this encounter
--- OUTSIDE RECORDS SUMMARY | 2025-01-05 16:47 | XMS_ITS | Encounter Summary ---
Author Organization [facility] Address [address] [place] [address] Care Team Providers Care Electrical Contractor Name Role Phone Jarrod Smart Primary Care Provider Unavailab le Reason for Visit * Reason Onset Date Comments TEST RESULTS 10/21/2017 Encounter Details Date Type Department Care Team Description 10/21/2017 Telephone Pulmonology - [address] [place] [address] Milton Bustillos MD TEST RESULTS Social History Tobacco Use Types Packs/Day Years Used Date Smoking Tobacco: Former Cigarettes 0.5 20 Sex Assigned at Date Recorded Not on file documented as of this encounter Miscellaneous Notes * Telephone Encounter - Milton Bustillos MD - 10/21/2017 4:32 PM EST OK i WILL SIGN THE REQ * Telephone Encounter - Griselda Ann - 10/21/2017 2:11 PM EST Pt states she never received the xray req which was to be faxed over tody. She states she will PU on Monday 10/23 prior to taking her xray. * Telephone Encounter - Milton Bustillos MD - 10/21/2017 1:21 PM EST Called. On abx, feeling better. But abn CXR. Needs CXR Saturday. PLeas fax CXR req to fax#[phone] * Telephone Encounter - Lauren Ocampo M.A. - 10/21/2017 10:28 AM EST Forward to for results. * Telephone Encounter - Kasia Coe - 10/21/2017 10:21 AM EST Inform patient: ANY URGENT OR ABNORMAL RESULTS WIILL RESULT IN A CALL BACK TO THE PATIENT TORIBIO. Type of test: Chest Xray ans Sputum Date test was performed: 10/18 Where was the test performed: [address] Who ordered this test?: Is the doctor here today?: YES Can the message wait until the doctor returns?: YES IF PATIENT'S PCP IS NOT IN INSTRUCT PATIENT THAT THEY WILL RECEIVE A CALL BACK WHEN THE PCP IS IN THE OFFICE NEXT. documented in this encounter Plan of Treatment Not on file documented as of this encounter Results * RADIOLOGIC EXAM CHEST 2 VIEWS (10/23/2017) Milton Bustillos MD RADIOLOGY documented in this encounter Visit Diagnoses Diagnosis Pneumonia of right lower lobe due to Haemophilus influenzae (HCC)- Primary Pleural effusion Unspecified pleural effusion documented in this encounter Care Teams Electrical Contractor Relationship Specialty Start Date End Date Jarrod Smart PCP - General Internal Medicine 09/18/17 documented as of this encounter
--- OUTSIDE RECORDS SUMMARY | 2025-01-05 16:47 | XMS_ITS | Encounter Summary ---
Author Organization [facility] Address [address] [place] [address] Care Team Providers Care Laboratory Chemist Name Role Phone Jarrod Smart MD Primary Care Provider [phone] Encounter Details Date Type Department Care Team (Late st Contact Info) Description 11/23/2024 Lab Requisition [facility] - Main Lab [address] [facility] [place] [address] Dasha Muniz MD [address] [place] [id number] Encounter for other general examination Social History [...] AM EDT) WBC 7.4 4.8 - 10.8 K/[facility] LAB HEMETOLOGY METHOD 11/23/2024 8:40 AM [facility] RBC 3.20(L) 3.80 - 4.80 M/mcL LAB HEMETOLOGY METHOD 11/23/2024 8:40 AM [facility] Hemoglobin 10.0(L) 11.5 - 16.0 g/dL LAB HEMETOLOGY METHOD 11/23/2024 8:40 AM [facility] Hematocrit 29.8(L) 35.0 - 47.0 % LAB HEMETOLOGY METHOD 11/23/2024 8:40 AM [facility] MCV 92.3 79.0 - 98.0 FL LAB HEMETOLOGY METHOD 11/23/2024 8:40 AM [facility] MCH 31.0 27.0 - 32.0 pcg LAB HEMETOLOGY METHOD 11/23/2024 8:40 AM [facility] MCHC 33.6 32.0 - 37.0 g/dL LAB HEMETOLOGY METHOD 11/23/2024 8:40 AM [facility] RDW 12.7 11.0 - 15.0 % LAB HEMETOLOGY METHOD 11/23/2024 8:40 AM [facility] Platelets 263 130 - 400 K/mcL LAB HEMETOLOGY METHOD 11/23/2024 8:40 AM [facility] MPV 9.4 7.0 - 11.0 FL LAB HEMETOLOGY METHOD 11/23/2024 8:40 AM [facility] NRBC 0.0 <1.0 % LAB HEMETOLOGY METHOD 11/23/2024 8:40 AM [facility] NRBC Absolute 0.00 <0.10 K/mcL LAB HEMETOLOGY METHOD 11/23/2024 8:40 AM [facility] Neutrophils Relative 59.4 % LAB HEMETOLOGY METHOD 11/23/2024 8:40 AM [facility] Lymphocytes Relative 23.5 % LAB HEMETOLOGY METHOD 11/23/2024 8:40 AM [facility] Monocytes Relative 12.7 % LAB HEMETOLOGY METHOD 11/23/2024 8:40 AM [facility] Eosinophils Relative 3.5 % LAB HEMETOLOGY METHOD 11/23/2024 8:40 AM [facility] Basophils Relative 0.5 % LAB HEMETOLOGY METHOD 11/23/2024 8:40 AM [facility] Immature Granulocytes Relative 0.4 % LAB HEMETOLOGY METHOD 11/23/2024 8:40 AM [facility] Neutrophils Absolute 4.38 1.50 - 7.00 K/mcL LAB HEMETOLOGY METHOD 11/23/2024 8:40 AM [facility] Lymphocytes Absolute 1.74 1.00 - 5.00 K/mcL LAB HEMETOLOGY METHOD 11/23/2024 8:40 AM [facility] Monocytes Absolute 0.94 0.20 - 1.00 K/mcL LAB HEMETOLOGY METHOD 11/23/2024 8:40 AM [facility] Eosinophils Absolute 0.26 0.00 - 0.50 K/mcL LAB HEMETOLOGY METHOD 11/23/2024 8:40 AM [facility] Basophils Absolute 0.04 0.00 - 0.20 K/mcL LAB HEMETOLOGY METHOD 11/23/2024 8:40 AM [facility] Immature Granulocytes Absolute 0.03 0.00 - 0.03 K/mcL LAB HEMETOLOGY METHOD 11/23/2024 8:40 AM [facility] Blood Venous blood specimen / Unknown 11/23/2024 4:59 AM EDT 11/23/2024 8:07 AM EDT Dasha Muniz MD LAB BLOOD ORDERABLES Final Res ult Performing Organization Address City/[facility]/ZIP Co de Phone Number [facility] [address] [place] [address], [place] [phone] * Magnesium (11/23/2024 4:59 AM EDT) Pathologist [facility] Magnesium 1.9 1.9 - 2.6 mg/dL LAB CHEMISTRY METHOD 11/23/2024 8:52 AM EDT [facility] Blood Venous blood specimen / Unknown 11/23/2024 4:59 AM EDT 11/23/2024 8:07 AM EDT Dasha Muniz MD LAB BLOOD ORDERABLES Final Res ult Performing Organization Address [facility]/ZIP Co de Phone Number [facility] [address] [place] [address], [place] [phone] * (ABNORMAL) Comprehensive metabolic panel (11/23/2024 4:59 AM EDT) [facility] Sodium 132(L) 133 - 145 mmol/L LAB CHEMISTRY METHOD 11/23/2024 8:52 AM [facility] Potassium 4.2 3.5 - 5.5 mmol/L LAB CHEMISTRY METHOD 11/23/2024 8:[facility] Chloride 101 96 - 110 mmol/L LAB CHEMISTRY METHOD 11/23/2024 8:[facility] CO2 24 21 - 32 mmol/L LAB CHEMISTRY METHOD 11/23/2024 8:52 AM [facility] Anion Gap 7 3 - 11 LAB CHEMISTRY METHOD 11/23/2024 8:52 AM [facility] Glucose 148(H) 70 - 100 mg/dL LAB CHEMISTRY METHOD 11/23/2024 8:52 AM [facility] BUN 10 5 - 25 mg/dL LAB CHEMISTRY METHOD 11/23/2024 8:52 AM [facility] Creatinine 0.60 0.50 - 1.10 mg/dL LAB CHEMISTRY METHOD 11/23/2024 8:52 AM [facility] eGFR 89 >=60 mL/min/1. 73m2 LAB CHEMISTRY METHOD 11/23/2024 8:52 AM [facility] Comment:Calculation based on the??Chronic Kidney Disease Epidemiology Collaboration (CKD-EPI) equation refit??without adjustment for race. BUN/Creatinine Ratio 16.7 LAB CHEMISTRY METHOD 11/23/2024 8:52 AM [facility] Calcium 9.1 8.5 - 10.5 mg/dL LAB CHEMISTRY METHOD 11/23/2024 8:52 AM [facility] AST (SGOT) 106(H) 10 - 42 unit/L LAB CHEMISTRY METHOD 11/23/2024 8:52 AM [facility] ALT (SGPT) 56 10 - 60 unit/L LAB CHEMISTRY METHOD 11/23/2024 8:52 AM [facility] Alkaline Phosphatase 59 42 - 121 unit/L LAB CHEMISTRY METHOD 11/23/2024 8:52 AM [facility] Total Protein 6.7 6.0 - 8.0 g/dL LAB CHEMISTRY METHOD 11/23/2024 8:52 AM [facility] Albumin 2.8(L) 3.2 - 5.0 g/dL LAB CHEMISTRY METHOD 11/23/2024 8:52 AM [facility] Total Bilirubin 0.4 0.0 - 1.4 mg/dL LAB CHEMISTRY METHOD 11/23/2024 8:52 AM [facility] Blood Venous blood specimen / Unknown 11/23/2024 4:59 AM EDT 11/23/2024 8:07 AM EDT us Dasha Muniz MD LAB BLOOD ORDERABLES Final Res ult [facility] ([facility] [address] [place] [address], documented in this encounter Visit Diagnoses Diagnosis Encounter for other general examination documented in this encounter Care Teams Laboratory Chemist Relationship Specialty Start Date End Date Jarrod Smart MD [address] [place] [address] PCP - General Internal Medicine 09/18/17 documented as of this encounter
--- OUTSIDE RECORDS SUMMARY | 2025-01-05 16:47 | XMS_ITS | Clinical Summary ---
Author Organization [address] [facility] Address [address] [place] [address] Phone Care Team Providers Care Healthcare Consulting Manager Name Role Phone Jarrod Smart MD Primary Care Provider Encounters Date Type Department Care Team Description 11/29/2024 Lab Requisition [facility] Lab [address] [place] [phone] Dasha Muniz MD Encounter for other general examination 11/28/2024 Lab Requisition [facility] Lab [address] [place] [address] Dasha Muniz MD Encounter for other general examination 11/25/2024 Lab Requisition [facility] Lab [address] [place] [address] Dasha Muniz MD Encounter for other general examination 11/23/2024 Lab Requisition [facility] Lab [address] [place] [phone] Dasha Muniz MD Encounter for other general examination from Last 3 Months Medical History Medical History Date Comments Type 2 diabetes mellitus wit hout complication ([facility] V24, [facility] V28) 10/11/2017 DX:Type 2 diab etes mellitus without complication (HCC) Hyperlipidemia 10/11/2017 DX:Hyperlipidemi a Atelectasis 03/27/2017 DX:Atelectasis COPD (chronic obstructive pu lmonary disease) (CMS/HCC V24, CMS/HCC V28) 05/17/2017 DX:COPD (chronic o bstructive pulmonary disease) ([facility]) 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 DX:Poly [...] of2 resultswithin the time period is included. [facility] Signature WBC 7.6 4.8 - 10.8 K/mcL LAB HEMETOLOGY METHOD 11/29/2024 8:37 AM EDT [facility] LAB RBC 3.40(L) 3.80 - 4.80 M/mcL LAB HEMETOLOGY METHOD 11/29/2024 8:37 AM [facility] LAB Hemoglobin 10.6(L) 11.5 - 16.0 g/dL LAB HEMETOLOGY METHOD 11/29/2024 8:37 AM [facility] LAB Hematocrit 31.5(L) 35.0 - 47.0 % LAB HEMETOLOGY METHOD 11/29/2024 8:37 AM [facility] LAB MCV 92.4 79.0 - 98.0 FL LAB HEMETOLOGY METHOD 11/29/2024 8:37 AM [facility] LAB MCH 31.1 27.0 - 32.0 pcg LAB HEMETOLOGY METHOD 11/29/2024 8:37 AM [facility] LAB MCHC 33.7 32.0 - 37.0 g/dL LAB HEMETOLOGY METHOD 11/29/2024 8:37 AM [facility] LAB RDW 12.7 11.0 - 15.0 % LAB HEMETOLOGY METHOD 11/29/2024 8:37 AM [facility] LAB Platelets 301 130 - 400 K/mcL LAB HEMETOLOGY METHOD 11/29/2024 8:37 AM [facility] LAB MPV 9.4 7.0 - 11.0 FL LAB HEMETOLOGY METHOD 11/29/2024 8:37 AM [facility] LAB NRBC 0.0 <1.0 % LAB HEMETOLOGY METHOD 11/29/2024 8:37 AM [facility] LAB NRBC Absolute 0.00 <0.10 K/mcL LAB HEMETOLOGY METHOD 11/29/2024 8:37 AM [facility] LAB Neutrophils Relative 59.5 % LAB HEMETOLOGY METHOD 11/29/2024 8:37 AM [facility] LAB Lymphocytes Relative 24.9 % LAB HEMETOLOGY METHOD 11/29/2024 8:37 AM EDT [facility] LAB Monocytes Relative 11.0 % LAB HEMETOLOGY METHOD 11/29/2024 8:37 AM [facility] LAB Eosinophils Relative 3.5 % LAB HEMETOLOGY METHOD 11/29/2024 8:37 AM [facility] LAB Basophils Relative 0.7 % LAB HEMETOLOGY METHOD 11/29/2024 8:37 AM T [facility] LAB Immature Granulocytes Relative 0.4 % LAB [facility]EM[facility]OLOGY [facility]24 8[facility] Neutrophils Absolute 4.54 1.50 - 7.00 K/mcL LAB HEMETOLOGY METHOD 11/29/2024 8:37 AM [facility] LAB Lymphocytes Absolute 1.90 1.00 - 5.00 K/mcL LAB HEMETOLOGY METHOD 11/29/2024 8:37 AM [facility] LAB Monocytes Absolute 0.84 0.20 - 1.00 K/mcL LAB HEMETOLOGY METHOD 11/29/2024 8:37 AM [facility] LAB Eosinophils Absolute 0.27 0.00 - 0.50 K/mcL LAB HEMETOLOGY METHOD 11/29/2024 8:37 AM [facility] LAB Basophils Absolute 0.05 0.00 - 0.20 K/mcL LAB HEMETOLOGY METHOD 11/29/2024 8:37 AM [facility] LAB Immature Granulocytes Absolute 0.03 0.00 - 0.03 K/mcL LAB HEMETOLOGY METHOD 11/29/2024 8:37 AM [facility] LAB Blood Venous blood specimen / Unknown Venipuncture / Unknown 11/29/2024 5:45 AM EDT 11/29/2024 8:03 AM EDT us Dasha Muniz MD LAB BLOOD ORDERABLES Final Res ult [facility] [address] [place] [address], * (ABNORMAL) Comprehensive metabolic panel (11/29/2024 5:45 AM EDT) Only the most recent of3 resultswithin the time period is included. Sodium 133 133 - 145 mmol/L LAB CHEMISTRY METHOD 11/29/2024 9:24 AM T [facility] LAB Potassium 4.8 3.5 - 5.5 mmol/L LAB CHEMISTRY METHOD 11/29/2024 9:24 AM [facility] LAB Chloride 100 96 - 110 mmol/L LAB CHEMISTRY METHOD 11/29/2024 9:24 AM [facility] LAB CO2 29 21 - 32 mmol/L LAB CHEMISTRY METHOD 11/29/2024 9:24 AM [facility] LAB Anion Gap 4 3 - 11 LAB CHEMISTRY METHOD 11/29/2024 9:24 AM [facility] LAB Glucose 104(H) 70 - 100 mg/dL LAB CHEMISTRY METHOD 11/29/2024 9:24 AM [facility] LAB BUN 9 5 - 25 mg/dL LAB CHEMISTRY METHOD 11/29/2024 9:24 AM [facility] LAB Creatinine 0.65 0.50 - 1.10 mg/dL LAB CHEMISTRY METHOD 11/29/2024 9:24 AM [facility] LAB eGFR 87 >=60 mL/min/1. 73m2 LAB CHEMISTRY METHOD 11/29/2024 9:24 AM [facility] LAB Comment:Calculation based on the??Chronic Kidney Disease Epidemiology Collaboration (CKD-EPI) equation refit??without adjustment for race. BUN/Creatinine Ratio 13.8 LAB CHEMISTRY METHOD 11/29/2024 9:24 AM [facility] LAB Calcium 9.5 8.5 - 10.5 mg/dL LAB CHEMISTRY METHOD 11/29/2024 9:24 AM [facility] LAB AST (SGOT) 100(H) 10 - 42 unit/L LAB CHEMISTRY METHOD 11/29/2024 9:24 AM EDT [facility] LAB ALT (SGPT) 49 10 - 60 unit/L LAB CHEMISTRY METHOD 11/29/2024 9:24 AM EDT [facility] LAB Alkaline Phosphatase 89 42 - 121 unit/L LAB CHEMISTRY METHOD 11/29/2024 9:24 AM EDT [facility] LAB Total Protein 7.1 6.0 - 8.0 g/dL LAB CHEMISTRY METHOD 11/29/2024 9:24 AM EDT [facility] LAB Albumin 3.2 3.2 - 5.0 g/dL LAB CHEMISTRY METHOD 11/29/2024 9:24 AM [facility] LAB Total Bilirubin 0.3 0.0 - 1.4 mg/dL LAB CHEMISTRY METHOD 11/29/2024 9:24 AM T [facility] LAB Blood Venous blood specimen / Unknown Venipuncture / Unknown 11/29/2024 5:45 AM EDT 11/29/2024 8:03 AM EDT us Dasha Muniz MD LAB BLOOD ORDERABLES Final Res ult [facility] [address] [place] [address], * (ABNORMAL) Complete blood count (11/28/2024 7:03 AM EDT) WBC 6.3 4.8 - 10.8 K/mcL LAB HEMETOLOGY METHOD 11/28/2024 11:52 AM EDT [facility] LAB RBC 3.20(L) 3.80 - 4.80 M/mcL LAB HEMETOLOGY METHOD 11/28/2024 11:52 AM T [facility] LAB Hemoglobin 10.0(L) 11.5 - 16.0 g/dL LAB HEMETOLOGY METHOD 11/28/2024 11:52 AM [facility] LAB Hematocrit 30.2(L) 35.0 - 47.0 % LAB HEMETOLOGY METHOD 11/28/2024 11:52 AM [facility] LAB MCV 93.2 79.0 - 98.0 FL LAB HEMETOLOGY METHOD 11/28/2024 11:52 AM [facility] LAB MCH 30.9 27.0 - 32.0 pcg LAB HEMETOLOGY METHOD 11/28/2024 11:52 AM [facility] LAB MCHC 33.1 32.0 - 37.0 g/dL LAB HEMETOLOGY METHOD 11/28/2024 11:52 AM [facility] LAB RDW 12.5 11.0 - 15.0 % LAB HEMETOLOGY METHOD 11/28/2024 11:52 AM [facility] LAB Platelets 306 130 - 400 K/mcL LAB HEMETOLOGY METHOD 11/28/2024 11:52 AM [facility] LAB MPV 9.1 7.0 - 11.0 FL LAB HEMETOLOGY METHOD 11/28/2024 11:52 AM [facility] LAB NRBC 0.0 <1.0 % LAB HEMETOLOGY METHOD 11/28/2024 11:52 AM [facility] LAB NRBC Absolute 0.00 <0.10 K/mcL LAB HEMETOLOGY METHOD 11/28/2024 11:52 AM [facility] LAB Blood Venous blood specimen / Unknown Venipuncture / Unknown 11/28/2024 7:03 AM EDT 11/28/2024 10:20 AM EDT us Dasha Muniz MD LAB BLOOD ORDERABLES Final Res ult [facility] [address] [place] [address], [place] [phone] * Magnesium (11/23/2024 4:59 AM EDT) Magnesium 1.9 1.9 - 2.6 mg/dL LAB CHEMISTRY METHOD 11/23/2024 8:52 AM EDT [facility] Blood Venous blood specimen / Unknown 11/23/2024 4:59 AM EDT 11/23/2024 8:07 AM EDT us Dasha Muniz MD LAB BLOOD ORDERABLES Final Res ult [facility] [address] [place] [address], [place] [phone] from Last 3 Months Insurance MEDICARE Care Teams Healthcare Consulting Manager Relationship Specialty Start Date End Date Jarrod Smart MD [address] [place] [address] PCP - General Internal Medicine 09/18/17
--- OUTSIDE RECORDS SUMMARY | 2025-01-05 16:47 | XMS_ITS | Encounter Summary ---
Author Organization [facility] Address [address] [place] [address] Care Team Providers Care Navy Fighter Pilot Name Role Phone Jarrod Smart Primary Care Provider Unavailab le Encounter Details Date Type Department Care Team Description 10/24/2017 Transfer Records Medical Records [address] [place] [id number] Abstract, Provider Social History Tobacco Use Types Packs/Day Years Used Date Smoking Tobacco: Former Cigarettes 0.5 20 Sex Assigned at Date Recorded Not on file documented as of this encounter Plan of Treatment Not on file documented as of this encounter Visit Diagnoses Not on filedocumented in this encounter Care Teams Navy Fighter Pilot Relationship Specialty Start Date End Date Jarrod Smart PCP - General Internal Medicine 09/18/17 documented as of this encounter
--- OUTSIDE RECORDS SUMMARY | 2025-01-05 16:47 | XMS_ITS | Encounter Summary ---
Author Organization [facility] Address [address] [place] [address] Care Team Providers Care Building Carpenter Helper Name Role Phone Jarrod Smart MD Primary Care Provider [phone] Encounter Details Date Type Department Care Team (Late st Contact Info) Description 11/29/2024 Lab Requisition [facility] Lab [address] [place] [address] Dasha Muniz MD [address] [place] [address] Encounter for other general examination Social History [...] CBC auto differential (11/29/2024 5:45 AM EDT) [facility] Signature WBC 7.6 4.8 - 10.8 K/[facility] LAB HEMETOLOGY METHOD 11/29/2024 8:37 AM EDT [facility] RBC 3.40(L) 3.80 - 4.80 M/mcL LAB HEMETOLOGY METHOD 11/29/2024 8:37 AM [facility] LAB Hemoglobin 10.6(L) 11.5 - 16.0 g/dL LAB HEMETOLOGY METHOD 11/29/2024 8:37 AM [facility] LAB Hematocrit 31.5(L) 35.0 - 47.0 % LAB HEMETOLOGY METHOD 11/29/2024 8:37 AM [facility] LAB MCV 92.4 79.0 - 98.0 FL LAB HEMETOLOGY METHOD 11/29/2024 8:37 AM [facility] LAB MCH 31.1 27.0 - 32.0 pcg LAB HEMETOLOGY METHOD 11/29/2024 8:37 AM [facility] LAB MCHC 33.7 32.0 - 37.0 g/dL LAB HEMETOLOGY METHOD 11/29/2024 8:37 AM [facility] LAB RDW 12.7 11.0 - 15.0 % LAB HEMETOLOGY METHOD 11/29/2024 8:37 AM [facility] LAB Platelets 301 130 - 400 K/mcL LAB HEMETOLOGY METHOD 11/29/2024 8:37 AM [facility] LAB MPV 9.4 7.0 - 11.0 FL LAB HEMETOLOGY METHOD 11/29/2024 8:37 AM [facility] LAB NRBC 0.0 <1.0 % LAB HEMETOLOGY METHOD 11/29/2024 8:37 AM [facility] LAB NRBC Absolute 0.00 <0.10 K/mcL LAB HEMETOLOGY METHOD 11/29/2024 8:37 AM [facility] LAB Neutrophils Relative 59.5 % LAB HEMETOLOGY METHOD 11/29/2024 8:37 AM [facility] LAB Lymphocytes Relative 24.9 % LAB HEMETOLOGY METHOD 11/29/2024 8:37 AM [facility] LAB Monocytes Relative 11.0 % LAB HEMETOLOGY METHOD 11/29/2024 8:37 AM [facility] LAB Eosinophils Relative 3.5 % LAB HEMETOLOGY METHOD 11/29/2024 8:37 AM [facility] LAB Basophils Relative 0.7 % LAB HEMETOLOGY METHOD 11/29/2024 8:37 AM [facility] LAB Immature Granulocytes Relative 0.4 % LAB HEMETOLOGY METHOD 11/29/2024 8:37 AM [facility] LAB Neutrophils Absolute 4.54 1.50 - 7.00 K/mcL LAB HEMETOLOGY METHOD 11/29/2024 8:37 AM [facility] LAB Lymphocytes Absolute 1.90 1.00 - 5.00 K/mcL LAB HEMETOLOGY METHOD 11/29/2024 8:37 AM [facility] LAB Monocytes Absolute 0.84 0.20 - 1.00 K/mcL LAB HEMETOLOGY METHOD 11/29/2024 8:37 AM [facility] LAB Eosinophils Absolute 0.27 0.00 - 0.50 K/mcL LAB HEMETOLOGY METHOD 11/29/2024 8:37 AM [facility] LAB Basophils Absolute 0.05 0.00 - 0.20 K/mcL LAB HEMETOLOGY METHOD 11/29/2024 8:37 AM [facility] LAB Immature Granulocytes Absolute 0.03 0.00 - 0.03 K/mcL LAB HEMETOLOGY METHOD 11/29/2024 8:37 AM [facility] LAB Blood Venous blood specimen / Unknown Venipuncture / Unknown 11/29/2024 5:45 AM EDT 11/29/2024 8:03 AM EDT Dasha Muniz MD LAB BLOOD ORDERABLES Final Res ult [facility] [address] [place] [address], * (ABNORMAL) Comprehensive metabolic panel (11/29/2024 5:45 AM EDT) Sodium 133 133 - 145 mmol/L LAB CHEMISTRY METHOD 11/29/2024 9:24 AM [facility] LAB Potassium 4.8 3.5 - 5.5 mmol/L LAB CHEMISTRY METHOD 11/29/2024 9:24 AM [facility] LAB Chloride 100 96 - 110 mmol/L LAB CHEMISTRY METHOD 11/29/2024 9:24 AM [facility] LAB CO2 29 21 - 32 mmol/L LAB CHEMISTRY METHOD 11/29/2024 9:24 AM [facility] LAB Anion Gap 4 3 - 11 LAB CHEMISTRY METHOD 11/29/2024 9:24 AM [facility] LAB Glucose 104(H) 70 - 100 mg/dL LAB CHEMISTRY METHOD 11/29/2024 9:24 AM [facility] LAB BUN 9 5 - 25 mg/dL LAB CHEMISTRY METHOD 11/29/2024 9:24 AM [facility] LAB Creatinine 0.65 0.50 - 1.10 mg/dL LAB CHEMISTRY METHOD 11/29/2024 9:24 AM [facility] LAB eGFR 87 >=60 mL/min/1. 73m2 LAB CHEMISTRY METHOD 11/29/2024 9:24 AM [facility] LAB Comment:Calculation based on the??Chronic Kidney Disease Epidemiology Collaboration (CKD-EPI) equation refit??without adjustment for race. BUN/Creatinine Ratio 13.8 LAB CHEMISTRY METHOD 11/29/2024 9:24 AM [facility] LAB Calcium 9.5 8.5 - 10.5 mg/dL LAB CHEMISTRY METHOD 11/29/2024 9:24 AM EDT [facility] LAB AST (SGOT) 100(H) 10 - 42 unit/L LAB CHEMISTRY METHOD 11/29/2024 9:24 AM [facility] LAB ALT (SGPT) 49 10 - 60 unit/L LAB CHEMISTRY METHOD 11/29/2024 9:24 AM [facility] LAB Alkaline Phosphatase 89 42 - 121 unit/L LAB CHEMISTRY METHOD 11/29/2024 9:24 AM [facility] LAB Total Protein 7.1 6.0 - 8.0 g/dL LAB CHEMISTRY METHOD 11/29/2024 9:24 AM [facility] LAB Albumin 3.2 3.2 - 5.0 g/dL LAB CHEMISTRY METHOD 11/29/2024 9:24 AM [facility] LAB Total Bilirubin 0.3 0.0 - 1.4 mg/dL LAB CHEMISTRY METHOD 11/29/2024 9:24 AM [facility] LAB Blood Venous blood specimen / Unknown Venipuncture / Unknown 11/29/2024 5:45 AM EDT 11/29/2024 8:03 AM EDT us Dasha Muniz MD LAB BLOOD ORDERABLES Final Res ult [facility] [address] [place] [address], documented in this encounter Visit Diagnoses Diagnosis Encounter for other general examination documented in this encounter Care Teams Building Carpenter Helper Relationship Specialty Start Date End Date Jarrod Smart MD [address] [place] [address] PCP - General Internal Medicine 09/18/17 documented as of this encounter
--- OUTSIDE RECORDS SUMMARY | 2025-01-05 16:47 | XMS_ITS | Encounter Summary ---
Author Organization [facility] Address [address] [place] [address] Care Team Providers Care Downstream Biomanufacturing Technician Name Role Phone Jarrod Smart MD Primary Care Provider [phone] Encounter Details Date Type Department Care Team (Late st Contact Info) Description 11/25/2024 Lab Requisition [facility] - Main Lab [address] [facility] [place] [address] Dasha Muniz MD [address] [place] [id number] Encounter for other general examination Social History [...] mmol/L LAB CHEMISTRY METHOD 11/25/2024 11:12 AM [facility] LAB Anion Gap 9 3 - 11 LAB CHEMISTRY METHOD 11/25/2024 11:12 AM [facility] LAB Glucose 118(H) 70 - 100 mg/dL LAB CHEMISTRY METHOD 11/25/2024 11:12 AM [facility] LAB BUN 12 5 - 25 mg/dL LAB CHEMISTRY METHOD 11/25/2024 11:12 AM [facility] LAB Creatinine 0.63 0.50 - 1.10 mg/dL LAB CHEMISTRY METHOD 11/25/2024 11:12 AM [facility] LAB eGFR 88 >=60 mL/min/1. 73m2 LAB CHEMISTRY METHOD 11/25/2024 11:12 AM [facility] LAB Comment:Calculation based on the??Chronic Kidney Disease Epidemiology Collaboration (CKD-EPI) equation refit??without adjustment for race. BUN/Creatinine Ratio 19.0 LAB CHEMISTRY METHOD 11/25/2024 11:12 AM [facility] LAB Calcium 8.9 8.5 - 10.5 mg/dL LAB CHEMISTRY METHOD 11/25/2024 11:12 AM [facility] LAB AST (SGOT) 91(H) 10 - 42 unit/L LAB CHEMISTRY METHOD 11/25/2024 11:12 AM [facility] LAB ALT (SGPT) 48 10 - 60 unit/L LAB CHEMISTRY METHOD 11/25/2024 11:12 AM [facility] LAB Alkaline Phosphatase 66 42 - 121 unit/L LAB CHEMISTRY METHOD 11/25/2024 11:12 AM [facility] LAB Total Protein 6.6 6.0 - 8.0 g/dL LAB CHEMISTRY METHOD 11/25/2024 11:12 AM [facility] LAB Albumin 2.9(L) 3.2 - 5.0 [...] [facility] [address] [place] [address], documented in this encounter Visit Diagnoses Diagnosis Encounter for other general examination documented in this encounter Care Teams Downstream Biomanufacturing Technician Relationship Specialty Start Date End Date Jarrod Smart MD [address] [place] [address] PCP - General Internal Medicine 09/18/17 documented as of this encounter
--- OUTSIDE RECORDS SUMMARY | 2025-01-05 16:47 | XMS_ITS | Encounter Summary ---
Author Organization [facility] Address [address] [place] [address] Care Team Providers Care Translator/Interpreter Name Role Phone Jarrod Smart MD Primary Care Provider [phone] Encounter Details Date Type Department Care Team (Late st Contact Info) Description 11/28/2024 Lab Requisition [facility] - Main Lab [address] [facility] [place] [address] Dasha Muniz MD [address] [place] [address] Encounter for other general examination Social History [...] 11/28/2024 11:52 AM EDT [facility] Hemoglobin 10.0(L) 11.5 - 16.0 g/dL LAB HEMETOLOGY METHOD 11/28/2024 11:52 AM EDT [facility] LAB Hematocrit 30.2(L) 35.0 - 47.0 % LAB HEMETOLOGY METHOD 11/28/2024 11:52 AM [facility] LAB MCV 93.2 79.0 - 98.0 FL LAB HEMETOLOGY METHOD 11/28/2024 11:52 AM EDT [facility] MCH 30.9 27.0 - 32.0 pcg LAB HEMETOLOGY METHOD 11/28/2024 11:52 AM EDT [facility] MCHC 33.1 32.0 - 37.0 g/dL LAB HEMETOLOGY METHOD 11/28/2024 11:52 AM [facility] LAB RDW 12.5 11.0 - 15.0 % LAB HEMETOLOGY METHOD 11/28/2024 11:52 AM [facility] LAB Platelets 306 130 - 400 K/mcL LAB HEMETOLOGY METHOD 11/28/2024 11:52 AM EDT [facility] MPV 9.1 7.0 - 11.0 FL LAB HEMETOLOGY METHOD 11/28/2024 11:52 AM [facility] LAB NRBC 0.0 <1.0 % LAB HEMETOLOGY METHOD 11/28/2024 11:52 AM EDT [facility] NRBC Absolute 0.00 <0.10 K/mcL LAB HEMETOLOGY METHOD 11/28/2024 11:52 AM [facility] LAB Blood Venous blood specimen / Unknown Venipuncture / Unknown 11/28/2024 7:03 AM EDT 11/28/2024 10:20 AM EDT us Dasah Muniz MD LAB BLOOD ORDERABLES Final Res ult [facility] [address] [place] [address], [place] [phone] documented in this encounter Visit Diagnoses Diagnosis Encounter for other general examination documented in this encounter Care Teams Translator/Interpreter Relationship Specialty Start Date End Date Jarrod Smart MD [address] [place], [place] PCP - General Internal Medicine 09/18/17 documented as of this encounter
--- OUTSIDE RECORDS SUMMARY | 2025-01-05 16:47 | XMS_ITS | Encounter Summary ---
Author Organization [facility] Address [address] [place] [address] Care Team Providers Care Fiction Writer Name Role Phone Jarrod Smart Primary Care Provider Unavailab le Reason for Visit * Reason Onset Date Comments URI Symptoms 06/26/2017 Encounter Details Date Type Department Care Team Description 06/26/2017 Telephone Pulmonology - [address] [place] [address] Milton Bustillos MD URI Symptoms Social History Tobacco Use Types Packs/Day Years Used Date Smoking Tobacco: Never Assessed Sex Assigned at Date Recorded Not on file documented as of this encounter Miscellaneous Notes * Telephone Encounter - Griselda Ann - 06/26/2017 11:48 AM EST LMOV for pt to call office to schedule a sick visit with Dr Antunez. * Telephone Encounter - Lauren Ocampo M.A. - 06/26/2017 9:34 AM EST Please sched with today * Telephone Encounter - Griselda Ann - 06/26/2017 9:01 AM EST Symptoms patient is presenting: Cough, Chest tightness If pain or injury related was it due to an accident at work or from a motor vehicle accident? NO If yes, gather 3rd libertarian insurance information Date of accident/Injury: na How long has patient had these symptoms?: almost 3 weeks PCP: No primary care provider on file. No account information available. Pt state sshe started Prednisone 5mg Is inquiring on an antibitoic which ususly takes 3xs per week.Should it be increased. Please advise. documented in this encounter Plan of Treatment Not on file documented as of this encounter Visit Diagnoses Not on filedocumented in this encounter Care Teams Fiction Writer Relationship Specialty Start Date End Date Jarrod Smart PCP - General Internal Medicine 09/18/17 documented as of this encounter
--- OUTSIDE RECORDS SUMMARY | 2025-01-05 16:47 | XMS_ITS | Clinical Summary ---
Author Organization [facility] Address [address] [place] [address] Care Team Providers Care Chair Maker Name Role Phone Jarrod Smart Primary Care Provider Unavailab le Allergies Active Allergy Reactions Severity Noted Date Comments No Known Drug Allergies 12/04/2016 Medications Medication Sig Dispensed Refills Start Date End Date Status simvastatin (ZOCOR) 40 MG tablet Take 40 mg by mouth at bedtime. 0 Active fluticasone 50 MCG/ACT nasal spray 2 Sprays by Each Nare route daily. 0 Active metformin (GLUCOPHAGE) 500 MG tablet Take 500 mg by mouth 2 times daily (with meals). 0 Active celecoxib (CELEBREX) 200 MG capsule Take 200 mg by mouth 2 times daily. 0 Active albuterol (PROVENTIL) (2.5 MG/3ML) 0.083% nebulizer solution Take 1 Vial by nebulization every 4 hours as needed. 0 Active ranitidine (ZANTAC) 300 MG tablet Take 300 mg by mouth 2 times daily. 1/2 tab 0 Active albuterol (PROVENTIL) (2.5 MG/3ML) 0.083% nebulizer solution Take 2 Vials by nebulization once for 1 dose. 6 mL 0 10/18/2017 Active levalbuterol (XOPENEX) 1.25 MG/3ML nebulizer solutionIndications :Chronic obstructive pulmonary disease with acute lower respiratory infection (HCC) Take 1 Ampule by nebulization every 4 hours as needed for Wheezing for up to 30 days. 75 Ampule 11 10/18/2017 Active ipratropium (ATROVENT) 0.06 % nasal sprayIndications:Po lyp of paranasal sinus 2 Sprays by Nasal route 3 times daily for 30 days. 30 mL 3 03/28/2018 Active azelastine (ASTELIN) 0.1 % nasal spray 2 SPRAYS BY EACH NARE ROUTE 2 TIMES DAILY. USE IN EACH NOSTRIL DIRECTED 30 [place] 0 10/24/2018 Active predniSONE (DELTASONE) 10 MG tablet 6 tabs by mouth daily x 3 days, then decrease by 1 tab every 3 days until completed 63 Tab 0 12/09/2018 Active montelukast (SINGULAIR) 10 MG tablet Take 1 Tab by mouth daily. 90 Tab 3 12/09/2018 Active Tiotropium [place] Monohydrate (SPIRIVA RESPIMAT) 2.5 MCG/ACT Aero Soln Inhale 2 Puffs into the lungs daily for 90 days. 3 Inhaler 3 12/09/2018 Active fluticasone-salmete rol (ADVAIR) 500-50 MCG/DOSE diskus inhaler Inhale 1 Puff into the lungs every 12 hours for 90 days. 3 Inhaler 3 12/09/2018 Active ALBUTEROL SULFATE (PROAIR HFA) 108 (90 BASE) MCG/ACT Aero Soln Inhale 2 Puffs into the lungs every 6 hours as needed for Cough or Wheezing for up to 30 days. 1 Inhaler 11 12/09/2018 Active Active Problems Problem Noted Date Type 2 diabetes mellitus without complic ation 10/11/2017 Hyperlipidemia 10/11/2017 COPD (chronic obstructive pulmonary dise ase) 05/17/2017 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 Atelectasis 03/27/2017 Immunizations Name Administration Dates Next Due Pneumococcal Conjugate PCV-13 12/27/2017 Social History Tobacco Use Types Packs/Day Years Used Date Smoking Tobacco: Former Cigarettes 0.5 20 Smokeless Tobacco: Never Sex Assigned at Date Recorded Not on file Last Filed Vital Signs Vital Sign Reading Time Taken Comments Blood Pressure 128/60 12/09/2018 2:37 PM EDT Pulse 103 12/09/2018 2:37 PM EDT Temperature - - Respiratory Rate 16 12/09/2018 2:37 PM EDT Oxygen Saturation 97% 12/09/2018 2:37 PM EDT Inhaled Oxygen Concentration - - Weight 81.6 kg (180 lb) 12/09/2018 2:37 PM EDT Height 165.1 cm (5' 5 ) 09/26/2018 11:16 AM EST Body Mass Index 29.95 09/26/2018 11:16 AM EST Plan of Treatment Health Maintenance Due Date Last Done Comments Covid-19 Vaccine (#1) 1941 DEPRESSION SCREEN 1953 DTAP/TDAP/TD (1 - Tdap) 1960 CHOLESTEROL SCREENING 1961 MAMMOGRAM 1981 SHINGLES VACCINE (1 of 2) 1991 BONE DENSITY SCREENING 2006 FALL RISK ASSESSMENT 2006 PNEUMOCOCCAL VACCINE (2 - PPSV23 or PCV20) 12/27/2018 12/27/2017 BMI CHECK/ADVISE 08/19/2024 INFLUENZA (Season Ended) 2025 Care Teams Chair Maker Relationship Specialty Start Date End Date Jarrod Smart PCP - General Internal Medicine 09/18/17
--- OUTSIDE RECORDS SUMMARY | 2025-01-05 16:47 | XMS_ITS | Encounter Summary ---
Author Organization [facility] Address [address] [place] [address] Care Team Providers Care Solar Lab Technician Name Role Phone Jarrod Smart Primary Care Provider Unavailab le Encounter Details Date Type Department Care Team Description 03/10/2019 Release of Information Medical Records [address] [place] [id number] Abstract, Provider Social History Tobacco Use Types Packs/Day Years Used Date Smoking Tobacco: Former Cigarettes 0.5 20 Smokeless Tobacco: Never Sex Assigned at Date Recorded Not on file documented as of this encounter Plan of Treatment Not on file documented as of this encounter Visit Diagnoses Not on filedocumented in this encounter Care Teams Solar Lab Technician Relationship Specialty Start Date End Date Jarrod Smart PCP - General Internal Medicine 09/18/17 documented as of this encounter
--- OUTSIDE RECORDS SUMMARY | 2025-01-05 16:47 | XMS_ITS | Encounter Summary ---
Author Organization [facility] Address [address] [place] [address] Care Team Providers Care Communication Consultant Name Role Phone Jarrod Smart Primary Care Provider Unavailab le Reason for Visit * Reason Comments E-prescribe Rx Request Encounter Details Date Type Department Care Team Description 06/01/2018 Refill Pulmonology - [address] [place] [address] Milton Bustillos MD E-prescribe Rx Request Social History Tobacco Use Types Packs/Day Years Used Date Smoking Tobacco: Former Cigarettes 0.5 20 Smokeless Tobacco: Never Sex Assigned at Date Recorded Not on file documented as of this encounter Miscellaneous Notes * Telephone Encounter - Rachel De La Fuente - 06/02/2018 8:54 AM EDT Patient would like script to [...] NO Patients current insurance carrier is: Payor: MEDICARE-[place] / Plan: MEDICARE-[place] / Product Type: MEDICARE [id number] documented in this encounter Plan of Treatment Not on file documented as of this encounter Visit Diagnoses Not on filedocumented in this encounter Care Teams Communication Consultant Relationship Specialty Start Date End Date Jarrod Smart PCP - General Internal Medicine 09/18/17 documented as of this encounter
[2025-01-05 16:52] LABS: Reflex Lactate? 2 Y
[2025-01-05 17:52] LABS: ~Lactic Acid-LAB USE ONLY 2.6 mmol/L (0.5-2.0)
[2025-01-05 18:27] VITALS: BP 148/66; PULSE 66; RESP 18; TEMP 36.7; O2SAT 95
[2025-01-05] MEDS: Doxycycline Monohydrate 100 MG CAPSULE PO (18:30)
[2025-01-05 18:47] VITALS: BP 148/66; PULSE 66; RESP 18; TEMP 36.7; O2SAT 95
== END 2025-01-05 18:48 | disposition home or self-care (01) ==
PROVIDERS: Physician Assistant Medical; Emergency Provider Emergency Medicine Emergency Medical Services; PCP Internal Medicine
DX: S81.802A Unspecified open wound, left lower leg, initial encounter (principal); M79.605 Pain in left leg; N76.0 Acute vaginitis; E11.9 Type 2 diabetes mellitus without complications; J44.9 Chronic obstructive pulmonary disease, unspecified; X58.XXXA Exposure to other specified factors, initial encounter; Y93.9 Activity, unspecified; Y92.9 Unspecified place or not applicable; Y99.8 Other external cause status; Z87.891 Personal history of nicotine dependence; Z79.899 Other long term (current) drug therapy
CPT/HCPCS: 36415; 73590; 80053; 83605; 83735; 85025; 85652; 86140; 87040; 87070; 87077; 87186; 87205; 99283; J7120

== ENCOUNTER → 2025-01-05 11:38 | Outpatient (BNV) | payer MEDICARE, OTHER, SELFPAY | PROVIDERS: Visit Provider Radiology Diagnostic Radiology | DX: E11.9 Type 2 diabetes mellitus without complications (principal) | CPT/HCPCS: 73590 ==

== ENCOUNTER 2025-01-14 08:33 | Outpatient (AMB) | payer MEDICARE, OTHER, SELFPAY ==
--- NOTE | 2025-01-14 08:41 | MHC.PC.OV ---
Vital Signs 01/14/25 08:46 Height 5 ft 5 in Weight 142 lb 8 oz BMI 23.7 BP 108/58 L Blood Pressure Location Lt brachial Position Sitting Respiration 22 H Pulse 91 Pulse Source Pulse Oximeter Pulse Oximetry (%) 96 Oxygen Delivery Method Room Air Intake Visit Reasons: med check Intake Note: Medication follow up Business Administrator Required: No Allergies No Known Allergies Allergy (Unknown, Verified 01/14/25 08:42) NOT APPLICABLE Medication List - Last Reconciled 01/14/25 by Karen Brown PA-C albuterol sulfate 90 mcg/actuation 2 inhalations inhalation Q6H PRN 30 days benzonatate 200 mg PO BID PRN 30 days budesonide 0.5 mg (2 mL) inhalation DAILY 30 days tqwyevdbek-rqhxvpkb-yuizzwtvrq 160-9-4.8 mcg/actuation (Breztri Aerosphere) 2 inhalations inhalation BID 30 days escitalopram oxalate (Lexapro) 10 mg PO DAILY fluticasone propionate 50 mcg/actuation 2 sprays intranasal DAILY 30 days metformin 500 mg PO BIDWMEAL montelukast 10 mg PO DAILY nebulizers As directed simvastatin 40 mg PO BEDTIME valacyclovir (Valtrex) 1,000 mg PO Q12H Tobacco use date assessed: 01/14/25 Fall risk assessment: 2 + Falls in past year (11/16/24) Last assessed Fall Risk: 01/14/25 Dental Screening Dental Screen Date: 12/23/24 HPI med check HPI Details Pt is an 84 y/o female who presents today for a follow up. She has a hx of t2dm, dyslipidemia, COPD with asthma overlap, and anxiety. Pulm: has COPD and asthma and overall is currently well-controlled. Follows with pulmonology. CV: Cholesterol is managed with simvastatin 40 mg. No chest pain or shortness on breath Endo: Diagnosed around 2009. She is currently on metformin 500 mg bid. -had hypoglycemia on glipizide. msk: fx back t12 and s1 about 2 months ago. She says she fell because she tripped over a box and was trying to protect her right shoulder which has been replaced a couple times relatively recently (within 12 months). She is following with neurosurgery at [facility] (Dr. Gonzalez) and did not need surgery at this point but will be scanned in a couple of weeks. She is doing a lot of PT and feeling stronger. No numbness, tingling or weakness in extremities. She has been using Tylenol regularly to treat her pain until her recent labs did show elevated LFTs. States that over the weekend she stopped using Tylenol and has been experiencing ongoing back pain. -She was has a left leg wound being managed by [facility]. She was previously just treated with Keflex and then went to the emergency room for having an allergic like reaction to the adhesive over the left lower leg. She was switched on her antibiotic to doxycycline. She tells me that just a couple days ago she stopped the Keflex and yesterday stopped the doxycycline. She feels that the wound looks a lot better. States that it was finally starting to close up. She has taken pictures of this. She has been wrapping it every day. Psych: Was recently started on Lexapro which she does not feel is very effective. Does not notice much of a change in her anxiety. She previously was on citalopram which she felt was ineffective as well. In the past was on Ativan but family felt that she was going a little ?loopy ?. [facility] Medical History (Updated 01/14/25 @ 10:13 by Karen Brown PA-C) RSV (respiratory syncytial virus pneumonia) Pneumonitis ILD (interstitial lung disease) Chronic allergic rhinitis Osteopenia Bronchitis Asthma-COPD overlap syndrome Chronic allergic rhinitis Cough Surgical History History of colonoscopy Social History (Updated 01/14/25 @ 08:49 by Jade Romeo CMA) Housing: House Alcohol intake: never Patient Tobacco Use Status: Former Tobacco user Tobacco use type: Cigarette Years Smoked: 20 years e-Cigarette/Vaping Use: Never Used Second Hand Smoke Exposure: No service: No Current occupational status: retired Cognitive needs: No 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) Vision needs: Yes (glasses) Questionnaire Thrive Questionnaire Date Thrive assessed: 12/23/24 I am a: Patient What is your living situation today?: I have a steady place to live Within the past 12 months, did the food you bought not last and you didn't have the money to get more?: Never true Within the past 12 months, did you worry whether your food would run out before you got money to buy more?: Never true Do you have trouble paying for medicines?: No Do you have trouble getting transportation to medical appointments?: No Do you have trouble paying your heating and electricity bill?: No Do you have trouble taking care of your child, family member or friend?: No Do you have trouble with day-to-day activities such as bathing, preparing meals, shopping, managing finances, etc.?: I choose not to answer this question Are you currently unemployed and looking for a job?: No Are you interested in more education?: No Please select the resources that you would like help with: None Currently or been in a relationship where the following occur: I choose not to answer THRIVE Score: 0 AUDIT C Alcohol Use Questionnaire (AUDIT-C) 3. How often do you have six or more drinks on one occasion?: Never Total Score: 0 Physical exam (Primary Care) Vital Signs: Last Vital Signs Pulse 91 01/14/25 08:46 Resp 22 H 01/14/25 08:46 BP 108/58 L 01/14/25 08:46 Pulse Ox 96 01/14/25 08:46 Oxygen Delivery Method Room Air 01/14/25 08:46 BMI result Body Mass Index 23.7 Tobacco/Smoking Status: Tobacco use Status Tobacco use date assessed 01/14/25 01/14/25 08:49 Patient Tobacco Use Status Former Tobacco user 01/14/25 08:49 Tobacco use type Cigarette 01/14/25 08:49 e-Cigarette/Vaping Use Never Used 01/14/25 08:49 Thrive Assessment: Date of Thrive Assessment Date Thrive assessed 12/23/24 01/14/25 08:41 Currently or been in a relationship where the following occur: I choose not to answer Coding Level of Care Code Est Pt Level 4 (69984) Complex EM visit Add On G2211 Diagnoses Leg wound, left S81.802A Encounter type: initial encounter Elevated LFTs R79.89 Generalized anxiety disorder F41.1 T11 vertebral fracture S22.089A Assessment & Plan Assessment & Plan (1) Leg wound, left: Code(s): S81.802A - Unspecified open wound, left lower leg, initial encounter Category: Medical Qualifiers: Encounter type: initial encounter Qualified Code(s): S81.802A - Unspecified open wound, left lower leg, initial encounter Plan: I will have her continue 1 more week of the doxycycline. She is on a probiotic. (2) Elevated LFTs: Code(s): R79.89 - Other specified abnormal findings of blood chemistry Category: Medical Plan: We will recheck labs in 1 week after being off of the Tylenol. (3) Generalized anxiety disorder: Code(s): F41.1 - Generalized anxiety disorder Category: Medical Plan: Increase Lexapro. (4) T11 vertebral fracture: Code(s): S22.089A - Unspecified fracture of T11-T12 vertebra, initial encounter for closed fracture Category: Medical Plan: Following with ortho surgery. We will start on tramadol to use as needed for severe pain. Finds pain is worse with physical therapy and has been trying to continue this. Discussed risks and benefits and adverse effects of this medication at length. Short term follow up to be reassessed. Orders: Orders Liver Panel Today R79.89 - Other specified abnormal findings of blood chemistry Basic Metabolic Panel Today R79.89 - Other specified abnormal findings of blood chemistry Medications: New doxycycline hyclate 100 mg PO BID 7 days 14 tabs 0RF escitalopram oxalate (Lexapro) 20 mg PO DAILY 90 tabs 0RF tramadol 50 mg PO BID 30 days PRN 60 tabs 0RF pain G89.29 - Other chronic pain, M54.9 - Dorsalgia, unspecified Discontinued escitalopram oxalate (Lexapro) Discontinued Reason: Doctor's Order 10 mg PO DAILY 90 tabs 0RF
--- OUTSIDE RECORDS SUMMARY | 2025-01-14 08:44 | XMS_ITS | Encounter Summary ---
Author Organization [facility] Address [address] [place] [address] Care Team Providers Care Tire Finisher Name Role Phone Jarrod Smart MD Primary Care Provider [phone] Encounter Details Date Type Department Care Team (Late st Contact Info) Description 11/25/2024 Lab Requisition [facility] - Main Lab [address] [facility] [employer] [address] Dasha Muniz MD [address] [place] [id number] Encounter for other general examination Social History [...] LAB CHEMISTRY METHOD 11/25/2024 11:12 AM EDT [facility] Potassium 4.0 3.5 - 5.5 mmol/L LAB CHEMISTRY METHOD 11/25/2024 11:12 AM EDT [facility] Chloride 102 96 - 110 mmol/L LAB CHEMISTRY METHOD 11/25/2024 11:12 AM T [facility] CO2 23 21 - 32 mmol/L LAB CHEMISTRY METHOD 11/25/2024 11:12 AM [facility] Anion Gap 9 3 - 11 LAB CHEMISTRY METHOD 11/25/2024 11:12 AM [facility] Glucose 118(H) 70 - 100 mg/dL LAB CHEMISTRY METHOD 11/25/2024 11:12 AM [facility] BUN 12 5 - 25 mg/dL LAB CHEMISTRY METHOD 11/25/2024 11:12 AM [facility] Creatinine 0.63 0.50 - 1.10 mg/dL LAB CHEMISTRY METHOD 11/25/2024 11:12 AM [facility] eGFR 88 >=60 mL/min/1. 73m2 LAB CHEMISTRY METHOD 11/25/2024 11:12 AM [facility] Comment:Calculation based on the??Chronic Kidney Disease Epidemiology Collaboration (CKD-EPI) equation refit??without adjustment for race. BUN/Creatinine Ratio 19.0 LAB CHEMISTRY METHOD 11/25/2024 11:12 AM [facility] Calcium 8.9 8.5 - 10.5 mg/dL LAB CHEMISTRY METHOD 11/25/2024 11:12 AM [facility] AST (SGOT) 91(H) 10 - 42 unit/L LAB CHEMISTRY METHOD 11/25/2024 11:12 AM [facility] ALT (SGPT) 48 10 - 60 unit/L LAB CHEMISTRY METHOD 11/25/2024 11:12 AM [facility] Alkaline Phosphatase 66 42 - 121 unit/L LAB CHEMISTRY METHOD 11/25/2024 11:12 AM [facility] Total Protein 6.6 6.0 - 8.0 g/dL LAB CHEMISTRY METHOD 11/25/2024 11:12 AM [facility] Albumin 2.9(L) 3.2 - 5.0 g/dL LAB CHEMISTRY METHOD 11/25/2024 11:12 AM EDT [facility] Total Bilirubin 0.4 0.0 - 1.4 mg/dL LAB CHEMISTRY METHOD 11/25/2024 11:12 AM EDT [facility] Blood Venous blood specimen / Unknown Venipuncture / Unknown 11/25/2024 5:05 AM EDT 11/25/2024 9:16 AM EDT us Dasha Muniz MD LAB BLOOD ORDERABLES Final Res ult [facility] [address] [place] [address], documented in this encounter Visit Diagnoses Diagnosis Encounter for other general examination documented in this encounter Care Teams Tire Finisher Relationship Specialty Start Date End Date Jarrod Smart MD [address] [place] [address] PCP - General Internal Medicine 09/18/17 documented as of this encounter
[2025-01-14 08:46] VITALS: BP 108/58; PULSE 91; RESP 22; O2SAT 96; BMI 23.7
== END 2025-01-14 09:43 | disposition home or self-care (01) ==
LOC: HO.HMCFM 08:34
PROVIDERS: PCP Physician Assistant; Visit Provider Physician Assistant
DX: S81.802A Unspecified open wound, left lower leg, initial encounter (principal); R79.89 Other specified abnormal findings of blood chemistry; F41.1 Generalized anxiety disorder; S22.089A Unspecified fracture of T11-T12 vertebra, initial encounter for closed fracture

== ENCOUNTER → 2025-01-14 08:33 | Outpatient (BNVA) | payer MEDICARE, OTHER, SELFPAY | PROVIDERS: PCP Physician Assistant; Visit Provider Physician Assistant | DX: S81.802D Unspecified open wound, left lower leg, subsequent encounter (principal); R79.89 Other specified abnormal findings of blood chemistry; F41.1 Generalized anxiety disorder; S22.089D Unspecified fracture of T11-T12 vertebra, subsequent encounter for fracture with routine healing | CPT/HCPCS: 99212 ==

== ENCOUNTER 2025-01-19 09:33 | Outpatient (REF) | payer MEDICARE, OTHER, SELFPAY ==
[2025-01-19 11:56] LABS: Alanine Aminotransferase 23 U/L (0-31); Albumin Level 4.1 g/dL (3.5-5.0); Alkaline Phosphatase 58 U/L (39-117); Anion Gap 12 (12-20); Aspartate Amino Transferase 91 U/L (5-31); Bilirubin Direct 0.2 mg/dL (0.0-0.5); Bilirubin Total 0.5 mg/dL (0.0-1.0); Blood Urea Nitrogen 10 mg/dL (9-16); Calcium 9.7 mg/dL (8.4-10.2); Carbon Dioxide 26 mmol/L (22-29); Chloride 106 mmol/L (96-108); Estimated Glomerular Filt Rate > 60; Glucose Random 139 mg/dL (60-115); Potassium 4.3 mmol/L (3.3-5.1); Sodium 140 mmol/L (135-145); Total Protein 7.5 g/dL (6.5-8.0)
== END 2025-01-19 09:34 | disposition home or self-care (01) ==
LOC: HO.LAB 09:33
PROVIDERS: PCP Physician Assistant; Visit Provider Physician Assistant
DX: R79.89 Other specified abnormal findings of blood chemistry (principal)
CPT/HCPCS: 36415; 80048; 80076

== ENCOUNTER 2025-01-20 11:14 | Outpatient (AMB) | payer MEDICARE, OTHER, SELFPAY ==
--- NOTE | 2025-01-20 11:18 | A.OFFPC_ITS ---
Vital Signs 01/20/25 11:21 Height 5 ft 5 in Weight 139 lb 2 oz BMI 23.1 BP 110/52 L Blood Pressure Location Rt brachial Position Sitting Respiration 16 Pulse 81 Pulse Source Pulse Oximeter Pulse Oximetry (%) 97 Oxygen Delivery Method Room Air Intake Visit Reasons: leg wound Allergies No Known Allergies Allergy (Unknown, Verified 01/14/25 08:42) NOT APPLICABLE Medication List - Last Reconciled 01/20/25 by Karen Brown PA-C albuterol sulfate 90 mcg/actuation 2 inhalations inhalation Q6H PRN 30 days benzonatate 200 mg PO BID PRN 30 days budesonide 0.5 mg (2 mL) inhalation DAILY 30 days qatclmqjjh-ppyjqtvf-qeoktqiomm 160-9-4.8 mcg/actuation (Breztri Aerosphere) 2 inhalations inhalation BID 30 days doxycycline hyclate 100 mg PO BID 7 days escitalopram oxalate (Lexapro) 20 mg PO DAILY fluticasone propionate 50 mcg/actuation 2 sprays intranasal DAILY 30 days metformin 500 mg PO BIDWMEAL montelukast 10 mg PO DAILY nebulizers As directed simvastatin 40 mg PO BEDTIME tramadol 50 mg PO BID PRN 30 days valacyclovir (Valtrex) 1,000 mg PO Q12H Tobacco use date assessed: 01/20/25 Dental Screening Dental Screen Date: 12/23/24 HPI leg wound HPI Details Pt is an 84 y/o female who presents today for a follow up. She has a hx of t2dm, dyslipidemia, COPD with asthma overlap, and anxiety. Pulm: has COPD and asthma and overall is currently well-controlled. Follows with pulmonology. CV: Cholesterol is managed with simvastatin 40 mg. No chest pain or shortness on breath Endo: Diagnosed around 2009. She is currently on metformin 500 mg bid. -had hypoglycemia on glipizide. GI: recent labs showed elevated lfts, no known hx of this per pt. She has stopped tylenol at last visit. No change in numbers. msk: fx back t12 and s1 about 2 months ago. Pain is improved with tramadol prn. -She was has a left leg wound being aiden ged by [facility]. She has 1 day left of doxy and tells me that this is significantly better. The wound is healed. There is a small scab on the outside but there is no pain or redness anymore. The nurse has been coming twice a week to just monitor this for her. She would like to go down to once a week because she does not like so many people in her house. Psych: Was recently increased on Lexapro and feels that this is a lot better. [facility] Medical History (Updated 01/14/25 @ 10:13 by Karen Brown PA-C) RSV (respiratory syncytial virus pneumonia) Pneumonitis ILD (interstitial lung disease) Chronic allergic rhinitis Osteopenia Bronchitis Asthma-COPD overlap syndrome Chronic allergic rhinitis Cough Surgical History History of colonoscopy Social History (Updated 01/14/25 @ 08:49 by Jade Romeo CMA) Housing: House Alcohol intake: never Patient Tobacco Use Status: Former Tobacco user Tobacco use type: Cigarette Years Smoked: 20 years e-Cigarette/Vaping Use: Never Used Second Hand Smoke Exposure: No service: No Current occupational status: retired Cognitive needs: No 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) Vision needs: Yes (glasses) Questionnaire Thrive Questionnaire Date Thrive assessed: 12/23/24 Physical exam (Primary Care) Vital Signs: Last Vital Signs Pulse 81 01/20/25 11:21 Resp 16 01/20/25 11:21 BP 110/52 L 01/20/25 11:21 Pulse Ox 97 01/20/25 11:21 Oxygen Delivery Method Room Air 01/20/25 11:21 BMI result Body Mass Index 23.1 Tobacco/Smoking Status: Tobacco use Status Tobacco use date assessed 01/20/25 01/20/25 11:24 Patient Tobacco Use Status Former Tobacco user 01/20/25 11:24 Tobacco use type Cigarette 01/20/25 11:24 e-Cigarette/Vaping Use Never Used 01/20/25 11:24 Thrive Assessment: Date of Thrive Assessment Date Thrive assessed 12/23/24 01/20/25 11:24 Const Orientation/consciousness: patient oriented x3 HENMT Ears: hearing grossly normal bilaterally Neck Thyroid: Thyroid normal Lymphatic: no lymphadenopathy noted Resp Auscultation: clear to auscultation bilaterally Cardio Rate: regular rate Rhythm: regular rhythm Heart sounds: S1 normal heart sound present and S2 normal heart sound present GI Inspection: Yes normal to inspection Palpation (GI): Soft to palpation and Other GI palpation findings present (nontender, no cva tenderness) Auscultation: normoactive bowel sounds Rectal Exam - Female: deferred Skin Other: There is a small scab noted in the left anterior lower leg. There is a light erythematous surrounding area that is nontender to palpation it does demi. Neuro General: patient oriented x3, gait normal and no focal motor deficits Results Reviewed Results Reviewed: Laboratory Tests 12/31/24 01/19/25 08:30 09:40 Sodium 140 Potassium 4.3 Chloride 106 Carbon Dioxide 26 Anion Gap 12 BUN 10 Creatinine 0.75 0.68 Estimated GFR > 60 > 60 Random Glucose 153 H 139 H Hemoglobin A1c % 6.3 H Calcium 9.7 Total Bilirubin 0.5 Direct Bilirubin 0.2 AST 91 H ALT 23 Alkaline Phosphatase 58 Total Protein 7.5 Albumin 4.1 Coding Level of Care Code Est Pt Level 4 (44020) Complex EM visit Add On G2211 Diagnoses Elevated LFTs R79.89 Leg wound, left S81.802A Encounter type: initial encounter Generalized anxiety disorder F41.1 Chronic back pain M54.9; G89.29 Controlled type 2 diabetes mellitus with complication, without long-term current use of insulin E11.8 Assessment & Plan Assessment & Plan (1) Elevated LFTs: Code(s): R79.89 - Other specified abnormal findings of blood chemistry Category: Medical Plan: u/s ordered (2) Leg wound, left: Code(s): S81.802A - Unspecified open wound, left lower leg, initial encounter Category: Medical Qualifiers: Encounter type: initial encounter Qualified Code(s): S81.802A - Unspecified open wound, left lower leg, initial encounter Plan: resovled. last day of doxy tomorrow (3) Generalized anxiety disorder: Code(s): F41.1 - Generalized anxiety disorder Category: Medical Plan: feeling improved with lexapro (4) Chronic back pain: Code(s): M54.9 - Dorsalgia, unspecified; G89.29 - Other chronic pain Category: Medical Plan: improved with tramadol (5) Controlled type 2 diabetes mellitus with complication, without long-term current use of insulin: Code(s): E11.8 - Type 2 diabetes mellitus with unspecified complications Category: Medical Plan: d/c metformin -? elevated lfts start jardiance. discussed risks and benefits and adverse effects like utis, yeast infections. will check renal function after starting medication Orders: Orders Hemoglobin A1c Today E11.8 - Type 2 diabetes mellitus with unspecified complications, F41.1 - Generalized anxiety disorder, G89.29 - Other chronic pain, M54.9 - Dorsalgia, unspecified, R73.01 - Impaired fasting glucose, R79.89 - Other specified abnormal findings of blood chemistry, S81.802A - Unspecified open wound, left lower leg, initial encounter Ferritin Today E11.8 - Type 2 diabetes mellitus with unspecified complications, F41.1 - Generalized anxiety disorder, G89.29 - Other chronic pain, M54.9 - Dorsalgia, unspecified, R79.89 - Other specified abnormal findings of blood chemistry, S81.802A - Unspecified open wound, left lower leg, initial encounter Hepatitis B Surface Antigen Today E11.8 - Type 2 diabetes mellitus with unspecified complications, F41.1 - Generalized anxiety disorder, G89.29 - Other chronic pain, M54.9 - Dorsalgia, unspecified, R79.89 - Other specified abnormal findings of blood chemistry, S81.802A - Unspecified open wound, left lower leg, initial encounter Liver Panel Today E11.8 - Type 2 diabetes mellitus with unspecified complications, F41.1 - Generalized anxiety disorder, G89.29 - Other chronic pain, M54.9 - Dorsalgia, unspecified, R79.89 - Other specified abnormal findings of blood chemistry, S81.802A - Unspecified open wound, left lower leg, initial encounter Basic Metabolic Panel Today E11.8 - Type 2 diabetes mellitus with unspecified complications, F41.1 - Generalized anxiety disorder, G89.29 - Other chronic pain, M54.9 - Dorsalgia, unspecified, R79.89 - Other specified abnormal findings of blood chemistry, S81.802A - Unspecified open wound, left lower leg, initial encounter Microalbumin, Random (w Creat) Today E11.8 - Type 2 diabetes mellitus with unspecified complications, F41.1 - Generalized anxiety disorder, G89.29 - Other chronic pain, M54.9 - Dorsalgia, unspecified, R79.89 - Other specified abnormal findings of blood chemistry, S81.802A - Unspecified open wound, left lower leg, initial encounter Gamma Glutamyl Transpeptidase Today E11.8 - Type 2 diabetes mellitus with unspecified complications, F41.1 - Generalized anxiety disorder, G89.29 - Other chronic pain, M54.9 - Dorsalgia, unspecified, R79.89 - Other specified abnormal findings of blood chemistry, S81.802A - Unspecified open wound, left lower leg, initial encounter Hepatitis C Antibody Today E11.8 - Type 2 diabetes mellitus with unspecified complications, F41.1 - Generalized anxiety disorder, G89.29 - Other chronic pain, M54.9 - Dorsalgia, unspecified, R79.89 - Other specified abnormal findings of blood chemistry, S81.802A - Unspecified open wound, left lower leg, initial encounter US abdomen comp w elastography Today G89.29 - Other chronic pain, M54.9 - Do rsalgia, unspecified, R79.89 - Other specified abnormal findings of blood chemistry, S81.802A - Unspecified open wound, left lower leg, initial encounter Medications: New empagliflozin (Jardiance) 10 mg PO QAM 90 tabs 0RF Discontinued metformin Discontinued Reason: Doctor's Order 500 mg PO BIDWMEAL 180 tabs 2RF Patient Instructions: ok to wrap leg with just vaseline. wound has improved significantly, no signs of infection. OK to reduce nursing services to 1 day a week.
[2025-01-20 11:21] VITALS: BP 110/52; PULSE 81; RESP 16; O2SAT 97; BMI 23.1
--- OUTSIDE RECORDS SUMMARY | 2025-01-20 12:11 | XMS_ITS | Encounter Summary ---
Author Organization [facility] Address [address] [place] [address] Care Team Providers Care Director Education Name Role Phone Jarrod Smart MD Primary Care Provider [phone] Encounter Details Date Type Department Care Team (Late st Contact Info) Description 11/25/2024 Lab Requisition [facility] - Main Lab [address] [facility] [place] [address] Dasha Muniz MD [address] [place] [id number] Encounter for other general examination Social History [...] LAB CHEMISTRY METHOD 11/25/2024 11:12 AM EDT [facility] Potassium 4.0 3.5 - 5.5 mmol/L LAB CHEMISTRY METHOD 11/25/2024 11:12 AM EDT [facility] Chloride 102 96 - 110 mmol/L LAB CHEMISTRY METHOD 11/25/2024 11:12 AM T [facility] CO2 23 21 - 32 mmol/L LAB CHEMISTRY METHOD 11/25/2024 11:12 AM [facility] Anion Gap 9 3 - 11 LAB CHEMISTRY METHOD 11/25/2024 11:12 AM [facility] Glucose 118(H) 70 - 100 mg/dL LAB CHEMISTRY METHOD 11/25/2024 11:12 AM [facility] BUN 12 5 - 25 mg/dL LAB CHEMISTRY METHOD 11/25/2024 11:12 AM [facility] Creatinine 0.63 0.50 - 1.10 mg/dL LAB CHEMISTRY METHOD 11/25/2024 11:12 AM [facility] eGFR 88 >=60 mL/min/1. 73m2 LAB CHEMISTRY METHOD 11/25/2024 11:12 AM [facility] Comment:Calculation based on the??Chronic Kidney Disease Epidemiology Collaboration (CKD-EPI) equation refit??without adjustment for race. BUN/Creatinine Ratio 19.0 LAB CHEMISTRY METHOD 11/25/2024 11:12 AM [facility] Calcium 8.9 8.5 - 10.5 mg/dL LAB CHEMISTRY METHOD 11/25/2024 11:12 AM [facility] AST (SGOT) 91(H) 10 - 42 unit/L LAB CHEMISTRY METHOD 11/25/2024 11:12 AM [facility] ALT (SGPT) 48 10 - 60 unit/L LAB CHEMISTRY METHOD 11/25/2024 11:12 AM [facility] Alkaline Phosphatase 66 42 - 121 unit/L LAB CHEMISTRY METHOD 11/25/2024 11:12 AM [facility] Total Protein 6.6 6.0 - 8.0 g/dL LAB CHEMISTRY METHOD 11/25/2024 11:12 AM [facility] Albumin 2.9(L) 3.2 - 5.0 g/dL LAB CHEMISTRY METHOD 11/25/2024 11:12 AM EDT [facility] Total Bilirubin 0.4 0.0 - 1.4 mg/dL LAB CHEMISTRY METHOD 11/25/2024 11:12 AM EDT [facility] Blood Venous blood specimen / Unknown Venipuncture / Unknown 11/25/2024 5:05 AM EDT 11/25/2024 9:16 AM EDT us Dasha Muniz MD LAB BLOOD ORDERABLES Final Res ult [facility] [address] [place] [address], documented in this encounter Visit Diagnoses Diagnosis Encounter for other general examination documented in this encounter Care Teams Director Education Relationship Specialty Start Date End Date Jarrod Smart MD [address] [place] [address] PCP - General Internal Medicine 09/18/17 documented as of this encounter
== END 2025-01-20 12:06 | disposition home or self-care (01) ==
PROVIDERS: PCP Physician Assistant; Visit Provider Physician Assistant
DX: M54.9 Dorsalgia, unspecified (principal); E11.8 Type 2 diabetes mellitus with unspecified complications; R79.89 Other specified abnormal findings of blood chemistry; S81.802A Unspecified open wound, left lower leg, initial encounter; F41.1 Generalized anxiety disorder; G89.29 Other chronic pain

== ENCOUNTER → 2025-01-20 11:14 | Outpatient (BNVA) | payer MEDICARE, OTHER, SELFPAY | PROVIDERS: PCP Physician Assistant; Visit Provider Physician Assistant | DX: R79.89 Other specified abnormal findings of blood chemistry (principal); S81.802D Unspecified open wound, left lower leg, subsequent encounter; F41.1 Generalized anxiety disorder; M54.9 Dorsalgia, unspecified; G89.29 Other chronic pain; E11.8 Type 2 diabetes mellitus with unspecified complications | CPT/HCPCS: 99212 ==

== ENCOUNTER 2025-01-21 09:50 | Outpatient (AMB) | payer MEDICARE, OTHER, SELFPAY ==
--- OUTSIDE RECORDS SUMMARY | 2025-01-21 11:10 | XMS_ITS | Encounter Summary ---
Author Organization [employer] [facility] Address [address] [place] [address] Care Team Providers Care Senior Cisco Network Engineer Name Role Phone Jarrod Smart Primary Care Provider Unavailab le Encounter Details Date Type Department Care Team Description 10/24/2017 Transfer Records Medical Records [address] [place] [address] Abstract, Provider Social History Tobacco Use Types Packs/Day Years Used Date Smoking Tobacco: Former Cigarettes 0.5 20 Sex Assigned at Date Recorded Not on file documented as of this encounter Plan of Treatment Not on file documented as of this encounter Visit Diagnoses Not on filedocumented in this encounter Care Teams Senior [employer] Network Engineer Relationship Specialty Start Date End Date Jarrod Smart PCP - General Internal Medicine 09/18/17 documented as of this encounter
[2025-01-21 11:12] VITALS: PULSE 90; O2SAT 94; BMI 23.1
--- NOTE | 2025-01-21 11:12 | MHC.OFFVIS ---
Vital Signs 01/21/25 11:12 Height 5 ft 5 in Weight 138 lb 14.259 oz BMI 23.1 Pulse 90 Pulse Source Pulse Oximeter Pulse Oximetry (%) 94 Oxygen Delivery Method Room Air Intake Visit Reasons: Acapella Teaching Chief Legal Officer Required: No Allergies No Known Allergies Allergy (Unknown, Verified 01/21/25 11:12) NOT APPLICABLE Medication List - Last Reconciled 01/21/25 by Ritika Gloria LPN albuterol sulfate 90 mcg/actuation 2 inhalations inhalation Q6H PRN 30 days benzonatate 200 mg PO BID PRN 30 days budesonide 0.5 mg (2 mL) inhalation DAILY 30 days tinupusiex-dtbvpwcf-bzrdbvsyle 160-9-4.8 mcg/actuation (Breztri Aerosphere) 2 inhalations inhalation BID 30 days doxycycline hyclate 100 mg PO BID 7 days empagliflozin (Jardiance) 10 mg PO QAM escitalopram oxalate (Lexapro) 20 mg PO DAILY fluticasone propionate 50 mcg/actuation 2 sprays intranasal DAILY 30 days montelukast 10 mg PO DAILY nebulizers As directed simvastatin 40 mg PO BEDTIME tramadol 50 mg PO BID PRN 30 days valacyclovir (Valtrex) 1,000 mg PO Q12H HPI Comments Details: Moira was here for an acapella teach, she was educated on proper use and cleaning of the device and was able to return demonstrate correctly how to use it. Moira does not have any questions at this time. [facility] Medical History (Updated 01/14/25 @ 10:13 by Karen Brown PA-C) RSV (respiratory syncytial virus pneumonia) Pneumonitis ILD (interstitial lung disease) Chronic allergic rhinitis Osteopenia Bronchitis Asthma-COPD overlap syndrome Chronic allergic rhinitis Cough Surgical History History of colonoscopy Social History (Updated 01/14/25 @ 08:49 by Jade Romeo CMA) Housing: House Alcohol intake: never Patient Tobacco Use Status: Former Tobacco user Tobacco use type: Cigarette Years Smoked: 20 years e-Cigarette/Vaping Use: Never Used Second Hand Smoke Exposure: No service: No Current occupational status: retired Cognitive needs: No 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
== END 2025-01-21 10:10 | disposition home or self-care (01) ==
LOC: HO.HPS 09:51
PROVIDERS: PCP Physician Assistant; Visit Provider Hospitalist
DX: J44.9 Chronic obstructive pulmonary disease, unspecified (principal)

== ENCOUNTER → 2025-01-21 09:50 | Outpatient (BNVA) | payer MEDICARE, OTHER, SELFPAY | PROVIDERS: PCP Physician Assistant; Visit Provider Hospitalist | DX: J44.9 Chronic obstructive pulmonary disease, unspecified (principal) | CPT/HCPCS: 99211 ==

== ENCOUNTER 2025-02-18 11:10 | Outpatient (AMB) | payer MEDICARE, OTHER, SELFPAY ==
--- NOTE | 2025-02-18 11:21 | A.OFFPC_ITS ---
Vital Signs 02/18/25 11:24 Height 5 ft 5 in Weight 138 lb 2 oz BMI 23.0 BP 110/50 L Blood Pressure Location Rt brachial Position Sitting Respiration 18 Pulse 70 Pulse Source Pulse Oximeter Temp 97.2 F Temp Source Oral Pulse Oximetry (%) 97 Oxygen Delivery Method Room Air Intake Visit Reasons: follow up Intake Note: Follow up Allergies No Known Allergies Allergy (Unknown, Verified 01/21/25 11:12) NOT APPLICABLE Medication List - Last Reconciled 02/18/25 by Karen Brown PA-C albuterol sulfate 90 mcg/actuation 2 inhalations inhalation Q6H PRN 30 days Bacillus coagulans (Probiotic (B. coagulans)) cells PO benzonatate 200 mg PO BID PRN 30 days budesonide 0.5 mg (2 mL) inhalation DAILY 30 days pzyfcsywyo-vhpsykem-qahemsfkid 160-9-4.8 mcg/actuation (Breztri Aerosphere) 2 inhalations inhalation BID 30 days escitalopram oxalate (Lexapro) 20 mg PO DAILY fluticasone propionate 50 mcg/actuation 2 sprays intranasal DAILY 30 days montelukast 10 mg PO DAILY nebulizers As directed simvastatin 40 mg PO BEDTIME tramadol 50 mg PO BID PRN 30 days valacyclovir (Valtrex) 1,000 mg PO Q12H Tobacco use date assessed: 02/18/25 Dental Screening Dental Screen Date: 12/23/24 HPI follow up HPI Details Pt is an 84 y/o female who presents today for a follow up. She has a hx of t2dm, dyslipidemia, COPD with asthma overlap, and anxiety. She fell on 02/08 while at a local store. She tripped on the tile. She felt like her foot could not lift. She states that she had imaging of her spine to check on the back fractures and then later that day felt like her legs had a hard time lifting. She noticed a foot drop is specially on the right side. She landed on her left side when she fell at the store. She states that people were around her. She injured her shoulder, arm, chest wall and left leg. She did go to the ER and had imaging and states that everything was negative. She was told to do at home PT. She has been evaluated for safety and wants to be at home. She uses a walker and does have a life alert. She is not interested in any short term rehab facility. She did cut open her left arm and has been getting bandage changes by visiting nurses. Pulm: has COPD and asthma and overall is currently well-controlled. Follows with pulmonology. CV: Cholesterol is managed with simvastatin 40 mg. No chest pain or shortness on breath Endo: Diagnosed around 2009. She was stopped on metformin at our last visit in trialed on Jardiance. The Jardiance did cause a yeast infection. The metformin was discontinued due to elevated LFTs. -had hypoglycemia on glipizide. GI: recent labs showed elevated lfts, no known hx of this per pt. She has stopped tylenol at last visit. No change in numbers. She was d/cd on metformin at last visit and started on jardiance. Did not get labs prior to appointment. msk: fx back t12 and s1 about 2 months ago. Pain is improved with tramadol prn. Psych: Was recently increased on Lexapro and feels it is slightly better but not at goal. Used to be on benzos but daughter is here today with patient and thought that there was a bit of abuse with this medication. [facility] Medical History (Updated 02/18/25 @ 16:18 by Karen Brown PA-C) RSV (respiratory syncytial virus pneumonia) Pneumonitis ILD (interstitial lung disease) Chronic allergic rhinitis Osteopenia Bronchitis Asthma-COPD overlap syndrome Chronic allergic rhinitis Cough Surgical History History of colonoscopy Social History (Updated 02/18/25 @ 13:39 by Jade Romeo CMA) Housing: House Alcohol intake: never Patient Tobacco Use Status: Former Tobacco user Tobacco use type: Cigarette Years Smoked: 20 years e-Cigarette/Vaping Use: Never Used Second Hand Smoke Exposure: No Use of substances other than those prescribed or required for medical reasons: No service: No Current occupational status: retired Cognitive needs: No 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) Vision needs: Yes (glasses) Questionnaire Thrive Questionnaire Date Thrive assessed: 12/23/24 I am a: Patient What is your living situation today?: I have a steady place to live Within the past 12 months, did the food you bought not last and you didn't have the money to get more?: Never true Within the past 12 months, did you worry whether your food would run out before you got money to buy more?: Never true Do you have trouble paying for medicines?: No Do you have trouble getting transportation to medical appointments?: No Do you have trouble paying your heating and electricity bill?: No Do you have trouble taking care of your child, family member or friend?: No Do you have trouble with day-to-day activities such as bathing, preparing meals, shopping, managing finances, etc.?: I choose not to answer this question Are you currently unemployed and looking for a job?: No Are you interested in more education?: No Please select the resources that you would like help with: None Currently or been in a relationship where the following occur: I choose not to answer THRIVE Score: 0 AUDIT C Alcohol Use Questionnaire (AUDIT-C) 1. How often do you have a drink containing alcohol?: Never 3. How often do you have six or more drinks on one occasion?: Never Total Score: 0 Physical exam (Primary Care) Vital Signs: Last Vital Signs Temp 97.2 F 02/18/25 11:24 Pulse 70 02/18/25 11:24 Resp 18 02/18/25 11:24 BP 110/50 L 02/18/25 11:24 Pulse Ox 97 02/18/25 11:24 Oxygen Delivery Method Room Air 02/18/25 11:24 BMI result Body Mass Index 23.0 Tobacco/Smoking Status: Tobacco use Status Tobacco use date assessed 02/18/25 02/18/25 11:25 Patient Tobacco Use Status Former Tobacco user 02/18/25 11:28 Tobacco use type Cigarette 02/18/25 11:28 e-Cigarette/Vaping Use Never Used 02/18/25 11:28 Thrive Assessment: Date of Thrive Assessment Date Thrive assessed 12/23/24 02/18/25 11:25 Currently or been in a relationship where the following occur: I choose not to answer Const Orientation/consciousness: patient oriented x3 HENMT Ears: hearing grossly normal bilaterally Neck Thyroid: Thyroid normal Lymphatic: no lymphadenopathy noted Resp Auscultation: clear to auscultation bilaterally Cardio Rate: regular rate Rhythm: regular rhythm Heart sounds: S1 normal heart sound present and S2 normal heart sound present GI Inspection: Yes normal to inspection Palpation (GI): Soft to palpation and Other GI palpation findings present (nontender, no cva tenderness) Auscultation: normoactive bowel sounds Rectal Exam - Female: deferred Skin Other: There is an abrasion noted over the left forearm that is approximately 6 in x 4 in. There is a surrounding area of erythema. She has an open laceration noted on the dorsum of the left hand as well. Again, surrounding erythema. Pictures have been taken of this on patient's phone. Neuro General: patient oriented x3, gait normal and no focal motor deficits Coding Level of Care Code Est Pt Level 4 (19473) Complex EM visit Add On G2211 Diagnoses Generalized anxiety disorder F41.1 Controlled type 2 diabetes mellitus with complication, without long-term current use of insulin E11.8 Elevated LFTs R79.89 Left arm cellulitis L03.114 Unsteady gait R26.81 Assessment & Plan Assessment & Plan (1) Generalized anxiety disorder: Code(s): F41.1 - Generalized anxiety disorder Category: Medical Plan: Stable. (2) Controlled type 2 diabetes mellitus with complication, without long-term current use of insulin: Code(s): E11.8 - Type 2 diabetes mellitus with unspecified complications Category: Medical Plan: Discontinue Jardiance. Switch back to metformin. We will check LFTs today while she has been off of metformin for the last month (3) Elevated LFTs: Code(s): R79.89 - Other specified abnormal findings of blood chemistry Category: Medical Plan: As above. Liver ultrasound ordered. (4) Left arm cellulitis: Code(s): L03.114 - Cellulitis of left upper limb Category: Medical Plan: We will start doxycycline. Discussed risks and benefits and adverse effects of this medication. Short term follow up (5) Unsteady gait: Code(s): R26.81 - Unsteadiness on feet Category: Medical Plan: Has a sister devices at home. We will call her back surgeon. She also is starting PT. Medications: New doxycycline hyclate 100 mg PO BID 20 tabs 0RF 10 days metformin 500 mg PO BID 60 tabs 0RF Changed From tramadol 50 mg PO BID 30 days PRN 60 tabs 0RF pain G89.29 - Other chronic pain, M54.9 - Dorsalgia, unspecified To tramadol 50 mg PO DAILY PRN 30 tabs 0RF pain 30 days G89.29 - Other chronic pain, M54.9 - Dorsalgia, unspecified
[2025-02-18 11:24] VITALS: BP 110/50; PULSE 70; RESP 18; TEMP 36.2; O2SAT 97; BMI 23.0
--- OUTSIDE RECORDS SUMMARY | 2025-02-18 12:01 | XMS_ITS | Encounter Summary ---
Author Organization [facility] Address [address] [place] [address] Care Team Providers Care Sitecore Developer Name Role Phone Jarrod Smart MD Primary Care Provider [phone] Encounter Details Date Type Department Care Team (Late st Contact Info) Description 11/25/2024 Lab Requisition [facility] - Main Lab [address] [facility] [place] [address] Dasha Muniz MD [address] [place] [id number] Encounter for other general examination Social History [...] LAB CHEMISTRY METHOD 11/25/2024 11:12 AM EDT [facility] Potassium 4.0 3.5 - 5.5 mmol/L LAB CHEMISTRY METHOD 11/25/2024 11:12 AM EDT [facility] Chloride 102 96 - 110 mmol/L LAB CHEMISTRY METHOD 11/25/2024 11:12 AM T [facility] CO2 23 21 - 32 mmol/L LAB CHEMISTRY METHOD 11/25/2024 11:12 AM [facility] Anion Gap 9 3 - 11 LAB CHEMISTRY METHOD 11/25/2024 11:12 AM [facility] Glucose 118(H) 70 - 100 mg/dL LAB CHEMISTRY METHOD 11/25/2024 11:12 AM [facility] BUN 12 5 - 25 mg/dL LAB CHEMISTRY METHOD 11/25/2024 11:12 AM [facility] Creatinine 0.63 0.50 - 1.10 mg/dL LAB CHEMISTRY METHOD 11/25/2024 11:12 AM [facility] eGFR 88 >=60 mL/min/1. 73m2 LAB CHEMISTRY METHOD 11/25/2024 11:12 AM [facility] Comment:Calculation based on the Chronic Kidney Disease Epidemiology Collaboration (CKD-EPI) equation refit without adjustment for race. BUN/Creatinine Ratio 19.0 LAB CHEMISTRY METHOD 11/25/2024 11:12 AM [facility] Calcium 8.9 8.5 - 10.5 mg/dL LAB CHEMISTRY METHOD 11/25/2024 11:12 AM [facility] AST (SGOT) 91(H) 10 - 42 unit/L LAB CHEMISTRY METHOD 11/25/2024 11:12 AM [facility] ALT (SGPT) 48 10 - 60 unit/L LAB CHEMISTRY METHOD 11/25/2024 11:12 AM [facility] Alkaline Phosphatase 66 42 - 121 unit/L LAB CHEMISTRY METHOD 11/25/2024 11:12 AM [facility] Total Protein 6.6 6.0 - 8.0 g/dL LAB CHEMISTRY METHOD 11/25/2024 11:12 AM [facility] Albumin 2.9(L) 3.2 - 5.0 g/dL LAB CHEMISTRY METHOD 11/25/2024 11:12 AM EDT [facility] Total Bilirubin 0.4 0.0 - 1.4 mg/dL LAB CHEMISTRY METHOD 11/25/2024 11:12 AM EDT [facility] Blood Venous blood specimen / Unknown Venipuncture / Unknown 11/25/2024 5:05 AM EDT 11/25/2024 9:16 AM EDT us Dasha Muniz MD LAB BLOOD ORDERABLES Final Res ult [facility] [address] [place] [address], documented in this encounter Visit Diagnoses Diagnosis Encounter for other general examination documented in this encounter Care Teams Sitecore Developer Relationship Specialty Start Date End Date Jarrod Smart MD [address] [place], [place] PCP - General Internal Medicine 09/18/17 documented as of this encounter
== END 2025-02-18 12:30 | disposition home or self-care (01) ==
LOC: HO.HMCFM 11:11
PROVIDERS: PCP Physician Assistant; Visit Provider Physician Assistant
DX: F41.1 Generalized anxiety disorder (principal); E11.8 Type 2 diabetes mellitus with unspecified complications; R79.89 Other specified abnormal findings of blood chemistry; L03.114 Cellulitis of left upper limb; R26.81 Unsteadiness on feet

== ENCOUNTER 2025-02-18 12:22 | Outpatient (REF) | payer MEDICARE, OTHER, SELFPAY ==
[2025-02-18 15:18] LABS: Hemoglobin A1C 146.6361 umol/L; Total Hemoglobin (HGBA1C) 3068.6010 umol/L
[2025-02-18 16:01] LABS: Alanine Aminotransferase 19 U/L (0-31); Albumin Level 3.6 g/dL (3.5-5.0); Alkaline Phosphatase 87 U/L (39-117); Anion Gap 12 (12-20); Aspartate Amino Transferase 67 U/L (5-31); Blood Urea Nitrogen 12 mg/dL (9-16); Calcium 9.0 mg/dL (8.4-10.2); Carbon Dioxide 22 mmol/L (22-29); Chloride 105 mmol/L (96-108); Estimated Glomerular Filt Rate > 60; Gamma Glutamyl Transpeptidase 24 U/L (7-33); Potassium 3.9 mmol/L (3.3-5.1); Sodium 135 mmol/L (135-145); Total Protein 7.1 g/dL (6.5-8.0)
[2025-02-18 16:02] LABS: Ferritin 72 ng/mL (10-250)
[2025-02-19 04:14] LABS: HBsAGNum1 0.35 S/CO (0.00-0.99); Hepatitis B Surface Antigen Negative (Negative); ~HepC Num1 0.16 S/CO (0.00-0.79); ~Hepatitis C Antibody Nonreactive (Nonreactive)
== END 2025-02-18 12:23 | disposition home or self-care (01) ==
LOC: HO.WFDLDS 12:22
PROVIDERS: Visit Provider Physician Assistant
DX: F41.1 Generalized anxiety disorder (principal); E11.8 Type 2 diabetes mellitus with unspecified complications; R79.89 Other specified abnormal findings of blood chemistry; L03.114 Cellulitis of left upper limb; R26.81 Unsteadiness on feet; J44.89 Other specified chronic obstructive pulmonary disease; M54.9 Dorsalgia, unspecified; G89.29 Other chronic pain; S81.802A Unspecified open wound, left lower leg, initial encounter; X58.XXXA Exposure to other specified factors, initial encounter; Y93.9 Activity, unspecified; Y92.9 Unspecified place or not applicable; Y99.9 Unspecified external cause status
CPT/HCPCS: 36415; 80048; 80076; 82728; 82977; 83036; 86803; 87340; 99212

== ENCOUNTER → 2025-02-22 23:59 | Outpatient (BNV) | payer MEDICARE, OTHER, SELFPAY | PROVIDERS: PCP Physician Assistant; Visit Provider Internal Medicine | DX: E11.9 Type 2 diabetes mellitus without complications (principal); J84.9 Interstitial pulmonary disease, unspecified; J44.9 Chronic obstructive pulmonary disease, unspecified; K21.9 Gastro-esophageal reflux disease without esophagitis | CPT/HCPCS: G0179 ==

== ENCOUNTER 2025-03-18 12:45 | Outpatient (AMB) | payer MEDICARE, OTHER, SELFPAY ==
--- OUTSIDE RECORDS SUMMARY | 2025-03-12 23:59 | XMS_ITS | Continuity of Care Document ---
Author Organization [facility] Address [address] [place], [place] [address]marilyn carter, [address] [place] [address]- Care Team Providers Care Room Inspector Name Role Phone Karen Morrow Primary Care Physician Encounter [facility] ACCT R [id number] Date(s): 12/16/24 - 03/12/[address] [place], [place] [address] Attending Physician: Not on Staff, Attending MD Referring Physician: Ritika Estes MD Encounter Type: Pre Office Visit Allergies, [...] 1:08:33 PM EDT, Route to Pharmacy Electronically, [id number], [facility]/pharmacy #[id number] Start Date: 11/28/16 Status: Ordered Quantity: 180.0 Unit: each Repeat number: 4 albuterol 0.083% inhalation solution 3 mL, Inhalation, Every 6 hours, PRN for wheezing, # 360 mL, 11 Refills, Maintenance, 05/05/14 8:13:56 AM EDT, Solution, [facility]/pharmacy #[id number] Start Date: 05/05/14 Stop Date: 04/30/15 Status: Ordered Quantity: 360.0 Unit: mL Repeat number: 12 citalopram 20 mg oral tablet TAKE 1 TABLET BY MOUTH EVERY DAY Start Date: 11/18/24 Status: Ordered Repeat number: 1 escitalopram 20 mg oral tablet TAKE 1 TABLET BY MOUTH EVERY DAY Start Date: 02/08/25 Status: Ordered Repeat number: 1 fluticasone 50 mcg/inh nasal spray SPRAY 2 SPRAYS INTO EACH NOSTRIL DAILY FOR 30 DAYS Start Date: 11/18/24 Status: Ordered Repeat number: 1 Fluticasone Nasal See Instructions, 2 puffs PRN, 0 Refills, Maintenance, 05/07/11 9:44:01 AM EDT Start Date: 05/07/11 Status: Ordered Repeat number: 1 Jardiance 10 mg oral tablet 1 tablet = 10 mg, By Mouth, Daily in AM, # 30 tablet, 0 Refills, Maintenance, 02/08/25 11:14:00 PM EDT, Tablet, Partial fill upon patient request if the prescription is for a schedule II opioid drug. Start Date: 02/08/25 Status: Ordered Quantity: 30.0 Unit: tablet Repeat number: 1 metFORMIN 1000 mg oral tablet TAKE 1 TABLET BY MOUTH TWICE A DAY WITH MORNING AND EVENING MEALS Start Date: 11/18/24 Status: Ordered Repeat number: 1 metFORMIN 500 mg oral tablet 1 tablet = 500 mg, By Mouth, 2 times a day, # 180 tablet, 0 Refills, Maintenance, 02/08/25 11:15:00 PM EDT, Tablet, Partial fill upon patient request if the prescription is for a schedule II opioid drug. 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 Social History Social History [...] RN Member Role: Primary Care Nurse Name: Karen Morrow Position: Reference Physician Member Role: PCP Address: [address] [place] [address] Telecom: Name: Steff Warner Position: S RN Member Role: Primary Care Nurse Name: Marisa Rowe RN Position: S RN Member Role: Primary Care Nurse Care Team Related Persons Name: THOMPSON SHI Name: MAYITO VALDERRAMA Name: MARISA ORLANDO Insurance Providers Guarantor name: MARISA VALDERRAMA Health Plan Information #: 1 Payer: MEDICARE B Payer Identifier: Member Number: [id number] Group Number: [id number] Subscriber Identifier: [id number] Relationship to Subscriber: self Coverage Type: NA Coverage Verification Date: Telecom: NA Address: Health Plan Information #: 2 Payer: [facility] [employer] Payer Identifier: Member Number: [id number] Group Number: [id number] Subscriber Identifier: [id number] Relationship to Subscriber: self Coverage Type: Commercial Indemnity Coverage Verification Date: Telecom: Address:
--- OUTSIDE RECORDS SUMMARY | 2025-03-18 12:55 | XMS_ITS | Encounter Summary ---
Author Organization [facility] Address [address] [place] [address] Care Team Providers Care Steel Grinder Name Role Phone Jarrod Smart MD Primary Care Provider [phone] Encounter Details Date Type Department Care Team (Late st Contact Info) Description 11/25/2024 Lab Requisition [facility] - Main Lab [address] [facility] [place] [address] Dasha Muniz MD [address] [place] [id number] Encounter for other general examination Social History [...] LAB CHEMISTRY METHOD 11/25/2024 11:12 AM EDT [facility] Potassium 4.0 3.5 - 5.5 mmol/L LAB CHEMISTRY METHOD 11/25/2024 11:12 AM EDT [facility] Chloride 102 96 - 110 mmol/L LAB CHEMISTRY METHOD 11/25/2024 11:12 AM T [facility] CO2 23 21 - 32 mmol/L LAB CHEMISTRY METHOD 11/25/2024 11:12 AM [facility] Anion Gap 9 3 - 11 LAB CHEMISTRY METHOD 11/25/2024 11:12 AM [facility] Glucose 118(H) 70 - 100 mg/dL LAB CHEMISTRY METHOD 11/25/2024 11:12 AM [facility] BUN 12 5 - 25 mg/dL LAB CHEMISTRY METHOD 11/25/2024 11:12 AM [facility] Creatinine 0.63 0.50 - 1.10 mg/dL LAB CHEMISTRY METHOD 11/25/2024 11:12 AM [facility] eGFR 88 >=60 mL/min/1. 73m2 LAB CHEMISTRY METHOD 11/25/2024 11:12 AM [facility] Comment:Calculation based on the Chronic Kidney Disease Epidemiology Collaboration (CKD-EPI) equation refit without adjustment for race. BUN/Creatinine Ratio 19.0 LAB CHEMISTRY METHOD 11/25/2024 11:12 AM [facility] Calcium 8.9 8.5 - 10.5 mg/dL LAB CHEMISTRY METHOD 11/25/2024 11:12 AM [facility] AST (SGOT) 91(H) 10 - 42 unit/L LAB CHEMISTRY METHOD 11/25/2024 11:12 AM [facility] ALT (SGPT) 48 10 - 60 unit/L LAB CHEMISTRY METHOD 11/25/2024 11:12 AM [facility] Alkaline Phosphatase 66 42 - 121 unit/L LAB CHEMISTRY METHOD 11/25/2024 11:12 AM [facility] Total Protein 6.6 6.0 - 8.0 g/dL LAB CHEMISTRY METHOD 11/25/2024 11:12 AM [facility] Albumin 2.9(L) 3.2 - 5.0 g/dL LAB CHEMISTRY METHOD 11/25/2024 11:12 AM EDT [facility] Total Bilirubin 0.4 0.0 - 1.4 mg/dL LAB CHEMISTRY METHOD 11/25/2024 11:12 AM EDT [facility] Blood Venous blood specimen / Unknown Venipuncture / Unknown 11/25/2024 5:05 AM EDT 11/25/2024 9:16 AM EDT us Dasha Muniz MD LAB BLOOD ORDERABLES Final Res ult [facility] [address] [place] [address], documented in this encounter Visit Diagnoses Diagnosis Encounter for other general examination documented in this encounter Care Teams Steel Grinder Relationship Specialty Start Date End Date Jarrod Smart MD [address] [place], [place] PCP - General Internal Medicine 09/18/17 documented as of this encounter
--- OUTSIDE RECORDS SUMMARY | 2025-03-18 12:55 | XMS_ITS | Encounter Summary ---
Author Organization [facility] Address [address] [place] [address] Phone Care Team Providers Care Cider Maker Name Role Phone Jarrod Smart MD Primary Care Provider [phone] Ritika Whyte MD Primary Care Provider [phone] Encounter Details Date Type Department Care Team (Late Contact Info) Description 07/10/2022 Procedure Pass [facility], Ct Scan - [address] [address] Social History Tobacco Use Types Packs/Day Years Used Date Smoking Tobacco: Former Cigarettes Q uit: 1970 Smokeless Tobacco: Never Alcohol Use Standard Drinks/Week Comments Not Currently 0 (1 standard drink = 0.6 oz pur e alcohol) Comments Unknown Sex and Gender Information Value Date Recorded Sex Assigned at Not on file Legal Sex Female 9:36 AM EST Gender Identity Not on file Sexual Orientation Not on file documented as of this encounter Plan of Treatment Upcoming Encounters Date Type Department Care Team (Late Contact Info) Description 05/26/2025 3:45 PM EDT Office Visit [facility] Medicine [address] [place] [address] Jon Caruso DO [address] [place] [address] Orthopedics & Sports Medicine, [facility] [place] [address] documented as of this encounter Visit Diagnoses Not on filedocumented in this encounter Care Teams Cider Maker Relationship Specialty Start Date End Date Jarrod Smart MD [address] [place] [address] PCP - General Internal Medicine 09/29/20 02/16/25 Ritika Whyte MD [address] [place] [address] [place] [address] PCP - General Internal Medicine 02/17/25 documented as of this encounter Additional Source Comments The information contained in this document represents components of the legal health record. It is not the complete legal health record.[facility]
--- NOTE | 2025-03-18 12:57 | A.OFFPC_ITS ---
Vital Signs 03/18/25 13:01 Height 5 ft 5 in Weight 138 lb 8 oz BMI 23.0 BP 118/56 L Blood Pressure Location Lt brachial Position Sitting Respiration 20 Pulse 85 Pulse Source Pulse Oximeter Temp 97.5 F Temp Source Oral Pulse Oximetry (%) 95 Oxygen Delivery Method Room Air Intake Visit Reasons: wound check fu Intake Note: Wound check. Fell again four weeks ago got abrasions on the arms. but are healing. Allergies No Known Allergies Allergy (Unknown, Verified 03/18/25 13:00) NOT APPLICABLE Medication List - Last Reconciled 03/18/25 by Karen Brown PA-C albuterol sulfate 90 mcg/actuation 2 inhalations inhalation Q6H PRN 30 days Bacillus coagulans (Probiotic (B. coagulans)) cells PO benzonatate 200 mg PO BID PRN 30 days budesonide 0.5 mg (2 mL) inhalation DAILY 30 days zgybyzobpw-wcjmgzfa-oeotgrggnb 160-9-4.8 mcg/actuation (Breztri Aerosphere) 2 inhalations inhalation BID 30 days escitalopram oxalate (Lexapro) 20 mg PO DAILY fluticasone propionate 50 mcg/actuation 2 sprays intranasal DAILY 30 days metformin 500 mg PO BID montelukast 10 mg PO DAILY nebulizers As directed simvastatin 40 mg PO BEDTIME tramadol 50 mg PO DAILY PRN 30 days valacyclovir (Valtrex) 1,000 mg PO Q12H Tobacco use date assessed: 02/18/25 Fall risk assessment: 2 + Falls in past year Last assessed Fall Risk: 03/18/25 Dental Screening Dental Screen Date: 12/23/24 HPI wound check fu HPI Details Pt is an 84 y/o female who presents today for a follow up. She has a hx of t2dm, dyslipidemia, COPD with asthma overlap, and anxiety. She is here today for a follow up regarding a recent fall, skin tear and cellulitis of the upper extremity. She states that the skin tears have healed and she completed the doxycycline. There is no pain, redness of the arms. She is feeling well. She is using her walker. Pulm: has COPD and asthma and overall is currently well-controlled. Follows with pulmonology. CV: Cholesterol is managed with simvastatin 40 mg. No chest pain or shortness on breath Endo: Diagnosed around 2009. She is currently on metformin.. The Jardiance did cause a yeast infection. Glipizide caused hypoglycemia GI: recent labs showed elevated lfts, no known hx of this per pt. She has stopped tylenol at last visit. msk: fx back t12 and s1 about 3 months ago. Following with Neurosurgery. Pain is improved with tramadol prn. She still gets some pain at night though and has a hard time sleeping. She also would like a prescription for naproxen. Psych: Was recently increased on Lexapro and feels it is slightly better but not at goal. Used to be on benzos but daughter is here today with patient and thought that there was a bit of abuse with this medication. [facility] Medical History (Updated 02/18/25 @ 16:18 by Karen Brown PA-C) RSV (respiratory syncytial virus pneumonia) Pneumonitis ILD (interstitial lung disease) Chronic allergic rhinitis Osteopenia Bronchitis Asthma-COPD overlap syndrome Chronic allergic rhinitis Cough Surgical History History of colonoscopy Social History (Updated 02/18/25 @ 13:39 by Jade Romeo CMA) Housing: House Alcohol intake: never Patient Tobacco Use Status: Former Tobacco user Tobacco use type: Cigarette Years Smoked: 20 years e-Cigarette/Vaping Use: Never Used Second Hand Smoke Exposure: No service: No Current occupational status: retired Cognitive needs: No 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) Vision needs: Yes (glasses) Questionnaire Thrive Questionnaire Date Thrive assessed: 12/23/24 I am a: Patient What is your living situation today?: I have a steady place to live Within the past 12 months, did the food you bought not last and you didn't have the money to get more?: Never true Within the past 12 months, did you worry whether your food would run out before you got money to buy more?: Never true Do you have trouble paying for medicines?: No Do you have trouble getting transportation to medical appointments?: No Do you have trouble paying your heating and electricity bill?: No Do you have trouble taking care of your child, family member or friend?: No Do you have trouble with day-to-day activities such as bathing, preparing meals, shopping, managing finances, etc.?: I choose not to answer this question Are you currently unemployed and looking for a job?: No Are you interested in more education?: No Please select the resources that you would like help with: None Currently or been in a relationship where the following occur: I choose not to answer THRIVE Score: 0 AUDIT C Alcohol Use Questionnaire (AUDIT-C) 2. How many drinks containing alcohol do you have on a typical day when you are drinking?: 1 or 2 Total Score: 0 Physical exam (Primary Care) Vital Signs: Last Vital Signs Temp 97.5 F 03/18/25 13:01 Pulse 85 03/18/25 13:01 Resp 20 03/18/25 13:01 BP 118/56 L 03/18/25 13:01 Pulse Ox 95 03/18/25 13:01 Oxygen Delivery Method Room Air 03/18/25 13:01 BMI result Body Mass Index 23.0 Tobacco/Smoking Status: Tobacco use Status Tobacco use date assessed 02/18/25 03/18/25 12:58 Patient Tobacco Use Status Former Tobacco user 03/18/25 12:58 Tobacco use type Cigarette 03/18/25 12:58 e-Cigarette/Vaping Use Never Used 03/18/25 12:58 Thrive Assessment: Date of Thrive Assessment Date Thrive assessed 12/23/24 03/18/25 12:58 Currently or been in a relationship where the following occur: I choose not to answer Const Orientation/consciousness: patient oriented x3 HENMT Ears: hearing grossly normal bilaterally Neck Thyroid: Thyroid normal Lymphatic: no lymphadenopathy noted Resp Auscultation: clear to auscultation bilaterally Cardio Rate: regular rate Rhythm: regular rhythm Heart sounds: S1 normal heart sound present and S2 normal heart sound present GI Inspection: Yes normal to inspection Palpation (GI): Soft to palpation and Other GI palpation findings present (nontender, no cva tenderness) Auscultation: normoactive bowel sounds Rectal Exam - Female: deferred Skin Other: Skin intact today. General skin exam: no rashes or lesions noted Neuro General: patient oriented x3, gait normal and no focal motor deficits Results Reviewed Results Reviewed: Laboratory Tests 01/05/25 02/18/25 02/18/25 12:11 12:21 12:27 WBC 8.1 RBC 3.91 L Hgb 12.1 Hct 34.1 L Plt Count 237 Creatinine 0.82 Estimated GFR > 60 Random Glucose 171 H Hemoglobin A1c % 6.5 H GGT 24 AST 67 H ALT 19 Alkaline Phosphatase 87 Coding Level of Care Code Est Pt Level 4 (90317) Complex EM visit Add On G2211 Diagnoses Controlled type 2 diabetes mellitus with complication, without long-term current use of insulin E11.8 Elevated LFTs R79.89 Chronic back pain M54.9; G89.29 Assessment & Plan Assessment & Plan (1) Controlled type 2 diabetes mellitus with complication, without long-term current use of insulin: Code(s): E11.8 - Type 2 diabetes mellitus with unspecified complications Category: Medical Plan: Continue current regimen. We will check labs (2) Elevated LFTs: Code(s): R79.89 - Other specified abnormal findings of blood chemistry Category: Medical Plan: As above. Has ultrasound scheduled next week (3) Chronic back pain: Code(s): M54.9 - Dorsalgia, unspecified; G89.29 - Other chronic pain Category: Medical Plan: We will try gabapentin. Discussed risks and benefits and adverse effects of this medication. Orders: Orders Basic Metabolic Panel 03/18/25 E11.8 - Type 2 diabetes mellitus with unspecified complications, G89.29 - Other chronic pain, M54.9 - Dorsalgia, unspecified, R79.89 - Other specified abnormal findings of blood chemistry Vitamin B12 and Folate 03/18/25 E11.8 - Type 2 diabetes mellitus with unspecified complications, G89.29 - Other chronic pain, M54.9 - Dorsalgia, unspecified, R79.89 - Other specified abnormal findings of blood chemistry Liver Panel 03/18/25 E11.8 - Type 2 diabetes mellitus with unspecified complications, G89.29 - Other chronic pain, M54.9 - Dorsalgia, unspecified, R79.89 - Other specified abnormal findings of blood chemistry Complete Blood Count Auto Diff 03/18/25 E11.8 - Type 2 diabetes mellitus with unspecified complications, G89.29 - Other chronic pain, M54.9 - Dorsalgia, unspecified, R79.89 - Other specified abnormal findings of blood chemistry IRON PROFILE 03/18/25 E11.8 - Type 2 diabetes mellitus with unspecified complications, G89.29 - Other chronic pain, M54.9 - Dorsalgia, unspecified, R79.89 - Other specified abnormal findings of blood chemistry Ferritin 03/18/25 E11.8 - Type 2 diabetes mellitus with unspecified complications, G89.29 - Other chronic pain, M54.9 - Dorsalgia, unspecified, R79.89 - Other specified abnormal findings of blood chemistry Medications: New naproxen 500 mg PO BID PRN 60 tabs 4RF pain gabapentin 100 mg PO BEDTIME 30 caps 1RF 30 days
[2025-03-18 13:01] VITALS: BP 118/56; PULSE 85; RESP 20; TEMP 36.4; O2SAT 95; BMI 23.0
== END 2025-03-18 13:38 | disposition home or self-care (01) ==
LOC: HO.HMCFM 12:46
PROVIDERS: PCP Physician Assistant; Visit Provider Physician Assistant
DX: E11.8 Type 2 diabetes mellitus with unspecified complications (principal); R79.89 Other specified abnormal findings of blood chemistry; M54.9 Dorsalgia, unspecified; G89.29 Other chronic pain

== ENCOUNTER → 2025-03-18 12:45 | Outpatient (BNVA) | payer MEDICARE, OTHER, SELFPAY | PROVIDERS: PCP Physician Assistant; Visit Provider Physician Assistant | DX: E11.8 Type 2 diabetes mellitus with unspecified complications (principal); R79.89 Other specified abnormal findings of blood chemistry; M54.9 Dorsalgia, unspecified; G89.29 Other chronic pain | CPT/HCPCS: 99212 ==

== ENCOUNTER 2025-03-22 09:15 | Outpatient (REF) | payer MEDICARE, OTHER, SELFPAY ==
--- NOTE | ~2025-03-22 | XR_ITS ---
EXAMINATION: XR BILATERAL HIPS WITH AP PELVIS CLINICAL INFORMATION: M25.551 - Pain in right hip COMPARISON: None available. TECHNIQUE: AP view of the pelvis and 2 views of each hip were obtained. FINDINGS: The pelvis is intact. There is no fracture, dislocation, or suspicious bone lesion. There is normal hip joint alignment bilaterally. There are mild to moderate osteoarthritic changes in both hip joints with mild posterior acetabular over coverage, findings which can be associated with pincer-type BRENDA. There is mild bilateral superolateral acetabular osteophytic lipping. No evidence of AVN. Normal femoral head contours. There is enthesopathic spurring of both greater trochanters. Mild to moderate degenerative changes in both SI joints. Aortobiiliac stent grafts noted. Soft tissues otherwise normal. XR/XR hips KWADWO min 3V IMPRESSION: 1. No acute bony abnormalities. 2. 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 Electronically signed by: Crescencio Henriquez MD 03/22/2025 10:01 AM EDT
--- NOTE | ~2025-03-22 | US_ITS ---
EXAMINATION: US ABDOMEN COMPLETE WITH LIVER ELASTOGRAPHY HISTORY: R79.89 - Other specified abnormal findings of blood chemistry TECHNIQUE: Real-time grayscale ultrasound imaging of the abdomen was performed and images were reviewed. COMPARISON: There are no prior studies available for comparison. FINDINGS: Liver: The right lobe of the liver measures 12.1 cm in size. The left lobe of the liver measures 7.8 cm in size. The liver demonstrates normal homogeneous echotexture. No focal mass or intrahepatic biliary ductal dilatation is identified. There is normal hepatopedal flow in the portal vein. Ultrasound elastography of the liver was performed with 10 separate measurements of the liver parenchyma with the patient in the supine position. Measurements were obtained approximately 2 cm below Caty's capsule and perpendicular to the capsule. The median shear wave velocity is 1.30 m/s. The interquartile range/median (IQR/median) is 0.15. Gallbladder and biliary tree: There is focal masslike wall thickening of the gallbladder fundus measuring 1.8 x 1.2 x 1.6 cm. No calculi are identified. There is no pericholecystic fluid. There is no sonographic Wilson sign. The common bile duct is normal in caliber measuring 2 mm. Kidneys: The right kidney measures 8.7 cm in length. The left kidney measures 10.5 cm in length. The kidneys are unremarkable, without evidence of masses, hydronephrosis, or calculi. Pancreas: The pancreatic head, neck, and body are unremarkable. The pancreatic tail is obscured by bowel gas. Spleen: The spleen is normal in size and contour, measuring 10.4 cm in length. Abdominal aorta and inferior vena cava: The patient is status post abdominal aortic aneurysm repair. The aorta measures up to 3.2 cm in diameter. There is no free fluid in the abdomen. US/US abdomen comp w elastography IMPRESSION: Focal masslike wall thickening of the gallbladder fundus measuring up to 1.8 x 1.2 x 1.6 cm. Findings could represent adenomyomatosis or a mass. Follow-up is recommended. The median shear wave velocity in the liver is 1.30 m/s, corresponding to a median liver stiffness of 5.08 kPa. The IQR/median value is 0.15. This is indicative of a poor quality data set, and the estimated liver stiffness may be unreliable. Findings are indicative of a low elastography value which rules out advanced chronic liver disease in asymptomatic patients. REFERENCE: Society of Radiologists in Ultrasound Liver Stiffness Thresholds (2020): LIVER STIFFNESS THRESHOLDS: *Shear wave velocity less than 1.3 m/s (Liver Stiffness equal or less than 5 kPa): High probability of being normal. *Shear wave velocity less than 1.7 m/s (Liver Stiffness less than 9 kPa): In the absence of other known clinical signs, rules out compensated advanced chronic liver disease. *Shear wave velocity between 1.7-2.1 m/s (Liver Stiffness 9-13 kPa): Suggestive of compensated advanced chronic liver disease but need further test for confirmation. *Shear wave velocity between 2.1-2.4 m/s (Liver Stiffness 13-17 kPa): Rules in compensated advanced chronic liver disease. *Shear wave velocity greater than 2.4 m/s (Liver Stiffness over 17 kPa): Suggestive of clinically significant portal hypertension. QUALITY OF DATA SET: *IQR/Median value equal or less than 0.15 implies a quality data set. *IQR/Median value over 0.15 implies a poor quality data set. SIGNIFICANT CHANGE FROM PRIOR EXAM: Significant change if liver stiffness measurement is 10% or greater from prior exam. OTHER CONSIDERATIONS: The stage of liver fibrosis may be overestimated in the setting of acute hepatitis, liver inflammation, elevated liver function tests, hepatic vascular congestion, obstructive cholestasis, non-fasting state, and infiltrative diseases such as amyloidosis and lymphoma. In some patients with NAFLD, the liver stiffness thresholds for compensated advanced chronic liver disease may be lower. In causes other than viral hepatitis and NAFLD, liver stiffness thresholds are not well established. Electronically signed by: Carlito Babb MD 03/22/2025 10:41 AM EDT
--- OUTSIDE RECORDS SUMMARY | 2025-03-22 09:39 | XMS_ITS | Encounter Summary ---
Author Organization [facility] Address [address] [place] [address] Care Team Providers Care Plug Maker Name Role Phone Jarrod Smart MD Primary Care Provider [phone] Encounter Details Date Type Department Care Team (Late st Contact Info) Description 11/25/2024 Lab Requisition [facility] - Main Lab [address] [facility] [place] [address] Dasha Muniz MD [address] [place] [id number] Encounter for other general examination Social History [...] LAB CHEMISTRY METHOD 11/25/2024 11:12 AM EDT [facility] Potassium 4.0 3.5 - 5.5 mmol/L LAB CHEMISTRY METHOD 11/25/2024 11:12 AM EDT [facility] Chloride 102 96 - 110 mmol/L LAB CHEMISTRY METHOD 11/25/2024 11:12 AM T [facility] CO2 23 21 - [...] [facility] Comment:Calculation based on the [...] LAB CHEMISTRY METHOD 11/25/2024 11:12 AM EDT [facility] Total Bilirubin 0.4 0.0 - 1.4 mg/dL LAB CHEMISTRY METHOD 11/25/2024 11:12 AM EDT [facility] Blood Venous blood specimen / Unknown Venipuncture / Unknown 11/25/2024 5:05 AM EDT 11/25/2024 9:16 AM EDT us Dasha Muniz MD LAB BLOOD ORDERABLES Final Res ult [facility] [address] [place] [address], documented in this encounter Visit Diagnoses Diagnosis Encounter for other general examination documented in this encounter Care Teams Plug Maker Relationship Specialty Start Date End Date Jarrod Smart MD [address] [place], [place] PCP - General Internal Medicine 09/18/17 documented as of this encounter
--- OUTSIDE RECORDS SUMMARY | 2025-03-22 09:39 | XMS_ITS | Encounter Summary ---
Author Organization [facility] Address [address] [place] [address] Phone Care Team Providers Care Senior Telecommunications Consultant Name Role Phone Jarrod Smart MD Primary Care Provider [phone] Ritika Whyte MD Primary Care Provider [phone] Encounter Details Date Type Department Care Team (Late Contact Info) Description 07/10/2022 Procedure Pass , Ct Scan - [address] [address] Social History Tobacco Use Types Packs/Day Years [...] Description 05/26/2025 3:45 PM EDT Office Visit [facility] [address] [place] [id number] Jon Caruso DO [address] [place] [address] Orthopedics & Sports Medicine, [facility] [place] [address] documented as of this encounter Visit Diagnoses Not on filedocumented in this encounter Care Teams Senior Telecommunications Consultant Relationship Specialty Start Date End Date Jarrod Smart MD [address] [place] [id number] PCP - General Internal Medicine 09/29/20 02/16/25 Ritika Whyte MD [address] [place] [address] [place] [id number] PCP - General Internal Medicine 02/17/25 documented as of this encounter Additional Source Comments The information contained in this document represents components of the legal health record. It is not the complete legal health record.[facility]
== END 2025-03-22 09:16 | disposition home or self-care (01) ==
LOC: HO.US 09:15
PROVIDERS: PCP Physician Assistant; Visit Provider Physician Assistant
DX: M25.551 Pain in right hip (principal); M25.552 Pain in left hip; S81.802A Unspecified open wound, left lower leg, initial encounter; M54.9 Dorsalgia, unspecified; G89.29 Other chronic pain; R79.89 Other specified abnormal findings of blood chemistry
CPT/HCPCS: 73522; 76700; 76981

== ENCOUNTER → 2025-03-22 09:18 | Outpatient (BNV) | payer MEDICARE, OTHER, SELFPAY | PROVIDERS: PCP Physician Assistant; Visit Provider Radiology Diagnostic Radiology | DX: K82.8 Other specified diseases of gallbladder (principal); M16.0 Bilateral primary osteoarthritis of hip | CPT/HCPCS: 73522; 76700 ==

== ENCOUNTER 2025-04-22 08:45 | Outpatient (AMB) | payer MEDICARE, OTHER, SELFPAY ==
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
[2025-04-22 08:51] VITALS: BP 104/72; PULSE 85; RESP 16; TEMP 36.6; O2SAT 95; BMI 22.8
--- OUTSIDE RECORDS SUMMARY | 2025-04-22 09:15 | XMS_ITS | Encounter Summary ---
Author Organization [facility] Address [address] [place] [phone] Phone Care Team Providers Care Supervisor Poultry Processing Name Role Phone Jarrod Smart MD Primary Care Provider [phone]- [phone] Ritika Whyte MD Primary Care Provider [phone] Encounter Details Date Type Department Care Team (Late Contact Info) Description 09/01/2021 Ancillary Orders [facility] Orthopedics & Sports Medicine [address] [place] [address] Daphne Sam MD [address] [place] [address] Orthopedics & Sports Medicine, [place], [place] [id number] [email or web address] Social History Tobacco Use Types Packs/Day Years Used Date Smoking Tobacco: Former Smokeless Tobacco: Never Comments:quit 1988 Alcohol Use Standard Drinks/Week Comments Yes 0 (1 standard drink = 0.6 oz [...] Description 05/26/2025 3:45 PM EDT Office Visit [facility] [address] [place] [address] [phone] Jon Caruso DO [address] [place] [address] Orthoped[facility] Medicine, [place], [place] [phone] [email or web address] documented as of this encounter Visit Diagnoses Not on filedocumented in this encounter Care Teams Supervisor Poultry Processing Relationship Specialty Start Date End Date Jarrod Smart MD [address] [place] [address] PCP - General Internal Medicine 09/29/20 02/16/25 Ritika Whyte MD [address] [place] [address] [place] [address] PCP - General Internal Medicine 02/17/25 documented as of this encounter Additional Source Comments The information contained in this document represents components of the legal health record. It is not the complete legal health record.[facility]
--- OUTSIDE RECORDS SUMMARY | 2025-04-22 09:15 | XMS_ITS | Encounter Summary ---
Author Organization [facility] Address [address] [place] [address] Phone Care Team Providers Care Plastics Technician Name Role Phone Jarrod Smart MD Primary Care Provider [phone]- [phone] Ritika Whyte MD Primary Care Provider [phone] Encounter Details Date Type Department Care Team (Late Contact Info) Description 09/01/2021 Ancillary Orders [address] [address] Daphne Sam MD [address] [place] [address] Orthopedics & Sports [facility], [place], [place] [phone] [email or web address] Right shoulder pain, unspecified chronicity Social History Tobacco Use Types Packs/Day Years Used Date Smoking Tobacco: Former Smokeless Tobacco: Never Comments:quit 1987 Alcohol Use Standard Drinks/Week Comments Yes 0 [...] [facility] Orthopedics & Sports Medicine [address] [place] [address] [phone] Jon Caruso DO [address] [place] [address] Orthopedics & Sports Medicine, [place] [address] [email or web address] Pending Results Name Type Priority Associated Diagnoses Date /Time FL Guidance Needle Placement Non-Spine Imaging Routine Right shoulder pain, unspecified chronicity 09/05/2021 8:01 AM EST Scheduled Orders Name Type Priority Associated Diagnoses Orde r Schedule FL Guidance Needle Placement Non-Spine Imaging Routine Right shoulder pain, unspecified chronicity 1 Occurrences starting 09/01/2021 until 11/30/2021 documented as of this encounter Visit Diagnoses Diagnosis Right shoulder pain, unspecified chronicity documented in this encounter Care Teams Plastics Technician Relationship Specialty Start Date End Date Jarrod Smart MD [address] [place] [phone] PCP - General Internal Medicine 09/29/20 02/16/25 Ritika Whyte MD [address] [place] [address] [place] [address] PCP - General Internal Medicine 02/17/25 documented as of this encounter Additional Source Comments The information contained in this document represents components of the legal health record. It is not the complete legal health record.[facility]
--- OUTSIDE RECORDS SUMMARY | 2025-04-22 09:15 | XMS_ITS | Encounter Summary ---
Author Organization [facility] Address [address] [place] [address] Care Team Providers Care Manager Commercial Real Estate Name Role Phone Jarrod Smart MD Primary Care Provider [phone] Encounter Details Date Type Department Care Team (Late st Contact Info) Description 11/23/2024 Lab Requisition [facility] - Main Lab [address] [facility] [email or web address] [address] Dasha Muniz MD [address] [place] [address] Encounter for other general examination Social History [...] AM EDT) WBC 7.4 4.8 - 10.8 K/[facility] LAB HEMETOLOGY METHOD 11/23/2024 8:40 AM [facility] RBC 3.20(L) 3.80 - 4.80 M/mcL LAB HEMETOLOGY METHOD 11/23/2024 8:40 AM [facility] Hemoglobin 10.0(L) 11.5 - 16.0 g/dL LAB HEMETOLOGY METHOD 11/23/2024 8:40 AM [facility] Hematocrit 29.8(L) 35.0 - 47.0 % LAB HEMETOLOGY METHOD 11/23/2024 8:40 AM [facility] MCV 92.3 79.0 - 98.0 FL LAB HEMETOLOGY METHOD 11/23/2024 8:40 AM [facility] MCH 31.0 27.0 - 32.0 pcg LAB HEMETOLOGY METHOD 11/23/2024 8:40 AM [facility] MCHC 33.6 32.0 - 37.0 g/dL LAB HEMETOLOGY METHOD 11/23/2024 8:40 AM [facility] RDW 12.7 11.0 - 15.0 % LAB HEMETOLOGY METHOD 11/23/2024 8:40 AM [facility] Platelets 263 130 - 400 K/mcL LAB HEMETOLOGY METHOD 11/23/2024 8:40 AM [facility] MPV 9.4 7.0 - 11.0 FL LAB HEMETOLOGY METHOD 11/23/2024 8:40 AM [facility] NRBC 0.0 <1.0 % LAB HEMETOLOGY METHOD 11/23/2024 8:40 AM [facility] NRBC Absolute 0.00 <0.10 K/mcL LAB HEMETOLOGY METHOD 11/23/2024 8:40 AM [facility] Neutrophils Relative 59.4 % LAB HEMETOLOGY METHOD 11/23/2024 8:40 AM [facility] Lymphocytes Relative 23.5 % LAB HEMETOLOGY METHOD 11/23/2024 8:40 AM [facility] Monocytes Relative 12.7 % LAB HEMETOLOGY METHOD 11/23/2024 8:40 AM [facility] Eosinophils Relative 3.5 % LAB HEMETOLOGY METHOD 11/23/2024 8:40 AM [facility] Basophils Relative 0.5 % LAB HEMETOLOGY METHOD 11/23/2024 8:40 AM [facility] Immature Granulocytes Relative 0.4 % LAB HEMETOLOGY METHOD 11/23/2024 8:40 AM [facility] Neutrophils Absolute 4.38 1.50 - 7.00 K/mcL LAB HEMETOLOGY METHOD 11/23/2024 8:40 AM [facility] Lymphocytes Absolute 1.74 1.00 - 5.00 K/mcL LAB HEMETOLOGY METHOD 11/23/2024 8:40 AM [facility] Monocytes Absolute 0.94 0.20 - 1.00 K/mcL LAB HEMETOLOGY METHOD 11/23/2024 8:40 AM [facility] Eosinophils Absolute 0.26 0.00 - 0.50 K/mcL LAB HEMETOLOGY METHOD 11/23/2024 8:40 AM [facility] Basophils Absolute 0.04 0.00 - 0.20 K/mcL LAB HEMETOLOGY METHOD 11/23/2024 8:40 AM [facility] Immature Granulocytes Absolute 0.03 0.00 - 0.03 K/mcL LAB HEMETOLOGY METHOD 11/23/2024 8:40 AM [facility] Blood Venous blood specimen / Unknown 11/23/2024 4:59 AM EDT 11/23/2024 8:07 AM EDT Dasha Muniz MD LAB BLOOD ORDERABLES Final Res ult Performing Organization Address City/[facility]/ZIP Co de Phone Number [facility] [address] [place] [address], [place] [phone] * Magnesium (11/23/2024 4:59 AM EDT) Pathologist [facility] Magnesium 1.9 1.9 - 2.6 mg/dL LAB CHEMISTRY METHOD 11/23/2024 8:52 AM EDT [facility] Blood Venous blood specimen / Unknown 11/23/2024 4:59 AM EDT 11/23/2024 8:07 AM EDT Dasha Muniz MD LAB BLOOD ORDERABLES Final Res ult Performing Organization Address [facility]/ZIP Co de Phone Number [facility] [address] [place] [address], [place] [phone] * (ABNORMAL) Comprehensive metabolic panel (11/23/2024 4:59 AM EDT) [facility] Sodium 132(L) 133 - 145 mmol/L LAB CHEMISTRY METHOD 11/23/2024 8:52 AM [facility] Potassium 4.2 3.5 - 5.5 mmol/L LAB CHEMISTRY METHOD 11/23[facility]24 [facility] Chloride 101 96 - 110 mmol/L LAB CHEMISTRY METHOD [facility]/23[facility]24 8[facility] CO2 24 21 - 32 mmol/L LAB CHEMISTRY METHOD 11/23/2024 8:52 AM [facility] Anion Gap 7 3 - 11 LAB CHEMISTRY METHOD 11/23/2024 8:52 AM [facility] Glucose 148(H) 70 - 100 mg/dL LAB CHEMISTRY METHOD 11/23/2024 8:52 AM [facility] BUN 10 5 - 25 mg/dL LAB CHEMISTRY METHOD 11/23/2024 8:52 AM [facility] Creatinine 0.60 0.50 - 1.10 mg/dL LAB CHEMISTRY METHOD 11/23/2024 8:52 AM [facility] eGFR 89 >=60 mL/min/1. 73m2 LAB CHEMISTRY METHOD 11/23/2024 8:52 AM [facility] Comment:Calculation based on the Chronic Kidney Disease Epidemiology Collaboration (CKD-EPI) equation refit without adjustment for race. BUN/Creatinine Ratio 16.7 LAB CHEMISTRY METHOD 11/23/2024 8:52 AM [facility] Calcium 9.1 8.5 - 10.5 mg/dL LAB CHEMISTRY METHOD 11/23/2024 8:52 AM [facility] AST (SGOT) 106(H) 10 - 42 unit/L LAB CHEMISTRY METHOD 11/23/2024 8:52 AM [facility] ALT (SGPT) 56 10 - 60 unit/L LAB CHEMISTRY METHOD 11/23/2024 8:52 AM [facility] Alkaline Phosphatase 59 42 - 121 unit/L LAB CHEMISTRY METHOD 11/23/2024 8:52 AM [facility] Total Protein 6.7 6.0 - 8.0 g/dL LAB CHEMISTRY METHOD 11/23/2024 8:52 AM [facility] Albumin 2.8(L) 3.2 - 5.0 g/dL LAB CHEMISTRY METHOD 11/23/2024 8:52 AM [facility] Total Bilirubin 0.4 0.0 - 1.4 mg/dL LAB CHEMISTRY METHOD 11/23/2024 8:52 AM [facility] Blood Venous blood specimen / Unknown 11/23/2024 4:59 AM EDT 11/23/2024 8:07 AM EDT us Dasha Muniz MD LAB BLOOD ORDERABLES Final Res ult [facility] ([facility] [address] [place] [address], documented in this encounter Visit Diagnoses Diagnosis Encounter for other general examination documented in this encounter Care Teams Manager Commercial Real Estate Relationship Specialty Start Date End Date Jarrod Smart MD [address] [place] [address] PCP - General Internal Medicine 09/18/17 documented as of this encounter
--- OUTSIDE RECORDS SUMMARY | 2025-04-22 09:15 | XMS_ITS | Encounter Summary ---
Author Organization [facility] Address [address] [place] [address] Care Team Providers Care Wheel Buffer Name Role Phone Jarrod Smart MD Primary Care Provider [phone] Encounter Details Date Type Department Care Team (Late st Contact Info) Description 11/25/2024 Lab Requisition [facility] - Main Lab [address] [facility] [place] [address] Dasha Muniz MD [address] [place] [address] Encounter for other general examination Social History [...] mmol/L LAB CHEMISTRY METHOD 11/25/2024 11:12 AM [facility] Anion Gap 9 3 - 11 LAB CHEMISTRY METHOD 11/25/2024 11:12 AM [facility] Glucose 118(H) 70 - 100 mg/dL LAB CHEMISTRY METHOD 11/25/2024 11:12 AM [facility] BUN 12 5 - 25 mg/dL LAB CHEMISTRY METHOD 11/25/2024 11:12 AM [facility] Creatinine 0.63 0.50 - 1.10 mg/dL LAB CHEMISTRY METHOD 11/25/2024 11:12 AM [facility] eGFR 88 >=60 mL/min/1. 73m2 LAB CHEMISTRY METHOD 11/25/2024 11:12 AM [facility] Comment:Calculation based on the Chronic Kidney Disease Epidemiology Collaboration (CKD-EPI) equation refit without adjustment for race. BUN/Creatinine Ratio 19.0 LAB CHEMISTRY METHOD 11/25/2024 11:12 AM [facility] Calcium 8.9 8.5 - 10.5 mg/dL LAB CHEMISTRY METHOD 11/25/2024 11:12 AM [facility] AST (SGOT) 91(H) 10 - 42 unit/L LAB CHEMISTRY METHOD 11/25/2024 11:12 AM [facility] ALT (SGPT) 48 10 - 60 unit/L LAB CHEMISTRY METHOD 11/25/2024 11:12 AM [facility] Alkaline Phosphatase 66 42 - 121 unit/L LAB CHEMISTRY METHOD 11/25/2024 11:12 AM [facility] Total Protein 6.6 6.0 - 8.0 g/dL LAB CHEMISTRY METHOD 11/25/2024 11:12 AM [facility] Albumin 2.9(L) 3.2 - 5.0 [...] [facility] [address] [place] [address], documented in this encounter Visit Diagnoses Diagnosis Encounter for other general examination documented in this encounter Care Teams Wheel Buffer Relationship Specialty Start Date End Date Jarrod Smart MD [address] [place], [place] PCP - General Internal Medicine 09/18/17 documented as of this encounter
--- OUTSIDE RECORDS SUMMARY | 2025-04-22 09:15 | XMS_ITS | Clinical Summary ---
Author Organization [facility] Address [address] [place] [phone] Phone Care Team Providers Care Superintendent Stations Name Role Phone Ritika Whyte MD Primary Care Provider Allergies Active Allergy Reactions Criticality Noted Date Comments Tree And Shrub Pollen 01/07/2023 Environmental allergies Medications simvastatin (ZOCOR) 40 MG tablet Take 40 mg by mouth. Active metFORMIN (GLUCOPHAGE) 500 MG tablet Take 100 mg by mouth 2 (two) times a day with meals. Active albuterol 2.5 mg /3 mL (0.083 %) nebulizer solution Inhale 1 vial into the lungs continuous prn. Active montelukast (SINGULAIR) 10 mg tablet Take 10 mg by mouth nightly at bedtime. Active omeprazole (PRILOSEC) 10 MG capsule Take 10 mg by mouth daily. As needed Active glipiZIDE (GLUCOTROL) 5 MG tablet Take 10 mg by mouth 2 (two) times a day. 2 Active SYMBICORT 160-4.5 mcg/actuation inhaler 2 Active tiotropium (SPIRIVA HANDIHALER) 18 mcg inhalation capsule Inhale 18 mcg into the lungs daily. Active IPRATROPIUM BROMIDE NASL by Nasal route. A ctive citalopram (CELEXA) 20 MG tablet Take 20 mg by mouth daily. 3 Active aspirin 325 MG EC tablet Take 1 tablet (325 mg total) by mouth daily for 14 days. 14 tablet 4 Active fluticasone propionate (FLONASE) 50 mcg/actuation nasal spray 2 sprays by Nasal route daily. 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 Plan per ortho. Pt and family expect dc tomorrow. S/P reverse total shoulder a rthroplasty, unspecified laterality 11/22/2022 Assessment & Plan (11/22/2022 1:32 PM EDT): Status post right reverse total shoulder arthroplasty today by Dr. Caruso Tolerated surgery well Preoperatively underwent multidisciplinary clearance, h/o COPD, AAA, DM2, at mild risk for pulmonary complications per notes. Postop care and vtep per orthopedist Type 2 diabetes mellitus without complications Assessment & Plan (03/13/2024 3:22 PM EDT): She is maintained on glipizide XL 10 mg in the morning and 5 mg at night with metformin at 1000 mg twice daily. Per protocol we will stop the metformin. Will initiate before every meal and at bedtime sliding scale insulin. I do not want to start her on long-acting insulin with her only staying 1 day, anticipate her being discharged on her regular medications tomorrow. Patient states that her last hemoglobin A1c was 6.6, excellent control. Assessment & Plan (11/22/2022 2:03 PM EDT): hemoglobin A1c done earlier this month was 6.3, normal creatinine. Takes glipizide and metformin chronically This morning's glucose was 184, at 10 AM was 160. Given 2 units of lispro with each glucose check We will place patient on basal bolus insulin according to the protocol with consideration for the patient's age, conservative dosing based on ideal body weight. Goal insulin to be below 180 COPD (chronic obstructive pulmonary disease) Assessment & Plan (03/14/2024 10:24 AM EDT): Pt completed pred taper. Encourage pulmonary toilet with ambulation and use of the inspirex spirometer. Assessment & Plan (11/22/2022 1:37 PM EDT): Agree with continuing patient's home meds, Spiriva and Singulair, as needed albuterol, incentive spirometry ordered Encounters Date Type Department Care Team Description 03/04/2025 Ancillary Orders [facility]Outside Imaging [address] [place] [address] Unknown, Jezry, 03/04/2025 Ancillary Orders [facility]Outside [facility] [address] [place] [address] Unknown, Unknown, 03/04/2025 Ancillary Orders [facility] [address] [place] [address] Unknown, Unknown, 03/04/2025 Ancillary Orders [facility]Outside [facility] [address] [place] [address] Unknown, Jerzy, 03/04/2025 Ancillary Orders [facility]Outside Imaging [address] [place] [address] Unknown, Unknown, 03/04/2025 Ancillary Orders [facility]Outside [facility] [address] [place] [address] Unknown, Jerzy, 03/04/2025 Ancillary Orders [facility] [address] [place] [address] Unknown, Jerzy, 03/04/2025 Ancillary Orders [facility] [address] [place] [address] Unknown, Jerzy, 03/04/2025 Ancillary Orders [facility] [address] [place] [address] Unknown, Unknown, 03/04/2025 Ancillary Orders [facility] [address] [place] [address] Unknown, Jerzy, 03/04/2025 Ancillary Orders [facility]Outside [facility] [address] [place] [address] Unknown, Jerzy, 03/03/2025 - 03/03/2025 11:59 PM EDT Hospital Encounter [facility] [address] [place] [address] Unknown, Unknown, MD Discharge Disposition: Home or Self Care 02/08/2025 12:40 AM EDT - 02/08/2025 11:59 PM EDT Hospital Encounter [facility]Outside [facility] [address] [place] [address] Unknown, Unknown, MD Discharge Disposition: Home or Self Care 02/08/2025 12:35 AM EDT - 02/08/2025 12:39 AM EDT Hospital Encounter [facility]Outside [facility] [address] [place] [address] Unknown, Unknown, MD Discharge Disposition: Home or Self Care 02/08/2025 12:30 AM EDT - 02/08/2025 12:34 AM EDT Hospital Encounter [facility]Outside [facility] [address] [place] [address] Unknown, Unknown, MD Discharge Disposition: Home or Self Care 02/08/2025 12:25 AM EDT - 02/08/2025 12:29 AM EDT Hospital Encounter [facility]Outside [facility] [address] [place] [address] Unknown, Unknown, MD Discharge Disposition: Home or Self Care 02/08/2025 12:20 AM EDT - 02/08/2025 12:24 AM EDT Hospital Encounter [facility]Outside [facility] [address] [place] [address] Unknown, Unknown, MD Discharge Disposition: Home or Self Care 02/08/2025 12:15 AM EDT - 02/08/2025 12:19 AM EDT Hospital Encounter [facility]Outside [facility] [address] [place] [address] Unknown, Unknown, MD Discharge Disposition: Home or Self Care 02/08/2025 12:10 AM EDT - 02/08/2025 12:14 AM EDT Hospital Encounter [facility]Outside [facility] [address] [place] [address] Unknown, Unknown, MD Discharge Disposition: Home or Self Care 02/08/2025 12:05 AM EDT - 02/08/2025 12:09 AM EDT Hospital Encounter [facility] [address] [place] [address] Unknown, Unknown, MD Discharge Disposition: Home or Self Care 02/08/2025 - 02/08/2025 12:04 AM EDT Hospital Encounter [facility]Outside [facility] [address] [place] [address] Unknown, Unknown, MD Discharge Disposition: Home or Self Care from Last 3 Months Immunizations Immunization Administration Dates Next Due INFLUENZA, SPLIT VIRUS, TRIV ALENT W/ PRESERVATIVE IM 07/02/2016 Influenza High-Dose Trivalen t Preservative Free IM 06/20/2018,05/07/2017 Influenza Quadrivalent Adjuv anted Preservative Free IM 04/23/2023,07/03/2021,05/25/2020 Influenza Quadrivalent MDCK w/Preservative IM 05/20/2019 Influenza Quadrivalent w/ Preservative IM 2021 Influenza, Unspecified Formulation 06/15/2015 Pneumococcal conjugate PCV13 12/27/2017 Tdap 03/06/2024 Zoster live 06/08/2014 Social History Tobacco Use Types Packs/Day Years Used Date Smoking Tobacco: Former Cigarettes 1 1987 Smokeless Tobacco: Never Comments:Social smoking at t hat time Alcohol Use Standard Drinks/Week Comments Never 0 (1 standard drink = 0.6 oz pur e alcohol) Education Answer Date Recorded Are you interested in more education? Not on maryjo e 12/14/2022 Are you concerned about learning? Not on file 12/14/2022 No 12/14/2022 No 12/14/2022 Digital Access Answer Date Recorded No 01/12/2023 No 01/12/2023 Reliable internet access at home? Not on file 01/12/2023 Device with a working camera? Not on file Intimate Partner Violence Answer Date R ecorded Are you denied basic needs s uch as food, clothing, or medical care? No 03/13/2024 In the past 12 months have y ou been in a relationship with a person who hurts, threatens, or tries to control you? No 03/13/2024 Are you denied basic needs s uch as food, clothing, or medical care? No 03/13/2024 In the past 12 months have y ou been in a relationship with a person who hurts, threatens, or tries to control you? No 03/13/2024 Comments No Sex and Gender Information Value Date Recorded Sex Assigned at Not on file Legal Sex Female 9:36 AM EST Gender Identity Not on file Sexual Orientation Not on file Last Filed Vital Signs Vital Sign Reading Time Taken Comments Blood Pressure 94/50 03/14/2024 7:39 AM EDT Pulse 70 03/14/2024 8:48 AM EDT Temperature 36.9 C (98.5 F) 03/14/2024 7:39 AM EDT Respiratory Rate 18 03/14/2024 8:48 AM EDT Oxygen Saturation 93% 03/14/2024 7:39 AM EDT Inhaled Oxygen Concentration - - Weight 70.3 kg (155 lb) 03/13/2024 7:50 AM EDT Height 166.4 cm (5' 5.51 ) 03/13/2024 7:50 AM ED T Body Mass Index 25.39 03/13/2024 7:50 AM EDT Plan of Treatment Upcoming Encounters Date Type Department Care Team (Late st Contact Info) Description 05/26/2025 3:45 PM EDT Office Visit [facility]opedics & Sports Medicine [address] [place] [address] Jon Caruso DO [address] [place] [address] Orthopedics & Sports Medicine, [facility] [place] [address] [email or web address] Health Maintenance Due Date Last Done Comments DEPRESSION SCREENING 1953 OSTEOPOROSIS SCREENING INITIAL (ONE-TIME) 2006 ZOSTER VACCINES (2 of 3) 08/03/2014 06/08/2014 PNEUMOCOCCAL VACCINES (50+ years) (2 of 2 - PPSV23) 02/21/2018 12/27/2017 DIABETIC EYE EXAM 10/22/2022 URINE MICROALBUMIN/CREATININE RATIO 10/22/2022 BLOOD PRESSURE 05/01/2023 10/29/2022 HEMOGLOBIN A1C 09/12/2024 03/12/2024, 10/22/2022 COVID-19 VACCINE ( season) 2024 05/11/2024, 08/27/2023, 06/07/2022, Additional history exists CREATININE LEVEL 03/14/2025 03/14/2024, , 11/23/2022, Additional history exists INFLUENZA VACCINE (#1) 2025 , 04/23/2023, 05/04/2022, Additional history exists Adult Td,Tdap Booster 03/06/2034 03/06/2024 RSV VACCINE Completed 05/01/2024 HEPATITIS A VACCINES Aged Out No long er eligible based on patient's age to complete this topic HIB VACCINES Aged Out No longer eligi ble based on patient's age to complete this topic MENINGOCOCCAL VACCINES (ACWY) Aged Out No longer eligible based on patient's age to complete this topic MENINGOCOCCAL VACCINES (B) Aged Out N o longer eligible based on patient's age to complete this topic Medical Devices Implanted Type Area Peanut Picker Device Identifier Shelf Expiration Date Model / Serial / Lot Bone Plate 3.5x72mm 5 Hole Lcp Ss Locking Straight Bx/2ea - [id number] Implanted:Qty : 1 on 03/13/2024 by Jon Caruso DO at [facility] Right: Humerus JNJ DEPUY SYNTHES SPINE [id number] / / Bone Screw 3.5mm 10mm T15 Compression Stainless Locking Self Tapping Full Thread Stardrive Recess - [id number] Implanted:Qty : 1 on 03/13/2024 by Jon Caruso DO at [facility] Right: Humerus JNJ DEPUY SYNTHES SPINE 212.101 / / Screw Bone 3.5x12mm Compression Ss Locking Self Tapping Full Thread T15 Stardrive Recess - [id number] Implanted:Qty : 3 on 03/13/2024 by Jon Caruso DO at [facility] Right: Humerus JNJ DEPUY SYNTHES SPINE 212.102 / / Tornier Hrs Ptc Proximal Body Size Standard 9mm Implanted:Qty : 1 on 03/13/2024 by Jon Caruso DO at [facility] Prosthetic Joint Right: Shoulder TRIPP 01/09/2028 [id number] / [id number] / Stent Stent Description:AAA repair Baseplate Glenoid 29mm Aequalis Standard - [id number] Implanted:Qty : 1 on 11/22/2022 by Jon Caruso, DO at [facility] Right: Shoulder [employer] 07/11/2027 [id number] / [id number] / Post Press-Fit Short 7mm Perform Reversed Threaded Aequalis - [id number] Implanted:Qty : 1 on 11/22/2022 by Jon Caruso, DO at [facility] Right: Shoulder [employer] 10/08/2027 [id number] / [id number] / Screw Bone 5x14mm Perform Reverse - [id number] Implanted:Qty : 2 on 11/22/2022 by Jon Caruso, DO at [facility] Right: Shoulder [employer] [id number] / / Screw Bone 34mm Perform Reverse - [id number] Implanted:Qty : 2 on 11/22/2022 by Jon Caruso, DO at [facility] Right: Shoulder [employer] [id number] / / Glenosphere Component 39mm Perform Reversed Standard - [id number] Implanted:Qty : 1 on 11/22/2022 by Jon Caruso, DO at [facility] Right: Shoulder [employer] 08/02/2027 [id number] / [id number] / Shoulder Insert 12.5deg 39mm Flex Plus 6mm Aequalis Ascend Reversed - [id number] Implanted:Qty : 1 on 11/22/2022 by Jon Caruso, DO at [facility] Right: Shoulder [employer] 05/24/2026 [id number] / [id number] / Humerus Stem Size 5 Humeral Shoulder Aequalis Pure Titanium Coat Ascend Flexible Standard Anatomic B - [id number] Implanted:Qty : 1 on 11/22/2022 by Jon Caruso DO at [facility] Right: Shoulder [employer] 06/23/2026 [id number] / [id number] / Tray 0.00mm 0.0 Reversed Shoulder Ascend Flex Offset Plus - [id number] Implanted:Qty : 1 on 11/22/2022 by Jon Caruso DO at [facility] Right: Shoulder [employer] 10/23/2027 [id number] / [id number] / Bone Cement Antibiotic Refobacin - [id number] Implanted:Qty : 2 on 03/13/2024 by Jon Caruso DO at [facility] Right: Shoulder BON BIOMET [id number] 02/15/2026 [id number] / / [id number] Tornier Hrs Locking Cap Cocr Implanted:Qty : 1 on 03/13/2024 by Jon Caruso DO at [facility] Right: Shoulder TRIPP 09/18/2028 [id number] / [id number] / Restrictor Shoulder 8 15mm Bone Cement 09 - [id number] Implanted:Qty : 1 on 03/13/2024 by Jon Caruso DO at [facility] Right: Shoulder [employer] [id number] 10/25/2027 [id number] / [id number] / Aequalis Flex Revive Assembly Screw 30mm Implanted:Qty : 1 on 03/13/2024 by Jon Caruso DO at [facility] Right: Shoulder TRIPP 05/28/2027 [id number] / [id number] / Aequalis Flex Revive Spacer 9mm X 30mm Implanted:Qty : 1 on 03/13/2024 by Jon Caruso, DO at [facility] Right: Shoulder TRIPP 09/20/2027 [id number] / [id number] / Aequalis Flex Revive Ptc Partially Coated Distal Stem 9mm X90mm Implanted:Qty : 1 on 03/13/2024 by Jon Caruso DO at [facility] Right: Shoulder TRIPP 10/09/2027 [id number] / [id number] / Tornier Flex Shoulder System Flex Reversed Tray Centered +6mm Implanted:Qty : 1 on 03/13/2024 by Jon Caruso DO at [facility] Right: Shoulder TRIPP 09/21/2028 [id number] / [id number] / Tornier Flex Shoulder System Flex Reversed Insert, Thickness +9mm 12.5 Degree Angle Implanted:Qty : 1 on 03/13/2024 by Jon Caruso DO at [facility] Right: Shoulder TRIPP 09/10/2028 [id number] / [id number] / Procedures Procedure Name Priority Date/Time Associated Diagnosis Comments XR PELVIS OUTSIDE (NO INTERPRETATION) Routine 03/03/2025 12:[address] SPINE (BONE) OUTSIDE (NO INTERPRETATION) Routine 02/08/2025 12:[address] HEAD OUTSIDE (NO INTERPRETATION) Routine 02/08/2025 12:35 AM EDT XR UPPER EXTREMITY OUTSIDE (NO INTERPRETATION) Routine 02/08/2025 12:30 AM EDT XR UPPER EXTREMITY OUTSIDE (NO INTERPRETATION) Routine 02/08/2025 12:25 AM EDT XR UPPER EXTREMITY OUTSIDE (NO INTERPRETATION) Routine 02/08/2025 12:20 AM EDT XR UPPER EXTREMITY OUTSIDE (NO INTERPRETATION) Routine 02/08/2025 12:15 AM EDT XR PELVIS OUTSIDE (NO INTERPRETATION) Routine 02/08/2025 12:10 AM EDT XR UPPER EXTREMITY OUTSIDE (NO INTERPRETATION) Routine 02/08/2025 12:05 AM EDT XR CHEST OUTSIDE (NO INTERPRETATION) Routine 02/08/2025 12:00 AM EDT BASIC METABOLIC PANEL Routine 03/14/2024 6:36 AM EDT HEMOGLOBIN A1C Routine 03/12/2024 11:03 AM EDT S/P reverse total shoulder arthroplasty, unspecified laterality from Last 3 Months or Most Recently Relevant to Health Maintenance Results * XR Pelvis Outside (No Interpretation) (03/03/2025 12:00 AM EDT) Narrative SYSTEMGENERATED, DOCUMENTATION - 03/04/2025 12:59 PM EDT This study is for PACS storage only and not for interpretation. us Unknown Unknown MD IMG OUTSIDE IMAGING W/OUT INT ERPRETATION Final Result * CT Spine (Bone) Focus Outside (No Interpretation) (02/08/2025 12:40 AM EDT) Narrative Record, 03/04/2025 1:02 PM EDT This study is for PACS storage only and not for interpretation. Procedure Note Record, 03/04/2025 This study is for PACS storage only and not for interpretation. us Unknown Unknown MD IMG OUTSIDE IMAGING W/OUT INT ERPRETATION Final Result * CT Head Outside (No Interpretation) (02/08/2025 12:35 AM EDT) Narrative Record, 03/04/2025 1:01 PM EDT This study is for PACS storage only and not for interpretation. Procedure Note Record, 03/04/2025 This study is for PACS storage only and not for interpretation. us Unknown Unknown MD IMG OUTSIDE IMAGING W/OUT INT ERPRETATION Final Result * XR Upper Extremity Outside (No Interpretation) (02/08/2025 12:30 AM EDT) Narrative Record, 03/04/2025 1:01 PM EDT This study is for PACS storage only and not for interpretation. Procedure Note Record, 03/04/2025 This study is for PACS storage only and not for interpretation. us Unknown Unknown MD IMG OUTSIDE IMAGING W/OUT INT ERPRETATION Final Result * XR Upper Extremity Outside (No Interpretation) (02/08/2025 12:25 AM EDT) Narrative Record, 03/04/2025 1:01 PM EDT This study is for PACS storage only and not for interpretation. Procedure Note Record, 03/04/2025 This study is for PACS storage only and not for interpretation. us Unknown Unknown MD IMG OUTSIDE IMAGING W/OUT INT ERPRETATION Final Result * XR Upper Extremity Outside (No Interpretation) (02/08/2025 12:20 AM EDT) Narrative Record, 03/04/2025 1:01 PM EDT This study is for PACS storage only and not for interpretation. Procedure Note Record, 03/04/2025 This study is for PACS storage only and not for interpretation. us Unknown Unknown MD IMG OUTSIDE IMAGING W/OUT INT ERPRETATION Final Result * XR Upper Extremity Outside (No Interpretation) (02/08/2025 12:15 AM EDT) Narrative Record, 03/04/2025 1:00 PM EDT This study is for PACS storage only and not for interpretation. Procedure Note Record, 03/04/2025 This study is for PACS storage only and not for interpretation. us Unknown Unknown MD IMG OUTSIDE IMAGING W/OUT INT ERPRETATION Final Result * XR Pelvis Outside (No Interpretation) (02/08/2025 12:10 AM EDT) Narrative Record, 03/04/2025 1:00 PM EDT This study is for PACS storage only and not for interpretation. Procedure Note Record, 03/04/2025 This study is for PACS storage only and not for interpretation. us Unknown Unknown MD IMG OUTSIDE IMAGING W/OUT INT ERPRETATION Final Result * XR Upper Extremity Outside (No Interpretation) (02/08/2025 12:05 AM EDT) Narrative Record, 03/04/2025 1:00 PM EDT This study is for PACS storage only and not for interpretation. Procedure Note Record, 03/04/2025 This study is for PACS storage only and not for interpretation. us Unknown Unknown MD IMG OUTSIDE IMAGING W/OUT INT ERPRETATION Final Result * XR Chest Outside (No Interpretation) (02/08/2025 12:00 AM EDT) Narrative Record, 03/04/2025 12:59 PM EDT This study is for PACS storage only and not for interpretation. Procedure Note Record, 03/04/2025 This study is for PACS storage only and not for interpretation. us Unknown Unknown MD IMG OUTSIDE IMAGING W/OUT INT ERPRETATION Final Result * (ABNORMAL) Basic metabolic panel (03/14/2024 6:36 AM EDT) SODIUM 134 133 - 146 mmol/L [facility] CHLORIDE 98 96 - 108 mmol/L [facility] POTASSIUM 4.7 3.3 - 5.1 mmol/L [facility] CO2 26 21 - 35 mmol/L [facility] BUN 13 6 - 19 mg/dL [facility] CREATININE 0.80 0.5 - 1.5 mg/dL [facility] GLUCOSE 131(H) 70 - 99 mg/dL [facility] CALCIUM 8.6 8.4 - 10.3 mg/dL [facility] EGFR 74 >59 mL/min/1.7 3m2 [facility] Comment:Estimated glomerular filtration rate calculated using the CKD-EPI refit equation. ANION GAP 15 10 - 20 mmol/L [facility] Blood 03/14/2024 6:36 AM EDT 03/14/2024 6:39 AM EDT us Sukhdeep Oreilly PA-C LAB BLOOD ORDERABLES F inal Result [address] [address] * (ABNORMAL) Hemoglobin A1c (03/12/2024 11:03 AM EDT) HEMOGLOBIN A1C 7.1(H) 4.3 - 5.8 % [facility] Blood 03/12/2024 11:0 3 AM EDT 03/12/2024 11:12 AM EDT us Jon Caruso DO LAB BLOOD ORDERABLES Final Result Performing Organization Address City/[facility]/ZIP Co de Phone Number [address] [address] from Last 3 Months or Most Recently Relevant to Health Maintenance Insurance MEDIC[facility] PART A & [facility] MEDICARE PART A & B [facility] MEDICARE SUPPLEMENT [employer] MED[employer] SUPPLEMENT MEDICARE PART A & B [employer] MED[employer] SUPPLEMENT MEDICARE PART A & B [facility] MEDICARE SUPPLEMENT MEDICARE PART A & B Member Subscriber Plan / Payer ( fective 2006-Present) Name:Moira Portillo Member ID:[id number] Relation to Subscriber:Self Name:Moira Portillo Subscriber ID:[id number] Payer ID:[id number] Group ID:Not on file Type:Medicare Address: [employer] [address] [facility] MEDICARE SUPPLEMENT MEDICARE PART A & B [employer] MEDICARE SUPPLEMENT MEDICARE PART A & B [employer] MEDICARE SUPPLEMENT MEDICARE PART A & B [facility] EX[facility]ION MEDICARE SUPPLEMENT Advance Directives For more information, please contact: [phone] (9AM - 5PM [facility], Saturday-Saturday) Documents on File Type Date Recorded Patient Wrapper Selector Expl anation Healthcare Proxy 11/26/2022 5:53 PM Care Teams Superintendent Stations Relationship Specialty Start Date End Date Ritika Whyte MD [address] [place] [address] Dr CASEDORYROBYN AGUSTINA [address] PCP - General Internal Medicine 02/17/25 Additional Source Comments The information contained in this document represents components of the legal health record. It is not the complete legal health record.[facility]
--- OUTSIDE RECORDS SUMMARY | 2025-04-22 09:15 | XMS_ITS | Encounter Summary ---
Author Organization [facility] Address [address] [place] [phone] Phone Care Team Providers Care Chilling Hood Operator Name Role Phone Jarrod Smart MD Primary Care Provider [phone]- [phone] Ritika Whyte MD Primary Care Provider [phone] Encounter Details Date Type Department Care Team (Late Contact Info) Description 07/17/2022 Prep for Surgery [facility] Orthopedics & Sports Medicine [address] [place] [address] [place] [address] Jon Caruso DO [address] [place] [address] [facility] [place] [address] [email or web address] Social History Tobacco Use Types Packs/Day Years [...] Description 05/26/2025 3:45 PM EDT Office Visit [facility] Orthopedics & Sports Medicine [address] [place] [phone] Jon Caruso DO [address] [place] [address] [facility] [place], [place] [id number] [email or web address] documented as of this encounter Visit Diagnoses Not on filedocumented in this encounter Care Teams Chilling Hood Operator Relationship Specialty Start Date End Date Jarrod Smart MD [address] [place] [id number] PCP - General Internal Medicine 09/29/20 02/16/25 Ritika Whyte MD [address] [place] [address] [place] [address] PCP - General Internal Medicine 02/17/25 documented as of this encounter Additional Source Comments The information contained in this document represents components of the legal health record. It is not the complete legal health record.[facility]
--- OUTSIDE RECORDS SUMMARY | 2025-04-22 09:15 | XMS_ITS | Clinical Summary ---
Author Organization [facility] Address [address] [place] [address] Phone Care Team Providers Care Automobile Mechanic Name Role Phone Jarrod Smart MD Primary Care Provider [phone] Medical History Medical History Date Comments Type 2 diabetes mellitus wit hout complication ([facility] V24, [facility] V28) 10/11/2017 DX:Type 2 diab etes mellitus without complication ([facility]) Hyperlipidemia 10/11/2017 DX:Hyperlipidemi a Atelectasis 03/27/2017 DX:Atelectasis COPD (chronic obstructive pu lmonary disease) ([facility] V24, [facility] V28) 05/17/2017 DX:COPD (chronic o bstructive pulmonary disease) ([facility]) 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 DX:Poly [...] (2 of 2 - PPSV23) 02/21/2018 12/27/2017 Depression Screening 08/19/2024 Cholesterol Screening (Lipid Panel) 11/23/2024 Diabetes: Annual Urine Albumin-Creatinine Ratio (uACR) 11/23/2024 Diabetes: Blood Sugar Control Test (HGBA1C) 11/23/2024 Falls Risk Assessment 11/23/2024 Medicare Annual Wellness Visit 11/23/2024 Osteoporosis Screening (Bone Density Screening) 11/23/2024 Social Influencers of Health Screening 11/23/2024 COVID-19 Vaccine ( - season) 2025 Influenza Vaccine (#1) 2025 , 05/04/2022, 07/03/2021, Additional history exists Diabetes: Annual [...] Associated Diagnosis Comments COMPREHENSIVE METABOLIC PANEL Routine 11/29/2024 5:45 AM EDT Encounter for other general examination from Last 3 Months or Most Recently Relevant to Health Maintenance Results * (ABNORMAL) Comprehensive metabolic panel (11/29/2024 5:45 AM EDT) [facility] Signature Sodium 133 133 - 145 mmol/L LAB CHEMISTRY METHOD 11/29/2024 9:24 AM EDT [facility] Potassium 4.8 3.5 - 5.5 mmol/L LAB CHEMISTRY METHOD 11/29/2024 9:24 AM [facility] Chloride 100 96 - 110 mmol/L LAB CHEMISTRY METHOD 11/29/2024 9:24 AM [facility] CO2 29 21 - 32 mmol/L LAB CHEMISTRY METHOD 11/29/2024 9:24 AM [facility] Anion Gap 4 3 - 11 LAB CHEMISTRY METHOD 11/29/2024 9:24 AM [facility] Glucose 104(H) 70 - 100 mg/dL LAB CHEMISTRY METHOD 11/29/2024 9:24 AM [facility] BUN 9 5 - 25 mg/dL LAB CHEMISTRY METHOD 11/29/2024 9:24 AM [facility] Creatinine 0.65 0.50 - 1.10 mg/dL LAB CHEMISTRY METHOD 11/29/2024 9:24 AM [facility] eGFR 87 >=60 mL/min/1. 73m2 LAB CHEMISTRY METHOD 11/29/2024 9:24 AM [facility] Comment:Calculation based on the Chronic Kidney Disease Epidemiology Collaboration (CKD-EPI) equation refit without adjustment for race. BUN/Creatinine Ratio 13.8 LAB CHEMISTRY METHOD 11/29/2024 9:24 AM [facility] Calcium 9.5 8.5 - 10.5 mg/dL LAB CHEMISTRY METHOD 11/29/2024 9:24 AM [facility] AST (SGOT) 100(H) 10 - 42 unit/L LAB CHEMISTRY METHOD 11/29/2024 9:24 AM [facility] ALT (SGPT) 49 10 - 60 unit/L LAB CHEMISTRY METHOD 11/29/2024 9:24 AM [facility] Alkaline Phosphatase 89 42 - 121 unit/L LAB CHEMISTRY METHOD 11/29/2024 9:24 AM [facility] Total Protein 7.1 6.0 - 8.0 g/dL LAB CHEMISTRY METHOD 11/29/2024 9:24 AM EDT [facility] Albumin 3.2 3.2 - 5.0 g/dL LAB CHEMISTRY METHOD 11/29/2024 9:24 AM EDT [facility] Total Bilirubin 0.3 0.0 - 1.4 mg/dL LAB CHEMISTRY METHOD 11/29/2024 9:24 AM EDT [facility] Blood Venous blood specimen / Unknown Venipuncture / Unknown 11/29/2024 5:45 AM EDT 11/29/2024 8:03 AM EDT us Dasha Muniz MD LAB BLOOD ORDERABLES Final Res ult [facility] [address] [place] [address], from Last 3 Months or Most Recently Relevant to Health Maintenance Insurance MEDICARE Care Teams Automobile Mechanic Relationship Specialty Start Date End Date Jarrod Smart MD [address] [place] [address] PCP - General Internal Medicine 09/18/17
--- OUTSIDE RECORDS SUMMARY | 2025-04-22 09:15 | XMS_ITS | Encounter Summary ---
Author Organization [facility] Address [address] [place] [address] Phone Care Team Providers Care Lottery Clerk Name Role Phone Jarrod Smart MD Primary Care Provider + [phone] Ritika Whyte MD Primary Care Provider [phone] Encounter Details Date Type Department Care Team (Late st Contact Info) Description 09/29/2020 Ancillary Orders [facility], X-Ray - [address] [place] [address] Jarrod Smart MD [address] [place] [address] Pain Social History Tobacco Use Types Packs/Day Years Used Date Smoking Tobacco: Never Assessed Comments Unknown Sex and Gender Information Value Date Recorded Sex Assigned at Not on file Legal Sex Female 9:36 AM EST Gender Identity Not on file Sexual Orientation Not on file documented as of this encounter Plan of Treatment Upcoming Encounters Date Type Department Care Team (Late st Contact Info) Description 05/26/2025 3:45 PM EDT Office Visit [facility] Medical [facility] Orthopedics & Sports Medicine [address] [place] [address] Jon Caruso DO [address] [place] [address] [facility] [place] [address] documented as of this encounter Results * XR SHOULDER 2 VIEWS (RIGHT) (09/29/2020 10:24 AM EST) Anatomical Region Laterality Modality Shoulder Right Computed Radiogr aphy 09/29/2020 10:2 5 AM EST Narrative 09/29/2020 10:33 AM EST TECHNIQUE: XR SHOULDER 2 OR MORE VIEWS (RIGHT) CLINICAL HISTORY: Chronic shoulder pain. No history of trauma. Limited range of motion. FINDINGS: There is moderate to severe diffuse bony demineralization. AC joint: Mild degenerative bony capsular hypertrophy. Moderate downward sloping of acromion process with inferiorly projecting bony spur. Mild superior migration of the humerus, which is a finding that may be associated with rotator cuff tears, for which clinical correlation is recommended. Glenohumeral joint demonstrates mild degenerative narrowing bone remodeling with small inferomedial humeral head and inferior glenoid rim osteophytes. Note is made of slight cortical irregularity of the greater tuberosity, which may be seen in insertional tendinopathy. No evidence of shoulder fracture or dislocation. No abnormal soft tissue calcifications. Visualized right hemithorax demonstrates no abnormalities. CONCLUSION: Mild AC joint arthrosis with moderate downward sloping of acromion process process and inferiorly projecting bony spur. Mild superior humeral displacement. Clinical correlation for rotator cuff tear is suggested. Mild glenohumeral DJD. Diffuse osteopenia. No evidence of shoulder fracture. Procedure Note Jay Gusman MD - 09/29/2020 TECHNIQUE: XR SHOULDER 2 OR MORE VIEWS (RIGHT) CLINICAL HISTORY: Chronic shoulder pain. No history of trauma. Limitedrange of motion. FINDINGS: There is moderate to severe diffuse bony demineralization. AC joint: Mild degenerative bony capsular hypertrophy. Moderate downwardsloping of acromion process with inferiorly projecting bony spur. Mild superior migration of the humerus, which is a finding that may beassociated with rotator cuff tears, for which clinical correlation isrecommended. Glenohumeral joint demonstrates mild degenerative narrowing boneremodeling with small inferomedial humeral head and inferior glenoid rimosteophytes. Note is made of slight cortical irregularity of the greatertuberosity, which may be seen in insertional tendinopathy. No evidence of shoulder fracture or dislocation. No abnormal soft tissue calcifications. Visualized right hemithorax demonstrates no abnormalities. CONCLUSION: Mild AC joint arthrosis with moderate downward sloping of acromion processprocess and inferiorly projecting bony spur. Mild superior humeral displacement. Clinical correlation for rotator cufftear is suggested. Mild glenohumeral DJD. Diffuse osteopenia. No evidence of shoulder fracture. Jarrod Smart MD IMG XR UPPER EXTREMITY Fin al Result documented in this encounter Visit Diagnoses Diagnosis Pain Generalized pain Pain Generalized pain documented in this encounter Care Teams Lottery Clerk Relationship Specialty Start Date End Date Jarrod Smart MD [address] [place] [address] [place] [address] PCP - General Internal Medicine 09/29/20 02/16/25 Ritika Whyte MD [address] [place] [address] [place] [address] PCP - General Internal Medicine 02/17/25 documented as of this encounter Additional Source Comments The information contained in this document represents components of the legal health record. It is not the complete legal health record.[facility]
--- OUTSIDE RECORDS SUMMARY | 2025-04-22 09:15 | XMS_ITS | Encounter Summary ---
Author Organization [facility] Address [address] [place] [address] Phone Care Team Providers Care Fence Supervisor Name Role Phone Jarrod Smart MD Primary Care Provider + [phone] Ritika Whyte MD Primary Care Provider [phone] Encounter Details Date Type Department Care Team (Late Contact Info) Description 07/10/2022 Procedure Pass [facility], Ct Scan - [address] [address] Social History Tobacco Use Types Packs/Day Years [...] 05/26/2025 3:45 PM EDT Office Visit [facility] Orthopedics & Sports Medicine [address] [place] [address] Jon Caruso DO [address] [place] [address] Orthopedics & Sports Medicine, [facility] [place] [address] documented as of this encounter Visit Diagnoses Not on filedocumented in this encounter Care Teams Fence Supervisor Relationship Specialty Start Date End Date Jarrod Smart MD [address] [place] [address] PCP - General Internal Medicine 09/29/20 02/16/25 Ritika Whyte MD [address] [place] [address] [place] [address] PCP - General Internal Medicine 02/17/25 documented as of this encounter Additional Source Comments The information contained in this document represents components of the legal health record. It is not the complete legal health record.[facility]
--- OUTSIDE RECORDS SUMMARY | 2025-04-22 09:15 | XMS_ITS | Encounter Summary ---
Author Organization [facility] Address [address] [place] [address] Care Team Providers Care Boilermaker Central Steam Plant Name Role Phone Jarrod Smart MD Primary Care Provider [phone] Encounter Details Date Type Department Care Team (Late st Contact Info) Description 11/28/2024 Lab Requisition [facility] - Main Lab [address] [facility] [place] [address] Dasha Muniz MD [address] [place] [address] Encounter for other general examination Social History [...] LAB HEMETOLOGY METHOD 11/28/2024 11:52 AM EDT [facility] RBC 3.20(L) 3.80 - 4.80 M/mcL LAB HEMETOLOGY METHOD 11/28/2024 11:52 AM EDT [facility] Hemoglobin 10.0(L) 11.5 - 16.0 g/dL LAB HEMETOLOGY METHOD 11/28/2024 11:52 AM EDT [facility] Hematocrit 30.2(L) 35.0 - 47.0 % LAB HEMETOLOGY METHOD 11/28/2024 11:52 AM [facility] MCV 93.2 79.0 - 98.0 FL LAB HEMETOLOGY METHOD 11/28/2024 11:52 AM EDT [facility] MCH 30.9 27.0 - 32.0 pcg LAB HEMETOLOGY METHOD 11/28/2024 11:52 AM EDT [facility] MCHC 33.1 32.0 - 37.0 g/dL LAB HEMETOLOGY METHOD 11/28/2024 11:52 AM [facility] RDW 12.5 11.0 - 15.0 % LAB HEMETOLOGY METHOD 11/28/2024 11:52 AM [facility] Platelets 306 130 - 400 K/mcL LAB HEMETOLOGY METHOD 11/28/2024 11:52 AM EDT [facility] MPV 9.1 7.0 - 11.0 FL LAB HEMETOLOGY METHOD 11/28/2024 11:52 AM [facility] NRBC 0.0 <1.0 % LAB HEMETOLOGY METHOD 11/28/2024 11:52 AM EDT [facility] NRBC Absolute 0.00 <0.10 K/mcL LAB HEMETOLOGY METHOD 11/28/2024 11:52 AM [facility] Blood Venous blood specimen / Unknown Venipuncture / Unknown 11/28/2024 7:03 AM EDT 11/28/2024 10:20 AM EDT us Dasha Muniz MD LAB BLOOD ORDERABLES Final Res ult [facility] [address] [place] [address], [place] [phone] documented in this encounter Visit Diagnoses Diagnosis Encounter for other general examination documented in this encounter Care Teams Boilermaker Central Steam [employer] Relationship Specialty Start Date End Date Jarrod Smart MD [address] [place], [place] PCP - General Internal Medicine 09/18/17 documented as of this encounter
--- OUTSIDE RECORDS SUMMARY | 2025-04-22 09:15 | XMS_ITS | Encounter Summary ---
Author Organization [facility] Address [address] [place] [address] Phone Care Team Providers Care Capsule Inspector Name Role Phone Jarrod Smart MD Primary Care Provider [phone]- [phone] Ritika Whyte MD Primary Care Provider [phone] Encounter Details Date Type Department Care Team (Late st Contact Info) Description 03/13/2024 Procedure Pass [place] Admitting Dept - Virtual Department [address] [place] [address] Social History Tobacco Use Types Packs/Day Years Used Date Smoking Tobacco: Former Cigarettes 3 - 1987 Smokeless Tobacco: Never Comments:Social smoking at [...] on file documented as of this encounter Functional Status * Calculated C-SSRS Risk Score (Lifetime/Recent) Answer Date of Assessment Author No Risk Indicated 03/13/2024 2:46 PM EDT Justina Dickinson RN * [place] Suicide Severity Rating Scale (Screener/Recent Self-Report) Question Answer Date of Assessment Author 1. Wish to be (Past 1 Month) No 03/13/2024 2:46 PM EDT Justina Mccoy RN 2. Non-Specific Active Suicidal Thoughts (Past 1 Month) No 03/13/2024 2:46 PM EDT Justina Mccoy RN 6. Suicidal Behavior (Lifetime) No 03/13/2024 2:46 PM EDT Justina Mccoy RN documented as of this encounter Plan of Treatment Upcoming Encounters Date Type Department Care Team (Late st Contact Info) Description 05/26/2025 3:45 PM EDT Office Visit [facility] Orthopedics & Sports Medicine [address] [place] [address] Jon Caruso DO [address] [place] [address] Orthopedics & Sports Medicine, [facility] [place] [address] [email or web address] documented as of this encounter Visit Diagnoses Not on filedocumented in this encounter Care Teams Capsule Inspector Relationship Specialty Start Date End Date Jarrod Smart MD [address] [place] [address] PCP - General Internal Medicine 09/29/20 02/16/25 Ritika Whyte MD [address] [place] [address] [place] [address] PCP - General Internal Medicine 02/17/25 documented as of this encounter Additional Source Comments The information contained in this document represents components of the legal health record. It is not the complete legal health record.[facility]
--- OUTSIDE RECORDS SUMMARY | 2025-04-22 09:15 | XMS_ITS | Encounter Summary ---
Author Organization [facility] Address [address] [place] [address] Phone Care Team Providers Care Environmental Emergencies Assistant Name Role Phone Jarrod Smart MD Primary Care Provider +- [phone] Ritika Whyet MD Primary Care Provider [phone] Encounter Details Date Type Department Care Team (Late st Contact Info) Description 11/22/2022 Procedure Pass [place] Admitting Dept - Virtual Department [address] [place] [address] Social History Tobacco Use Types Packs/Day Years Used Date Smoking Tobacco: Former Cigarettes 3 1987 Smokeless Tobacco: Never Comments:Social smoking at t hat time Alcohol Use Standard Drinks/Week Comments Never 0 (1 standard drink = 0.6 oz pur e alcohol) Comments No Sex and Gender Information Value Date Recorded Sex Assigned at Not on file Legal Sex Female 9:36 AM EST Gender Identity Not on file Sexual Orientation Not on file documented as of this encounter Functional Status * Calculated C-SSRS Risk Score (Lifetime/Recent) Answer Date of Assessment Author No Risk Indicated 11/22/2022 5:30 PM EDT Krishna Martinez RN * [place] Suicide Severity Rating Scale (Screener/Recent Self-Report) Question Answer Date of Assessment Author 1. Wish to be (Past 1 Month) No 023 5:30 PM EDT Krishna Martinez, RN 2. Non-Specific Active Suici gina Thoughts (Past 1 Month) No 11/22/2022 5:30 PM EDT Krishna Martinez , RN 6. Suicidal Behavior (Lifetime) No 04/06/202 3 5:30 PM EDT Krishna Martinez RN documented as of this encounter Plan of Treatment Upcoming Encounters Date Type Department Care Team (Late st Contact Info) Description 05/26/2025 3:45 PM EDT [facility] & Sports Medicine [address] [place] [address] Jon Caruso DO [address] [place] [address] Orthopedics & Sports Medicine, [place] [address] [email or web address] documented as of this encounter Visit Diagnoses Not on filedocumented in this encounter Care Teams Environmental Emergencies Assistant Relationship Specialty Start Date End Date Jarrod Smart MD [address] [place] [address] PCP - General Internal Medicine 09/29/20 02/16/25 Ritika Whyte MD [address] [place] [address] [place] [address] PCP - General Internal Medicine 02/17/25 documented as of this encounter Additional Source Comments The information contained in this document represents components of the legal health record. It is not the complete legal health record.[facility]
--- OUTSIDE RECORDS SUMMARY | 2025-04-22 09:15 | XMS_ITS | Encounter Summary ---
Author Organization [facility] Address [address] [place] [address] Care Team Providers Care Interactive Art Director Name Role Phone Jarrod Smart MD Primary Care Provider [phone] Encounter Details Date Type Department Care Team (Late st Contact Info) Description 11/29/2024 Lab Requisition [facility] - Main Lab [address] [place] [address] Dasha Muniz MD [address] [place] [address] Encounter for other general examination Social History [...] CBC auto differential (11/29/2024 5:45 AM EDT) [facility] Signature WBC 7.6 4.8 - 10.8 K/[facility] LAB HEMETOLOGY METHOD 11/29/2024 8:[address] [facility] RBC 3.40(L) 3.80 - 4.80 M/mcL LAB HEMETOLOGY METHOD 11/29/2024 8:37 AM [facility] Hemoglobin 10.6(L) 11.5 - 16.0 g/dL LAB HEMETOLOGY METHOD 11/29/2024 8:37 AM [facility] Hematocrit 31.5(L) 35.0 - 47.0 % LAB HEMETOLOGY METHOD 11/29/2024 8:37 AM [facility] MCV 92.4 79.0 - 98.0 FL LAB HEMETOLOGY METHOD 11/29/2024 8:37 AM [facility] MCH 31.1 27.0 - 32.0 pcg LAB HEMETOLOGY METHOD 11/29/2024 8:37 AM [facility] MCHC 33.7 32.0 - 37.0 g/dL LAB HEMETOLOGY METHOD 11/29/2024 8:37 AM [facility] RDW 12.7 11.0 - 15.0 % LAB HEMETOLOGY METHOD 11/29/2024 8:37 AM [facility] Platelets 301 130 - 400 K/mcL LAB HEMETOLOGY METHOD 11/29/2024 8:37 AM [facility] MPV 9.4 7.0 - 11.0 FL LAB HEMETOLOGY METHOD 11/29/2024 8:37 AM [facility] NRBC 0.0 <1.0 % LAB HEMETOLOGY METHOD 11/29/2024 8:37 AM [facility] NRBC Absolute 0.00 <0.10 K/mcL LAB HEMETOLOGY METHOD 11/29/2024 8:37 AM [facility] Neutrophils Relative 59.5 % LAB HEMETOLOGY METHOD 11/29/2024 8:37 AM [facility] Lymphocytes Relative 24.9 % LAB HEMETOLOGY METHOD 11/29/2024 8:37 AM [facility] Monocytes Relative 11.0 % LAB HEMETOLOGY METHOD 11/29/2024 8:37 AM [facility] Eosinophils Relative 3.5 % LAB HEMETOLOGY METHOD 11/29/2024 8:37 AM [facility] Basophils Relative 0.7 % LAB HEMETOLOGY METHOD 11/29/2024 8:37 AM [facility] Immature Granulocytes Relative 0.4 % LAB HEMETOLOGY METHOD 11/29/2024 8:37 AM [facility] Neutrophils Absolute 4.54 1.50 - 7.00 K/mcL LAB HEMETOLOGY METHOD 11/29/2024 8:37 AM [facility] Lymphocytes Absolute 1.90 1.00 - 5.00 K/mcL LAB HEMETOLOGY METHOD 11/29/2024 8:37 AM [facility] Monocytes Absolute 0.84 0.20 - 1.00 K/mcL LAB HEMETOLOGY METHOD 11/29/2024 8:37 AM [facility] Eosinophils Absolute 0.27 0.00 - 0.50 K/mcL LAB HEMETOLOGY METHOD 11/29/2024 8:37 AM [facility] Basophils Absolute 0.05 0.00 - 0.20 K/mcL LAB HEMETOLOGY METHOD 11/29/2024 8:37 AM [facility] Immature Granulocytes Absolute 0.03 0.00 - 0.03 K/mcL LAB HEMETOLOGY METHOD 11/29/2024 8:37 AM [facility] Blood Venous blood specimen / Unknown Venipuncture / Unknown 11/29/2024 5:45 AM EDT 11/29/2024 8:03 AM EDT Dasha Muniz MD LAB BLOOD ORDERABLES Final Res ult [facility] [address] [place] [address], * (ABNORMAL) Comprehensive metabolic panel (11/29/2024 5:45 AM EDT) Sodium 133 133 - 145 mmol/L LAB CHEMISTRY METHOD 11/29/2024 9:24 AM [facility] Potassium 4.8 3.5 - 5.5 mmol/L LAB CHEMISTRY METHOD 11/29/2024 9:24 AM [facility] Chloride 100 96 - 110 mmol/L LAB CHEMISTRY METHOD 11/29/2024 9:24 AM [facility] CO2 29 21 - 32 mmol/L LAB CHEMISTRY METHOD 11/29/2024 9:24 AM [facility] Anion Gap 4 3 - 11 LAB CHEMISTRY METHOD 11/29/2024 9:24 AM [facility] Glucose 104(H) 70 - 100 mg/dL LAB CHEMISTRY METHOD 11/29/2024 9:24 AM [facility] BUN 9 5 - 25 mg/dL LAB CHEMISTRY METHOD 11/29/2024 9:24 AM [facility] Creatinine 0.65 0.50 - 1.10 mg/dL LAB CHEMISTRY METHOD 11/29/2024 9:24 AM [facility] eGFR 87 >=60 mL/min/1. 73m2 LAB CHEMISTRY METHOD 11/29/2024 9:24 AM [facility] Comment:Calculation based on the Chronic Kidney Disease Epidemiology Collaboration (CKD-EPI) equation refit without adjustment for race. BUN/Creatinine Ratio 13.8 LAB CHEMISTRY METHOD 11/29/2024 9:24 AM [facility] Calcium 9.5 8.5 - 10.5 mg/dL LAB CHEMISTRY METHOD 11/29/2024 9:24 AM EDT [facility] AST (SGOT) 100(H) 10 - 42 unit/L LAB CHEMISTRY METHOD 11/29/2024 9:24 AM [facility] ALT (SGPT) 49 10 - 60 unit/L LAB CHEMISTRY METHOD 11/29/2024 9:24 AM [facility] Alkaline Phosphatase 89 42 - 121 unit/L LAB CHEMISTRY METHOD 11/29/2024 9:24 AM [facility] Total Protein 7.1 6.0 - 8.0 g/dL LAB CHEMISTRY METHOD 11/29/2024 9:24 AM [facility] Albumin 3.2 3.2 - 5.0 g/dL LAB CHEMISTRY METHOD 11/29/2024 9:24 AM [facility] Total Bilirubin 0.3 0.0 - 1.4 mg/dL LAB CHEMISTRY METHOD 11/29/2024 9:24 AM [facility] Blood Venous blood specimen / Unknown Venipuncture / Unknown 11/29/2024 5:45 AM EDT 11/29/2024 8:03 AM EDT us Dasha Muniz MD LAB BLOOD ORDERABLES Final Res ult [facility] [address] [place] [address], documented in this encounter Visit Diagnoses Diagnosis Encounter for other general examination documented in this encounter Care Teams Interactive Art Director Relationship Specialty Start Date End Date Jarrod Smart MD [address] [place] [address] PCP - General Internal Medicine 09/18/17 documented as of this encounter
--- OUTSIDE RECORDS SUMMARY | 2025-04-22 09:15 | XMS_ITS | Encounter Summary ---
Author Organization [facility] Address [address] [place] [phone] Phone Care Team Providers Care Government Clerk Name Role Phone Jarrod Smart MD Primary Care Provider [phone] Ritika Whyte MD Primary Care Provider [phone] Encounter Details Date Type Department Care Team (Late st Contact Info) Description 03/09/2024 Procedure Pass [facility], Ct Scan - [address] [address] Social History Tobacco Use Types Packs/Day Years [...] Upcoming Encounters Date Type Department Care Team ([facility] st Contact Info) Description 05/26/2025 3:45 PM EDT Office Visit [facility] Orthopedics & Sports Medicine [address] [place] [address] Jon Caruso DO [address] [place] [address] Orthopedics & Sports Medicine, [place] [address] [email or web address] documented as of this encounter Visit Diagnoses Not on filedocumented in this encounter Care Teams Government Clerk Relationship Specialty Start Date End Date Jarrod Smart MD [address] [place] [id number] PCP - General Internal Medicine 09/29/20 02/16/25 Ritika Whyte MD [address] [place] [address] [place] [id number] PCP - General Internal Medicine 02/17/25 documented as of this encounter Additional Source Comments The information contained in this document represents components of the legal health record. It is not the complete legal health record.[facility]
== END 2025-04-22 09:44 | disposition home or self-care (01) ==
LOC: HO.HMCFM 08:45
PROVIDERS: PCP Physician Assistant; Visit Provider Physician Assistant
DX: E11.8 Type 2 diabetes mellitus with unspecified complications (principal); K82.8 Other specified diseases of gallbladder; R79.89 Other specified abnormal findings of blood chemistry; M54.9 Dorsalgia, unspecified; G89.29 Other chronic pain

== ENCOUNTER → 2025-04-22 08:45 | Outpatient (BNVA) | payer MEDICARE, OTHER, SELFPAY | PROVIDERS: PCP Physician Assistant; Visit Provider Physician Assistant | DX: E11.8 Type 2 diabetes mellitus with unspecified complications (principal); K82.8 Other specified diseases of gallbladder; R79.89 Other specified abnormal findings of blood chemistry; M54.9 Dorsalgia, unspecified; G89.29 Other chronic pain | CPT/HCPCS: 99212 ==

== ENCOUNTER 2025-06-23 08:23 | Outpatient (AMB) | payer MEDICARE, OTHER, SELFPAY ==
[2025-06-23 08:26] VITALS: BP 110/50; PULSE 76; O2SAT 99; BMI 23.3
--- NOTE | 2025-06-23 08:26 | A.OFFVIS_ITS ---
Vital Signs 06/23/25 08:26 Height 5 ft 5 in Weight 139 lb 15.896 oz BMI 23.3 BP 110/50 L Blood Pressure Location Lt brachial Position Sitting Pulse 76 Pulse Source Pulse Oximeter Pulse Oximetry (%) 99 Oxygen Delivery Method Room Air Intake Visit Reasons: COPD Community Affairs Director Required: No Accompanied by: Spouse Allergies No Known Allergies Allergy (Unknown, Verified 06/23/25 08:29) NOT APPLICABLE HPI Comments Details: The patient is a 85-year-old woman known chronic rhinitis and also asthma COPD overlap syndrome. Her respiratory status has been stable over the summer. She has not required any prednisone. She has been starting to complain about nasal congestion and postnasal drip. That usually have she starts. Moderate severity. She has been using her Flonase. She has tried and failed Astelin nasal spray and also Atrovent nasal spray. She does use the Neti pot of but not all the time. She has been using her inhalers although, she does using all the time specially while her breathing is okay. She is concerned about the winter months at this time. 07/09/2023 the patient is here for sick visit. She has been him worsening respiratory symptoms. She states that during the fall months she typically does get worsening chest tightness cough. She did have some prednisone at home she took 20 mg for few days and then decrease down to 10 mg. She took the last dose yesterday. Initially he has had some relief but when she started coming off the prednisone she started having symptoms again. She has a cough for the most part is nonproductive she also harsh and dry. On examination the patient does have some very fine crackles bilaterally suggesting degree of pneumonitis. She denies any sick contacts. His sinuses are also congested. Will go ahead and start her on another course of prednisone and also provide her some doxycycline. I do believe the patient needs a repeat CT scan to follow up with the abnormal chest x-ray and her worsening respiratory symptoms. Depending on the CT scan will do additional blood work. 09/03/2023 the patient is here for a pulmonary follow-up visit. Her breathing is overall better. She has not required any additional prednisone or antibiotics. The patient does have some shortness of breath with activity. Mild in severity. Denies any significant cough. The patient has been using the Symbicort and the Spiriva with good effect. Although, the Symbicort is no longer cover so therefore I will send a Dulera to use instead. She did have a CT scan of the chest that we personally reviewed together. It appears that she does have reticular changes in the subpleural area along with the bases suggesting some degree of interstitial lung disease. No evidence of any ground-glass opacities. This could be the result of her underlying pneumonitis that she had back in the fall or the patient may indeed have interstitial lung disease such as idiopathic pulmonary fibrosis specially since I do not see any ground-glass opacities. Will continue to monitor closely for any progression of disease. The fact that she patient is feeling better from the fall is reassuring. She is also dealing with her sick son. He currently at a [facility] waiting for a heart transplant. Will have her return in 4 months with PFTs to see if there is any progression. Will continue to monitor closely. 05/08/2024 the patient is here for sick visit. She has been sick now for 3 days. Complains of headaches fever chills cough shortness of breath. Moderate in severity. She is tested negative for COVID-19. She did call the office we did send her a course of antibiotics. Also Center cough syrup but she was not able to get it because his back order. In the meantime she did come in she does have crackles at the bases. We did swab her for RSV, flu and COVID. It turned out positive for RSV. Likely RSV bronchiolitis with some degree of pneumonitis. She continues use her respiratory medications. 01/07/2024 the patient is here for a pulmonary follow-up visit. The patient is finally recovering from a significant viral syndrome that she had. It took about couple months to feel better. Although she still not her baseline. Still feels tired and also short of breath. She did undergo pulmonary function studies which we personally reviewed. Appears to have a mild restrictive ventilatory defect and also moderate diffusion impairment. We did talk about pulmonary rehabilitation. She is going to try to do online rehabilitation with the Pulmonary while this program. He is going to work on deep breathing techniques. In the meantime she has been using her respiratory medicines. Will switch over from Symbicort to Dulera since Symbicort is no longer covered and she continues on the Spiriva. She does have significant allergies with postnasal drip. She has difficulties in the spring visible all her allergies. Will go ahead and add Astelin to fluticasone nasal spray and she is already taking antihistamine therapy by mouth as well. 07/14/2024 the patient is here for a pulmonary follow-up visit. Overall she is doing okay. She still having increasing dyspnea though. Moderate severity. Typically worse when she is going up a flight of stairs or inclines. She has been using the Spiriva. She did not get the Symbicort because it was not covered. In the Dulera send but she did not pick it up. She is having increased chest congestion. [id number]-[id number] severity. She also complains about her postnasal drip that is tenacious and caused her to have coughing spells. She has tried multiple nasal sprays without any significant benefit. She does respond partially to the fluticasone into the Neti rinsing. No recent imaging to review. Although she did have a fall and she fractured her right arm the 1 that had just gotten surgery on for the shoulder. Therefore she has limited motion that area. During the visit we did go for a walking oximetry in her oxygen was 99-98% throughout the ambulation. Heart rate was in the high 90s. She was not too uncomfortable with dyspnea score 4/10. The patient is coughing some and she does have some congestion but is typically clear in color. If can changes color she will call. Will go ahead and switch over to Trelegy to make her medication regimen simpler in that way she can optimize her respiratory regimen. Patient will continue with the nasal sprays. And will follow-up in 6 months. If she has any worsening symptoms or any concerning issu es she will call for further evaluation and recommendations. 12/31/2024 the patient is here for a pulmonary follow-up visit. Overall the patient is doing okay. Back in October she had a bad fall she fracture to vertebral bodies resulting in significant pain and difficulty breathing. She did have a CT scan of the chest when she went to [facility]. I did personally reviewed. She does have evidence of interstitial lung disease noted before with some traction bronchiectasis and honeycombing. No evidence of pneumonitis. Her oxygen drops somebody explained to her that likely she is developing some atelectasis. Right now is about 98% which is reassuring. She does work on the incentive spirometer as much as possible. Will go ahead and request an Acapella valve so she can help with mucus clearance. She continues use her respiratory medications with good effect. She is having had dry hacky cough in [place] Perles her partially helpful. Will send her some cough medicine with codeine that she can use specially at home and at night since she is able to stop coughing and be able to rest. Will plan to follow-up in 6 months. If the patient has any issues prior to that she will call for an earlier assessment. 06/23/2025 the patient is here for pulmonary follow-up visit. Overall the patient has been doing well. She is responding well to the Breztri inhaler. Been affecting beneficial. She also has a rescue inhaler. Her cough seems to be better. She does respond well to the cough syrup with codeine. She takes it sparingly. A lot of times her cough is induced by a postnasal drip likely from vasomotor rhinitis. She has been taking fluticasone. Will go ahead and start her on ipratropium nasal spray that she can use as needed. In addition to that she can always use the cough medication as needed small amounts. The patient also has her Acapella valve. She did come in for instructions on how to use it correctly. She finds it also helpful clearing her lungs and providing good mucus clearance. Her vital signs are stable her oxygen is better overall. Overall the patient is doing well will follow-up sometime in 6-8 months if she has any issues prior to this she can always call for an earlier assessment or recommendations. [facility] Medical History (Updated 03/26/25 @ 13:13 by Karen Brown PA-C) RSV (respiratory syncytial virus pneumonia) Pneumonitis ILD (interstitial lung disease) Chronic allergic rhinitis Osteopenia Bronchitis Asthma-COPD overlap syndrome Chronic allergic rhinitis Cough Surgical History History of colonoscopy Social History Housing: House Alcohol intake: never Patient Tobacco Use Status: Former Tobacco user Tobacco use type: Cigarette Years Smoked: 20 years e-Cigarette/Vaping Use: Never Used Second Hand Smoke Exposure: No service: No Current occupational status: retired Cognitive needs: No 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) Vision needs: Yes (glasses) Review of Systems Const Denies chills, Denies fatigue, Denies fever(s), Denies weight gain and Denies weight loss ENT Denies dizziness, Reports hearing loss, Denies lip swelling and Denies tongue swelling Card Denies chest pain, Denies leg edema, Denies lightheadedness, Denies palpitations, Denies dyspnea on exertion, Denies orthopnea and Denies other Resp Reports cough, Denies dyspnea on exertion and Denies wheezing GI Denies hematochezia and Denies change in stool character Musc Denies abnormal gait, Denies muscle weakness, Denies numbness, Denies radiating pain into limb and Denies tingling Neuro Denies abnormal gait, Denies dizziness, Denies numbness and Denies tingling Psych Denies no additional complaints Endo Denies fatigue and Denies palpitations Angelo/Lymph Denies easy bleeding and Denies lymphadenopathy Aller/Immun Denies lip swelling, Denies tongue swelling and Denies wheezing Physical Exam Vital Signs: Last Vital Signs Pulse 76 06/23/25 08:26 BP 110/50 L 06/23/25 08:26 Pulse Ox 99 06/23/25 08:26 Oxygen Delivery Method Room Air 06/23/25 08:26 BMI result Body Mass Index 23.3 Const General: comfortable HEENT General nose exam: Nasal discharge present Neck Neck: Yes normal visual inspection, Yes full ROM and Yes no lymphadenopathy Chest Chest palpation & inspection: normal inspection of the chest Resp Effort & Inspection: normal respiratory effort Auscultation: no rales, no rhonchi, no wheezes and diminished lung sounds Cardio Rate: regular rate Rhythm: regular rhythm Heart sounds: S1 normal heart sound present and S2 normal heart sound present GI Palpation (GI): Soft to palpation and nontender Auscultation: normal bowel sounds Skin General skin exam: no rashes or lesions noted Extrem General: Yes no clubbing, cyanosis or edema Assessment & Plan Assessment & Plan (1) Asthma-COPD overlap syndrome: Code(s): J44.9 - Chronic obstructive pulmonary disease, unspecified Category: Medical (2) ILD (interstitial lung disease): Comment: minimal scarring Code(s): J84.9 - Interstitial pulmonary disease, unspecified Category: Medical (3) Chronic allergic rhinitis: Code(s): J30.9 - Allergic rhinitis, unspecified Category: Medical Plan continue Breztri DAWSON as needed continue Singulair continue fluticasone nasal spray start ipratropium nasal spray as needed cough medicine Benzonates as needed, Goodrx card provided exercising/on line pulmonary rehab acapella valve for CPT F/U 8-12 months Medications: New ipratropium bromide administer into each nostril 2 sprays intranasal TID PRN 15 mL 6RF allergy symptoms Refilled codeine-guaifenesin 10-100 mg/5 mL 10 mL PO Q6H PRN 300 mL 0RF cough 10 days Coding Level of Care Code Est Pt Level 4 (75176) Complex EM visit Add On G2211 Diagnoses Asthma-COPD overlap syndrome J44.9 ILD (interstitial lung disease) J84.9 Chronic allergic rhinitis J30.9 Time Spent (min) 17
--- OUTSIDE RECORDS SUMMARY | 2025-06-23 08:36 | XMS_ITS | Encounter Summary ---
Author Organization [facility] [address] Address [address] [place] [address] Care Team Providers Care Life Skills Instructor Name Role Phone Jarrod Smart MD Primary Care Provider [phone] Encounter Details Date Type Department Care Team (Late st Contact Info) Description 11/23/2024 Lab Requisition [facility] - Main Lab [address] [facility] [place] [address] Dasha Muniz MD [address] [place] [id number] Encounter for other general examination Social History [...] AM EDT) WBC 7.4 4.8 - 10.8 K/[facility] LAB HEMETOLOGY METHOD 11/23/2024 8:40 AM [facility] LAB RBC 3.20(L) 3.80 - 4.80 M/mcL LAB HEMETOLOGY METHOD 11/23/2024 8:40 AM [facility] LAB Hemoglobin 10.0(L) 11.5 - 16.0 g/dL LAB HEMETOLOGY METHOD 11/23/2024 8:40 AM [facility] LAB Hematocrit 29.8(L) 35.0 - 47.0 % LAB HEMETOLOGY METHOD 11/23/2024 8:40 AM [facility] LAB MCV 92.3 79.0 - 98.0 FL LAB HEMETOLOGY METHOD 11/23/2024 8:40 AM [facility] LAB MCH 31.0 27.0 - 32.0 pcg LAB HEMETOLOGY METHOD 11/23/2024 8:40 AM [facility] LAB MCHC 33.6 32.0 - 37.0 g/dL LAB HEMETOLOGY METHOD 11/23/2024 8:40 AM [facility] LAB RDW 12.7 11.0 - 15.0 % LAB HEMETOLOGY METHOD 11/23/2024 8:40 AM [facility] Platelets 263 130 - 400 K/mcL LAB HEMETOLOGY METHOD 11/23/2024 8:40 AM [facility] LAB MPV 9.4 7.0 - 11.0 FL LAB HEMETOLOGY METHOD 11/23/2024 8:40 AM [facility] LAB NRBC 0.0 <1.0 % LAB HEMETOLOGY METHOD 11/23/2024 8:40 AM [facility] LAB NRBC Absolute 0.00 <0.10 K/mcL LAB HEMETOLOGY METHOD 11/23/2024 8:40 AM [facility] Neutrophils Relative 59.4 % LAB HEMETOLOGY METHOD 11/23/2024 8:40 AM [facility] Lymphocytes Relative 23.5 % LAB HEMETOLOGY METHOD 11/23/2024 8:40 AM [facility] Monocytes Relative 12.7 % LAB HEMETOLOGY METHOD 11/23/2024 8:40 AM [facility] Eosinophils Relative 3.5 % LAB HEMETOLOGY METHOD 11/23/2024 8:40 AM [facility] Basophils Relative 0.5 % LAB HEMETOLOGY METHOD 11/23/2024 8:40 AM [facility] LAB Immature Granulocytes Relative 0.4 % LAB HEMETOLOGY METHOD 11/23/2024 8:40 AM [facility] LAB Neutrophils Absolute 4.38 1.50 - 7.00 K/mcL LAB HEMETOLOGY METHOD 11/23/2024 8:40 AM [facility] LAB Lymphocytes Absolute 1.74 1.00 - 5.00 K/mcL LAB HEMETOLOGY METHOD 11/23/2024 8:40 AM [facility] Monocytes Absolute 0.94 0.20 - 1.00 K/mcL LAB HEMETOLOGY METHOD 11/23/2024 8:40 AM [facility] LAB Eosinophils Absolute 0.26 0.00 - 0.50 K/mcL LAB HEMETOLOGY METHOD 11/23/2024 8:40 AM [facility] Basophils Absolute 0.04 0.00 - 0.20 K/mcL LAB HEMETOLOGY METHOD 11/23/2024 8:40 AM [facility] Immature Granulocytes Absolute 0.03 0.00 - 0.03 K/mcL LAB HEMETOLOGY METHOD 11/23/2024 8:40 AM [facility] Blood Venous blood specimen / Unknown 11/23/2024 4:59 AM EDT 11/23/2024 8:07 AM EDT Dasha Muniz MD LAB BLOOD ORDERABLES Final Res ult Performing Organization Address City/[facility]/ZIP Co de Phone Number [facility] LAB [address] [place] [address], [place] [phone] * Magnesium (11/23/2024 4:59 AM EDT) Pathologist [facility] Magnesium 1.9 1.9 - 2.6 mg/dL LAB CHEMISTRY METHOD 11/23/2024 8:52 AM EDT [facility] LAB Blood Venous blood specimen / Unknown 11/23/2024 4:59 AM EDT 11/23/2024 8:07 AM EDT Dasha Muniz MD LAB BLOOD ORDERABLES Final Res ult Performing Organization Address [facility]/ZIP Co de Phone Number [facility] [address] [place] [address], [place] [phone] * (ABNORMAL) Comprehensive metabolic panel (11/23/2024 4:59 AM EDT) [facility] Sodium 132(L) 133 - 145 mmol/L LAB CHEMISTRY METHOD 11/23/2024 8:52 AM [facility] Potassium 4.2 3.5 - 5.5 mmol/L LAB CHEMISTRY METHOD 11/23/2024 8:[facility] Chloride 101 96 - 110 mmol/L LAB CHEMISTRY METHOD 11/23/2024 8:52 [facility] CO2 24 21 - 32 mmol/L LAB CHEMISTRY METHOD 11/23/2024 8:52 AM [facility] Anion Gap 7 3 - 11 LAB CHEMISTRY METHOD 11/23/2024 8:52 AM [facility] Glucose 148(H) 70 - 100 mg/dL LAB CHEMISTRY METHOD 11/23/2024 8:52 AM [facility] BUN 10 5 - 25 mg/dL LAB CHEMISTRY METHOD 11/23/2024 8:52 AM [facility] Creatinine 0.60 0.50 - 1.10 mg/dL LAB CHEMISTRY METHOD 11/23/2024 8:52 AM [facility] LAB eGFR 89 >=60 mL/min/1. 73m2 LAB CHEMISTRY METHOD 11/23/2024 8:52 AM [facility] Comment:Calculation based on the Chronic Kidney Disease Epidemiology Collaboration (CKD-EPI) equation refit without adjustment for race. BUN/Creatinine Ratio 16.7 LAB CHEMISTRY METHOD 11/23/2024 8:52 AM [facility] LAB Calcium 9.1 8.5 - 10.5 mg/dL LAB CHEMISTRY METHOD 11/23/2024 8:52 AM [facility] LAB AST (SGOT) 106(H) 10 - 42 unit/L LAB CHEMISTRY METHOD 11/23/2024 8:52 AM [facility] ALT (SGPT) 56 10 - 60 unit/L LAB CHEMISTRY METHOD 11/23/2024 8:52 AM [facility] LAB Alkaline Phosphatase 59 42 - 121 unit/L LAB CHEMISTRY METHOD 11/23/2024 8:52 AM [facility] Total Protein 6.7 6.0 - 8.0 g/dL LAB CHEMISTRY METHOD 11/23/2024 8:52 AM [facility] LAB Albumin 2.8(L) 3.2 - 5.0 g/dL LAB CHEMISTRY METHOD 11/23/2024 8:52 AM [facility] Total Bilirubin 0.4 0.0 - 1.4 mg/dL LAB CHEMISTRY METHOD 11/23/2024 8:52 AM [facility] LAB Blood Venous blood specimen / Unknown 11/23/2024 4:59 AM EDT 11/23/2024 8:07 AM EDT us Dasha Muniz MD LAB BLOOD ORDERABLES Final Res ult [facility]) [facility] [address] [place] [address], documented in this encounter Visit Diagnoses Diagnosis Encounter for other general examination documented in this encounter Care Teams Life Skills Instructor Relationship Specialty Start Date End Date Jarrod Smart MD [address] [place] [address] PCP - General Internal Medicine 09/18/17 documented as of this encounter
--- OUTSIDE RECORDS SUMMARY | 2025-06-23 08:36 | XMS_ITS | Clinical Summary ---
Author Organization [address] [facility] Address [address] [place] [address] Phone Care Team Providers Care Telephone Installer Name Role Phone Jarrod Smart MD Primary Care Provider [phone] Medical History Medical History Date Comments Type 2 diabetes mellitus wit hout complication 10/11/2017 DX:Type 2 diabetes mellitus without complication (HCC) Hyperlipidemia 10/11/2017 DX:Hyperlipidemi a Atelectasis 03/27/2017 DX:Atelectasis COPD (chronic obstructive pu lmonary disease) ([facility]/HCC V24, [facility]/HCC V28) 05/17/2017 DX:COPD (chronic o bstructive pulmonary disease) ([facility]) 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 DX:Poly p [...] Vaccine: 50+ Years (2 of 2 - PPSV23, PCV20, or PCV21) 02/21/2018 12/27/2017 Depression Screening 08/19/2024 Cholesterol Screening (Lipid Panel) 11/23/2024 Diabetes: Annual Urine Albumin-Creatinine Ratio (uACR) 11/23/2024 Diabetes: Blood Sugar Control Test (HGBA1C) 11/23/2024 Falls Risk Assessment 11/23/2024 Medicare Annual Wellness Visit 11/23/2024 Osteoporosis Screening (Bone Density Screening) 11/23/2024 Social Influencers of Health Screening 11/23/2024 COVID-19 Vaccine (1 - season) 2025 Influenza Vaccine (#1) 2025 [...] LAB CHEMISTRY METHOD 11/29/2024 9:24 AM EDT [facility] Potassium 4.8 3.5 - 5.5 mmol/L LAB CHEMISTRY METHOD 11/29/2024 9:24 AM EDT [facility] Chloride 100 96 - 110 mmol/L LAB CHEMISTRY METHOD 11/29/2024 9:24 AM [facility] CO2 29 21 - 32 mmol/L LAB CHEMISTRY METHOD 11/29/2024 9:24 AM [facility] LAB Anion Gap 4 3 - 11 LAB CHEMISTRY METHOD 11/29/2024 9:24 AM [facility] LAB Glucose 104(H) 70 - 100 mg/dL LAB CHEMISTRY METHOD 11/29/2024 9:24 AM [facility] BUN 9 5 - 25 mg/dL LAB CHEMISTRY METHOD 11/29/2024 9:24 AM [facility] Creatinine 0.65 0.50 - 1.10 mg/dL LAB CHEMISTRY METHOD 11/29/2024 9:24 AM [facility] LAB eGFR 87 >=60 mL/min/1. 73m2 LAB CHEMISTRY METHOD 11/29/2024 9:24 AM [facility] LAB Comment:Calculation based on the Chronic Kidney Disease Epidemiology Collaboration (CKD-EPI) equation refit without adjustment for race. BUN/Creatinine Ratio 13.8 LAB CHEMISTRY METHOD 11/29/2024 9:24 AM [facility] Calcium 9.5 8.5 - 10.5 mg/dL LAB CHEMISTRY METHOD 11/29/2024 9:24 AM [facility] AST (SGOT) 100(H) 10 - 42 unit/L LAB CHEMISTRY METHOD 11/29/2024 9:24 AM [facility] ALT (SGPT) 49 10 - 60 unit/L LAB CHEMISTRY METHOD 11/29/2024 9:24 AM [facility] LAB Alkaline Phosphatase 89 42 - 121 unit/L LAB CHEMISTRY METHOD 11/29/2024 9:24 AM [facility] Total Protein 7.1 6.0 - 8.0 g/dL LAB CHEMISTRY METHOD 11/29/2024 9:24 AM EDT [facility] Albumin 3.2 3.2 - 5.0 g/dL LAB CHEMISTRY METHOD 11/29/2024 9:24 AM EDT [facility] Total Bilirubin 0.3 0.0 - 1.4 mg/dL LAB CHEMISTRY METHOD 11/29/2024 9:24 AM EDT [facility] Blood Venous blood specimen / Unknown Venipuncture / Unknown 11/29/2024 5:45 AM EDT 11/29/2024 8:03 AM EDT us Dasha Muniz MD LAB BLOOD ORDERABLES Final Res ult [facility] [address] [place] [address], [place] [phone] from Last 3 Months or Most Recently Relevant to Health Maintenance Insurance MEDICARE Care Teams Telephone Installer Relationship Specialty Start Date End Date Jarrod Smart MD [address] [place] [address] PCP - General Internal Medicine 09/18/17
--- OUTSIDE RECORDS SUMMARY | 2025-06-23 08:36 | XMS_ITS | Encounter Summary ---
Author Organization [facility] Address [address] [place] [address] Care Team Providers Care Rod Mill Tender Name Role Phone Jarrod Smart MD Primary Care Provider [phone] Encounter Details Date Type Department Care Team (Late st Contact Info) Description 11/25/2024 Lab Requisition [facility] - Main Lab [address] [facility] [place] [address] Dasha Muniz MD [address] [place] [address] Encounter for other general examination Social History [...] LAB CHEMISTRY METHOD 11/25/2024 11:12 AM EDT [facility] Potassium 4.0 3.5 - 5.5 mmol/L LAB CHEMISTRY METHOD 11/25/2024 11:12 AM EDT [facility] Chloride 102 96 - 110 mmol/L LAB CHEMISTRY METHOD 11/25/2024 11:12 AM T [facility] CO2 23 21 - 32 mmol/L LAB CHEMISTRY METHOD 11/25/2024 11:[address] [facility] Anion Gap 9 3 - 11 LAB CHEMISTRY METHOD 11/25/2024 11:[address] [facility] Glucose 118(H) 70 - 100 mg/dL LAB CHEMISTRY METHOD 11/25/2024 11:[address] [facility] BUN 12 5 - 25 mg/dL LAB CHEMISTRY METHOD 11/25/2024 11:[address] [facility] Creatinine 0.63 0.50 - 1.10 mg/dL LAB CHEMISTRY METHOD 11/25/2024 11:[address] [facility] eGFR 88 >=60 mL/min/1. 73m2 LAB CHEMISTRY METHOD 11/25/2024 11:[address] [facility] Comment:Calculation based on the Chronic Kidney Disease Epidemiology Collaboration (CKD-EPI) equation refit without adjustment for race. BUN/Creatinine Ratio 19.0 LAB CHEMISTRY METHOD 11/25/2024 11:[address] [facility] Calcium 8.9 8.5 - 10.5 mg/dL LAB CHEMISTRY METHOD 11/25/2024 11:[address] [facility] AST (SGOT) 91(H) 10 - 42 unit/L LAB CHEMISTRY METHOD 11/25/2024 11:[address] [facility] ALT (SGPT) 48 10 - 60 unit/L LAB CHEMISTRY METHOD 11/25/2024 11:[address] [facility] Alkaline Phosphatase 66 42 - 121 unit/L LAB CHEMISTRY METHOD 11/25/2024 11:[address] [facility] Total Protein 6.6 6.0 - 8.0 g/dL LAB CHEMISTRY METHOD 11/25/2024 11:[address] [facility] Albumin 2.9(L) 3.2 - 5.0 g/dL LAB CHEMISTRY METHOD 11/25/2024 11:12 AM EDT [facility] Total Bilirubin 0.4 0.0 - 1.4 mg/dL LAB CHEMISTRY METHOD 11/25/2024 11:12 AM EDT [facility] Blood Venous blood specimen / Unknown Venipuncture / Unknown 11/25/2024 5:05 AM EDT 11/25/2024 9:16 AM EDT us Dasha Muniz MD LAB BLOOD ORDERABLES Final Res ult [facility] [address] [place] [address], documented in this encounter Visit Diagnoses Diagnosis Encounter for other general examination documented in this encounter Care Teams Rod Mill Tender Relationship Specialty Start Date End Date Jarrod Smart MD [address] [place], [place] PCP - General Internal Medicine 09/18/17 documented as of this encounter
--- OUTSIDE RECORDS SUMMARY | 2025-06-23 08:36 | XMS_ITS | Encounter Summary ---
Author Organization [facility] Address [address] [place] [address] Care Team Providers Care Adjuster Arbitrator Name Role Phone Jarrod Smart MD Primary Care Provider [phone] Encounter Details Date Type Department Care Team (Late st Contact Info) Description 11/29/2024 Lab Requisition [facility] - Main Lab [address] [place] [address] Dasha Muniz MD [address] [place] [address] Encounter for other general examination Social History [...] CBC auto differential (11/29/2024 5:45 AM EDT) [facility] Signature WBC 7.6 4.8 - 10.8 K/[facility] LAB HEMETOLOGY METHOD 11/29/2024 8:37 AM EDT [facility] RBC 3.40(L) 3.80 - 4.80 M/mcL LAB HEMETOLOGY METHOD 11/29/2024 8:[address] [facility] Hemoglobin 10.6(L) 11.5 - 16.0 g/dL LAB HEMETOLOGY METHOD 11/29/2024 8:[address] [facility] Hematocrit 31.5(L) 35.0 - 47.0 % LAB HEMETOLOGY METHOD 11/29/2024 8:[address] [facility] MCV 92.4 79.0 - 98.0 FL LAB HEMETOLOGY METHOD 11/29/2024 8:[address] [facility] MCH 31.1 27.0 - 32.0 pcg LAB HEMETOLOGY METHOD 11/29/2024 8:[address] [facility] MCHC 33.7 32.0 - 37.0 g/dL LAB HEMETOLOGY METHOD 11/29/2024 8:[address] [facility] RDW 12.7 11.0 - 15.0 % LAB HEMETOLOGY METHOD 11/29/2024 8:[address] [facility] Platelets 301 130 - 400 K/mcL LAB HEMETOLOGY METHOD 11/29/2024 8:[address] [facility] MPV 9.4 7.0 - 11.0 FL LAB HEMETOLOGY METHOD 11/29/2024 8:[address] [facility] NRBC 0.0 <1.0 % LAB HEMETOLOGY METHOD 11/29/2024 8:[address] [facility] NRBC Absolute 0.00 <0.10 K/mcL LAB HEMETOLOGY METHOD 11/29/2024 8:[address] [facility] Neutrophils Relative 59.5 % LAB HEMETOLOGY METHOD 11/29/2024 8:[address] [facility] Lymphocytes Relative 24.9 % LAB HEMETOLOGY METHOD 11/29/2024 8:[address] [facility] Monocytes Relative 11.0 % LAB HEMETOLOGY METHOD 11/29/2024 8:[address] [facility] Eosinophils Relative 3.5 % LAB HEMETOLOGY METHOD 11/29/2024 8:[address] [facility] Basophils Relative 0.7 % LAB HEMETOLOGY METHOD 11/29/2024 8:[address] [facility] Immature Granulocytes Relative 0.4 % LAB HEMETOLOGY METHOD 11/29/2024 8:[address] [facility] Neutrophils Absolute 4.54 1.50 - 7.00 K/mcL LAB HEMETOLOGY METHOD 11/29/2024 8:[address] [facility] Lymphocytes Absolute 1.90 1.00 - 5.00 K/mcL LAB HEMETOLOGY METHOD 11/29/2024 8:[address] [facility] Monocytes Absolute 0.84 0.20 - 1.00 K/mcL LAB HEMETOLOGY METHOD 11/29/2024 8:[address] [facility] Eosinophils Absolute 0.27 0.00 - 0.50 K/mcL LAB HEMETOLOGY METHOD 11/29/2024 8:[address] [facility] Basophils Absolute 0.05 0.00 - 0.20 K/mcL LAB HEMETOLOGY METHOD 11/29/2024 8:[address] [facility] Immature Granulocytes Absolute 0.03 0.00 - 0.03 K/mcL LAB HEMETOLOGY METHOD 11/29/2024 8:[address] [facility] Blood Venous blood specimen / Unknown Venipuncture / Unknown 11/29/2024 5:45 AM EDT 11/29/2024 8:03 AM EDT Dasha Muniz MD LAB BLOOD ORDERABLES Final Res ult [facility] [address] [place] [address], * (ABNORMAL) Comprehensive metabolic panel (11/29/2024 5:45 AM EDT) Sodium 133 133 - 145 mmol/L LAB CHEMISTRY METHOD 11/29/2024 9:[address] [facility] Potassium 4.8 3.5 - 5.5 mmol/L LAB CHEMISTRY METHOD 11/29/2024 9:[address] [facility] Chloride 100 96 - 110 mmol/L LAB CHEMISTRY METHOD 11/29/2024 9:[address] [facility] CO2 29 21 - 32 mmol/L LAB CHEMISTRY METHOD 11/29/2024 9:[address] [facility] Anion Gap 4 3 - 11 LAB CHEMISTRY METHOD 11/29/2024 9:[address] [facility] Glucose 104(H) 70 - 100 mg/dL LAB CHEMISTRY METHOD 11/29/2024 9:[address] [facility] BUN 9 5 - 25 mg/dL LAB CHEMISTRY METHOD 11/29/2024 9:[address] [facility] Creatinine 0.65 0.50 - 1.10 mg/dL LAB CHEMISTRY METHOD 11/29/2024 9:[address] [facility] eGFR 87 >=60 mL/min/1. 73m2 LAB CHEMISTRY METHOD 11/29/2024 9:[address] [facility] Comment:Calculation based on the Chronic Kidney Disease Epidemiology Collaboration (CKD-EPI) equation refit without adjustment for race. BUN/Creatinine Ratio 13.8 LAB CHEMISTRY METHOD 11/29/2024 9:[address] [facility] Calcium 9.5 8.5 - 10.5 mg/dL LAB CHEMISTRY METHOD 11/29/2024 9:24 AM EDT [facility] AST (SGOT) 100(H) 10 - 42 unit/L LAB CHEMISTRY METHOD 11/29/2024 9:[address] [facility] ALT (SGPT) 49 10 - 60 unit/L LAB CHEMISTRY METHOD 11/29/2024 9:[address] [facility] Alkaline Phosphatase 89 42 - 121 unit/L LAB CHEMISTRY METHOD 11/29/2024 9:[address] [facility] Total Protein 7.1 6.0 - 8.0 g/dL LAB CHEMISTRY METHOD 11/29/2024 9:[address] [facility] Albumin 3.2 3.2 - 5.0 g/dL LAB CHEMISTRY METHOD 11/29/2024 9:[address] [facility] Total Bilirubin 0.3 0.0 - 1.4 mg/dL LAB CHEMISTRY METHOD 11/29/2024 9:[address] [facility] Blood Venous blood specimen / Unknown Venipuncture / Unknown 11/29/2024 5:45 AM EDT 11/29/2024 8:03 AM EDT us Dasha Muniz MD LAB BLOOD ORDERABLES Final Res ult [facility] [address] [place] [address], documented in this encounter Visit Diagnoses Diagnosis Encounter for other general examination documented in this encounter Care Teams Adjuster Arbitrator Relationship Specialty Start Date End Date Jarrod Smart MD [address] [place] [address] PCP - General Internal Medicine 09/18/17 documented as of this encounter
--- OUTSIDE RECORDS SUMMARY | 2025-06-23 08:36 | XMS_ITS | Encounter Summary ---
Author Organization [facility] Address [address] [place] [address] Care Team Providers Care Air Analyst Name Role Phone Jarrod Smart MD Primary Care Provider [phone] Encounter Details Date Type Department Care Team (Late st Contact Info) Description 11/28/2024 Lab Requisition [facility] - Main Lab [address] [facility] [place] [address] Dasha Muniz MD [address] [place] [address] Encounter for other general examination Social History [...] LAB HEMETOLOGY METHOD 11/28/2024 11:52 AM EDT [facility] RBC 3.20(L) 3.80 - 4.80 M/mcL LAB HEMETOLOGY METHOD 11/28/2024 11:52 AM EDT [facility] Hemoglobin 10.0(L) 11.5 - 16.0 g/dL LAB HEMETOLOGY METHOD 11/28/2024 11:52 AM EDT [facility] Hematocrit 30.2(L) 35.0 - 47.0 % LAB HEMETOLOGY METHOD 11/28/2024 11:52 AM [facility] MCV 93.2 79.0 - 98.0 FL LAB HEMETOLOGY METHOD 11/28/2024 11:52 AM EDT [facility] MCH 30.9 27.0 - 32.0 pcg LAB HEMETOLOGY METHOD 11/28/2024 11:52 AM EDT [facility] MCHC 33.1 32.0 - 37.0 g/dL LAB HEMETOLOGY METHOD 11/28/2024 11:52 AM [facility] RDW 12.5 11.0 - 15.0 % LAB HEMETOLOGY METHOD 11/28/2024 11:52 AM [facility] Platelets 306 130 - 400 K/mcL LAB HEMETOLOGY METHOD 11/28/2024 11:52 AM EDT [facility] MPV 9.1 7.0 - 11.0 FL LAB HEMETOLOGY METHOD 11/28/2024 11:52 AM [facility] NRBC 0.0 <1.0 % LAB HEMETOLOGY METHOD 11/28/2024 11:52 AM EDT [facility] NRBC Absolute 0.00 <0.10 K/mcL LAB HEMETOLOGY METHOD 11/28/2024 11:52 AM [facility] Blood Venous blood specimen / Unknown Venipuncture / Unknown 11/28/2024 7:03 AM EDT 11/28/2024 10:20 AM EDT us Dasha Muniz MD LAB BLOOD ORDERABLES Final Res ult [facility] [address] [place] [address], [place] [phone] documented in this encounter Visit Diagnoses Diagnosis Encounter for other general examination documented in this encounter Care Teams Air Analyst Relationship Specialty Start Date End Date Jarrod Smart MD [address] [place], [place] PCP - General Internal Medicine 09/18/17 documented as of this encounter
--- OUTSIDE RECORDS SUMMARY | 2025-06-23 08:36 | XMS_ITS | Encounter Summary ---
Author Organization [facility] Address [address] [place] [address] Phone Care Team Providers Care Senior Associate Name Role Phone Jarrod Smart MD Primary Care Provider + [phone] Ritika Whyte MD Primary Care Provider [phone] Encounter Details Date Type Department Care Team (Late st Contact Info) Description 07/10/2022 Procedure Pass [facility], Ct Scan - [address] [address] Social History Tobacco Use Types Packs/Day Years [...] filedocumented in this encounter Care Teams Senior Associate Relationship Specialty Start Date End Date Jarrod Smart MD [address] [place] [address] PCP - General Internal Medicine 09/29/20 02/16/25 Ritika Whyte MD [address] [place] [address] [place] [address] PCP - General Internal Medicine 02/17/25 documented as of this encounter Additional Source Comments The information contained in this document represents components of the legal health record. It is not the complete legal health record.[facility]
--- OUTSIDE RECORDS SUMMARY | 2025-06-23 08:36 | XMS_ITS | Encounter Summary ---
Author Organization [facility] Address [address] [place] [address] Phone Care Team Providers Care Gusset Edger Name Role Phone Jarrod Smart MD Primary Care Provider [phone] Ritika Whyte MD Primary Care Provider [phone] Encounter Details Date Type Department Care Team (Late st Contact Info) Description 03/13/2024 Procedure Pass [place] Admitting Dept - Virtual Department [address] [place] [address] Social History Tobacco Use Types Packs/Day Years [...] 2:46 PM EDT Justina Dickinson RN * [place] Suicide Severity Rating Scale (Screener/Recent Self-Report) Question [...] on filedocumented in this encounter Care Teams Gusset Edger Relationship Specialty Start Date End Date Jarrod Smart MD [address] [place] [address] PCP - General Internal Medicine 09/29/20 02/16/25 Ritika Whyte MD [address] [place] [address] [place] [address] PCP - General Internal Medicine 02/17/25 documented as of this encounter Additional Source Comments The information contained in this document represents components of the legal health record. It is not the complete legal health record.[facility]
--- OUTSIDE RECORDS SUMMARY | 2025-06-23 08:38 | XMS_ITS | Encounter Summary ---
Author Organization [facility] Address [address] [place] [address] Phone Care Team Providers Care [facility] Name Role Phone Jarrod Smart MD Primary Care Provider + [phone] Ritika Whyte MD Primary Care Provider [phone] Encounter Details Date Type Department Care Team (Late st Contact Info) Description 09/01/2021 Ancillary Orders [facility] Orthopedics & Sports Medicine [address] [place] [address] Daphne Sam MD [address] [place] [address] Orthopedics & Sports Medicine, [facility] [place], [place] [id number] [email or web address] Social History Tobacco Use Types Packs/Day Years [...] on filedocumented in this encounter Care Teams [facility] Relationship Specialty Start Date End Date Jarrod Smart MD [address] [place] [address] PCP - General Internal Medicine 09/29/20 02/16/25 Ritika Whyte MD [address] [place] [address] Dr [place], AGUSTINA [address] PCP - General Internal Medicine 02/17/25 documented as of this encounter Additional Source Comments The information contained in this document represents components of the legal health record. It is not the complete legal health record.[facility]
--- OUTSIDE RECORDS SUMMARY | 2025-06-23 08:38 | XMS_ITS | Encounter Summary ---
Author Organization [facility] Address [address] [place] [address] Phone Care Team Providers Care Security Orderly Name Role Phone Jarrod Smart MD Primary Care Provider [phone]- [phone] Ritika Whyte MD Primary Care Provider [phone] Encounter Details Date Type Department Care Team (Late st Contact Info) Description 09/01/2021 Ancillary Orders [address] [address] Dapnhe Sam MD [address] [place] [address] Orthopedics & Sports Medicine, [place] [address] [email or web address] Right shoulder pain, unspecified [...] as of this encounter Plan of Treatment Pending Results Name Type Priority Associated Diagnoses [...] chronicity documented in this encounter Care Teams Security Orderly Relationship Specialty Start Date End Date Jarrod Smart MD [address] [place] [address] PCP - General Internal Medicine 09/29/20 02/16/25 Ritika Whyte MD [address] [place] [address] [place] [address] PCP - General Internal Medicine 02/17/25 documented as of this encounter Additional Source Comments The information contained in this document represents components of the legal health record. It is not the complete legal health record.[facility]
--- OUTSIDE RECORDS SUMMARY | 2025-06-23 08:38 | XMS_ITS | Encounter Summary ---
Author Organization [facility] Address [address] [place] [address] Phone Care Team Providers Care Bank Messenger Name Role Phone Jarrod Smart MD Primary Care Provider + [phone] Ritika Whyte MD Primary Care Provider [phone] Encounter Details Date Type Department Care Team (Late st Contact Info) Description 09/29/2020 Ancillary Orders [facility], X-Ray - [address] [place] [address] Jarrod Smart MD [address] [place] [phone] Pain Social History Tobacco Use Types Packs/Day [...] pain documented in this encounter Care Teams Bank Messenger Relationship Specialty Start Date End Date Jarrod Smart MD [address] [place] [address] PCP - General Internal Medicine 09/29/20 02/16/25 Ritika Whyte MD [address] [place] [address] [place] [address] PCP - General Internal Medicine 02/17/25 documented as of this encounter Additional Source Comments The information contained in this document represents components of the legal health record. It is not the complete legal health record.[facility]
--- OUTSIDE RECORDS SUMMARY | 2025-06-23 08:38 | XMS_ITS | Clinical Summary ---
Author Organization [facility] Address [address] [place] [address] Phone Care Team Providers Care Integration Developer Name Role Phone Ritika Whyte MD Primary Care Provider [phone] Allergies Active Allergy Reactions Criticality Noted Date [...] Encounters Date Type Department Care Team Description 05/26/2025 3:53 PM EDT - 05/26/2025 11:59 PM EDT Hospital Encounter [facility] [address] [place] [address] Jon Caruso, DO Discharge Disposition: Home or Self Care 05/26/2025 3:52 PM EDT Hospital Encounter [address] [address] Jon Caruso, DO Discharge Disposition: Home or Self Care 05/26/2025 3:45 PM EDT Office Visit [facility] [address] [place] [address] Jon Caruso, DO Rotator cuff arthropathy of left shoulder (Primary Dx); Right shoulder pain; Left shoulder pain; S/P reverse total shoulder arthroplasty, unspecified laterality from Last 3 Months Immunizations Immunization Administration [...] Used Date Smoking Tobacco: Former Cigarettes 1 - 1987 Smokeless Tobacco: Never Comments:Social smoking [...] 03/13/2024 7:50 AM EDT Plan of Treatment Health Maintenance Due Date Last Done Comments DEPRESSION SCREENING 1953 OSTEOPOROSIS SCREENING INITIAL (ONE-TIME) 2006 ZOSTER VACCINES (2 of 3) 08/03/2014 06/08/2014 PNEUMOCOCCAL VACCINES (50+ years) (2 of 2 - PPSV23) 02/21/2018 12/27/2017 DIABETIC EYE EXAM 10/22/2022 URINE MICROALBUMIN/CREATININE RATIO 10/22/2022 BLOOD PRESSURE 05/01/2023 10/29/2022 HEMOGLOBIN A1C 09/12/2024 03/12/2024, 10/22/2022 CREATININE LEVEL 03/14/2025 03/14/2024, , 11/23/2022, Additional history exists COVID-19 VACCINE (2024- season) 2025 05/11/2024, 08/27/2023, 06/07/2022, Additional history exists Adult Td,Tdap Booster 03/06/2034 03/06/2024 RSV VACCINE Completed 05/01/2024 INFLUENZA VACCINE Completed 05/17/2025, , 04/23/2023, Additional history exists HEPATITIS A VACCINES Aged Out No long [...] this topic Medical Devices Implanted Type Area Carpenters Helper Device Identifier Shelf Expiration Date Model / Serial / Lot Bone Plate 3.5x72mm 5 Hole Lcp Ss Locking Straight Bx/2ea - [id number] Implanted:Qty : 1 on 03/13/2024 by Jon Caruso DO at [facility] Right: Humerus [employer] SPINE [id number] / / Bone Screw 3.5mm 10mm T15 Compression Stainless Locking Self Tapping Full Thread Stardrive Recess - [id number] Implanted:Qty : 1 on 03/13/2024 by Jon Caruso DO at [facility] Right: Humerus [employer] SPINE 212.101 / / Screw Bone 3.5x12mm Compression Ss Locking Self Tapping Full Thread T15 Stardrive Recess - [id number] Implanted:Qty : 3 on 03/13/2024 by Jon Caruso DO at [facility] Right: Humerus [employer] SPINE 212.102 / / Tornier Hrs Ptc Proximal Body Size Standard 9mm Implanted:Qty : 1 on 03/13/2024 by Jon Caruso DO at [facility] Prosthetic Joint Right: Shoulder TRIPP 01/09/2028 [id number] / [id number] / Stent Stent Description:AAA repair Baseplate Glenoid 29mm Aequalis Standard - [id number] Implanted:Qty : 1 on 11/22/2022 by Jon Caruso DO at [facility] Right: Shoulder [employer] 07/11/2027 [id number] / [id number] / Post Press-Fit Short 7mm Perform Reversed Threaded Aequalis - [id number] Implanted:Qty : 1 on 11/22/2022 by Jon Caruso DO at [facility] Right: Shoulder [employer] 10/08/2027 [id number] / [id number] / Screw Bone 5x14mm Perform Reverse - [id number] Implanted:Qty : 2 on 11/22/2022 by Jon Caruso DO at [facility] Right: Shoulder [employer] [id number] / / Screw Bone 34mm Perform Reverse - [id number] Implanted:Qty : 2 on 11/22/2022 by Jon Caruso DO at [facility] Right: Shoulder [employer] [id number] / / Glenosphere Component 39mm Perform Reversed Standard - [id number] Implanted:Qty : 1 on 11/22/2022 by Jon Caruso DO at [facility] Right: Shoulder [employer] 08/02/2027 [id number] / [id number] / Shoulder Insert 12.5deg 39mm Flex Plus 6mm Aequalis Ascend Reversed - [id number] Implanted:Qty : 1 on 11/22/2022 by Jon Caruso DO at [facility] Right: Shoulder [employer] 05/24/2026 [id number] / [id number] / Humerus Stem Size 5 Humeral Shoulder Aequalis Pure Titanium Coat Ascend Flexible Standard Anatomic B - [id number] Implanted:Qty : 1 on 11/22/2022 by Jon Caruso DO at [facility] Right: Shoulder [employer] 06/23/2026 [id number] / [id number] / Tray 0.00mm 0.0 Reversed Shoulder Ascend Flex Offset Plus - [id number] Implanted:Qty : 1 on 11/22/2022 by Jon Caruso DO at [facility] Right: Shoulder [employer] 10/23/2027 [id number] / [id number] / Bone Cement Antibiotic Refobacin - [id number] Implanted:Qty : 2 on 03/13/2024 by Jon Caruso DO at [facility] Right: Shoulder BON BIOMET [id number] 02/15/2026 [id number] / / [id number] Tornier Hrs Locking Cap Cocr Implanted:Qty : 1 on 03/13/2024 by Jon Caruso DO at [facility] Right: Shoulder TRIPP 09/18/2028 [id number] / [id number] / Restrictor Shoulder 8 15mm Bone Cement 09 - [id number] Implanted:Qty : 1 on 03/13/2024 by Jon Caruso DO at [facility] Right: Shoulder [employer] [id number] 10/25/2027 [id number] / [id number] / Aequalis Flex Revive Assembly Screw 30mm Implanted:Qty : 1 on 03/13/2024 by Jon Caruso DO at [facility] Right: Shoulder TRIPP 05/28/2027 [id number] / [id number] / Aequalis Flex Revive Spacer 9mm X 30mm Implanted:Qty : 1 on 03/13/2024 by Jon Caruso DO at [facility] Right: Shoulder TRIPP 09/20/2027 [id number] / [id number] / Aequalis Flex Revive Ptc Partially Coated Distal Stem 9mm X90mm Implanted:Qty : 1 on 03/13/2024 by Jon Caruso DO at [facility] Right: Shoulder TRIPP 10/09/2027 [id number] / [id number] / Tornier Flex Shoulder System Flex Reversed Tray Centered +6mm Implanted:Qty : 1 on 03/13/2024 by Jon Caruso DO at [facility] Right: Shoulder TRIPP 09/21/2028 [id number] / [id number] / Tornier Flex Shoulder System Flex Reversed Insert, Thickness +9mm 12.5 Degree Angle Implanted:Qty : 1 on 03/13/2024 by Jon Caruso DO at [facility] Right: Shoulder TRIPP 09/10/2028 [id number] / [id number] / Procedures Procedure Name Priority Date/Time Associated Diagnosis Comments XR SHOULDER 2 VIEWS (LEFT) Routine 05/26/2025 4:07 PM EDT Left shoulder pain XR SHOULDER 2 VIEWS (RIGHT) Routine 05/26/2025 4:06 PM EDT Right shoulder pain BASIC METABOLIC PANEL (BMP) Routine 03/14/2024 6:36 AM EDT HEMOGLOBIN A1C Routine 03/12/2024 11:03 AM EDT S/P reverse total shoulder arthroplasty, unspecified laterality from Last 3 Months or Most Recently Relevant to Health Maintenance Results * XR SHOULDER 2 VIEWS (LEFT) (05/26/2025 4:07 PM EDT) Narrative SYSTEMGENERATED, DOCUMENTATION - 05/26/2025 4:07 PM EDT This image report has been auto-finalized and has not been read by a Radiologist. Interpretation has been included in the provider encounter note for this date of service. us Jon Caruso DO IMG XR UPPER EXTREMITY Tona l Result * XR SHOULDER 2 VIEWS (RIGHT) (05/26/2025 4:06 PM EDT) Narrative SYSTEMGENERATED, DOCUMENTATION - 05/26/2025 4:06 PM EDT This image report has been auto-finalized and has not been read by a Radiologist. Interpretation has been included in the provider encounter note for this date of service. Jon Caruso DO IMG XR UPPER EXTREMITY Tona l Result * (ABNORMAL) Basic metabolic panel (03/14/2024 6:36 AM EDT) SODIUM 134 133 - 146 mmol/L [facility] CHLORIDE 98 96 - 108 mmol/L [facility] POTASSIUM 4.7 3.3 - 5.1 mmol/L [facility] CO2 26 21 - 35 mmol/L [facility] BUN 13 6 - 19 mg/dL [facility] CREATININE 0.80 0.5 - 1.5 mg/dL [facility] GLUCOSE 131(H) 70 - 99 mg/dL [facility] CALCIUM 8.6 8.4 - 10.3 mg/dL [facility] EGFR 74 >59 mL/min/1.7 3m2 [facility] Comment:Estimated glomerular filtration rate calculated using the CKD-EPI refit equation. ANION GAP 15 10 - 20 mmol/L [facility] Blood 03/14/2024 6:36 AM EDT 03/14/2024 6:39 AM EDT us Sukhdeep Oreilly PA-C LAB BLOOD BKR ORDERABL ES Final Result [address] [address] * (ABNORMAL) Hemoglobin A1c (03/12/2024 11:03 AM EDT) HEMOGLOBIN A1C 7.1(H) 4.3 - 5.8 % [facility] Blood 03/12/2024 11:0 3 AM EDT 03/12/2024 11:12 AM EDT us Jon Caruso DO LAB BLOOD BKR ORDERABLES Fi nal Result [address] [address] from Last 3 Months or Most Recently Relevant to Health Maintenance Insurance MEDICARE PART A & B [employer] MEDICARE SUPPLEMENT MEDICARE PART A & B [employer] MEDICARE SUPPLEMENT [place] MED[employer]ARE SUPPLEMENT [employer] MED[employer]ARE SUPPLEMENT MEDICARE PART A & B MEDICARE SUPPLEMENT Member Subscriber Plan / Payer (Ef fective 2006-Present) Name:Moira Portillo Member ID:[id number] Relation to Subscriber:Self Name:Moira Portillo Subscriber ID:[id number] Payer ID:[id number] Group ID:Not on file Type:Medicare Address: [employer] [address] [place] [id number] [employer] [facility] EXTENSION MEDICARE SUPPLEMENT MEDICARE PART A & B [facility] EXTENSION MEDICARE SUPPLEMENT MEDICARE PART A & B [facility] MEDICARE SUPPLEMENT MEDICARE PART A & B [facility] MEDICARE SUPPLEMENT Advance Directives For more information, please contact: [phone] (9AM - 5PM [facility]) Documents on File Type Date Recorded Patient Hand Coper Expl anation Healthcare Proxy 11/26/2022 5:53 PM Care Teams Integration Developer Relationship Specialty Start Date End Date Ritika Whyte MD [address] [place] [address] Dr LOPEZ, AGUSTINA [address] PCP - General Internal Medicine 02/17/25 Additional Source Comments The information contained in this document represents components of the legal health record. It is not the complete legal health record.[facility]
--- OUTSIDE RECORDS SUMMARY | 2025-06-23 08:38 | XMS_ITS | Encounter Summary ---
Author Organization [facility] Address [address] [place] [address] Phone Care Team Providers Care Esol Teacher Assistant Name Role Phone Jarrod Smart MD Primary Care Provider + [phone] Ritika Whyte MD Primary Care Provider [phone] Encounter Details Date Type Department Care Team ([facility] st Contact Info) Description 07/17/2022 Prep for Surgery [facility] [address] [place] [address] [place] [address] Jon Caruso DO [address] [facility], [facility] [place] [address] [email or web address] Social History Tobacco Use Types Packs/Day Years [...] on filedocumented in this encounter Care Teams Esol Teacher Assistant Relationship Specialty Start Date End Date Jarrod Smart MD [address] [place] [address] PCP - General Internal Medicine 09/29/20 02/16/25 Ritika Whyte MD [address] [place] [address] Dr LOPEZ, AGUSTINA [address] PCP - General Internal Medicine 02/17/25 documented as of this encounter Additional Source Comments The information contained in this document represents components of the legal health record. It is not the complete legal health record.[facility]
--- OUTSIDE RECORDS SUMMARY | 2025-06-23 08:38 | XMS_ITS | Encounter Summary ---
Author Organization [facility] Address [address] [place] [address] Phone Care Team Providers Care Caustics Loader Name Role Phone Jarrod Smart MD Primary Care Provider +- [phone] Ritika Whyte MD Primary Care Provider [phone] Encounter Details Date Type Department Care Team (Late st Contact Info) Description 11/22/2022 Procedure Pass OR Admitting Dept - Virtual Department [address] [place] [address] Social History Tobacco Use Types Packs/Day Years [...] 5:30 PM EDT Krishna Martinez RN * [place] Suicide Severity Rating Scale (Screener/Recent Self-Report) Question Answer Date of Assessment Author 1. Wish to be (Past 1 Month) No 023 5:30 PM EDT Krishna Martinez, RN 2. Non-Specific Active Suici gina Thoughts (Past 1 Month) No 11/22/2022 5:30 PM EDT Krishna Martinez , RN 6. Suicidal Behavior (Lifetime) No 04/06/202 3 5:30 PM EDT Krishna Martinez, RN documented as of this encounter Plan of Treatment Not on file documented as of this encounter Visit Diagnoses Not on filedocumented in this encounter Care Teams Caustics Loader Relationship Specialty Start Date End Date Jarrod Smart MD [address] [place] [address] PCP - General Internal Medicine 09/29/20 02/16/25 Ritika Whyte MD [address] [place] [address] [place] [address] PCP - General Internal Medicine 02/17/25 documented as of this encounter Additional Source Comments The information contained in this document represents components of the legal health record. It is not the complete legal health record.[facility]
--- OUTSIDE RECORDS SUMMARY | 2025-06-23 08:38 | XMS_ITS | Encounter Summary ---
Author Organization [facility] Address [address] [place] [address] Phone Care Team Providers Care Seismograph Shooter Name Role Phone Jarrod Smart MD Primary Care Provider [phone] Ritika Whyte MD Primary Care Provider [phone] Encounter Details Date Type Department Care Team (Late st Contact Info) Description 03/09/2024 Procedure Pass [facility] Scan - [address] [address] Social History Tobacco Use Types Packs/Day Years [...] on filedocumented in this encounter Care Teams Seismograph Shooter Relationship Specialty Start Date End Date Jarrod Smart MD [address] [place] [address] PCP - General Internal Medicine 09/29/20 02/16/25 Ritika Whyte MD [address] [place] [address] [place] [address] PCP - General Internal Medicine 02/17/25 documented as of this encounter Additional Source Comments The information contained in this document represents components of the legal health record. It is not the complete legal health record.[facility]
== END 2025-06-23 08:46 | disposition home or self-care (01) ==
LOC: HO.HPS 08:24
PROVIDERS: PCP Physician Assistant; Visit Provider Hospitalist
DX: J44.9 Chronic obstructive pulmonary disease, unspecified (principal); J84.9 Interstitial pulmonary disease, unspecified; J30.9 Allergic rhinitis, unspecified
CPT/HCPCS: 99214; G2211

== ENCOUNTER → 2025-06-23 08:23 | Outpatient (BNVA) | payer MEDICARE, OTHER, SELFPAY | PROVIDERS: PCP Physician Assistant; Visit Provider Hospitalist | DX: J44.9 Chronic obstructive pulmonary disease, unspecified (principal); Z87.891 Personal history of nicotine dependence; J84.9 Interstitial pulmonary disease, unspecified; J30.9 Allergic rhinitis, unspecified | CPT/HCPCS: 99212 ==

== ENCOUNTER 2025-07-01 09:22 | Outpatient (AMB) | payer MEDICARE, OTHER, SELFPAY ==
[2025-07-01 09:30] VITALS: BP 138/56; PULSE 71; RESP 16; TEMP 36.6; O2SAT 99; BMI 23.5
--- NOTE | 2025-07-01 09:30 | MHC.PC.OV ---
Vital Signs 07/01/25 09:30 Height 5 ft 5 in Weight 141 lb 8 oz BMI 23.5 BP 138/56 L Blood Pressure Location Rt brachial Position Sitting Respiration 16 Pulse 71 Pulse Source Pulse Oximeter Temp 97.8 F Temp Source Oral Pulse Oximetry (%) 99 Oxygen Delivery Method Room Air Intake Visit Reasons: dm and meds 30 min Intake Note: Diabetes follow up Accompanied by: Spouse Allergies No Known Allergies Allergy (Unknown, Verified 07/01/25 09:32) NOT APPLICABLE Tobacco use date assessed: 04/22/25 Dental Screening Dental Screen Date: 12/23/24 HPI dm and meds 30 min HPI Details Pt is an 85 y/o female who presents today for a follow up. She has a hx of t2dm, dyslipidemia, COPD with asthma overlap, and anxiety. Pulm: has COPD and asthma and overall well-controlled. Follows with pulmonology. No wheezing or shortness on breath. Has not needed prednisone tapering quite some time. CV: Cholesterol is managed with simvastatin 40 mg. No chest pain or shortness on breath. She tells me today because her last cholesterol was so great she actually wants to lower her dose. She would like to be on the same dose as her has been and wants to be on the simvastatin 20 mg. She says that they eat the same foods in that her cholesterol should be fine. She would be in agreement to going back up on the simvastatin should her cholesterol change. Endo: Diagnosed around 2009. She is currently on metformin 500 mg bid. Her a1c today is 6. She sometimes has noticed that her blood sugars are between 70 and 90. The Jardiance did cause a yeast infection. Glipizide caused hypoglycemia GI: recent labs showed elevated lfts, no known hx of this per pt. She has stopped tylenol at last visit. She did have an abdominal ultrasound which was suspicious for a gallbladder mass. She did not follow with General surgery. she was given the phone number and she states she understands risk of cancer and just wants to ignore this. She tells me today that she does not have any abdominal pain but we will consider seeing General surgery. She is aware that the mass could be concerning for cancer. msk: fx back t12 and s1 a few months ago. Following with Neurosurgery. Pain is improved with tramadol prn. She still gets some pain at night though and has a hard time sleeping. Gabapentin 300 mg is helpful. She is exercising. Psych: Was recently increased on Lexapro and feels it is slightly better but not at goal. Used to be on benzos but daughter is here today with patient and thought that there was a bit of abuse with this medication. [facility] Medical History (Updated 03/26/25 @ 13:13 by Karen Brown PA-C) RSV (respiratory syncytial virus pneumonia) Pneumonitis ILD (interstitial lung disease) Chronic allergic rhinitis Osteopenia Bronchitis Asthma-COPD overlap syndrome Chronic allergic rhinitis Cough Surgical History History of colonoscopy Social History Housing: House Alcohol intake: never Patient Tobacco Use Status: Former Tobacco user Tobacco use type: Cigarette Years Smoked: 20 years e-Cigarette/Vaping Use: Never Used Second Hand Smoke Exposure: No service: No Current occupational status: retired Cognitive needs: No 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) Vision needs: Yes (glasses) Questionnaire Thrive Questionnaire Date Thrive assessed: 12/23/24 I am a: Patient What is your living situation today?: I have a steady place to live Within the past 12 months, did the food you bought not last and you didn't have the money to get more?: Never true Within the past 12 months, did you worry whether your food would run out before you got money to buy more?: Never true Do you have trouble paying for medicines?: No Do you have trouble getting transportation to medical appointments?: No Do you have trouble paying your heating and electricity bill?: No Do you have trouble taking care of your child, family member or friend?: No Do you have trouble with day-to-day activities such as bathing, preparing meals, shopping, managing finances, etc.?: I choose not to answer this question Are you currently unemployed and looking for a job?: No Are you interested in more education?: No Please select the resources that you would like help with: None Currently or been in a relationship where the following occur: I choose not to answer THRIVE Score: 0 Physical exam (Primary Care) BMI result Body Mass Index 23.5 Tobacco/Smoking Status: Tobacco use Status Tobacco use date assessed 04/22/25 04/22/25 08:54 Patient Tobacco Use Status Former Tobacco user 04/22/25 08:49 Tobacco use type Cigarette 04/22/25 08:49 e-Cigarette/Vaping Use Never Used 04/22/25 08:49 Thrive Assessment: Date of Thrive Assessment Date Thrive assessed 12/23/24 04/22/25 08:49 Currently or been in a relationship where the following occur: I choose not to answer Const Orientation/consciousness: patient oriented x3 HENMT Ears: hearing grossly normal bilaterally Neck Thyroid: Thyroid normal Lymphatic: no lymphadenopathy noted Resp Auscultation: clear to auscultation bilaterally Cardio Rate: regular rate Rhythm: regular rhythm Heart sounds: S1 normal heart sound present and S2 normal heart sound present GI Inspection: Yes normal to inspection Palpation (GI): Soft to palpation and Other GI palpation findings present (nontender, no cva tenderness) Auscultation: normoactive bowel sounds Rectal Exam - Female: deferred Skin General skin exam: no rashes or lesions noted Neuro General: patient oriented x3, gait normal and no focal motor deficits Results AMB Hemoglobin A1c AMB Hemoglobin A1c 6.0 % Last Edit by Jade Romeo CMA on 07/01/25 09:45 Results Reviewed Results Reviewed: Laboratory Tests 01/05/25 02/18/25 02/18/25 12:11 12:21 12:27 WBC 8.1 RBC 3.91 L Hgb 12.1 Hct 34.1 L Plt Count 237 Creatinine 0.82 Estimated GFR > 60 Estimat Average Glucose 140 Hemoglobin A1c % 6.5 H AST 67 H ALT 19 Alkaline Phosphatase 87 US/US abdomen comp w elastography IMPRESSION: Focal masslike wall thickening of the gallbladder fundus measuring up to 1.8 x 1.2 x 1.6 cm. Findings could represent adenomyomatosis or a mass. Follow-up is recommended. Coding Level of Care Code Est Pt Level 4 (91149) Complex EM visit Add On G2211 Diagnoses Controlled type 2 diabetes mellitus with complication, without long-term current use of insulin E11.8 Gallbladder mass K82.8 Elevated LFTs R79.89 Chronic back pain M54.9; G89.29 Dyslipidemia E78.5 Assessment & Plan Assessment & Plan (1) Controlled type 2 diabetes mellitus with complication, without long-term current use of insulin: Code(s): E11.8 - Type 2 diabetes mellitus with unspecified complications Category: Medical Plan: Reduce metformin to 500 mg daily (2) Gallbladder mass: Code(s): K82.8 - Other specified diseases of gallbladder Category: Medical Plan: Phone number provided to General surgery again. She will think about it (3) Elevated LFTs: Code(s): R79.89 - Other specified abnormal findings of blood chemistry Category: Medical Plan: We will recheck labs (4) Chronic back pain: Code(s): M54.9 - Dorsalgia, unspecified; G89.29 - Other chronic pain Category: Medical Plan: Continue tramadol Continue gabapentin to 300 mg Continue naproxen as needed (5) Dyslipidemia: Code(s): E78.5 - Hyperlipidemia, unspecified Category: Medical Plan: Reduce simvastatin to 20 mg. We will recheck labs in 3 months. Sooner if anything changes. Patient understands and agrees with the plan Orders: Orders AMB Hemoglobin A1c Today E11.8 - Type 2 diabetes mellitus with unspecified complications Hemoglobin A1c Today E11.8 - Type 2 diabetes mellitus with unspecified complications, E78.5 - Hyperlipidemia, unspecified, K82.8 - Other specified diseases of gallbladder, R73.01 - Impaired fasting glucose, R79.89 - Other specified abnormal findings of blood chemistry Lipid Panel Today E11.8 - Type 2 diabetes mellitus with unspecified complications, E78.5 - Hyperlipidemia, unspecified, K82.8 - Other specified diseases of gallbladder, R79.89 - Other specified abnormal findings of blood chemistry Ferritin Today E11.8 - Type 2 diabetes mellitus with unspecified complications, E78.5 - Hyperlipidemia, unspecified, K82.8 - Other specified diseases of gallbladder, R79.89 - Other specified abnormal findings of blood chemistry Complete Blood Count Auto Diff Today E11.8 - Type 2 diabetes mellitus with unspecified complications, E78.5 - Hyperlipidemia, unspecified, K82.8 - Other specified diseases of gallbladder, R79.89 - Other specified abnormal findings of blood chemistry Comprehensive [place]. Panel Fast Today E11.8 - Type 2 diabetes mellitus with unspecified complications, E78.5 - Hyperlipidemia, unspecified, K82.8 - Other specified diseases of gallbladder, R79.89 - Other specified abnormal findings of blood chemistry TSH reflex Free T4 Today E11.8 - Type 2 diabetes mellitus with unspecified complications, E78.5 - Hyperlipidemia, unspecified, K82.8 - Other specified diseases of gallbladder, R79.89 - Other specified abnormal findings of blood chemistry Microalbumin, Random (w Creat) Today E11.8 - Type 2 diabetes mellitus with unspecified complications, E78.5 - Hyperlipidemia, unspecified, K82.8 - Other specified diseases of gallbladder, R79.89 - Other specified abnormal findings of blood chemistry IRON PROFILE Today E11.8 - Type 2 diabetes mellitus with unspecified complications, E78.5 - Hyperlipidemia, unspecified, K82.8 - Other specified diseases of gallbladder, R79.89 - Other specified abnormal findings of blood chemistry Vitamin B12 and Folate Today E11.8 - Type 2 diabetes mellitus with unspecified complications, E78.5 - Hyperlipidemia, unspecified, K82.8 - Other specified diseases of gallbladder, R79.89 - Other specified abnormal findings of blood chemistry Medications: New metformin ER (Glucophage XR) 500 mg PO QPM 90 tabs 0RF simvastatin 20 mg PO BEDTIME 90 tabs 1RF Refilled tramadol 50 mg PO DAILY PRN 30 tabs 5RF pain 30 days G89.29 - Other chronic pain, M54.9 - Dorsalgia, unspecified gabapentin 300 mg PO BEDTIME 90 caps 3RF 90 days Discontinued metformin Discontinued Reason: Doctor's Order 500 mg PO BID 180 tabs 1RF
--- OUTSIDE RECORDS SUMMARY | 2025-07-01 10:42 | XMS_ITS | Clinical Summary ---
Author Organization [address] [facility] Address [address] [place] [address] Phone Care Team Providers Care Sewer And Inspector Name Role Phone Jarrod Smart MD Primary Care Provider [phone] Medical History Medical History Date Comments Type 2 diabetes mellitus wit hout complication 10/11/2017 DX:Type 2 diabetes mellitus without complication (HCC) Hyperlipidemia 10/11/2017 DX:Hyperlipidemi a Atelectasis 03/27/2017 DX:Atelectasis COPD (chronic obstructive pu lmonary disease) ([facility]/HCC V24, [facility]/HCC V28) 05/17/2017 DX:COPD (chronic o bstructive pulmonary disease) ([facility]) 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 DX:Poly p [...] LAB CHEMISTRY METHOD 11/29/2024 9:24 AM EDT [facility] Potassium 4.8 3.5 - 5.5 mmol/L LAB CHEMISTRY METHOD 11/29/2024 9:24 AM EDT [facility] Chloride 100 96 - 110 mmol/L LAB CHEMISTRY METHOD 11/29/2024 9:24 AM [facility] CO2 29 21 - 32 mmol/L LAB CHEMISTRY METHOD 11/29/2024 9:24 AM [facility] Anion Gap 4 3 - 11 LAB CHEMISTRY METHOD 11/29/2024 9:24 AM [facility] Glucose 104(H) 70 - 100 mg/dL LAB CHEMISTRY METHOD 11/29/2024 9:24 AM [facility] BUN 9 5 - 25 mg/dL LAB CHEMISTRY METHOD 11/29/2024 9:24 AM [facility] Creatinine 0.65 0.50 - 1.10 mg/dL LAB CHEMISTRY METHOD 11/29/2024 9:24 AM [facility] eGFR 87 >=60 mL/min/1. 73m2 LAB CHEMISTRY METHOD 11/29/2024 9:24 AM [facility] Comment:Calculation based on the Chronic Kidney Disease Epidemiology Collaboration (CKD-EPI) equation refit without adjustment for race. BUN/Creatinine Ratio 13.8 LAB CHEMISTRY METHOD 11/29/2024 9:24 AM [facility] Calcium 9.5 8.5 - 10.5 mg/dL LAB CHEMISTRY METHOD 11/29/2024 9:24 AM [facility] AST (SGOT) 100(H) 10 - 42 unit/L LAB CHEMISTRY METHOD 11/29/2024 9:24 AM [facility] ALT (SGPT) 49 10 - 60 unit/L LAB CHEMISTRY METHOD 11/29/2024 9:24 AM [facility] Alkaline Phosphatase 89 42 - 121 unit/L LAB CHEMISTRY METHOD 11/29/2024 9:24 AM [facility] Total Protein 7.1 6.0 - 8.0 g/dL LAB CHEMISTRY METHOD 11/29/2024 9:24 AM EDT [facility] Albumin 3.2 3.2 - 5.0 g/dL LAB CHEMISTRY METHOD 11/29/2024 9:24 AM EDT [facility] Total Bilirubin 0.3 0.0 - 1.4 mg/dL LAB CHEMISTRY METHOD 11/29/2024 9:24 AM EDT [facility] Blood Venous blood specimen / Unknown Venipuncture / Unknown 11/29/2024 5:45 AM EDT 11/29/2024 8:03 AM EDT us Dasha Muniz MD LAB BLOOD ORDERABLES Final Res ult [facility] [address] [place] [address], [place] [phone] from Last 3 Months or Most Recently Relevant to Health Maintenance Insurance MEDICARE Care Teams Sewer And Inspector Relationship Specialty Start Date End Date Jarrod Smart MD [address] [place] [address] PCP - General Internal Medicine 09/18/17
--- OUTSIDE RECORDS SUMMARY | 2025-07-01 10:42 | XMS_ITS | Encounter Summary ---
Author Organization [facility] Address [address] [place] [address] Care Team Providers Care Store Lead Name Role Phone Jarrod Smart MD Primary Care Provider [phone] Encounter Details Date Type Department Care Team (Late st Contact Info) Description 11/25/2024 Lab Requisition [facility] - Main Lab [address] [facility] [place] [address] Dasha Muniz MD [address] [place] [address] Encounter for other general examination Social History [facility] Comment:Calculation based on the [...] ult [facility] [address] [place] [address], documented in this encounter Visit Diagnoses Diagnosis Encounter for other general examination documented in this encounter Care Teams Store Lead Relationship Specialty Start Date End Date Jarrod Smart MD [address] [place], [place] PCP - General Internal Medicine 09/18/17 documented as of this encounter
--- OUTSIDE RECORDS SUMMARY | 2025-07-01 10:42 | XMS_ITS | Encounter Summary ---
Author Organization [facility] Address [address] [place] [address] Care Team Providers Care Switch Inspector Name Role Phone Jarrod Smrat MD Primary Care Provider [phone] Encounter Details Date Type Department Care Team (Late st Contact Info) Description 11/23/2024 Lab Requisition [facility] - Main Lab [address] [facility] [place] [address] Dasha Muniz MD [address] [place] [address] Encounter for other general examination Social History [...] AM EDT) WBC 7.4 4.8 - 10.8 K/[facility] LAB HEMETOLOGY METHOD 11/23/2024 8:40 AM [facility] RBC 3.20(L) 3.80 - 4.80 M/mcL LAB HEMETOLOGY METHOD 11/23/2024 8:40 AM [facility] Hemoglobin 10.0(L) 11.5 - 16.0 g/dL LAB HEMETOLOGY METHOD 11/23/2024 8:40 AM [facility] Hematocrit 29.8(L) 35.0 - 47.0 % LAB HEMETOLOGY METHOD 11/23/2024 8:40 AM [facility] MCV 92.3 79.0 - 98.0 FL LAB HEMETOLOGY METHOD 11/23/2024 8:40 AM [facility] MCH 31.0 27.0 - 32.0 pcg LAB HEMETOLOGY METHOD 11/23/2024 8:40 AM [facility] MCHC 33.6 32.0 - 37.0 g/dL LAB HEMETOLOGY METHOD 11/23/2024 8:40 AM [facility] RDW 12.7 11.0 - 15.0 % LAB HEMETOLOGY METHOD 11/23/2024 8:40 AM [facility] Platelets 263 130 - 400 K/mcL LAB HEMETOLOGY METHOD 11/23/2024 8:40 AM [facility] MPV 9.4 7.0 - 11.0 FL LAB HEMETOLOGY METHOD 11/23/2024 8:40 AM [facility] NRBC 0.0 <1.0 % LAB HEMETOLOGY METHOD 11/23/2024 8:40 AM [facility] NRBC Absolute 0.00 <0.10 K/mcL LAB HEMETOLOGY METHOD 11/23/2024 8:40 AM [facility] Neutrophils Relative 59.4 % LAB HEMETOLOGY METHOD 11/23/2024 8:40 AM [facility] Lymphocytes Relative 23.5 % LAB HEMETOLOGY METHOD 11/23/2024 8:40 AM [facility] Monocytes Relative 12.7 % LAB HEMETOLOGY METHOD 11/23/2024 8:40 AM [facility] Eosinophils Relative 3.5 % LAB HEMETOLOGY METHOD 11/23/2024 8:40 AM [facility] Basophils Relative 0.5 % LAB HEMETOLOGY METHOD 11/23/2024 8:40 AM [facility] Immature Granulocytes Relative 0.4 % LAB HEMETOLOGY METHOD 11/23/2024 8:40 AM [facility] Neutrophils Absolute 4.38 1.50 - 7.00 K/mcL LAB HEMETOLOGY METHOD 11/23/2024 8:40 AM [facility] Lymphocytes Absolute 1.74 1.00 - 5.00 K/mcL LAB HEMETOLOGY METHOD 11/23/2024 8:40 AM [facility] Monocytes Absolute 0.94 0.20 - 1.00 K/mcL LAB HEMETOLOGY METHOD 11/23/2024 8:40 AM [facility] Eosinophils Absolute 0.26 0.00 - 0.50 K/mcL LAB HEMETOLOGY METHOD 11/23/2024 8:40 AM [facility] Basophils Absolute 0.04 0.00 - 0.20 K/mcL LAB HEMETOLOGY METHOD 11/23/2024 8:40 AM [facility] Immature Granulocytes Absolute 0.03 0.00 - 0.03 K/mcL LAB HEMETOLOGY METHOD 11/23/2024 8:40 AM [facility] Blood Venous blood specimen / Unknown 11/23/2024 4:59 AM EDT 11/23/2024 8:07 AM EDT Dasha Muniz MD LAB BLOOD ORDERABLES Final Res ult Performing Organization Address City/[facility]/ZIP Co de Phone Number [facility] [address] [place] [address], [place] [phone] * Magnesium (11/23/2024 4:59 AM EDT) Pathologist [facility] Magnesium 1.9 1.9 - 2.6 mg/dL LAB CHEMISTRY METHOD 11/23/2024 8:52 AM EDT [facility] Blood Venous blood specimen / Unknown 11/23/2024 4:59 AM EDT 11/23/2024 8:07 AM EDT Dasha Muniz MD LAB BLOOD ORDERABLES Final Res ult Performing Organization Address [facility]/ZIP Co de Phone Number [facility] [address] [place] [address], [place] [phone] * (ABNORMAL) Comprehensive metabolic panel (11/23/2024 4:59 AM EDT) [facility] Sodium 132(L) 133 - 145 mmol/L LAB CHEMISTRY METHOD 11/23/2024 8:52 AM [facility] Potassium 4.2 3.5 - 5.5 mmol/L LAB CHEMISTRY METHOD 11/23[facility]24 [facility] Chlor[facility] 101 96 - 110 mmol/L LAB CHEMISTRY METHOD [facility]/23[facility]2024 8[facility] CO2 24 21 - 32 mmol/L LAB CHEMISTRY METHOD 11/23/2024 8:52 AM [facility] Anion Gap 7 3 - 11 LAB CHEMISTRY METHOD 11/23/2024 8:52 AM [facility] Glucose 148(H) 70 - 100 mg/dL LAB CHEMISTRY METHOD 11/23/2024 8:52 AM [facility] BUN 10 5 - 25 mg/dL LAB CHEMISTRY METHOD 11/23/2024 8:52 AM [facility] Creatinine 0.60 0.50 - 1.10 mg/dL LAB CHEMISTRY METHOD 11/23/2024 8:52 AM [facility] eGFR 89 >=60 mL/min/1. 73m2 LAB CHEMISTRY METHOD 11/23/2024 8:52 AM [facility] Comment:Calculation based on the Chronic Kidney Disease Epidemiology Collaboration (CKD-EPI) equation refit without adjustment for race. BUN/Creatinine Ratio 16.7 LAB CHEMISTRY METHOD 11/23/2024 8:52 AM [facility] Calcium 9.1 8.5 - 10.5 mg/dL LAB CHEMISTRY METHOD 11/23/2024 8:52 AM [facility] AST (SGOT) 106(H) 10 - 42 unit/L LAB CHEMISTRY METHOD 11/23/2024 8:52 AM [facility] ALT (SGPT) 56 10 - 60 unit/L LAB CHEMISTRY METHOD 11/23/2024 8:52 AM [facility] Alkaline Phosphatase 59 42 - 121 unit/L LAB CHEMISTRY METHOD 11/23/2024 8:52 AM [facility] Total Protein 6.7 6.0 - 8.0 g/dL LAB CHEMISTRY METHOD 11/23/2024 8:52 AM [facility] Albumin 2.8(L) 3.2 - 5.0 g/dL LAB CHEMISTRY METHOD 11/23/2024 8:52 AM [facility] Total Bilirubin 0.4 0.0 - 1.4 mg/dL LAB CHEMISTRY METHOD 11/23/2024 8:52 AM [facility] Blood Venous blood specimen / Unknown 11/23/2024 4:59 AM EDT 11/23/2024 8:07 AM EDT us Dasha Muniz MD LAB BLOOD ORDERABLES Final Res ult [facility] ([email or web address] [address] [place] [address], documented in this encounter Visit Diagnoses Diagnosis Encounter for other general examination documented in this encounter Care Teams Switch Inspector Relationship Specialty Start Date End Date Jarrod Smart MD [address] [place] [address] PCP - General Internal Medicine 09/18/17 documented as of this encounter
--- OUTSIDE RECORDS SUMMARY | 2025-07-01 10:42 | XMS_ITS | Encounter Summary ---
Author Organization [facility] Address [address] [place] [address] Care Team Providers Care Associate Professor Physician Name Role Phone Jarrod Smart MD Primary Care Provider [phone] Encounter Details Date Type Department Care Team (Late st Contact Info) Description 11/28/2024 Lab Requisition [facility] - Main Lab [address] [facility] [place] [address] Dasha Muniz MD [address] [place] [address] Encounter for other general examination Social History [...] LAB HEMETOLOGY METHOD 11/28/2024 11:52 AM EDT [facility] RBC 3.20(L) 3.80 - 4.80 M/mcL LAB HEMETOLOGY METHOD 11/28/2024 11:52 AM EDT [facility] Hemoglobin 10.0(L) 11.5 - 16.0 g/dL LAB HEMETOLOGY METHOD 11/28/2024 11:52 AM EDT [facility] Hematocrit 30.2(L) 35.0 - 47.0 % LAB HEMETOLOGY METHOD 11/28/2024 11:52 AM [facility] MCV 93.2 79.0 - 98.0 FL LAB HEMETOLOGY METHOD 11/28/2024 11:52 AM EDT [facility] MCH 30.9 27.0 - 32.0 pcg LAB HEMETOLOGY METHOD 11/28/2024 11:52 AM EDT [facility] MCHC 33.1 32.0 - 37.0 g/dL LAB HEMETOLOGY METHOD 11/28/2024 11:52 AM [facility] RDW 12.5 11.0 - 15.0 % LAB HEMETOLOGY METHOD 11/28/2024 11:52 AM [facility] Platelets 306 130 - 400 K/mcL LAB HEMETOLOGY METHOD 11/28/2024 11:52 AM EDT [facility] MPV 9.1 7.0 - 11.0 FL LAB HEMETOLOGY METHOD 11/28/2024 11:52 AM [facility] NRBC 0.0 <1.0 % LAB HEMETOLOGY METHOD 11/28/2024 11:52 AM EDT [facility] NRBC Absolute 0.00 <0.10 K/mcL LAB HEMETOLOGY METHOD 11/28/2024 11:52 AM [facility] Blood Venous blood specimen / Unknown Venipuncture / Unknown 11/28/2024 7:03 AM EDT 11/28/2024 10:20 AM EDT us Dasha Muniz MD LAB BLOOD ORDERABLES Final Res ult [facility] [address] [place] [address], [place] [phone] documented in this encounter Visit Diagnoses Diagnosis Encounter for other general examination documented in this encounter Care Teams Associate Professor Physician Relationship Specialty Start Date End Date Jarrod Smart MD [address], [place] PCP - General Internal Medicine 09/18/17 documented as of this encounter
--- OUTSIDE RECORDS SUMMARY | 2025-07-01 10:42 | XMS_ITS | Encounter Summary ---
Author Organization [facility] Address [address] [place] [address] Care Team Providers Care Pocket Grinder Operator Name Role Phone Jarrod Smart MD Primary Care Provider [phone] Encounter Details Date Type Department Care Team (Late st Contact Info) Description 11/29/2024 Lab Requisition [facility] - Main Lab [address] [place] [address] Dasha Muniz MD [address] [place] [id number] Encounter for other general examination Social History [...] CBC auto differential (11/29/2024 5:45 AM EDT) [facility] Signature WBC 7.6 4.8 - 10.8 K/[facility] LAB HEMETOLOGY METHOD 11/29/2024 8:37 AM EDT [facility] ([facility] LAB RBC 3.40(L) 3.80 - 4.80 M/mcL LAB HEMETOLOGY METHOD 11/29/2024 8:37 AM [facility] LAB Hemoglobin 10.6(L) 11.5 - 16.0 g/dL LAB HEMETOLOGY METHOD 11/29/2024 8:37 AM [facility] LAB Hematocrit 31.5(L) 35.0 - 47.0 % LAB HEMETOLOGY METHOD 11/29/2024 8:37 AM [facility] MCV 92.4 79.0 - 98.0 FL LAB HEMETOLOGY METHOD 11/29/2024 8:37 AM [facility] LAB MCH 31.1 27.0 - 32.0 pcg LAB HEMETOLOGY METHOD 11/29/2024 8:37 AM [facility] LAB MCHC 33.7 32.0 - 37.0 g/dL LAB HEMETOLOGY METHOD 11/29/2024 8:37 AM [facility] LAB RDW 12.7 11.0 - 15.0 % LAB HEMETOLOGY METHOD 11/29/2024 8:37 AM [facility] LAB Platelets 301 130 - 400 K/mcL LAB HEMETOLOGY METHOD 11/29/2024 8:37 AM [facility] LAB MPV 9.4 7.0 - 11.0 FL LAB HEMETOLOGY METHOD 11/29/2024 8:37 AM [facility] LAB NRBC 0.0 <1.0 % LAB HEMETOLOGY METHOD 11/29/2024 8:37 AM [facility] LAB NRBC Absolute 0.00 <0.10 K/mcL LAB HEMETOLOGY METHOD 11/29/2024 8:37 AM [facility] Neutrophils Relative 59.5 % LAB HEMETOLOGY METHOD 11/29/2024 8:37 AM [facility] Lymphocytes Relative 24.9 % LAB HEMETOLOGY METHOD 11/29/2024 8:37 AM [facility] Monocytes Relative 11.0 % LAB HEMETOLOGY METHOD 11/29/2024 8:37 AM [facility] Eosinophils Relative 3.5 % LAB HEMETOLOGY METHOD 11/29/2024 8:37 AM [facility] Basophils Relative 0.7 % LAB HEMETOLOGY METHOD 11/29/2024 8:37 AM [facility] Immature Granulocytes Relative 0.4 % LAB HEMETOLOGY METHOD 11/29/2024 8:37 AM [facility] Neutrophils Absolute 4.54 1.50 - 7.00 K/mcL LAB HEMETOLOGY METHOD 11/29/2024 8:37 AM [facility] Lymphocytes Absolute 1.90 1.00 - 5.00 K/mcL LAB HEMETOLOGY METHOD 11/29/2024 8:37 AM [facility] Monocytes Absolute 0.84 0.20 - 1.00 K/mcL LAB HEMETOLOGY METHOD 11/29/2024 8:37 AM [facility] Eosinophils Absolute 0.27 0.00 - 0.50 K/mcL LAB HEMETOLOGY METHOD 11/29/2024 8:37 AM [facility] Basophils Absolute 0.05 0.00 - 0.20 K/mcL LAB HEMETOLOGY METHOD 11/29/2024 8:37 AM [facility] Immature Granulocytes Absolute 0.03 0.00 - 0.03 K/mcL LAB HEMETOLOGY METHOD 11/29/2024 8:37 AM [facility] Blood Venous blood specimen / Unknown Venipuncture / Unknown 11/29/2024 5:45 AM EDT 11/29/2024 8:03 AM EDT Dasha Muniz MD LAB BLOOD ORDERABLES Final Res ult [facility] [address] [place] [address], * (ABNORMAL) Comprehensive metabolic panel (11/29/2024 5:45 AM EDT) Sodium 133 133 - 145 mmol/L LAB CHEMISTRY METHOD 11/29/2024 9:24 AM [facility] Potassium 4.8 3.5 - 5.5 mmol/L LAB CHEMISTRY METHOD 11/29/2024 9:24 AM [facility] Chloride 100 96 - 110 mmol/L LAB CHEMISTRY METHOD 11/29/2024 9:24 AM [facility] CO2 29 21 - 32 mmol/L LAB CHEMISTRY METHOD 11/29/2024 9:24 AM [facility] Anion Gap 4 3 - 11 LAB CHEMISTRY METHOD 11/29/2024 9:24 AM [facility] Glucose 104(H) 70 - 100 mg/dL LAB CHEMISTRY METHOD 11/29/2024 9:24 AM [facility] BUN 9 5 - 25 mg/dL LAB CHEMISTRY METHOD 11/29/2024 9:24 AM [facility] Creatinine 0.65 0.50 - 1.10 mg/dL LAB CHEMISTRY METHOD 11/29/2024 9:24 AM [facility] eGFR 87 >=60 mL/min/1. 73m2 LAB CHEMISTRY METHOD 11/29/2024 9:24 AM [facility] Comment:Calculation based on the Chronic Kidney Disease Epidemiology Collaboration (CKD-EPI) equation refit without adjustment for race. BUN/Creatinine Ratio 13.8 LAB CHEMISTRY METHOD 11/29/2024 9:24 AM [facility] Calcium 9.5 8.5 - 10.5 mg/dL LAB CHEMISTRY METHOD 11/29/2024 9:24 AM EDT [facility] AST (SGOT) 100(H) 10 - 42 unit/L LAB CHEMISTRY METHOD 11/29/2024 9:24 AM [facility] ALT (SGPT) 49 10 - 60 unit/L LAB CHEMISTRY METHOD 11/29/2024 9:24 AM [facility] Alkaline Phosphatase 89 42 - 121 unit/L LAB CHEMISTRY METHOD 11/29/2024 9:24 AM [facility] Total Protein 7.1 6.0 - 8.0 g/dL LAB CHEMISTRY METHOD 11/29/2024 9:24 AM [facility] Albumin 3.2 3.2 - 5.0 g/dL LAB CHEMISTRY METHOD 11/29/2024 9:24 AM [facility] Total Bilirubin 0.3 0.0 - 1.4 mg/dL LAB CHEMISTRY METHOD 11/29/2024 9:24 AM [facility] Blood Venous blood specimen / Unknown Venipuncture / Unknown 11/29/2024 5:45 AM EDT 11/29/2024 8:03 AM EDT us Dasha Muniz MD LAB BLOOD ORDERABLES Final Res ult [facility] [address] [place] [address], documented in this encounter Visit Diagnoses Diagnosis Encounter for other general examination documented in this encounter Care Teams Pocket Grinder Operator Relationship Specialty Start Date End Date Jarrod Smart MD [address] [place] [address] PCP - General Internal Medicine 09/18/17 documented as of this encounter
== END 2025-07-01 09:58 | disposition home or self-care (01) ==
LOC: HO.HMCFM 09:23
PROVIDERS: PCP Physician Assistant; Visit Provider Physician Assistant
DX: E11.8 Type 2 diabetes mellitus with unspecified complications (principal); K82.8 Other specified diseases of gallbladder; R79.89 Other specified abnormal findings of blood chemistry; M54.9 Dorsalgia, unspecified; G89.29 Other chronic pain; E78.5 Hyperlipidemia, unspecified

== ENCOUNTER → 2025-07-01 09:22 | Outpatient (BNVA) | payer MEDICARE, OTHER, SELFPAY | PROVIDERS: PCP Physician Assistant; Visit Provider Physician Assistant | DX: E11.8 Type 2 diabetes mellitus with unspecified complications (principal); K82.8 Other specified diseases of gallbladder; R79.89 Other specified abnormal findings of blood chemistry; M54.9 Dorsalgia, unspecified; G89.29 Other chronic pain; E78.5 Hyperlipidemia, unspecified | CPT/HCPCS: 83036; 99212 ==